=== PATIENT | female | born 1940 | race Caucasian/White ===

== ENCOUNTER → 2016-03-30 | Outpatient (CLI) | payer OTHER ==
[~2016-03-30] MED LIST: ACET-1138 PO; ACET-1257 PO; ALPR-413 PO; ASPEC81 PO; CHOL1000 PO; CLB200 PO; CLR10 PO; CRFL PO; ESCI1SOL2 PO; HYDR12.55 PO; HYDR25TA4 PO; KFLUDL2505 PO; LOSA100T2 PO; LOSA1TAB38 PO; LOSA50TA6 PO; NTRGSL/4 UT; OMEP40CA PO; OMEP40CA41 PO; ONDA4TAB10 SL; POTA10CA28 PO; POTA20SO2 PO; POTA20TA16 PO; SIMV10TA2 PO; SNK PO; SULF800T23 PO; TYLENOL PO; ULT50X PO; ZNT150 PO
[2016-03-30 09:59] LABS: BLOOD UREA NITROGEN 19 mg/dl (7-18); BUN/CREATININE RATIO 21.9 (10-20); CALCIUM 8.9 mg/dl (8.5-10.1); CARBON DIOXIDE 30 mmol/L (21-32); CHLORIDE 106 mmol/L (98-107); CREATININE 0.85 mg/dl (0.60-1.20); GLUCOSE 95 mg/dl (70-99); POTASSIUM 3.2 mmol/L (3.5-5.1); SODIUM 144 mmol/L (136-145)
== END | disposition home or self-care (01) ==
LOC: C.LAB 08:04
PROVIDERS: ATTEND Internal Medicine Geriatric Medicine
DX: M81.0 Age-related osteoporosis without current pathological fracture (principal)

== ENCOUNTER → 2016-04-15 | Outpatient (CLI) | payer OTHER ==
[2016-04-15 10:03] LABS: BLOOD UREA NITROGEN 14 mg/dl (7-18); BUN/CREATININE RATIO 17.6 (10-20); CALCIUM 8.8 mg/dl (8.5-10.1); CARBON DIOXIDE 27 mmol/L (21-32); CHLORIDE 109 mmol/L (98-107); CREATININE 0.81 mg/dl (0.60-1.20); GLUCOSE 91 mg/dl (70-99); POTASSIUM 3.8 mmol/L (3.5-5.1); SODIUM 145 mmol/L (136-145)
== END | disposition home or self-care (01) ==
LOC: C.LAB 08:14
PROVIDERS: ATTEND Internal Medicine Geriatric Medicine
DX: E87.6 Hypokalemia (principal)

== ENCOUNTER → 2016-06-28 | Outpatient (CLI) | payer OTHER ==
[~2016-06-28] MED LIST changes: +CHOL200027 PEG; +LORA-741 PO
[2016-06-28 09:42] LABS: BASO % 0.3 %; BASO ABS # 0.01 K/uL (0-0.2); COMPLETE YES; EOS % 2.6 %; HEMATOCRIT 40.2 % (37-47); LYMPH % 33.5 %; LYMPH ABS # 1.15 K/uL (1.2-3.4); MEAN CELL VOLUME 91.4 fL (80-100); MEAN CORPUSCULAR HEMOGLOBIN 29.3 pg (25-34); MEAN CORPUSCULAR HGB CONC 32.1 g/dl (32-36); MEAN PLATELET VOLUME 11.7 fL (7.4-10.4); MONO % 11.1 %; NEUT % 52.5 %; PLATELET COUNT 181 K/uL (130-400); WHITE BLOOD COUNT 3.43 K/uL (4.8-10.8)
[2016-06-28 10:11] LABS: ALKALINE PHOSPHATASE 59 U/L (45-117); ALT/SGPT 23 U/L (12-78); AST/SGOT 21 U/L (15-37); CHOLESTEROL 151 mg/dl (0-200); HDL CHOLESTEROL 74 mg/dl; LDL CHOLESTEROL CALCULATED 58 mg/dl; TRIGLYCERIDES 95 mg/dl (0-150); VERY LOW DENSITY LIPOPROT CALC 19 mg/dl
== END | disposition home or self-care (01) ==
LOC: C.LAB 08:02
PROVIDERS: ATTEND Family Medicine
DX: E78.5 Hyperlipidemia, unspecified (principal); E55.9 Vitamin D deficiency, unspecified; E04.2 Nontoxic multinodular goiter; K21.9 Gastro-esophageal reflux disease without esophagitis; Z79.899 Other long term (current) drug therapy

== ENCOUNTER 2016-07-22 11:38 | Emergency (ER) | payer OTHER ==
[~2016-07-22] VITALS: Ht 152.4 cm; Wt 70.7 kg
[~2016-07-22 11:38] MED LIST changes: -ACET-1257 PO; -ALPR-413 PO; -CHOL1000 PO; -CHOL200027 PEG; -CLR10 PO; -CRFL PO; -ESCI1SOL2 PO; -HYDR12.55 PO; -HYDR25TA4 PO; -KFLUDL2505 PO; -LORA-741 PO; -LOSA1TAB38 PO; -LOSA50TA6 PO; -NTRGSL/4 UT; -OMEP40CA41 PO; -ONDA4TAB10 SL; -POTA10CA28 PO; -POTA20SO2 PO; -POTA20TA16 PO; -SIMV10TA2 PO; -TYLENOL PO; -ZNT150 PO
[2016-07-22 11:45] VITALS: Ht 152.4 cm; Wt 70.7 kg
[2016-07-22] MEDS ORDERED: SODIUM CHLORIDE 0.9% 1000ML 1,000 ML IV STA (12:13)
--- NOTE | 2016-07-22 12:41 | DIAGNOSTIC IMAGING REPORT ---
CHEST ONE VIEW PORTABLE CLINICAL HISTORY: Sensation of obstructed food bolus COMPARISON STUDY: 07/28/2015 FINDINGS: The heart is mildly enlarged. There is stable aortic tortuosity. There is no focal pulmonary consolidation. There is no failure. There are no pleural effusions. There is no pneumomediastinum.[ IMPRESSION: No active disease in the chest. Electronically signed by: Remberto Sinclair M.D. 07/22/2016 12:39 PM Dictated Date/Time: 07/22/2016 12:39 PM
--- NOTE | 2016-07-22 12:43 | Gastrointestinal Consultation ---
Gastrointestinal Consultation Date of Consultation: July 22, 2016 Consulting Physician: Gaurang Reason for Consultation: food bolus History of Present Illness Patient is a 76 year old female w/ history of esophageal stricture, GERD, HTN, dyslipidemia presents in the ED with reports of food stuck in her esophagus. Was doing well until dinner last night. [place] ham sandwich stick. Tried water to pass without relief. Is tolerating clears and secretions. Still feels food stuck at location of sternum. Otherwise feeling well. No complaints. No known cardiac conditions, no known respiratory conditions. No complications with anesthesia in the past. EGD: previously done - self reports strictures Past Medical/Surgical History food bolus Past Medical History: HTN, GERD, dyslipidemia Past Surgical History: EGD, colon, cataract extraction, knee replacement, hysterectomy, cholecystectomy. Family History Diabetes mellitus Gallbladder disease Heart disease Hypertension Kidney stones Social History Smoking Status: Never Smoker Marital Status: Occupation Status: retired Allergies Coded Allergies: Nitrofurantoin (Verified Allergy, Intermediate, chest pain, h/a, sore throat, diarrhea., 07/22/16) Quinolones (Verified Allergy, Mild, HAND SWELLED UP, 07/22/16) Codeine (Verified Adverse Reaction, Mild, SEVERE CONSTIPATION, 07/22/16) Current Medications Home Meds and Scripts Medications Dose Route/Sig Max Daily Dose Days Date Category Dose Instructions Senna Lax (Senna) 8.6 Mg Tab 17.2 Mg PO HS 14 08/18/15 Rx Tramadol HCl 50 Mg Tab 50-100 Mg PO Q4H PRN 08/18/15 Rx Celebrex (Celecoxib) 200 Mg Cap 200 Mg PO QD@08 30 08/18/15 Rx Aspirin EC Low Dose (Aspirin) 81 Mg Ectab 81 Mg PO BID 30 08/18/15 Rx Tylenol Extra Strength (Acetaminophen) 500 Mg Tab 1,000 Mg PO Q8 30 08/18/15 Rx Bactrim Ds 800MG/160MG (Trimethoprim/Sulfamethoxazole) Tab 1 Tab PO BID 08/17/15 Reported Vitamin D3 (Cholecalciferol) 1,000 Unit Tab 3 Tab PO QAM 07/28/15 Reported Zocor (Simvastatin) 10 Mg Tab 10 Mg PO QPM 07/28/15 Reported Hyzaar (Losartan Potassium & Hydrochlo) 1 Tab Tab 1 Tab PO QAM 07/28/15 Reported 100-25 Prilosec (Omeprazole) 40 Mg Capcr 40 Mg PO QAM 07/28/15 Reported Review of Systems Constitutional: No chills, No fever Respiratory: No cough, No shortness of breath Cardiac: No chest pain Abdomen: + problem reported (sensation of food stuck in esophagus), No GI bleeding, No constipation, No diarrhea, No nausea, No pain, No vomiting Physical Exam Date Time Temp Pulse Resp B/P Pulse Ox O2 Delivery O2 Flow Rate FiO2 07/22/16 12:06 97 Room Air 07/22/16 11:45 36.8 78 20 143/89 98 Room Air General Appearance: no apparent distress Eyes: PERRL ENT: hearing grossly normal Neck: supple Respiratory/Chest: lungs clear, normal breath sounds Cardiovascular: regular rate, rhythm Abdomen: normal bowel sounds, non tender, soft, no organomegaly, no pulsatile mass Neurologic/Psych: alert, normal mood/affect, oriented x 3 Skin: normal color Laboratory Results Last 24 Hours Test 07/22/16 12:30 Impression Patient is a 76 year old female with a suspected food bolus Plan NPO EGD I saw and evaluated the patient. She presented with food impaction from last evening, still with a sensation of a bolus impaction. PE: NAD no abdominal tenderness Plan EGD for food bolus disimpaction
[2016-07-22 12:56] LABS: BUN/CREATININE RATIO 14.3 (10-20); CALCIUM 9.3 mg/dl (8.5-10.1); CREATININE 0.8 mg/dl (0.60-1.20); POTASSIUM 3.4 mmol/L (3.5-5.1)
[2016-07-22 13:02] LABS: BASO % 0.2 %; BASO ABS # 0.01 K/uL (0-0.2); COMPLETE YES; EOS % 0.4 %; HEMATOCRIT 41.2 % (37-47); IG% 0.2 %; LYMPH % 23.1 %; LYMPH ABS # 1.19 K/uL (1.2-3.4); MEAN CELL VOLUME 92.4 fL (80-100); MEAN CORPUSCULAR HEMOGLOBIN 29.8 pg (25-34); MEAN CORPUSCULAR HGB CONC 32.3 g/dl (32-36); MEAN PLATELET VOLUME 11.6 fL (7.4-10.4); MONO % 10.5 %; NEUT % 65.6 %; PLATELET COUNT 202 K/uL (130-400); RED BLOOD COUNT 4.46 M/uL (4.2-5.4); WHITE BLOOD COUNT 5.16 K/uL (4.8-10.8)
[2016-07-22 13:08] VITALS: O2SAT 96
--- NOTE | 2016-07-22 14:06 | Discharge Instructions ---
Endoscopy Patient Instructions Date / Procedure(s) Performed July 22, 2016. EGD Allergy Information Coded Allergies: Nitrofurantoin (Verified Allergy, Intermediate, chest pain, h/a, sore throat, diarrhea., 07/22/16) Quinolones (Verified Allergy, Mild, HAND SWELLED UP, 07/22/16) Codeine (Verified Adverse Reaction, Mild, SEVERE CONSTIPATION, 07/22/16) Discharge Date / Findings July 22, 2016. Food impaction, hiatal hernia Medication Instructions Restart Stopped Medication(s): Reported Home Medications Medications Dose Route/Sig Max Daily Dose Days Date Category Hydrochlorothiazide 12.5 Mg Tab 1 Tab PO DAILY 07/22/16 Reported Cozaar (Losartan Potassium) 50 Mg Tab 50 Mg PO DAILY 07/22/16 Reported Prilosec (Omeprazole) 40 Mg Cap 40 Mg PO DAILY 07/22/16 Reported Tylenol Extra Strength (Acetaminophen) 500 Mg Tab 1,000 Mg PO Q8 30 08/18/15 Rx Vitamin D3 (Cholecalciferol) 1,000 Unit Tab 3 Tab PO QAM 07/28/15 Reported Zocor (Simvastatin) 10 Mg Tab 10 Mg PO QPM 07/28/15 Reported Provider Instructions Activity Restrictions - No exercising or heavy lifting for 24 hours. - Do not drink alcohol the day of the procedure. - Do not drive a car or operate machinery until the day after the procedure. - Do not make any important decisions or sign important papers in 24 hours after the procedure. Following Day: - Return to full activity which may include returning to work/school. Diet Liquid diet today Soft diet for 1 week Treatment For Common After Affects For mild abdominal pain, bloating, or excessive gas: - Rest - Eat lightly - Lie on right side Follow-Up Information Repeat upper endoscopy in 2 to 4 weeks Omeprazole 40 mg per day Anesthesia Information What You Should Know You have had a procedure that required some medicine to reduce anxiety and discomfort. This treatment is called moderate sedation. After receiving the treatment, you may be sleepy, but you will be able to breathe on your own. The effects of the treatment may last for several hours. Follow these instructions along with Activity/Diet recommendations noted above: * Do NOT do anything where dizziness or clumsiness would be dangerous. * Rest quietly at home today, then you can be up and about tomorrow. * Have a responsible person stay with you the rest of today. * You may have had an I.V. today. If so, you may take the dressing off later today. Recommendations Call your doctor if: * Trouble breathing * Continuous vomiting for more than 24 hours * Temperature above 101 degrees * Severe abdominal pain or bloating * Pain not relieved by pain medicine ordered * There is increased drainage or redness from any incision * A large amount of rectal bleeding greater than 2-3 tablespoons. (If you had a polyp/s removed or have hemorrhoids, a small amount of blood - from the rectum is to be expected.) * You have any unanswered questions or concerns. IN THE EVENT OF A SERIOUS EMERGENCY, GO TO THE NEAREST EMERGENCY ROOM Your discharge instructions were prepared by provider Minna Merlos. Patient Instructions Signature Page Nichelle Lujan Patient (or Guardian) Signature/Date: I have read and understand the instructions given to me by my caregivers. Caregiver/RN/Doctor Signature/Date: The above-named patient and/or guardian has received patient instructions on this date. + Original Patient Signature Page (only) stays with chart. Please make copy for patient.
--- NOTE | 2016-07-22 14:20 | [facility] Post Operative Brief Note ---
Immediate Operative Summary Operative Date July 22, 2016. Pre-Operative Diagnosis FOOD IMPACTION Post-Operative Diagnosis FOOD IMPACTION / hiatal hernia Procedure(s) Performed Esophagogastroduodenoscopy Surgeon Dr. Minna Merlos Customer Support Executive Surgeon(s) none Estimated Blood Loss 0ml Findings 4 cm hiatal hernia (bolus had passed) Anesthesia General Complication(s) None Disposition Recovery Room / PACU
--- NOTE | 2016-07-22 14:25 | GI REPORT ---
Procedure Date: 07/22/2016 2:07 PM Procedure: Upper GI endoscopy Indications: Foreign body in the esophagus Medicines: General Anesthesia Complications: No immediate complications. Estimated blood loss: Minimal. Estimated Blood Loss: Estimated blood loss was minimal. Procedure: Pre-Anesthesia Assessment: - Prior to the procedure, a History and Physical was performed, and patient medications, allergies and sensitivities were reviewed. The patient's tolerance of previous anesthesia was reviewed. - The risks and benefits of the procedure and the sedation options and risks were discussed with the patient. All questions were answered and informed consent was obtained. - Patient identification and proposed procedure were verified prior to the procedure by the physician, the nurse and the pump servicer. The procedure was verified in the procedure room. - Pre-procedure physical examination revealed no contraindications to sedation. - ASA Grade Assessment: III - A patient with severe systemic disease. - After reviewing the risks and benefits, the patient was deemed in satisfactory condition to undergo the procedure. - The anesthesia plan was to use general anesthesia. - Immediately prior to administration of medications, the patient was re-assessed for adequacy to receive sedatives. - The heart rate, respiratory rate, oxygen saturations, blood pressure, adequacy of pulmonary ventilation, and response to care were monitored throughout the procedure. - The physical status of the patient was re-assessed after the procedure. After obtaining informed consent, the endoscope was passed under direct vision. Throughout the procedure, the patient's blood pressure, pulse, and oxygen saturations were monitored continuously. The scope was introduced through the mouth, and advanced to the second part of duodenum. The upper GI endoscopy was accomplished without difficulty. The patient tolerated the procedure well. Findings: The upper third of the esophagus and middle third of the esophagus were normal. A medium-sized hiatus hernia was found. The proximal extent of the gastric folds (end of tubular esophagus) was 35 cm from the incisors. The hiatal narrowing was 39 cm from the incisors. The Z-line was 35 cm from the incisors. The entire examined stomach was normal. The examined duodenum was normal. Impression: - 4 cm hiatus hernia. - Normal stomach. - Normal examined duodenum. Recommendation: - Discharge patient to home (ambulatory). - Full liquid diet today. - Repeat the upper endoscopy in 2 weeks. - Use Prilosec (omeprazole) 40 mg PO daily. Minna Merlos D.O. Minna Merlos DO 07/22/2016 2:24:44 PM This report has been signed electronically. Note Initiated On: 07/22/2016 2:07 PM I attest to the content of the Intraoperative Record and orders documented therein, exceptions below
[2016-07-22] MEDS ORDERED: ONDANSETRON INJ 2 MG/ML 2 ML VIAL IV PRN ×2 (14:30→14:45)
[2016-07-22] MEDS ORDERED: LACTATED RINGER'S 1000ML 1,000 ML IV PRN (14:32)
[2016-07-22] MEDS ORDERED: PROPOFOL IV EMULSION 10 MG/ML 20 ML VIAL IV ONE (14:43)
[2016-07-22] MEDS ORDERED: ROCURONIUM BROMIDE 10 MG/ML 5 ML VIAL ONE (14:43)
[2016-07-22] MEDS ORDERED: SUCCINYLCHOLINE CHLORIDE 20 MG/ML 10 ML VIAL IV ONE (14:43)
[2016-07-22] MEDS ORDERED: ONDANSETRON INJ 2 MG/ML 2 ML VIAL ONE (14:43)
[2016-07-22] MEDS ORDERED: LIDOCAINE HCL 2% 2 ML VIAL (20MG/ML) ONE (14:43)
[2016-07-22] MEDS ORDERED: FENTANYL CITRATE INJ 50 MCG/1 ML 2 ML VIAL IV PRN (14:45)
--- NOTE | 2016-07-22 14:51 | Anesthesiology Progress Note ---
Anesthesia Post Op Note Date & Time July 22, 2016 at 14:51 Vital Signs Pain Intensity: 0 Vital Signs Past 12 Hours Date Time Temp Pulse Resp B/P Pulse Ox O2 Delivery O2 Flow Rate FiO2 07/22/16 14:40 72 26 141/98 100 Mask 10 07/22/16 14:31 36. 78 20 149/96 100 Mask 10 07/22/16 13:08 71 16 96 07/22/16 13:00 135/84 07/22/16 12:49 74 07/22/16 12:41 143/88 07/22/16 12:06 97 Room Air 07/22/16 11:45 36.8 78 20 143/89 98 Room Air Notes Mental Status: alert / awake / arousable, participated in evaluation Pt Amnestic to Procedure: Yes Nausea / Vomiting: adequately controlled Pain: adequately controlled Airway Patency, RR, SpO2: stable & adequate BP & HR: stable & adequate Hydration State: stable & adequate Anesthetic Complications: no major complications apparent Pt doing very well.
[2016-07-22 15:18] VITALS: BP 138/77; PULSE 68; TEMP 36.8; O2SAT 94
[2016-07-22 15:55] VITALS: BP 135/86; PULSE 66; TEMP 36.7; O2SAT 94
[2016-07-22 16:15] VITALS: BP 150/98; PULSE 69; TEMP 36.8; O2SAT 96
--- NOTE | 2016-07-22 17:50 | EMERGENCY ROOM VISIT NOTE ---
History Report prepared by Shawn: Paz Osorio Under the Supervision of: Dr. Julio C Ramsay M.D. First contact with patient: 12:05 Chief Complaint: FOOD BOLUS Stated Complaint: FOOD STUCK IN THROAT Nursing Triage Summary: Thinks there is something in her throat since yesterday afternoon. Reports previous history of 3 food bolus which she's been seen in the ED for, but not for past 5 years. Ate toast this morning without difficulty, but afraid to eat. History of Present Illness The patient is a 76 year old female who presents to the Emergency Room with complaints of possible food bolus. The patient had some pieces of ham yesterday afternoon. There were no bones in the ham. Since then, she feels as though something is stuck low in her throat. She has been able to drink liquids without issues. She had a toast this morning about 4 and a half hours ago without any difficulties. She currently denies any pain. She has a history of severe food bolus occurring several years ago. She had mild episodes of food bolus occurring several times over the past few years. Pt denies LOC, headache, fevers, chills, diaphoresis, visual changes, issues with voice or speaking, neck pain, chest pain, breathing difficulties, nausea, vomiting, abdominal pain, back pain, melena, hematochezia, urinary symptoms, numbness, weakness, lymphadenopathy, rash, or other complaints. Source of History: patient Onset: yesterday afternoon Position: throat Symptom Intensity: No pain Quality: other (possible food bolus) Review of Systems See HPI for pertinent positives and negatives. A total of ten systems were reviewed and were otherwise negative. Past Medical & Surgical Medical Problems: (1) Acid reflux (2) Obstruction of esophagus due to food impaction (3) Urinary frequency Surgical Problems: (1) Post-operative state Family History Diabetes mellitus Gallbladder disease Heart disease Hypertension Kidney stones Social History Smoking Status: Never Smoker Marital Status: Housing Status: lives with significant other Occupation Status: retired Current/Historical Medications Scheduled Acetaminophen (Tylenol Extra Strength), 1,000 MG PO Q8 Cholecalciferol (Vitamin D3), 3 TAB PO QAM Hydrochlorothiazide (Hydrochlorothiazide), 1 TAB PO DAILY Losartan Potassium (Cozaar), 50 MG PO DAILY Omeprazole (Prilosec), 40 MG PO DAILY Simvastatin (Zocor), 10 MG PO QPM Allergies Coded Allergies: Nitrofurantoin (Verified Allergy, Intermediate, chest pain, h/a, sore throat, diarrhea., 07/22/16) Quinolones (Verified Allergy, Mild, HAND SWELLED UP, 07/22/16) Codeine (Verified Adverse Reaction, Mild, SEVERE CONSTIPATION, 07/22/16) Physical Exam Vital Signs Date Time Temp Pulse Resp B/P Pulse Ox O2 Delivery O2 Flow Rate FiO2 07/22/16 16:15 36.8 69 16 150/98 96 Room Air 07/22/16 15:55 36.7 66 16 135/86 94 Room Air 07/22/16 15:18 36.8 68 16 138/77 94 Room Air 07/22/16 15:10 36.4 66 20 142/89 97 Room Air 07/22/16 15:00 72 20 131/93 96 Room Air 07/22/16 14:50 73 20 146/91 100 Mask 10 07/22/16 14:40 72 16 141/98 100 Mask 10 07/22/16 14:31 36. 78 20 149/96 100 Mask 10 07/22/16 13:08 71 16 96 07/22/16 13:00 135/84 07/22/16 12:49 74 07/22/16 12:41 143/88 07/22/16 12:06 97 Room Air 07/22/16 11:45 36.8 78 20 143/89 98 Room Air Physical Exam GENERAL: Awake, alert, well-appearing, in no distress HENT: Normocephalic, atraumatic. Oropharynx unremarkable. EYES: Normal conjunctiva. Sclera non-icteric. NECK: Supple. No nuchal rigidity. FROM. No JVD. RESPIRATORY: Clear to auscultation. CARDIAC: Regular rate, normal rhythm. Extremities warm and well perfused. Pulses equal. ABDOMEN: Soft, non-distended. No tenderness to palpation. No rebound or guarding. No masses. RECTAL: Deferred. MUSCULOSKELETAL: Chest examination reveals no tenderness. The back is symmetrical on inspection without obvious abnormality. There is no CVA tenderness to palpation. No joint edema. LOWER EXTREMITIES: Calves are equal size bilaterally and non-tender. No edema. No discoloration. NEURO: Normal sensorium. No sensory or motor deficits noted. SKIN: No rash or jaundice noted. Medical Decision & Procedures ER Provider Diagnostic Interpretation: X-ray: Per my interpretation, radiologist review. CHEST ONE VIEW PORTABLE CLINICAL HISTORY: Sensation of obstructed food bolus COMPARISON STUDY: 07/28/2015 FINDINGS: The heart is mildly enlarged. There is stable aortic tortuosity. There is no focal pulmonary consolidation. There is no failure. There are no pleural effusions. There is no pneumomediastinum.[ IMPRESSION: No active disease in the chest. Electronically signed by: Remberto Sinclair M.D. 07/22/2016 12:39 PM Dictated Date/Time: 07/22/2016 12:39 PM Laboratory Results 07/22/16 12:30 Red Blood Count 4.46, Mean Corpuscular Volume 92.4, Mean Corpuscular Hemoglobin 29.8, Mean Corpuscular Hemoglobin Concent 32.3, Mean Platelet Volume 11.6, Neutrophils (%) (Auto) 65.6, Lymphocytes (%) (Auto) 23.1, Monocytes (%) (Auto) 10.5, Eosinophils (%) (Auto) 0.4, Basophils (%) (Auto) 0.2, Neutrophils # (Auto ) 3.39, Lymphocytes # (Auto) 1.19, Monocytes # (Auto) 0.54, Eosinophils # (Auto ) 0.02, Basophils # (Auto) 0.01 07/22/16 12:30 Test 07/22/16 12:30 White Blood Count 5.16 K/uL (4.8-10.8) Red Blood Count 4.46 M/uL (4.2-5.4) Hemoglobin 13.3 g/dL (12.0-16.0) Hematocrit 41.2 % (37-47) Mean Corpuscular Volume 92.4 fL (80-100) Mean Corpuscular Hemoglobin 29.8 pg (25-34) Mean Corpuscular Hemoglobin Concent 32.3 g/dl (32-36) Platelet Count 202 K/uL (130-400) Mean Platelet Volume 11.6 fL (7.4-10.4) Neutrophils (%) (Auto) 65.6 % Lymphocytes (%) (Auto) 23.1 % Monocytes (%) (Auto) 10.5 % Eosinophils (%) (Auto) 0.4 % Basophils (%) (Auto) 0.2 % Neutrophils # (Auto) 3.39 K/uL (1.4-6.5) Lymphocytes # (Auto) 1.19 K/uL (1.2-3.4) Monocytes # (Auto) 0.54 K/uL (0.11-0.59) Eosinophils # (Auto) 0.02 K/uL (0-0.5) Basophils # (Auto) 0.01 K/uL (0-0.2) RDW Standard Deviation 46.7 fL (36.4-46.3) RDW Coefficient of Variation 13.8 % (11.5-14.5) Immature Granulocyte % (Auto) 0.2 % Immature Granulocyte # (Auto) 0.01 K/uL (0.00-0.02) Anion Gap 4.0 mmol/L (3-11) Est Creatinine Clear Calc Drug Dose 52.5 ml/min Estimated GFR () 83.0 Estimated GFR (Non- 71.6 BUN/Creatinine Ratio 14.3 (10-20) Calcium Level 9.3 mg/dl (8.5-10.1) Total Bilirubin 0.6 mg/dl (0.2-1) Direct Bilirubin 0.2 mg/dl (0-0.2) Aspartate Amino Transf (AST/SGOT) 21 U/L (15-37) Alanine Aminotransferase (ALT/SGPT) 25 U/L (12-78) Alkaline Phosphatase 63 U/L (45-117) Total Protein 7.7 gm/dl (6.4-8.2) Albumin 3.9 gm/dl (3.4-5.0) Lipase 97 U/L (73-393) Laboratory results reviewed by me Medications Administered Medications (Trade) Dose Ordered Sig/Deirdre Route Start Time Stop Time Status Last Admin Dose Admin Sodium Chloride (Nss 1000ml) 1,000 ml @ 125 mls/hr Q8H STAT IV 07/22/16 12:13 07/22/16 17:34 DC 07/22/16 12:42 125 MLS/HR ED Course 1205: The patient was evaluated in room B04B. A complete history and physical exam was performed. 1213: Sodium Chloride 1000 ml @ 125 mls/hr IV 1223: I discussed the patient's case with Linda Hurley gastroenterology PA-C. She will evaluate the patient in the Emergency Room. 1410: Upon reexamination, the patient was resting comfortably. I discussed the test results and treatment plan with her. The patient will be evaluated for further management. Medical Decision Triage Nursing notes reviewed. The patient's presentation and history were concerning for difficulty swallowing and a prior history of esophageal food impaction. Etiologies such as esophageal food impaction, esophageal stricture, esophageal rupture, hiatal hernia, reflux, as well as others were entertained. Chest x-ray and laboratory testing was unremarkable. Consultation was made to gastroenterology. The patient was evaluated in the emergency department. They felt that endoscopy was necessary. The patient was taken to the OR suite for further management by GI. The chart was completed utilizing [employer] Speech voice recognition software. Grammatical errors, random word insertions, pronoun errors, and incomplete sentences are an occasional consequence of this system due to software limitations, ambient noise, and hardware issues. Any formal questions or concerns about the content, text, or information contained within the body of this dictation should be directly addressed to the physician for clarification. Consults Time Called: 1220 Consulting Physician: dorian Keene PA-C Returned Call: 1223 I discussed the patient's case with dorian Keene. She will evaluate the patient in the Emergency Room. Impression Primary Impression: Food impaction of esophagus Scribe Attestation The scribe's documentation has been prepared under my direction and personally reviewed by me in its entirety. I confirm that the note above accurately reflects all work, treatment, procedures, and medical decision making performed by me. Departure Information Dispostion Being Evaluated By Surgeon Curtis Hampton M.D. (PCP) Patient Instructions My [facility]
[2016-07-31] MEDS ORDERED: LOSA50TA6 PO (13:17)
[2016-07-31] MEDS ORDERED: HYDR12.55 PO (13:17)
[2016-07-31] MEDS ORDERED: SIMV10TA2 PO (14:04)
[2016-08-16] MEDS ORDERED: LOSA1TAB38 PO (13:21)
[2016-08-16] MEDS ORDERED: POTA20TA16 PO (13:21)
[2016-09-04] MEDS ORDERED: OMEP40CA41 PO (13:17)
[2016-09-04] MEDS ORDERED: SIMV10TA2 PO (13:21)
[2016-09-04] MEDS ORDERED: HYDR25TA4 PO (13:21)
[2016-09-04] MEDS ORDERED: CHOL1000 PO (14:04)
[2016-09-04] MEDS ORDERED: KFLUDL2505 PO (16:03)
[2016-10-05] MEDS ORDERED: ESCI1SOL2 PO (12:17)
== END 2016-07-22 16:22 | disposition home or self-care (01) ==
LOC: C.EDB 11:39
DX: T18.128A Food in esophagus causing other injury, initial encounter (principal); X58.XXXA Exposure to other specified factors, initial encounter; K44.9 Diaphragmatic hernia without obstruction or gangrene; K21.9 Gastro-esophageal reflux disease without esophagitis; Z79.899 Other long term (current) drug therapy; Z88.5 Allergy status to narcotic agent; Z88.8 Allergy status to other drugs, medicaments and biological substances; Z83.3 Family history of diabetes mellitus; Z83.79 Family history of other diseases of the digestive system; Z82.49 Family history of ischemic heart disease and other diseases of the circulatory system; Z84.1 Family history of disorders of kidney and ureter

== ENCOUNTER 2016-07-31 22:38 | Emergency (ER) | payer OTHER ==
[~2016-07-31] VITALS: Ht 152.4 cm; Wt 68.5 kg
[~2016-07-31 22:38] MED LIST changes: -ASPEC81 PO; -CLB200 PO; +HYDR12.55 PO; -LOSA100T2 PO; +LOSA50TA6 PO; -OMEP40CA PO; +SIMV10TA2 PO; -SNK PO; -SULF800T23 PO; -ULT50X PO
[2016-07-31 22:41] VITALS: BP 170/79; PULSE 77; TEMP 36.5; O2SAT 98; Ht 152.4 cm; Wt 68.5 kg
[2016-07-31] MEDS ORDERED: DiphenhydrAMINE HCL 50 MG/ML VIAL IM STA (23:00)
[2016-07-31] MEDS ORDERED: ACET-1257 PO (23:01)
--- NOTE | 2016-07-31 23:02 | EMERGENCY ROOM VISIT NOTE ---
History Report prepared by Shawn: Moses Calero Under the Supervision of: Dr. Michael Mendoza D.O. First contact with patient: 22:51 Chief Complaint: OTHER COMPLAINT Stated Complaint: ALLERGIC REACTION TO BACTRIM History of Present Illness The patient is a 76 year old female who presents to the Emergency Room with complaints of a possible allergic reaction that occurred shortly prior to arrival. The patient is currently complaining of a constant swollen throat and a "funny feeling" in her tongue. The patient notes that she took Bactrim today, and does not think that she drank enough water with it. The patient has a history of a food bolus and has an appointment to get her throat stretched. The patient takes Losartan daily for hypertension. 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 A total of ten systems were reviewed and were otherwise negative. Past Medical & Surgical Medical Problems: (1) Acid reflux (2) Obstruction of esophagus due to food impaction (3) Urinary frequency Surgical Problems: (1) Post-operative state Family History Diabetes mellitus Gallbladder disease Heart disease Hypertension Kidney stones Social History Smoking Status: Never Smoker Marital Status: Housing Status: lives with significant other Occupation Status: retired Current/Historical Medications Scheduled Cholecalciferol (Vitamin D3), 3,000 INTER.UNIT PO QAM Hydrochlorothiazide (Hydrochlorothiazide), 12.5 MG PO DAILY Losartan Potassium (Cozaar), 50 MG PO DAILY Omeprazole (Prilosec), 40 MG PO DAILY Simvastatin (Zocor), 10 MG PO QPM Scheduled PRN Acetaminophen (Tylenol Extra Strength), 1,000 MG PO Q8H PRN for Pain Allergies Coded Allergies: Nitrofurantoin (Verified Allergy, Intermediate, chest pain, h/a, sore throat, diarrhea., 07/22/16) Quinolones (Verified Allergy, Mild, HAND SWELLED UP, 07/22/16) Codeine (Verified Adverse Reaction, Mild, SEVERE CONSTIPATION, 07/22/16) Physical Exam Vital Signs Date Time Temp Pulse Resp B/P Pulse Ox O2 Delivery O2 Flow Rate FiO2 07/31/16 22:41 36.5 77 18 170/79 98 Room Air Physical Exam GENERAL: Awake, alert, well-appearing, in no distress HENT: Normocephalic, atraumatic. Oropharynx unremarkable. EYES: Normal conjunctiva. Sclera non-icteric. NECK: Supple. No nuchal rigidity. FROM. No JVD. RESPIRATORY: Clear to auscultation. CARDIAC: Regular rate, normal rhythm. Extremities warm and well perfused. Pulses equal. ABDOMEN: Soft, non-distended. No tenderness to palpation. No rebound or guarding. No masses. RECTAL: Deferred. MUSCULOSKELETAL: Chest examination reveals no tenderness. The back is symmetrical on inspection without obvious abnormality. There is no CVA tenderness to palpation. No joint edema. LOWER EXTREMITIES: Calves are equal size bilaterally and non-tender. No edema. No discoloration. NEURO: Normal sensorium. No sensory or motor deficits noted. SKIN: No rash or jaundice noted. Medical Decision & Procedures Medications Administered Medications (Trade) Dose Ordered Sig/Deirdre Route Start Time Stop Time Status Last Admin Dose Admin Diphenhydramine HCl (Benadryl Inj) 25 mg NOW STAT IM 07/31/16 23:00 07/31/16 23:01 DC 07/31/16 23:05 25 MG ED Course 2252: The patient was evaluated in room A11. A complete history and physical exam was performed. 2300: Ordered Benadryl 25 mg IM. 2306: I reevaluated the patient. Discussed results and discharge instructions: she verbalized understanding and agreement. The patient is ready for discharge. Medical Decision Differential Diagnosis includes: Allergic reaction, anxiety, angioedema. There is no evidence of angioedema she is swallowing and phonating without any difficulty in no distress. Patient was advised to be careful with her losartan as well as Bactrim and to return for any other symptoms. Impression Primary Impression: Allergic reaction Scribe Attestation The scribe's documentation has been prepared under my direction and personally reviewed by me in its entirety. I confirm that the note above accurately reflects all work, treatment, procedures, and medical decision making performed by me. Departure Information Dispostion Home / Self-Care Referrals Curtis Varela M.D. (PCP) Patient Instructions ED Allergic Reaction General Other, My [facility] Problem Qualifiers Primary Impression: Allergic reaction Encounter type: initial encounter Qualified Codes: T78.40XA - Allergy, unspecified, initial encounter
[2016-08-16] MEDS ORDERED: LOSA1TAB38 PO (13:21)
[2016-08-16] MEDS ORDERED: POTA20TA16 PO (13:21)
[2016-09-04] MEDS ORDERED: OMEP40CA41 PO (13:17)
[2016-09-04] MEDS ORDERED: SIMV10TA2 PO (13:21)
[2016-09-04] MEDS ORDERED: HYDR25TA4 PO (13:21)
[2016-09-04] MEDS ORDERED: CHOL1000 PO (14:04)
[2016-09-04] MEDS ORDERED: KFLUDL2505 PO (16:03)
[2016-10-05] MEDS ORDERED: ESCI1SOL2 PO (12:17)
== END 2016-07-31 23:09 | disposition home or self-care (01) ==
LOC: C.EDB 22:40 → C.EDA 23:09
DX: T78.40XA Allergy, unspecified, initial encounter (principal); I10 Essential (primary) hypertension; K21.9 Gastro-esophageal reflux disease without esophagitis; Z79.899 Other long term (current) drug therapy; Z87.448 Personal history of other diseases of urinary system; Z87.898 Personal history of other specified conditions; Z82.49 Family history of ischemic heart disease and other diseases of the circulatory system; Z83.3 Family history of diabetes mellitus; Z83.79 Family history of other diseases of the digestive system; Z84.1 Family history of disorders of kidney and ureter; X58.XXXA Exposure to other specified factors, initial encounter

== ENCOUNTER 2016-08-02 22:45 | Observation (INO) | payer OTHER ==
[~2016-08-02] VITALS: Ht 152.4 cm; Wt 67.7 kg
[~2016-08-02 22:45] MED LIST changes: -ACET-1138 PO; +ACET-1257 PO
[2016-08-02] MEDS ORDERED: POTA10CA28 PO (23:19)
[2016-08-03 01:06] LABS: BASO % 0.2 %; BASO ABS # 0.01 K/uL (0-0.2); COMPLETE YES; EOS % 0.8 %; HEMATOCRIT 38.6 % (37-47); IG% 0.2 %; LYMPH % 23.9 %; LYMPH ABS # 1.25 K/uL (1.2-3.4); MEAN CELL VOLUME 89.4 fL (80-100); MEAN CORPUSCULAR HEMOGLOBIN 30.6 pg (25-34); MEAN CORPUSCULAR HGB CONC 34.2 g/dl (32-36); MEAN PLATELET VOLUME 10.7 fL (7.4-10.4); MONO % 9.8 %; NEUT % 65.1 %; PLATELET COUNT 186 K/uL (130-400); RED BLOOD COUNT 4.32 M/uL (4.2-5.4); WHITE BLOOD COUNT 5.23 K/uL (4.8-10.8)
[2016-08-03 01:24] LABS: BUN/CREATININE RATIO 6.7 (10-20); CALCIUM 8.8 mg/dl (8.5-10.1); CREATININE 0.89 mg/dl (0.60-1.20); POTASSIUM 3.3 mmol/L (3.5-5.1)
[2016-08-03 01:35] LABS: ALB/GLOB RATIO 1.2 (0.9-2); THYROID STIMULATING HORMONE 1.96 uIu/ml (0.300-4.500)
[2016-08-03 01:36] LABS: URINE APPEARANCE CLEAR (CLEAR); URINE BILIRUBIN NEG (NEG); URINE COLOR YELLOW; URINE NITRITE NEG (NEG); URINE PH 6.5 (4.5-7.5); URINE SPECIFIC GRAVITY 1.006 (1.000-1.030); UROBILINOGEN NEG (NEG); ZZUR CULT IF INDIC CLEAN CATCH NO
[2016-08-03] MEDS ORDERED: NYSTATIN SUSP 500,000 U/5 ML UDC PO STA (01:41)
[2016-08-03 01:45] LABS: MANUAL MICROSCOPIC REQUIRED? NO; REVIEW REQ? NO
[2016-08-03 01:51] LABS: ACETAMINOPHEN < 2 ug/ml (10-30)
[2016-08-03 01:52] LABS: BENZODIAZEPINE, URINE NEG (NEG); COCAINE,URINE NEG (NEG); PHENCYCLIDINE, URINE NEG (NEG)
[2016-08-03] MEDS ORDERED: ALUMINUM/MAGNESIUM/SIMETH (MAALOX MAX) 30 ML UDC PO PRN (02:45)
[2016-08-03] MEDS ORDERED: ONDANSETRON INJ 2 MG/ML 2 ML VIAL IV PRN (02:45)
[2016-08-03] MEDS ORDERED: ACETAMINOPHEN 500 MG TAB PO PRN (02:45)
[2016-08-03] MEDS ORDERED: MAGIC SWIZZLE PO PRN (03:00)
--- NOTE | 2016-08-03 03:02 | History and Physical ---
History & Physical Date & Time of Service: August 03, 2016 at 02:50 Chief Complaint: Throat Pain Primary Care Physician: Curtis Varela M.D. History of Present Illness Source: patient This is a 76 yo f that is presenting to us with a globus sensation and choking with food which has been ongoing since july 2101/2017. She states that she has had a progressive worsening of " a feeling of having food stuck." since the . She came to the ED with the hope that " someone can finally do something about it." She has been scared to take any of her regular medications because she has been choking on them; " I am frightened and I just want some help". When she was told an outpatient follow up with GI would be arranged she got very upset and stated to Dr Bell that she was going to go home and take all of her pills and kill herself. Since there was concern for suicidal threats she was moved to one of the isolated rooms and placed on one to one. During our interview she stated, " i know I should not have said that but you have to understand I just need help." She denies any Si or HI at this time. She has no history of depression or anxiety. Past Medical/Surgical History Medical Problems: (1) Acid reflux Status: Chronic (2) Obstruction of esophagus due to food impaction Status: Resolved (3) Urinary frequency Status: Chronic Surgical Problems: (1) Post-operative state Status: Resolved Family History Diabetes mellitus Gallbladder disease Heart disease Hypertension Kidney stones Social History Smoking Status: Never Smoker Smokeless Tobacco Use: No Alcohol Use: none Drug Use: none Marital Status: Housing status: lives with family Occupational Status: retired Immunizations History of Influenza Vaccine: Unknown History of Tetanus Vaccine?: Unknown History of Pneumococcal: Unknown History of Hepatitis B Vaccine: Unknown Multi-Drug Resistant Organisms History of MDRO: No Allergies Coded Allergies: Nitrofurantoin (Verified Allergy, Intermediate, chest pain, h/a, sore throat, diarrhea., 08/02/16) Quinolones (Verified Allergy, Mild, HAND SWELLED UP, 08/02/16) Codeine (Verified Adverse Reaction, Mild, SEVERE CONSTIPATION, 08/02/16) Home Medications Scheduled Cholecalciferol (Vitamin D3), 3,000 INTER.UNIT PO QAM Hydrochlorothiazide (Hydrochlorothiazide), 12.5 MG PO DAILY Losartan Potassium (Cozaar), 50 MG PO DAILY Omeprazole (Prilosec), 40 MG PO DAILY Potassium Chloride (Micro-K Ext Rel), Unknown Dose PO DAILY Simvastatin (Zocor), 10 MG PO QPM Scheduled PRN Acetaminophen (Tylenol Extra Strength), 1,000 MG PO Q8H PRN for Pain Review of Systems Constitutional: No fever Eyes: No worsening of vision ENT: No hearing loss Respiratory: No cough, No dyspnea at rest, No dyspnea on exertion, No shortness of breath, No sputum, No wheezing Cardiovascular: No chest pain Abdomen: + problem reported (as above), No constipation, No diarrhea, No nausea , No pain, No vomiting Genitourinary - Female: No dysuria, No hematuria Neurologic: No balance problems, No numbness/tingling, No weakness Psychiatric: No depression symptoms Endocrine: No fatigue Integumentary: No rash Physical Exam Vital Signs Date Time Temp Pulse Resp B/P Pulse Ox O2 Delivery O2 Flow Rate FiO2 08/03/16 01:30 78 20 128/86 97 Room Air 08/02/16 23:03 Room Air 97 08/02/16 22:51 36.4 74 20 145/96 96 Room Air General Appearance: no apparent distress Head: normocephalic, atraumatic Eyes: normal inspection ENT: normal ENT inspection, + pertinent finding (thyroid is not palpable) Neck: supple Respiratory/Chest: normal breath sounds, no respiratory distress, no accessory muscle use Cardiovascular: regular rate, rhythm, no murmur Abdomen/GI: normal bowel sounds, non tender, soft Back: normal inspection Extremities/Musculoskelatal: normal inspection, no calf tenderness, no pedal edema Neurologic/Psych: no motor/sensory deficits, alert, normal mood/affect, oriented x 3 Skin: normal color, warm/dry, no rash Lymphatic: no adenopathy Diagnostics Laboratory Results Results Past 24 Hours Test 08/03/16 00:53 08/03/16 01:15 Range/Units White Blood Count 5.23 4.8-10.8 K/uL Red Blood Count 4.32 4.2-5.4 M/uL Hemoglobin 13.2 12.0-16.0 g/dL Hematocrit 38.6 37-47 % Mean Corpuscular Volume 89.4 80-100 fL Mean Corpuscular Hemoglobin 30.6 25-34 pg Mean Corpuscular Hemoglobin Concent 34.2 32-36 g/dl Platelet Count 186 130-400 K/uL Mean Platelet Volume 10.7 7.4-10.4 fL Neutrophils (%) (Auto) 65.1 % Lymphocytes (%) (Auto) 23.9 % Monocytes (%) (Auto) 9.8 % Eosinophils (%) (Auto) 0.8 % Basophils (%) (Auto) 0.2 % Neutrophils # (Auto) 3.41 1.4-6.5 K/uL Lymphocytes # (Auto) 1.25 1.2-3.4 K/uL Monocytes # (Auto) 0.51 0.11-0.59 K/uL Eosinophils # (Auto) 0.04 0-0.5 K/uL Basophils # (Auto) 0.01 0-0.2 K/uL RDW Standard Deviation 44.5 36.4-46.3 fL RDW Coefficient of Variation 13.5 11.5-14.5 % Immature Granulocyte % (Auto) 0.2 % Immature Granulocyte # (Auto) 0.01 0.00-0.02 K/uL Sodium Level 137 136-145 mmol/L Potassium Level 3.3 3.5-5.1 mmol/L Chloride Level 102 98-107 mmol/L Carbon Dioxide Level 27 21-32 mmol/L Anion Gap 8.0 3-11 mmol/L Blood Urea Nitrogen 6 7-18 mg/dl Creatinine 0.89 0.60-1.20 mg/dl Est Creatinine Clear Calc Drug Dose 46.2 ml/min Estimated GFR () 73.0 Estimated GFR (Non- 63.0 BUN/Creatinine Ratio 6.7 10-20 Random Glucose 108 70-99 mg/dl Calcium Level 8.8 8.5-10.1 mg/dl Total Bilirubin 0.7 0.2-1 mg/dl Aspartate Amino Transf (AST/SGOT) 29 15-37 U/L Alanine Aminotransferase (ALT/SGPT) 29 12-78 U/L Alkaline Phosphatase 62 45-117 U/L Total Protein 7.3 6.4-8.2 gm/dl Albumin 4.0 3.4-5.0 gm/dl Globulin 3.3 2.5-4.0 gm/dl Albumin/Globulin Ratio 1.2 0.9-2 Thyroid Stimulating Hormone (TSH) 1.960 0.300-4.500 uIu/ml Salicylates Level < 1.7 2.8-20 mg/dl Acetaminophen Level < 2 10-30 ug/ml Ethyl Alcohol mg/dL < 3.0 0-3 mg/dl Urine Color YELLOW Urine Appearance CLEAR CLEAR Urine pH 6.5 4.5-7.5 Urine Specific [place] 1.006 1.000-1.030 Urine Protein NEG NEG Urine Glucose (UA) NEG NEG Urine Ketones TRACE NEG Urine Occult Blood NEG NEG Urine Nitrite NEG NEG Urine Bilirubin NEG NEG Urine Urobilinogen NEG NEG Urine Leukocyte Esterase TRACE NEG Urine WBC (Auto) 1-5 0-5 /hpf Urine RBC (Auto) 0-4 0-4 /hpf Urine Hyaline Casts (Auto) 0 0-5 /lpf Urine Epithelial Cells (Auto) 10-20 0-5 /lpf Urine Bacteria (Auto) NEG NEG Urine Opiates Screen NEG NEG Urine Methadone, Qualitative NEG NEG Urine Barbiturates NEG NEG Urine Phencyclidine (PCP) Level NEG NEG Ur Amphetamine/Methamphetamine NEG NEG MDMA (Ecstasy) Screen NEG NEG Urine Benzodiazepines Screen NEG NEG Urine Cocaine Metabolite NEG NEG Urine Marijuana (THC) NEG NEG Impression Assessment and Plan This is a 76 yo f that is presenting to us with SI surrounding distress regarding her globus sensation. Patient does state that she apologizes for her statement however because patient is under a lot of distress about the globus sensation the patient will be monitored on one to one over night globus pharyngis - Gi consult - Obs med surg admission - TSH was WNL - NPO overnight in case decision made to scope Suicidal ideation - psych consult - one to one until patient is cleared by psych Hypokalemia - NSS with KCL 20 @ 125 cc/h while patient is NPO - recheck bmp in am HTN - cont losartan and HCTZ Hyperlipidemia - cont simvastatin GERD - change omeprazole to equiv in protonix DVT prophylaxis - heparin bid Resident Physician Supervision Note: I was present with Dr. geller during the history and exam. I discussed the case with the resident and agree with the findings and plan as documented in the note. Any exceptions or clarifications are listed here: 76 y/o F Hx HTN, HPL - progressive dysphagia - feels like all solid food is getting stuck in there throat Pt unfortunately threatened suicide while in ER - later apologized and denies SI presently OE AAO x 3 S1,2 R CTAB NT, ND, BS+ No CCE P: Pt to be evaluated by GI Will need psych eval as well Documented By: Kenny Colon Level of Care Med/Surg VTE Prophylaxis VTE Risk Assessment Done? Y/N: Yes Risk Level: Moderate Given or contraindicated: Unfractionated heparin SQ Social Service Consult None Apply Note Total Time: Critical Care 30 - 74 minutes Additional Copies To Curtis Varela M.D.
[2016-08-03] MEDS ORDERED: IV FLUIDS COMPLETED PRN (03:15)
[2016-08-03 03:44] VITALS: BP 152/88; PULSE 63; TEMP 36.5; O2SAT 97; Ht 152.4 cm; Wt 67.7 kg
--- NOTE | 2016-08-03 05:35 | EMERGENCY ROOM VISIT NOTE ---
History Report prepared by Shawn: Nolan Talley Under the Supervision of: Dr. Neptali Benton M.D. First contact with patient: 23:26 Chief Complaint: THROAT PAIN/INJURY Stated Complaint: THROAT PAIN History of Present Illness The patient is a 76 year old female who presents to the Emergency Room with complaints of the sensation of a foreign body in the throat beginning about a month ago. She states that it feels like there is something in her throat, but does not believe that there is something is actually stuck in her esophagus. She also complains of fatigue, and dizziness. The patient states that she has had some difficulty swallowing. She notes that she is scheduled to have her esophagus stretched in a little under a month. She also notes that she was seen in the ED recently for swelling of her neck, throat, and lips after taking Bactrim for a UTI. The patient denies any fevers, SOB, or chest pain. She has no history of thrush. Source of History: patient Onset: about a month ago Position: throat Quality: other (foreign body sensation) Timing: constant Associated Symptoms: + fatigue, No SOB, No chest pain, No fevers Note: The patient also complains of dizziness. Review of Systems See HPI for pertinent positives & negatives. A total of 10 systems reviewed and were otherwise negative. Past Medical & Surgical Medical Problems: (1) Acid reflux (2) Globus pharyngeus (3) Obstruction of esophagus due to food impaction (4) Suicidal ideation (5) Urinary frequency Surgical Problems: (1) Post-operative state Family History Diabetes mellitus Gallbladder disease Heart disease Hypertension Kidney stones Social History Smoking Status: Never Smoker Marital Status: Housing Status: lives with significant other Occupation Status: retired Current/Historical Medications Scheduled Cholecalciferol (Vitamin D3), 3,000 INTER.UNIT PO QAM Hydrochlorothiazide (Hydrochlorothiazide), 12.5 MG PO DAILY Losartan Potassium (Cozaar), 50 MG PO DAILY Omeprazole (Prilosec), 40 MG PO DAILY Potassium Chloride (Micro-K Ext Rel), Unknown Dose PO DAILY Simvastatin (Zocor), 10 MG PO QPM Scheduled PRN Acetaminophen (Tylenol Extra Strength), 1,000 MG PO Q8H PRN for Pain Allergies Coded Allergies: Nitrofurantoin (Verified Allergy, Intermediate, chest pain, h/a, sore throat, diarrhea., 08/02/16) Quinolones (Verified Allergy, Mild, HAND SWELLED UP, 08/02/16) Codeine (Verified Adverse Reaction, Mild, SEVERE CONSTIPATION, 08/02/16) Physical Exam Vital Signs Date Time Temp Pulse Resp B/P Pulse Ox O2 Delivery O2 Flow Rate FiO2 08/03/16 01:30 78 20 128/86 97 Room Air 08/02/16 23:03 Room Air 97 08/02/16 22:51 36.4 74 20 145/96 96 Room Air Physical Exam GENERAL: Patient is anxious appearing and in minimal distress. HEENT: No acute trauma, normocephalic atraumatic, mucous membranes moist, no nasal congestion, no scleral icterus. Mild white plaque over the posterior tongue. Unable to be scrapped off. NECK: No stridor, no adenopathy, no meningismus, trachea is midline. LUNGS: No dyspnea. Clear to auscultation and equal bilaterally. No wheeze, no rhonchi. HEART: Regular rate and rhythm. No murmurs, rubs, gallops appreciated. ABDOMEN: Soft, nontender, bowel sounds positive, no masses appreciated, no peritonitis. BACK: No midline tenderness, no CVA tenderness EXTREMITIES: Normal motion all extremities, no cyanosis, no edema. NEUROLOGIC: Alert and oriented, no acute motor or sensory deficits, no focal weakness, cranial nerves grossly intact. SKIN: No rash, no jaundice, no diaphoresis. Medical Decision & Procedures ER Provider Diagnostic Interpretation: Two view soft tissue neck x-ray interpreted by me: No foreign body. No soft tissue swelling. Normal trachea. Laboratory Results 08/03/16 00:53 Red Blood Count 4.32, Mean Corpuscular Volume 89.4, Mean Corpuscular Hemoglobin 30.6, Mean Corpuscular Hemoglobin Concent 34.2, Mean Platelet Volume 10.7, Neutrophils (%) (Auto) 65.1, Lymphocytes (%) (Auto) 23.9, Monocytes (%) (Auto) 9.8, Eosinophils (%) (Auto) 0.8, Basophils (%) (Auto) 0.2, Neutrophils # (Auto) 3.41, Lymphocytes # (Auto) 1.25, Monocytes # (Auto) 0.51, Eosinophils # (Auto) 0.04, Basophils # (Auto) 0.01 08/03/16 00:53 Test 5/24/17 00:53 08/03/16 01:15 White Blood Count 5.23 K/uL (4.8-10.8) Red Blood Count 4.32 M/uL (4.2-5.4) Hemoglobin 13.2 g/dL (12.0-16.0) Hematocrit 38.6 % (37-47) Mean Corpuscular Volume 89.4 fL (80-100) Mean Corpuscular Hemoglobin 30.6 pg (25-34) Mean Corpuscular Hemoglobin Concent 34.2 g/dl (32-36) Platelet Count 186 K/uL (130-400) Mean Platelet Volume 10.7 fL (7.4-10.4) Neutrophils (%) (Auto) 65.1 % Lymphocytes (%) (Auto) 23.9 % Monocytes (%) (Auto) 9.8 % Eosinophils (%) (Auto) 0.8 % Basophils (%) (Auto) 0.2 % Neutrophils # (Auto) 3.41 K/uL (1.4-6.5) Lymphocytes # (Auto) 1.25 K/uL (1.2-3.4) Monocytes # (Auto) 0.51 K/uL (0.11-0.59) Eosinophils # (Auto) 0.04 K/uL (0-0.5) Basophils # (Auto) 0.01 K/uL (0-0.2) RDW Standard Deviation 44.5 fL (36.4-46.3) RDW Coefficient of Variation 13.5 % (11.5-14.5) Immature Granulocyte % (Auto) 0.2 % Immature Granulocyte # (Auto) 0.01 K/uL (0.00-0.02) Anion Gap 8.0 mmol/L (3-11) Est Creatinine Clear Calc Drug Dose 46.2 ml/min Estimated GFR () 73.0 Estimated GFR (Non- 63.0 BUN/Creatinine Ratio 6.7 (10-20) Calcium Level 8.8 mg/dl (8.5-10.1) Total Bilirubin 0.7 mg/dl (0.2-1) Aspartate Amino Transf (AST/SGOT) 29 U/L (15-37) Alanine Aminotransferase (ALT/SGPT) 29 U/L (12-78) Alkaline Phosphatase 62 U/L (45-117) Total Protein 7.3 gm/dl (6.4-8.2) Albumin 4.0 gm/dl (3.4-5.0) Globulin 3.3 gm/dl (2.5-4.0) Albumin/Globulin Ratio 1.2 (0.9-2) Thyroid Stimulating Hormone (TSH) 1.960 uIu/ml (0.300-4.500) Salicylates Level < 1.7 mg/dl (2.8-20) Acetaminophen Level < 2 ug/ml (10-30) Ethyl Alcohol mg/dL < 3.0 mg/dl (0-3) Urine Color YELLOW Urine Appearance CLEAR (CLEAR) Urine pH 6.5 (4.5-7.5) Urine Specific [place] 1.006 (1.000-1.030) Urine Protein NEG (NEG) Urine Glucose (UA) NEG (NEG) Urine Ketones TRACE (NEG) Urine Occult Blood NEG (NEG) Urine Nitrite NEG (NEG) Urine Bilirubin NEG (NEG) Urine Urobilinogen NEG (NEG) Urine Leukocyte Esterase TRACE (NEG) Urine WBC (Auto) 1-5 /hpf (0-5) Urine RBC (Auto) 0-4 /hpf (0-4) Urine Hyaline Casts (Auto) 0 /lpf (0-5) Urine Epithelial Cells (Auto) 10-20 /lpf (0-5) Urine Bacteria (Auto) NEG (NEG) Urine Opiates Screen NEG (NEG) Urine Methadone, Qualitative NEG (NEG) Urine Barbiturates NEG (NEG) Urine Phencyclidine (PCP) Level NEG (NEG) Ur Amphetamine/Methamphetamine NEG (NEG) MDMA (Ecstasy) Screen NEG (NEG) Urine Benzodiazepines Screen NEG (NEG) Urine Cocaine Metabolite NEG (NEG) Urine Marijuana (THC) NEG (NEG) Laboratory results as reviewed by me. Medications Administered Medications (Trade) Dose Ordered Sig/Deirdre Route Start Time Stop Time Status Last Admin Dose Admin Nystatin (Mycostatin Susp) 5 ml NOW STAT PO 08/03/16 01:41 08/03/16 01:42 DC 08/03/16 01:59 5 ML ECG Indication: other (foreign body sensation in throat) Rate (beats per minute): 69 Rhythm: normal sinus Findings: no acute ischemic change, no ectopy, other (Normal QTC) ED Course 2328: The patient was evaluated in room C11. A complete history and physical exam was performed. 0004: I spoke with the manager case management to ensure that the patient receives outpatient follow-up. 0023: I checked in on the patient. She is in the bathroom. 0035: I checked back in on the patient. She states that she would like to kill herself by overdosing on pills. She would like to go home so that she can kill herself. I explained that she would need to be seen by psychiatry. She states that she would like to go home. I called the on-call psychiatrist. 0042: The patient states that she no longer wants to talk. She states "I am allowed to do what I want to do". She states that "no one will believe you, because it is your word versus mine". The patient will be moved to room A7. 0141: Ordered Mycostatin Susp 5 mL PO. 0147: Upon reevaluation, the patient is resting comfortably. Discussed results and treatment plan with the patient. She verbalized understanding and agreement with the treatment plan. The patient will be evaluated for further management. Medical Decision 76 yr old female with 2 weeks of difficulty tolerating foods and has been on liquid/soft diet. She has been seen here twice for same with EGD done 2 weeks ago which showed Hiatal hernia (pt notes GI mentioned she needed stricture stretched). She arrives for same complaint of difficulty swallowing. Admits she tolerates her secretions, is not vomiting, as is even drinking water at bedside. Exam with possible posterior pharynx thrush though otherwise unremarkable in this mildly anxious woman. Soft tissue xray unremarkable. Set up planned outpatient eval sooner than current August 23. This does not appear to be stroke related and exam is without neuro deficits. No neck swelling nor abnormalities on physician exam. I do not feel that emergent MRI nor CT necessary currently. When discussing limitations of ED and need for outpatient follow up patient became upset. She made very clear statements to me that she was going to go home and overdose on her pills. She made it clear this was in order to end her life. I tried very hard to explain the seriousness of such a claim and she continued to say these things. Thus I felt compelled to place patient in 302 petition. While I hope that this was just patient being upset, and that she would not actually go forward with anything like this I do not feel it would be appropriate to discharge her to home so shortly after she said she was going to harm herself. Given difficulty even swallowing pills she likely would not even be a good candidate for inpatient psychiatric treatment. At this time I think it is in best interest of patient that she be brought in a hospital patient with planned eval by Psych and possibly even by GI. Consults Time Called: [phone] Consulting Physician: Dr. Hinton -GI Returned Call: [phone] Discussed the patient's case. Dr. Hinton recommends that the patient call the office in the morning. Additional Consults: Time Called: 41 Consulted Physician: Dr. Santos -Psychiatry Returned Call: [phone] Additional Comments: Discussed the patient's case. Dr. Santos agrees with petitioning the patient to stay. He will evaluate the patient as an inpatient. Time Called: 014 Consulted Physician: [place]. [place] [place] Call: [phone] Additional Comments: Discussed the patient's case. The patient will be evaluated for further treatment and disposition. Impression Primary Impression: Dysphagia Additional Impressions: suicidal threats Thrush of mouth and esophagus Scribe Attestation The scribe's documentation has been prepared under my direction and personally reviewed by me in its entirety. I confirm that the note above accurately reflects all work, treatment, procedures, and medical decision making performed by me. Departure Information Dispostion Being Evaluated By Hospitalist Curtis Hampton M.D. (PCP) Patient Instructions My [facility] Problem Qualifiers Primary Impression: Dysphagia Dysphagia type: unspecified Qualified Codes: R13.10 - Dysphagia, unspecified
[2016-08-03] MEDS: NSS + 20MEQ KCL 1000ML 1,000 ML IV SCH ×2 (05:46→13:10)
[2016-08-03] MEDS ORDERED: LIDOCAINE HCL 2% VISCOUS SOLN 60 ML, DiphenhydrAMINE HCL SYRUP 150 MG, ALUMINUM/MAGNESI... MT PRN ×4 (06:30)
[2016-08-03 07:20] VITALS: BP 133/83; PULSE 64; TEMP 36.6; O2SAT 94
[2016-08-03 07:32] LABS: PROTHROMBIN TIME (PATIENT) 10.2 SECONDS (9.0-12.0)
[2016-08-03 07:49] LABS: BUN/CREATININE RATIO 5.9 (10-20); CALCIUM 8.2 mg/dl (8.5-10.1); CREATININE 0.76 mg/dl (0.60-1.20); POTASSIUM 3.7 mmol/L (3.5-5.1)
--- NOTE | 2016-08-03 07:52 | DIAGNOSTIC IMAGING REPORT ---
SOFT TISSUES NECK 2 VIEWS CLINICAL HISTORY: Globus sensation of one month's duration. FINDINGS: AP and lateral views of the soft tissues of the neck are compared to study dated 08/10/2006. The soft tissues of the neck are normal as visualized. There is no radiodense foreign body seen. The epiglottic shadow is normal. The airway is widely patent. The prevertebral/retropharyngeal soft tissues are normal as imaged. The skeletal structures are osteopenic. Spondylotic change is noted in the cervical spine. Small anterior osteophytes are seen from C4-C7. The partially imaged apical lung parenchyma appears clear. IMPRESSION: Unremarkable radiographic assessment of the soft tissues of the neck. Electronically signed by: Deyvi Lan M.D. 08/03/2016 7:51 AM Dictated Date/Time: 08/03/2016 7:50 AM
[2016-08-03] MEDS: PANTOprazole SOD 40 MG TAB PO SCH (07:58)
[2016-08-03] MEDS: LOSARTAN POTASSIUM 50 MG TAB PO SCH (07:58)
[2016-08-03] MEDS: HYDROCHLOROTHIAZIDE 25 MG TAB PO SCH (07:58)
[2016-08-03] MEDS: CHOLECALCIFEROL 1000 INTER.UNIT TAB PO SCH (07:58)
[2016-08-03] MEDS: HEPARIN SOD 5000 UNIT/0.5 ML CARP SQ SCH ×3 (08:33→23:43)
[2016-08-03 12:00] VITALS: BP 142/91; PULSE 74; TEMP 37; O2SAT 99
--- NOTE | 2016-08-03 12:02 | Gastrointestinal Consultation ---
Gastrointestinal Consultation Date of Consultation: August 03, 2016 Attending Physician: Noreen Brantley Consulting Physician: Robbie Hinton Reason for Consultation: Globus sensation History of Present Illness Patient is a 76 year old female seen in consultation for evaluation of globus sensation. She has has issues w pill and food dysphagia, had EGD done by Dr. Merlos on 07/22/16 for these complaints. Had findings of 4cm hiatal hernia, otherwise normal findings. She was recommended to stay on [place] diet, and PPI BID. She is also scheduled for repeat EGD w dilation on 08/23/16. She was on Bactrim for UTI, and after 2 days, she felt that her throat, tongue and lower lip was swelling. Thus went to ED on Monday. Given Benadryl 25mg IM and sent home. She said that since her EGD, she's been eating baby food, puree, crushing her meds and mixing them w applesauce. She was able to swallow these fine, but seems to have trouble w food stuck sensation again since the episode on Monday. She denies any odynophagia, trouble swallowing her saliva. Soft tissue neck xray normal yesterday. She denies any n/v, abd pain. Able to take her meds crushed this AM. Past Medical/Surgical History Medical Problems: (1) Allergic reaction Status: Acute (2) Dysphagia Status: Acute (3) Thrush of mouth and esophagus Status: Acute Past Medical History: GERD, urinary frequency, Family History Diabetes mellitus Gallbladder disease Heart disease Hypertension Kidney stones Social History Smoking Status: Never Smoker Alcohol Use: none Drug Use: none Marital Status: Housing Status: lives with significant other Occupation Status: retired Allergies Coded Allergies: Nitrofurantoin (Verified Allergy, Intermediate, chest pain, h/a, sore throat, diarrhea., 08/02/16) Quinolones (Verified Allergy, Mild, HAND SWELLED UP, 08/02/16) Codeine (Verified Adverse Reaction, Mild, SEVERE CONSTIPATION, 08/02/16) Current Medications Home Meds and Scripts Medications Dose Route/Sig Max Daily Dose Days Date Category Micro-K Ext Rel (Potassium Chloride) Unknown Strength Capcr Unknown Dose PO DAILY 08/02/16 Reported Tylenol Extra Strength (Acetaminophen) 500 Mg Tab 1,000 Mg PO Q8H PRN 07/31/16 Reported Hydrochlorothiazide 12.5 Mg Tab 12.5 Mg PO DAILY 07/22/16 Reported Cozaar (Losartan Potassium) 50 Mg Tab 50 Mg PO DAILY 07/22/16 Reported Prilosec (Omeprazole) 40 Mg Cap 40 Mg PO DAILY 07/22/16 Reported Vitamin D3 (Cholecalciferol) 1,000 Unit Tab 3,000 Inter.unit PO QAM 07/28/15 Reported Zocor (Simvastatin) 10 Mg Tab 10 Mg PO QPM 07/28/15 Reported Review of Systems Constitutional: No chills, No fever ENT: + see HPI, + trouble swallowing, No pain on swallowing Respiratory: No cough, No shortness of breath Abdomen: No nausea, No pain, No vomiting Physical Exam Date Time Temp Pulse Resp B/P Pulse Ox O2 Delivery O2 Flow Rate FiO2 08/03/16 08:00 Room Air 08/03/16 07:20 36.6 64 18 133/83 94 Room Air 08/03/16 03:44 36.5 63 18 152/88 97 Room Air 08/03/16 03:23 36.4 62 20 121/79 95 08/03/16 03:15 62 121/79 95 08/03/16 01:30 78 20 128/86 97 Room Air 08/02/16 23:03 Room Air 97 08/02/16 22:51 36.4 74 20 145/96 96 Room Air General Appearance: WD/WN, no apparent distress Eyes: normal inspection, PERRL, EOMI Neck: supple, no adenopathy, no JVD, trachea midline Respiratory/Chest: normal breath sounds, no respiratory distress, no accessory muscle use Cardiovascular: regular rate, rhythm, no gallop, no murmur Abdomen: normal bowel sounds, non tender, soft Extremities: normal inspection, no pedal edema, no calf tenderness Neurologic/Psych: alert, normal mood/affect, oriented x 3 Skin: normal color, no jaundice, no rash Laboratory Results Last 24 Hours Test 08/03/16 00:53 08/03/16 01:15 08/03/16 06:54 White Blood Count 5.23 K/uL Red Blood Count 4.32 M/uL Hemoglobin 13.2 g/dL Hematocrit 38.6 % Mean Corpuscular Volume 89.4 fL Mean Corpuscular Hemoglobin 30.6 pg Mean Corpuscular Hemoglobin Concent 34.2 g/dl Platelet Count 186 K/uL Mean Platelet Volume 10.7 fL Neutrophils (%) (Auto) 65.1 % Lymphocytes (%) (Auto) 23.9 % Monocytes (%) (Auto) 9.8 % Eosinophils (%) (Auto) 0.8 % Basophils (%) (Auto) 0.2 % Neutrophils # (Auto) 3.41 K/uL Lymphocytes # (Auto) 1.25 K/uL Monocytes # (Auto) 0.51 K/uL Eosinophils # (Auto) 0.04 K/uL Basophils # (Auto) 0.01 K/uL RDW Standard Deviation 44.5 fL RDW Coefficient of Variation 13.5 % Immature Granulocyte % (Auto) 0.2 % Immature Granulocyte # (Auto) 0.01 K/uL Sodium Level 137 mmol/L 141 mmol/L Potassium Level 3.3 mmol/L 3.7 mmol/L Chloride Level 102 mmol/L 106 mmol/L Carbon Dioxide Level 27 mmol/L 28 mmol/L Anion Gap 8.0 mmol/L 7.0 mmol/L Blood Urea Nitrogen 6 mg/dl 4 mg/dl Creatinine 0.89 mg/dl 0.76 mg/dl Est Creatinine Clear Calc Drug Dose 46.2 ml/min 54.1 ml/min Estimated GFR () 73.0 88.3 Estimated GFR (Non- 63.0 76.2 BUN/Creatinine Ratio 6.7 5.9 Random Glucose 108 mg/dl 99 mg/dl Calcium Level 8.8 mg/dl 8.2 mg/dl Total Bilirubin 0.7 mg/dl Aspartate Amino Transf (AST/SGOT) 29 U/L Alanine Aminotransferase (ALT/SGPT) 29 U/L Alkaline Phosphatase 62 U/L Total Protein 7.3 gm/dl Albumin 4.0 gm/dl Globulin 3.3 gm/dl Albumin/Globulin Ratio 1.2 Thyroid Stimulating Hormone (TSH) 1.960 uIu/ml Salicylates Level < 1.7 mg/dl Acetaminophen Level < 2 ug/ml Ethyl Alcohol mg/dL < 3.0 mg/dl Urine Color YELLOW Urine Appearance CLEAR Urine pH 6.5 Urine Specific [place] 1.006 Urine Protein NEG Urine Glucose (UA) NEG Urine Ketones TRACE Urine Occult Blood NEG Urine Nitrite NEG Urine Bilirubin NEG Urine Urobilinogen NEG Urine Leukocyte Esterase TRACE Urine WBC (Auto) 1-5 /hpf Urine RBC (Auto) 0-4 /hpf Urine Hyaline Casts (Auto) 0 /lpf Urine Epithelial Cells (Auto) 10-20 /lpf Urine Bacteria (Auto) NEG Urine Opiates Screen NEG Urine Methadone, Qualitative NEG Urine Barbiturates NEG Urine Phencyclidine (PCP) Level NEG Ur Amphetamine/Methamphetamine NEG MDMA (Ecstasy) Screen NEG Urine Benzodiazepines Screen NEG Urine Cocaine Metabolite NEG Urine Marijuana (THC) NEG Prothrombin Time 10.2 SECONDS Prothromb Time International Ratio 1.0 Impression Patient is a 76 year old female w c/o dysphagia. Last EGD on 07/22/16 w finding of 4cm hiatal hernia otherwise normal findings. She was scheduled to have repeat EGD on 08/23/16 for dilation. Though she went to ED on Monday w c/o neck, tongue and lower lip swelling after 2 days of Bactrim for UTI. No signs of angioedema, ? allergic reaction to sulfa drugs. Plan - Consult ENT. - Will consider Video Swallow eval to r/o esophageal dysmotility ? esophageal spasms Attg addendum: I interviewed and examined pt, reviewed chart and labs, agree with above. Pt with h/o intermittent food impaction - reportedly had food impaction in 2005, requiring EGD, although no records of this are available. She was seen in ER in 2006 for foregin body sensation, but no foreign body was found. She was seen again 2 week ago for foreign body sensation in neck, and underwent EGD which only showed HH; there is no mention of esophageal obstruction on report, and no food in stomach on pictures. She has been maintained on purees since then, but had recurrence of foreign body sensation on Monday, after swallowing Bactrim, which prompted her to come to ER. She was discharged, but returned to ER last night again for foreign body sensation. She denies dysphagia to me, and tolerates soft foods without difficulty. Foreign body sensation localized to neck, and typically occurs after completing her meal. At present, she has no foregin body snesation, and is tolerating clears. A/P: To me, it seems like she has intermittent globus. I am not sure if she has truly had food impactions or not. Her recent scope looked unremarkable, and I don't think that there is a need to repeat this. Will request ENT eval, to look for any structural causes of globus; will request VFSS to look for evidence of OP dysphagia and esopahragm to look for esoph dysmotility/achalasia.
--- NOTE | 2016-08-03 12:07 | Psychiatric Consultation ---
Consultation Date of Consultation August 03, 2016. Identifying Data Nichelle Lujan is a 76-year-old female who currently lives in [place], has no psychiatric history, and presented to the emergency room yesterday with a sensation of a foreign body in her throat, which have been going on for about a month. The recommendations were initially for outpatient follow-up, but the patient became upset, and made a statement about ending her life by overdosing on pills. She was ultimately admitted to the hospitalist service and Psychiatry is consulted to evaluate suicidality. Chief Complaint "It was a stupid thing to say". History of Present Illness Patient states that she has been distraught by the problems she's been experiencing with swallowing, which has been going on for about a month, and did not feel she would be able to wait another month to have outpatient procedure performed. She is worried that she will choke on something, and says she was very frustrated in the emergency room when she was told that she would not be admitted. She says she feels much better now, as "I'm getting some answers." She says that yesterday she was "scared and frustrated because I wasn 't getting help, but now I'm not scared." She states that she has never been depressed or suicidal, and does not think she ever would've acted on her statements, but made them out of frustration, and did not mean it. She also states it is against her yarsanism to commit suicide. She states that her mood has been "okay, other than worrying about my throat." She denies neurovegetative symptoms, and scored a 1 on the PHQ-9. She is looking forward to returning home and working in her flower beds after discharge. Past Psychiatric History Current OP Treatment: no current treatment Prior OP Treatment: no prior treatment Prior Psych Hospitalizations: none Suicide Attempts: No Past Medication Trials None Allergies Allergies: Coded Allergies: Nitrofurantoin (Verified Allergy, Intermediate, chest pain, h/a, sore throat, diarrhea., 08/02/16) Quinolones (Verified Allergy, Mild, HAND SWELLED UP, 08/02/16) Codeine (Verified Adverse Reaction, Mild, SEVERE CONSTIPATION, 08/02/16) Home Medications Scheduled Cholecalciferol (Vitamin D3), 3,000 INTER.UNIT PO QAM Hydrochlorothiazide (Hydrochlorothiazide), 12.5 MG PO DAILY Losartan Potassium (Cozaar), 50 MG PO DAILY Omeprazole (Prilosec), 40 MG PO DAILY Potassium Chloride (Micro-K Ext Rel), Unknown Dose PO DAILY Simvastatin (Zocor), 10 MG PO QPM Scheduled PRN Acetaminophen (Tylenol Extra Strength), 1,000 MG PO Q8H PRN for Pain Family History Diabetes mellitus Gallbladder disease Heart disease Hypertension Kidney stones History of Suicide: No History of Substance Abuse: No Psychiatric History: No Alcohol Use Alcohol Use In Past 12 Months: No Smoking Use Smoking Status: Never Smoker Substance History Has never abused substances. Personal History Lives in: [email or web address] Work History: Retired Relationship History: (over 55 years, is supportive) Children: 2 daughters and 1 son Spiritual Affiliation: Yazdanism Legal History: none Psychological Trauma History: Other (denies) Review of Systems Positive for difficulty swallowing; 10 systems reviewed and others negative except as stated above Examination Vital Signs Vital Signs Past 12 Hours Date Time Temp Pulse Resp B/P Pulse Ox O2 Delivery O2 Flow Rate FiO2 08/03/16 08:00 Room Air 08/03/16 07:20 36.6 64 18 133/83 94 Room Air 08/03/16 03:44 36.5 63 18 152/88 97 Room Air 08/03/16 03:23 36.4 62 20 121/79 95 08/03/16 03:15 62 121/79 95 08/03/16 01:30 78 20 128/86 97 Room Air Laboratory Results Last 24 Hours Test 08/03/16 00:53 08/03/16 01:15 08/03/16 06:54 White Blood Count 5.23 K/uL Red Blood Count 4.32 M/uL Hemoglobin 13.2 g/dL Hematocrit 38.6 % Mean Corpuscular Volume 89.4 fL Mean Corpuscular Hemoglobin 30.6 pg Mean Corpuscular Hemoglobin Concent 34.2 g/dl Platelet Count 186 K/uL Mean Platelet Volume 10.7 fL Neutrophils (%) (Auto) 65.1 % Lymphocytes (%) (Auto) 23.9 % Monocytes (%) (Auto) 9.8 % Eosinophils (%) (Auto) 0.8 % Basophils (%) (Auto) 0.2 % Neutrophils # (Auto) 3.41 K/uL Lymphocytes # (Auto) 1.25 K/uL Monocytes # (Auto) 0.51 K/uL Eosinophils # (Auto) 0.04 K/uL Basophils # (Auto) 0.01 K/uL RDW Standard Deviation 44.5 fL RDW Coefficient of Variation 13.5 % Immature Granulocyte % (Auto) 0.2 % Immature Granulocyte # (Auto) 0.01 K/uL Sodium Level 137 mmol/L 141 mmol/L Potassium Level 3.3 mmol/L 3.7 mmol/L Chloride Level 102 mmol/L 106 mmol/L Carbon Dioxide Level 27 mmol/L 28 mmol/L Anion Gap 8.0 mmol/L 7.0 mmol/L Blood Urea Nitrogen 6 mg/dl 4 mg/dl Creatinine 0.89 mg/dl 0.76 mg/dl Est Creatinine Clear Calc Drug Dose 46.2 ml/min 54.1 ml/min Estimated GFR () 73.0 88.3 Estimated GFR (Non- 63.0 76.2 BUN/Creatinine Ratio 6.7 5.9 Random Glucose 108 mg/dl 99 mg/dl Calcium Level 8.8 mg/dl 8.2 mg/dl Total Bilirubin 0.7 mg/dl Aspartate Amino Transf (AST/SGOT) 29 U/L Alanine Aminotransferase (ALT/SGPT) 29 U/L Alkaline Phosphatase 62 U/L Total Protein 7.3 gm/dl Albumin 4.0 gm/dl Globulin 3.3 gm/dl Albumin/Globulin Ratio 1.2 Thyroid Stimulating Hormone (TSH) 1.960 uIu/ml Salicylates Level < 1.7 mg/dl Acetaminophen Level < 2 ug/ml Ethyl Alcohol mg/dL < 3.0 mg/dl Urine Color YELLOW Urine Appearance CLEAR Urine pH 6.5 Urine Specific [place] 1.006 Urine Protein NEG Urine Glucose (UA) NEG Urine Ketones TRACE Urine Occult Blood NEG Urine Nitrite NEG Urine Bilirubin NEG Urine Urobilinogen NEG Urine Leukocyte Esterase TRACE Urine WBC (Auto) 1-5 /hpf Urine RBC (Auto) 0-4 /hpf Urine Hyaline Casts (Auto) 0 /lpf Urine Epithelial Cells (Auto) 10-20 /lpf Urine Bacteria (Auto) NEG Urine Opiates Screen NEG Urine Methadone, Qualitative NEG Urine Barbiturates NEG Urine Phencyclidine (PCP) Level NEG Ur Amphetamine/Methamphetamine NEG MDMA (Ecstasy) Screen NEG Urine Benzodiazepines Screen NEG Urine Cocaine Metabolite NEG Urine Marijuana (THC) NEG Prothrombin Time 10.2 SECONDS Prothromb Time International Ratio 1.0 Mental Examination During interview pt is: alert and oriented, cooperative Appearance: appropriately dressed, appropriately groomed Eye contact is: good Motor behavior is: no abnormal motor movements Speech: normal in rate, rhythm & volume Affect: mood congruent, euthymic Mood is: other ("okay") Thought process: goal directed, linear, logical Thought content: reality based without delusions Suicidal thought are: denied Homicidal thoughts are: denied Hallucinations: denies auditory, denies visual Insight: fair Judgement: fair Impression / Recommendations Impression 76-year-old white female with no psychiatric history who is admitted with swallowing difficulties and made suicidal statements in the emergency room when told that the recommendations were for outpatient treatment, feeling unable to continue to deal with her symptoms at home. She is admitted to the hospitalist service, and psychiatry is consulted to evaluate suicidality. She is very low risk for suicide, as she has no mental health history, denies all symptoms of depression currently, states that she made the statements in a moment of frustration, denies suicidality currently, affect is bright, she is making plans for the future, has good supports from family, and no history of self injury. She states she made the statements out of frustration and feeling that her concerns were being addressed, and is currently very happy with her care. She does not meet criteria for psychiatric diagnosis, and does not require further psychiatric treatment. Risk Factors Assessment : Yes /single/: No Higher / Fall in social status: No Health problems: Yes Mental Health Diagnoses: No Substance use disorders: No Previous attempt: No Family history of suicide: No Previous psychiatric stay: No Hopelessness: No Smoker: No Protective Factors Assessment Protestant beliefs: Yes : Yes Responsible for young children: No Employed: No Stable relationships: Yes Supportive family: Yes
--- NOTE | 2016-08-03 13:08 | Hospitalist Progress Note ---
Hospitalist Progress Note Date of Service August 03, 2016. (Christel Harrell ., PA-C) Subjective Pt evaluation today including: conversation w/ patient, physical exam, chart review, lab review, review of studies, review of inpatient medication list Voiding: no voiding problems, no incontinence Patient states she is currently feeling well. +dry mouth. +dysphagia. Patient denies any fever, chills, sweats, lightheadedness, dizziness, vision changes, CP , palpitations, edema, SOB, wheezing, cough, abdominal pain, nausea, vomiting, diarrhea, urinary symptoms, melena, numbness/tingling, weakness, muscle/joint pain, anxiety/depression, active bleeding, or new skin discoloration/changes. Patient had EGD on 07/22 which reported 4 cm hiatal hernia- she was placed on Prilosec and recommended for repeat EGD in 2 weeks. Her next scheduled EGD was on August 23. Since that time, patient has been strict with her liquid diet and denies issues. Then, patient was placed on Bactrim (?07/29) and two days later she started to develop throat/lip/and tongue swelling. She presented to the ED on 07/31 due to her symptoms and was given a dose of Benadryl and sent home. She was instructed to discontinue her Bactrim for ?reaction, and symptoms of difficulty with swallowing continued so she presented to the ED again on 08/03. (Christel Harrell ., PA-C) Medications Current Inpatient Medications Medications (Trade) Dose Ordered Sig/Deirdre Route Start Time Stop Time Status Last Admin Dose Admin Heparin Sodium (Porcine) (Heparin Sq 5000 Unit/0.5ml) 5,000 unit Q8H SQ 08/03/16 08:00 09/02/16 07:59 08/03/16 08:33 5,000 UNIT Al Hydrox/Mg Hydrox/Simethicone (Maalox Max Susp) 15 ml Q4H PRN PO 08/03/16 02:45 09/02/16 02:44 Ondansetron HCl (Zofran Inj) 4 mg Q6H PRN IV 08/03/16 02:45 09/02/16 02:44 Acetaminophen (Tylenol Tab) 1,000 mg Q8H PRN PO 08/03/16 02:45 09/02/16 02:44 Cholecalciferol (Vitamin D Tab) 3,000 inter.unit QAM PO 08/03/16 09:00 09/02/16 08:59 08/03/16 07:58 3,000 INTER.UNIT Losartan Potassium (coZAAR TAB) 50 mg DAILY PO 08/03/16 09:00 09/02/16 08:59 08/03/16 07:58 50 MG Simvastatin (Zocor Tab) 10 mg QPM PO 08/03/16 21:00 09/02/16 20:59 Hydrochlorothiazide (Hydrochlorothiazide Tab) 12.5 mg DAILY PO 08/03/16 09:00 09/02/16 08:59 08/03/16 07:58 12.5 MG Pantoprazole Sodium 40 mg 40 mg DAILY PO 08/03/16 09:00 09/02/16 08:59 08/03/16 07:58 40 MG Potassium Chloride/Sodium Chloride (Nss + 20meq KCl 1000ml) 1,000 ml @ 125 mls/hr Q8H IV 08/03/16 05:00 08/03/16 20:59 08/03/16 05:46 125 MLS/HR Miscellaneous 1 ea PRN PRN N/A 08/03/16 03:15 08/03/17 03:14 Lidocaine HCl/ Diphenhydramine HCl/Al Hydroxide/ Mg Hydroxide/ Glycerin/Barcode (VISCOUS LIDOCAINE 2% Soln/ Benadryl Syrup/ Maalox Susp/ Glycerin Anhydrous Soln) QID PRN MT 08/03/16 06:30 09/02/16 06:29 (Christel Harrell, [facility]) Objective Vital Signs Date Time Temp Pulse Resp B/P Pulse Ox O2 Delivery O2 Flow Rate FiO2 08/03/16 12:00 37.0 74 18 142/91 99 Room Air 08/03/16 08:00 Room Air 08/03/16 07:20 36.6 64 18 133/83 94 Room Air 08/03/16 03:44 36.5 63 18 152/88 97 Room Air 08/03/16 03:23 36.4 62 20 121/79 95 08/03/16 03:15 62 121/79 95 08/03/16 01:30 78 20 128/86 97 Room Air 08/02/16 23:03 Room Air 97 08/02/16 22:51 36.4 74 20 145/96 96 Room Air (Christel Harrell PA-C) Physical Exam General Appearance: no apparent distress Eyes: normal inspection, PERRL ENT: hearing grossly normal Neck: supple Respiratory/Chest: lungs clear, no respiratory distress, no accessory muscle use Cardiovascular: regular rate, rhythm Abdomen: normal bowel sounds, non tender, soft Extremities: no pedal edema, no calf tenderness Neurologic/Psychiatric: alert, normal mood/affect, oriented x 3 Skin: normal color, warm/dry, no rash (Christel Harrell PA-C) Laboratory Results Last 24 Hours Test 08/03/16 00:53 08/03/16 01:15 08/03/16 06:54 White Blood Count 5.23 K/uL Red Blood Count 4.32 M/uL Hemoglobin 13.2 g/dL Hematocrit 38.6 % Mean Corpuscular Volume 89.4 fL Mean Corpuscular Hemoglobin 30.6 pg Mean Corpuscular Hemoglobin Concent 34.2 g/dl Platelet Count 186 K/uL Mean Platelet Volume 10.7 fL Neutrophils (%) (Auto) 65.1 % Lymphocytes (%) (Auto) 23.9 % Monocytes (%) (Auto) 9.8 % Eosinophils (%) (Auto) 0.8 % Basophils (%) (Auto) 0.2 % Neutrophils # (Auto) 3.41 K/uL Lymphocytes # (Auto) 1.25 K/uL Monocytes # (Auto) 0.51 K/uL Eosinophils # (Auto) 0.04 K/uL Basophils # (Auto) 0.01 K/uL RDW Standard Deviation 44.5 fL RDW Coefficient of Variation 13.5 % Immature Granulocyte % (Auto) 0.2 % Immature Granulocyte # (Auto) 0.01 K/uL Sodium Level 137 mmol/L 141 mmol/L Potassium Level 3.3 mmol/L 3.7 mmol/L Chloride Level 102 mmol/L 106 mmol/L Carbon Dioxide Level 27 mmol/L 28 mmol/L Anion Gap 8.0 mmol/L 7.0 mmol/L Blood Urea Nitrogen 6 mg/dl 4 mg/dl Creatinine 0.89 mg/dl 0.76 mg/dl Est Creatinine Clear Calc Drug Dose 46.2 ml/min 54.1 ml/min Estimated GFR () 73.0 88.3 Estimated GFR (Non- 63.0 76.2 BUN/Creatinine Ratio 6.7 5.9 Random Glucose 108 mg/dl 99 mg/dl Calcium Level 8.8 mg/dl 8.2 mg/dl Total Bilirubin 0.7 mg/dl Aspartate Amino Transf (AST/SGOT) 29 U/L Alanine Aminotransferase (ALT/SGPT) 29 U/L Alkaline Phosphatase 62 U/L Total Protein 7.3 gm/dl Albumin 4.0 gm/dl Globulin 3.3 gm/dl Albumin/Globulin Ratio 1.2 Thyroid Stimulating Hormone (TSH) 1.960 uIu/ml Salicylates Level < 1.7 mg/dl Acetaminophen Level < 2 ug/ml Ethyl Alcohol mg/dL < 3.0 mg/dl Urine Color YELLOW Urine Appearance CLEAR Urine pH 6.5 Urine Specific [place] 1.006 Urine Protein NEG Urine Glucose (UA) NEG Urine Ketones TRACE Urine Occult Blood NEG Urine Nitrite NEG Urine Bilirubin NEG Urine Urobilinogen NEG Urine Leukocyte Esterase TRACE Urine WBC (Auto) 1-5 /hpf Urine RBC (Auto) 0-4 /hpf Urine Hyaline Casts (Auto) 0 /lpf Urine Epithelial Cells (Auto) 10-20 /lpf Urine Bacteria (Auto) NEG Urine Opiates Screen NEG Urine Methadone, Qualitative NEG Urine Barbiturates NEG Urine Phencyclidine (PCP) Level NEG Ur Amphetamine/Methamphetamine NEG MDMA (Ecstasy) Screen NEG Urine Benzodiazepines Screen NEG Urine Cocaine Metabolite NEG Urine Marijuana (THC) NEG Prothrombin Time 10.2 SECONDS Prothromb Time International Ratio 1.0 (Christel Harrell, MINNIE-C) Assessment and Plan This is a 76 yo f that is presenting to us with SI surrounding distress regarding her globus sensation. Patient does state that she apologizes for her statement however because patient is under a lot of distress about the globus sensation the patient will be monitored on one to one over night Dysphagia: - Admit to med/surg - TSH- WNL - Neck soft tissue on 08/02- Unremarkable radiographic assessment of the soft tissues of the neck - GI consulted, appreciate recommendations -- Consulted ENT for clearance because of recent ?allergic reaction to Bactrim- then likely EGD on 08/04 and possible video swallow -- NPO after midnight for EGD; continue [place] diet today Recent UTI: - Only took Bactrim for a few days then d/c'd due to ?reaction; UA reviewed; urinary symptoms resolved- no antibiotics at this time Suicidal ideation: Psych consulted- no further recommendations Hypokalemia- RESOLVED: NSS with KCL 20 @ 125 cc/h while patient is NPO HTN: Continue Losartan and HCTZ Hyperlipidemia: Continue Simvastatin GERD: Change Omeprazole to Protonix GI Prophylaxis: Maalox PRN, IV Zofran PRN, Colace and/or Milk of Mag PRN DVT prophylaxis: Heparin Code Status: LEVEL I, FULL Dispo: Discharge to home once medically stable (Christel Harrell ., PA-C) Attending Attestation: Pt seen/examined, chart reviewed, care plan d/w MINNIE Harrell. I agree w/ the alejandro components of her documentation. ENT consult done; direct laryngoscopy NORMAL. NO issues today (no emesis, no throat pain, etc). VSS no fever gen - nad mouth - MMM, no oral lesions neck - no goiter heart - RRR lungs - CTA b/l abd - soft ext - no edema A/P: Dysphagia - ok for clears, then NPO after MN for possible EGD tomorrow and/or video swallow. GI/ENT/speech consults appreciated. Globus? esophageal dysmotility? other? no signs of neurological/[employer] driving issue. Marcin MATTHEW MD (Jitendra Matthew MD)
--- NOTE | 2016-08-03 14:17 | Medical Student: [facility] ---
Med Student Progress Note Date of Service August 03, 2016. Subjective Pt evaluation today including: conversation w/ patient Pain: 0 PO Intake: adecuate, restricted to sips Voiding: no voiding problems Ms Nichelle Lujan is a 76 yo female with a history of dysphagia who presented to the ED last night with concerns of something being stuck in her throat. Upon inspection there was nothing stuck in her throat, and she was able to swallow liquids without problem and her airway was not compromised. 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 At that point, she stated she would go home and take all of her pills to kill herself because nobody was doing anything about the problem. That required a 302 to be filed, and the patient is now on 1:1 observation. She regrets making that statement and states that she said it out of fear. She was cleared by psych today as well. A previous EGD done two weeks ago showed esophageal stricture with a 4cm hiatal hernia. Surgery was not discussed to correct the hernia at that time. She was seen by ENT today to be cleared for an EGD tomorrow morning (possible edema due to tmp/smx). Today she is resting comfortably and is able to take small sips of water without problem. At home she has eaten a soft diet for the last two weeks, and notes considerable fatigue and weakness due to lack of caloric intake. She denies shortness of breath, nausea, vomiting, diarrhea, constipation, syncope or suicidal ideation. Review of Systems Constitutional: + fatigue, + weakness, No chills, No fever, No sweats, No weight loss Eyes: No problem reported ENT: + trouble swallowing Respiratory: No problem reported Cardiac: No problem reported Abdomen: No problem reported Musculoskeletal: No problem reported Female : No problem reported Neurologic: No problem reported Psychiatric: + anxiety, + depression symptoms Heme: No problem reported Objective Vital Signs Date Time Temp Pulse Resp B/P Pulse Ox O2 Delivery O2 Flow Rate FiO2 08/03/16 12:00 37.0 74 18 142/91 99 Room Air 08/03/16 08:00 Room Air 08/03/16 07:20 36.6 64 18 133/83 94 Room Air 08/03/16 03:44 36.5 63 18 152/88 97 Room Air 08/03/16 03:23 36.4 62 20 121/79 95 08/03/16 03:15 62 121/79 95 08/03/16 01:30 78 20 128/86 97 Room Air 08/02/16 23:03 Room Air 97 08/02/16 22:51 36.4 74 20 145/96 96 Room Air Physical Exam General Appearance: WD/WN, no apparent distress Eyes: bilateral eyes EOMI, bilateral eyes PERRL, bilateral eyes normal inspection ENT: normal ENT inspection, hearing grossly normal, pharynx normal, + pertinent finding (pharynx non-edematous, non erythematous. No foreign bodies visualized) Neck: supple, no adenopathy, thyroid normal, no JVD, no carotid bruits, trachea midline Respiratory/Chest: chest non-tender, lungs clear, normal breath sounds, no respiratory distress, no accessory muscle use Cardiovascular: regular rate, rhythm, no edema, no gallop, no JVD, no murmur Abdomen: normal bowel sounds, non tender, soft Extremities: normal range of motion, non-tender, normal inspection, no pedal edema, no calf tenderness, normal capillary refill Neurologic/Psychiatric: no motor/sensory deficits, alert, normal mood/affect, oriented x 3 Skin: normal color, warm/dry Lymphatic: no adenopathy Laboratory Results Last 24 Hours Test 08/03/16 00:53 08/03/16 01:15 08/03/16 06:54 White Blood Count 5.23 K/uL Red Blood Count 4.32 M/uL Hemoglobin 13.2 g/dL Hematocrit 38.6 % Mean Corpuscular Volume 89.4 fL Mean Corpuscular Hemoglobin 30.6 pg Mean Corpuscular Hemoglobin Concent 34.2 g/dl Platelet Count 186 K/uL Mean Platelet Volume 10.7 fL Neutrophils (%) (Auto) 65.1 % Lymphocytes (%) (Auto) 23.9 % Monocytes (%) (Auto) 9.8 % Eosinophils (%) (Auto) 0.8 % Basophils (%) (Auto) 0.2 % Neutrophils # (Auto) 3.41 K/uL Lymphocytes # (Auto) 1.25 K/uL Monocytes # (Auto) 0.51 K/uL Eosinophils # (Auto) 0.04 K/uL Basophils # (Auto) 0.01 K/uL RDW Standard Deviation 44.5 fL RDW Coefficient of Variation 13.5 % Immature Granulocyte % (Auto) 0.2 % Immature Granulocyte # (Auto) 0.01 K/uL Sodium Level 137 mmol/L 141 mmol/L Potassium Level 3.3 mmol/L 3.7 mmol/L Chloride Level 102 mmol/L 106 mmol/L Carbon Dioxide Level 27 mmol/L 28 mmol/L Anion Gap 8.0 mmol/L 7.0 mmol/L Blood Urea Nitrogen 6 mg/dl 4 mg/dl Creatinine 0.89 mg/dl 0.76 mg/dl Est Creatinine Clear Calc Drug Dose 46.2 ml/min 54.1 ml/min Estimated GFR () 73.0 88.3 Estimated GFR (Non- 63.0 76.2 BUN/Creatinine Ratio 6.7 5.9 Random Glucose 108 mg/dl 99 mg/dl Calcium Level 8.8 mg/dl 8.2 mg/dl Total Bilirubin 0.7 mg/dl Aspartate Amino Transf (AST/SGOT) 29 U/L Alanine Aminotransferase (ALT/SGPT) 29 U/L Alkaline Phosphatase 62 U/L Total Protein 7.3 gm/dl Albumin 4.0 gm/dl Globulin 3.3 gm/dl Albumin/Globulin Ratio 1.2 Thyroid Stimulating Hormone (TSH) 1.960 uIu/ml Salicylates Level < 1.7 mg/dl Acetaminophen Level < 2 ug/ml Ethyl Alcohol mg/dL < 3.0 mg/dl Urine Color YELLOW Urine Appearance CLEAR Urine pH 6.5 Urine Specific [place] 1.006 Urine Protein NEG Urine Glucose (UA) NEG Urine Ketones TRACE Urine Occult Blood NEG Urine Nitrite NEG Urine Bilirubin NEG Urine Urobilinogen NEG Urine Leukocyte Esterase TRACE Urine WBC (Auto) 1-5 /hpf Urine RBC (Auto) 0-4 /hpf Urine Hyaline Casts (Auto) 0 /lpf Urine Epithelial Cells (Auto) 10-20 /lpf Urine Bacteria (Auto) NEG Urine Opiates Screen NEG Urine Methadone, Qualitative NEG Urine Barbiturates NEG Urine Phencyclidine (PCP) Level NEG Ur Amphetamine/Methamphetamine NEG MDMA (Ecstasy) Screen NEG Urine Benzodiazepines Screen NEG Urine Cocaine Metabolite NEG Urine Marijuana (THC) NEG Prothrombin Time 10.2 SECONDS Prothromb Time International Ratio 1.0 Assessment and Plan Assessment and Plan: Ms Nichelle Lujan is a 76 yo female on hospital day two following progressive dysphagia for two weeks with a feeling of something being stuck in her throat. A 302 was filed following a statement of suicidal intention upon discharge from the ED, and she is on 1:1 observation now. Individual assessment and plan are as follows: 1. Dysphagia: Chronic, progressive. Secondary to esophageal strictures and 4cm hiatial hernia. Seen by GI today, who got clearance from ENT to scope, due to possible edema from an allergic reaction to Bactrim earlier in the week involving swelling of her face and throat. No edema is present on exam or laryngoscopy. Patient currently has outpatient EGD scheduled to dilate her esophagus. Surgery not discussed at this time for hernia. Video swallow study discussed. Will do EGD tomorrow. 2. Suicidal Ideation: 302 on file, currently with 1:1 observation. Patient is regretful of statement, says it was out of frustration with ED physician. Will continue to observe through tonight. No need for admission to [facility]. Psych cleared. 3. HTN: Currently stable on Losartan 50 and HCTZ 12.5. Notes that this was recently changed by PCP from combined pill to separate pills due to difficulty swallowing single large pill. 4. Hypovitaminosis D: Continue on 3000 iu vitamin D daily. 5. Thrush: Noted on exam. Given nystatin in ED, will continue through admission and discharge for total course of 10 days at 5ml daily. 6. GERD: Continue on protonix 40mg daily. Maalox as needed. 7. DVT prophylaxis: Heparin 5000 units sq bid. 8. Disposition: Clear diet tonight. NPO after midnight. Discharge following EDG tomorrow pending no pathology. Will need GI and PCP followup. Will likely need to continue soft diet, recommend Boost supplement to ensure nutrition. Continued [facility] stay due to: other (observation) Discharge planning: uncertain
[2016-08-03 15:54] VITALS: BP 125/81; PULSE 64; TEMP 36.5; O2SAT 95
[2016-08-03 16:00] VITALS: O2SAT 95
--- NOTE | 2016-08-03 16:34 | Medical Consult ---
Consultation Date of Consultation: August 03, 2016. Attending Physician: Jitendra Reece MD History of Present Illness 76 yo female admitted for dysphagia. She is scheduled to have EGD witht he GI service. GI asked for ENT evaluation to rule out airway edema as patient apparently had some swelling of the lips after taking bactrim. This was treated in the ED and she was discharged home. She then presented to the ED for her complaints of dysphagia on Monday. No alleviating or exacerbating factors. Denies any other associated symptoms. Specifically denies voice change, denies dyspnea. Past Medical/Surgical History Medical Problems: (1) Allergic reaction Status: Acute (2) Dysphagia Status: Acute (3) Thrush of mouth and esophagus Status: Acute Family History Diabetes mellitus Gallbladder disease Heart disease Hypertension Kidney stones Social History Smoking Status: Never Smoker Smokeless Tobacco Use: No Alcohol Use: none Drug Use: none Marital Status: Housing Status: lives with significant other Occupation Status: retired Allergies Coded Allergies: Nitrofurantoin (Verified Allergy, Intermediate, chest pain, h/a, sore throat, diarrhea., 08/02/16) Quinolones (Verified Allergy, Mild, HAND SWELLED UP, 08/02/16) Codeine (Verified Adverse Reaction, Mild, SEVERE CONSTIPATION, 08/02/16) Current Inpatient Medications Current Inpatient Medications Medications (Trade) Dose Ordered Sig/Deirdre Route Start Time Stop Time Status Last Admin Dose Admin Heparin Sodium (Porcine) (Heparin Sq 5000 Unit/0.5ml) 5,000 unit Q8H SQ 08/03/16 08:00 09/02/16 07:59 08/03/16 15:45 5,000 UNIT Al Hydrox/Mg Hydrox/Simethicone (Maalox Max Susp) 15 ml Q4H PRN PO 08/03/16 02:45 09/02/16 02:44 Ondansetron HCl (Zofran Inj) 4 mg Q6H PRN IV 08/03/16 02:45 09/02/16 02:44 Acetaminophen (Tylenol Tab) 1,000 mg Q8H PRN PO 08/03/16 02:45 09/02/16 02:44 Cholecalciferol (Vitamin D Tab) 3,000 inter.unit QAM PO 08/03/16 09:00 09/02/16 08:59 08/03/16 07:58 3,000 INTER.UNIT Losartan Potassium (coZAAR TAB) 50 mg DAILY PO 08/03/16 09:00 09/02/16 08:59 08/03/16 07:58 50 MG Simvastatin (Zocor Tab) 10 mg QPM PO 08/03/16 21:00 09/02/16 20:59 Hydrochlorothiazide (Hydrochlorothiazide Tab) 12.5 mg DAILY PO 08/03/16 09:00 09/02/16 08:59 08/03/16 07:58 12.5 MG Pantoprazole Sodium 40 mg 40 mg DAILY PO 08/03/16 09:00 09/02/16 08:59 08/03/16 07:58 40 MG Potassium Chloride/Sodium Chloride (Nss + 20meq KCl 1000ml) 1,000 ml @ 125 mls/hr Q8H IV 08/03/16 05:00 08/03/16 20:59 08/03/16 13:10 125 MLS/HR Miscellaneous 1 ea PRN PRN N/A 08/03/16 03:15 08/03/17 03:14 Lidocaine HCl/ Diphenhydramine HCl/Al Hydroxide/ Mg Hydroxide/ Glycerin/Barcode (VISCOUS LIDOCAINE 2% Soln/ Benadryl Syrup/ Maalox Susp/ Glycerin Anhydrous Soln) QID PRN MT 08/03/16 06:30 09/02/16 06:29 Review of Systems Constitutional: No chills, No fatigue, No fever, No problem reported, No sweats , No weakness, No weight loss Eyes: No diplopia, No discharge, No eye pain, No problem reported, No redness, No worsening of vision ENT: + trouble swallowing Respiratory: No cough, No dyspnea at rest, No dyspnea on exertion, No hemoptysis, No problem reported, No shortness of breath, No sputum, No wheezing Cardiovascular: No PND, No chest pain, No claudication, No edema, No orthopnea , No palpitations, No problem reported Psychiatric: No anhedonism, No anxiety, No depression symptoms, No insomnia, No problem reported, No substance abuse Endocrine: No excessive thirst, No excessive urination, No fatigue, No problem reported Allergic / Immunologic: No environmental allergies, No food allergies, No frequent infections, No hives, No pet sensitivities, No poor healing, No problem reported, No prolonged convalescence, No seasonal allergies Physical Exam Date Time Temp Pulse Resp B/P Pulse Ox O2 Delivery O2 Flow Rate FiO2 08/03/16 12:00 37.0 74 18 142/91 99 Room Air 08/03/16 08:00 Room Air 08/03/16 07:20 36.6 64 18 133/83 94 Room Air 08/03/16 03:44 36.5 63 18 152/88 97 Room Air 08/03/16 03:23 36.4 62 20 121/79 95 08/03/16 03:15 62 121/79 95 08/03/16 01:30 78 20 128/86 97 Room Air 08/02/16 23:03 Room Air 97 08/02/16 22:51 36.4 74 20 145/96 96 Room Air PROCEDURE Fiberoptic laryngoscopy was performed. There was no edema of the pharynx or larynx. Vocal cord mobility was normal. No vocal cord masses. Piriform sinuses clear bilaterally. Patient tolerated procedure well. General Appearance: WD/WN, no apparent distress Head: normocephalic, atraumatic Eyes: normal inspection, EOMI ENT: normal ENT inspection, hearing grossly normal, pharynx normal Neck: supple, no adenopathy Respiratory/Chest: no respiratory distress, no accessory muscle use Cardiovascular: no edema, no JVD Neurologic/Psych: eye physician II-XII nml as tested Skin: normal color Lymphatic: no adenopathy Laboratory Results Last 24 Hours Test 08/03/16 00:53 08/03/16 01:15 08/03/16 06:54 White Blood Count 5.23 K/uL Red Blood Count 4.32 M/uL Hemoglobin 13.2 g/dL Hematocrit 38.6 % Mean Corpuscular Volume 89.4 fL Mean Corpuscular Hemoglobin 30.6 pg Mean Corpuscular Hemoglobin Concent 34.2 g/dl Platelet Count 186 K/uL Mean Platelet Volume 10.7 fL Neutrophils (%) (Auto) 65.1 % Lymphocytes (%) (Auto) 23.9 % Monocytes (%) (Auto) 9.8 % Eosinophils (%) (Auto) 0.8 % Basophils (%) (Auto) 0.2 % Neutrophils # (Auto) 3.41 K/uL Lymphocytes # (Auto) 1.25 K/uL Monocytes # (Auto) 0.51 K/uL Eosinophils # (Auto) 0.04 K/uL Basophils # (Auto) 0.01 K/uL RDW Standard Deviation 44.5 fL RDW Coefficient of Variation 13.5 % Immature Granulocyte % (Auto) 0.2 % Immature Granulocyte # (Auto) 0.01 K/uL Sodium Level 137 mmol/L 141 mmol/L Potassium Level 3.3 mmol/L 3.7 mmol/L Chloride Level 102 mmol/L 106 mmol/L Carbon Dioxide Level 27 mmol/L 28 mmol/L Anion Gap 8.0 mmol/L 7.0 mmol/L Blood Urea Nitrogen 6 mg/dl 4 mg/dl Creatinine 0.89 mg/dl 0.76 mg/dl Est Creatinine Clear Calc Drug Dose 46.2 ml/min 54.1 ml/min Estimated GFR () 73.0 88.3 Estimated GFR (Non- 63.0 76.2 BUN/Creatinine Ratio 6.7 5.9 Random Glucose 108 mg/dl 99 mg/dl Calcium Level 8.8 mg/dl 8.2 mg/dl Total Bilirubin 0.7 mg/dl Aspartate Amino Transf (AST/SGOT) 29 U/L Alanine Aminotransferase (ALT/SGPT) 29 U/L Alkaline Phosphatase 62 U/L Total Protein 7.3 gm/dl Albumin 4.0 gm/dl Globulin 3.3 gm/dl Albumin/Globulin Ratio 1.2 Thyroid Stimulating Hormone (TSH) 1.960 uIu/ml Salicylates Level < 1.7 mg/dl Acetaminophen Level < 2 ug/ml Ethyl Alcohol mg/dL < 3.0 mg/dl Urine Color YELLOW Urine Appearance CLEAR Urine pH 6.5 Urine Specific [place] 1.006 Urine Protein NEG Urine Glucose (UA) NEG Urine Ketones TRACE Urine Occult Blood NEG Urine Nitrite NEG Urine Bilirubin NEG Urine Urobilinogen NEG Urine Leukocyte Esterase TRACE Urine WBC (Auto) 1-5 /hpf Urine RBC (Auto) 0-4 /hpf Urine Hyaline Casts (Auto) 0 /lpf Urine Epithelial Cells (Auto) 10-20 /lpf Urine Bacteria (Auto) NEG Urine Opiates Screen NEG Urine Methadone, Qualitative NEG Urine Barbiturates NEG Urine Phencyclidine (PCP) Level NEG Ur Amphetamine/Methamphetamine NEG MDMA (Ecstasy) Screen NEG Urine Benzodiazepines Screen NEG Urine Cocaine Metabolite NEG Urine Marijuana (THC) NEG Prothrombin Time 10.2 SECONDS Prothromb Time International Ratio 1.0 Assessment & Plan 76 yo female with dysphagia, history of lip swelling with bactrim use - no swelling of the pharynx, larynx or lips for that matter - ok for EGD from ENT standpoint - will sign off
[2016-08-03] MEDS ORDERED: SIMVASTATIN 10 MG TAB PO SCH (21:00)
[2016-08-03 23:44] VITALS: BP 113/72; PULSE 69; TEMP 36.6; O2SAT 93
[2016-08-04] MEDS: HEPARIN SOD 5000 UNIT/0.5 ML CARP SQ SCH (07:37)
[2016-08-04 07:53] VITALS: BP 107/69; PULSE 58; TEMP 36.5; O2SAT 97
[2016-08-04] MEDS: LOSARTAN POTASSIUM 50 MG TAB PO SCH (09:44)
[2016-08-04] MEDS: HYDROCHLOROTHIAZIDE 25 MG TAB PO SCH (09:45)
[2016-08-04] MEDS: PANTOprazole SOD 40 MG TAB PO SCH (09:45)
[2016-08-04] MEDS: CHOLECALCIFEROL 1000 INTER.UNIT TAB PO SCH (09:46)
--- NOTE | 2016-08-04 13:54 | DIAGNOSTIC IMAGING REPORT ---
VIDEO SWALLOW HISTORY: globus pharyngeus TECHNIQUE: Video fluoroscopic evaluation of swallowing was performed in the AP and lateral projections by the speech pathology staff. The patient is fed nectar-thick and thin liquid barium, a barium coated wafer, and barium pudding. FLUOROSCOPY TIME: 2.6 minutes. A cine loop submitted. COMPARISON STUDY: Neck radiograph 08/03/2016. FINDINGS: There is normal hyoid excursion and epiglottic deflection. No significant penetration or aspiration identified. Swallowing function is within normal limits. Mild esophageal dysmotility. IMPRESSION: 1. No aspiration identified. Mild esophageal dysmotility. 2. Please see the speech pathologist report for detailed findings and recommendations. Electronically signed by: Dustin De La O M.D. 08/04/2016 1:52 PM Dictated Date/Time: 08/04/2016 1:48 PM
--- NOTE | 2016-08-04 13:58 | Medical Student: [facility] ---
Med Student Progress Note Date of Service August 04, 2016. Subjective Pt evaluation today including: conversation w/ patient Pain: 0 PO Intake: minimal. Clear liquids and soft diet Voiding: no voiding problems Ms Nichelle Lujan is a 76 yo female with dysphagia. She has been seen by GI and ENT to rule out a structural cause of dysphagia, and it was decided not to repeat an EGD. A barium swallow study was done today which showed mild esophageal dysmotility. Today she is resting comfortably and is able to take small sips of water and soft foods without problem. At home she has eaten a soft diet for the last two weeks, and notes considerable fatigue and weakness due to lack of caloric intake. She is less anxious today. She denies shortness of breath, nausea, vomiting, diarrhea, constipation, syncope or suicidal ideation. Review of Systems Constitutional: + fatigue, No chills, No fever, No sweats, No weakness, No weight loss Eyes: No problem reported ENT: + trouble swallowing Respiratory: No problem reported Cardiac: No problem reported Abdomen: No problem reported Musculoskeletal: No problem reported Female : No problem reported Neurologic: No problem reported Psychiatric: No problem reported Objective Vital Signs Date Time Temp Pulse Resp B/P Pulse Ox O2 Delivery O2 Flow Rate FiO2 08/04/16 08:00 Room Air 08/04/16 07:53 36.5 58 16 107/69 97 Room Air 08/04/16 00:24 Room Air 08/04/16 00:00 Room Air 08/03/16 23:44 36.6 69 18 113/72 93 Room Air 08/03/16 20:00 Room Air 08/03/16 16:00 95 Room Air 08/03/16 15:54 36.5 64 17 125/81 95 Physical Exam General Appearance: WD/WN, no apparent distress Eyes: bilateral eyes EOMI, bilateral eyes PERRL, bilateral eyes normal inspection ENT: normal ENT inspection, hearing grossly normal, pharynx normal Neck: supple, no adenopathy, thyroid normal, no JVD, no carotid bruits, trachea midline Respiratory/Chest: chest non-tender, lungs clear, normal breath sounds, no respiratory distress, no accessory muscle use Cardiovascular: regular rate, rhythm, no edema, no gallop, no JVD, no murmur Abdomen: normal bowel sounds, non tender, soft, no organomegaly Extremities: normal range of motion, non-tender, normal inspection, no pedal edema, no calf tenderness, normal capillary refill Neurologic/Psychiatric: no motor/sensory deficits, alert, normal mood/affect, oriented x 3 Skin: normal color, warm/dry Assessment and Plan Assessment and Plan: Ms Nichelle Lujan is a 76 yo female on hospital day three following progressive dysphagia for two weeks with a feeling of something being stuck in her throat. She has received a thorough workup from ENT and GI and was found to have mild esophageal dysmotility. Following a Individual assessment and plan are as follows: 1. Dysphagia: Chronic, progressive over last two weeks. Likely globus pallidus. No documented history of esophageal strictures and normal barium swallow study. Patient has a known 4cm hiatial hernia. Outpatient followup with GI and speech therapy recommended. 2. Suicidal Ideation: Resolived. Cleared by psych. Statement was made out of frustration, not a serious threat. 3. HTN: Currently stable on Losartan 50 and HCTZ 12.5. Notes that this was recently changed by PCP from combined pill to separate pills due to difficulty swallowing single large pill. 4. Hypovitaminosis D: Continue on 3000 iu vitamin D daily. 5. Thrush: Noted on initial exam, given nystatin in ED. Will continue to. Will continue with 5ml nystatin qd. 6. GERD: Continue on protonix 40mg daily. Maalox as needed. 7. DVT prophylaxis: Heparin 5000 units sq bid. 8. Disposition: Diet as tolerated. Will need GI and PCP followup. Likely speech therapy. Home. Discharge planning: home
--- NOTE | 2016-08-04 15:24 | Progress Note ---
Progress Note Date of Service August 04, 2016. Progress Note Pt has no complaints today - her globus sensation is resolved. She saw ENT and fibero optic laryngoscopy was unremarkable. VFSS appears unremarkable. She is ok for discharge - would give empiric PPI therapy, diet as tolerated. arrange for outpt esophagram and outpt EGD per Dr. Merlos's recommendations.
--- NOTE | 2016-08-04 15:32 | Gastroenterology Progress Note ---
Progress Note Date of Service: August 04, 2016 Subjective Pt evaluation today including: conversation w/ patient, physical exam, chart review, lab review, review of studies, review of inpatient medication list Pt tolerated CL diet well. She had video swallow eval by ST w signs of mild esophageal dysmotility w/o aspiration noted. Recommended to follow slippery diet , alternate solids/liquids. Review of Systems Constitutional: No fever ENT: No pain on swallowing, No trouble swallowing Respiratory: No cough, No shortness of breath Cardiac: No chest pain Abdomen: No nausea, No pain, No vomiting Medications Current Inpatient Medications Medications (Trade) Dose Ordered Sig/Deirdre Route Start Time Stop Time Status Last Admin Dose Admin Heparin Sodium (Porcine) (Heparin Sq 5000 Unit/0.5ml) 5,000 unit Q8H SQ 08/03/16 08:00 09/02/16 07:59 08/03/16 23:43 5,000 UNIT Al Hydrox/Mg Hydrox/Simethicone (Maalox Max Susp) 15 ml Q4H PRN PO 08/03/16 02:45 09/02/16 02:44 Ondansetron HCl (Zofran Inj) 4 mg Q6H PRN IV 08/03/16 02:45 09/02/16 02:44 Acetaminophen (Tylenol Tab) 1,000 mg Q8H PRN PO 08/03/16 02:45 09/02/16 02:44 Cholecalciferol (Vitamin D Tab) 3,000 inter.unit QAM PO 08/03/16 09:00 09/02/16 08:59 08/04/16 09:46 3,000 INTER.UNIT Losartan Potassium (coZAAR TAB) 50 mg DAILY PO 08/03/16 09:00 09/02/16 08:59 08/04/16 09:44 50 MG Simvastatin (Zocor Tab) 10 mg QPM PO 08/03/16 21:00 09/02/16 20:59 08/03/16 20:24 10 MG Hydrochlorothiazide (Hydrochlorothiazide Tab) 12.5 mg DAILY PO 08/03/16 09:00 09/02/16 08:59 08/04/16 09:45 12.5 MG Pantoprazole Sodium (Protonix Tab) 40 mg DAILY PO 08/03/16 09:00 09/02/16 08:59 08/04/16 09:45 40 MG Miscellaneous 1 ea PRN PRN N/A 08/03/16 03:15 08/03/17 03:14 Lidocaine HCl/ Diphenhydramine HCl/Al Hydroxide/ Mg Hydroxide/ Glycerin/Barcode (VISCOUS LIDOCAINE 2% Soln/ Benadryl Syrup/ Maalox Susp/ Glycerin Anhydrous Soln) QID PRN MT 08/03/16 06:30 09/02/16 06:29 Objective Vital Signs Date Time Temp Pulse Resp B/P Pulse Ox O2 Delivery O2 Flow Rate FiO2 08/04/16 08:00 Room Air 08/04/16 07:53 36.5 58 16 107/69 97 Room Air 08/04/16 00:24 Room Air 08/04/16 00:00 Room Air 08/03/16 23:44 36.6 69 18 113/72 93 Room Air 08/03/16 20:00 Room Air 08/03/16 16:00 95 Room Air 08/03/16 15:54 36.5 64 17 125/81 95 Physical Exam General Appearance: WD/WN, no apparent distress Eyes: normal inspection, PERRL, EOMI Neck: supple, no JVD, trachea midline Respiratory/Chest: normal breath sounds, no respiratory distress, no accessory muscle use Cardiovascular: regular rate, rhythm, no gallop, no murmur Abdomen: normal bowel sounds, non tender, soft Extremities: normal inspection, no pedal edema, no calf tenderness Neurologic/Psych: alert, normal mood/affect, oriented x 3 Skin: normal color, no jaundice, no rash Assessment and Plan Impression Patient is a 76 year old female w c/o dysphagia. Last EGD on 07/22/16 w finding of 4cm hiatal hernia otherwise normal findings. She was scheduled to have repeat EGD on 08/23/16 for dilation. Though she went to ED on Monday w c/o neck, tongue and lower lip swelling after 2 days of Bactrim for UTI. No signs of angioedema, ? allergic reaction to sulfa drugs. Seen by ENT, cleared for EGD when needed. She had video swallow eval which showed no signs of aspiration, mild esophageal dysmotility. She is tolerating CL diet well. She desires to go home today Plan - [place] diet, advance as tolerated to slippery diet, alt solids/liquids - Protonix 40mg daily - OK for DC from GI standpoint. Recommend she gets esophagram, and she is already scheduled for outpt EGD on 08/23/[address] Merlos for trial dilation.
--- NOTE | 2016-08-04 15:38 | Discharge Instructions ---
Discharge Instructions Date of Service August 04, 2016. Admission Reason for Admission: Globus Pharyngeus, Suicidal Ideation Discharge Discharge Diagnosis / Problem: Dysphagia due to dysmotility Discharge Goals Goal(s): Decrease discomfort, Improve function, Improve nutritional status, Learn about illness, Diagnostic testing, Therapeutic intervention, Prevent Disease Progression Activity Recommendations Activity Limitations: resume your previous activity . Instructions / Follow-Up Instructions / Follow-Up Resume all regular home medications as prescribed Speech Therapy Discharge Instructions The following is recommended: 1. Advance diet as tolerated to Mechanical soft slippery diet, thin liquids. SMALL frequent meals. 2. STRICT Aspiration and GERD precautions. Fully upright for all oral intake and for 30-60 minutes after meals. HOB (head of bed) elevated to at least 30 degrees at all times. 3. Safe swallow strategies: Small bites/sips. Alternate solids and liquids. Slow rate and rest breaks. If you have ongoing swallowing difficulties the outpatient speech therapy department would be happy to see you and help you. Their phone number is: [phone]. It is very important you follow speech therapy and GI's recommendations regarding your diet and swallowing strategies. Seek medical attention SUMAN if your swallowing difficulty worsens, you are unable to breath or talk, you are coughing uncontrollably; you begin to experience facial (throat, tongue, lip) swelling, you become SOB, develop a rash , or any other concerning symptoms. Please follow-up with your PCP within 5-7 days Please follow-up with GI as instructed by Dr. Hinton's group. They will be in contact with you regarding follow-up and scheduled EGD. If you do not hear from them by Monday (08/08), please call the office to confirm. Please follow-up/keep all of your subspecialty appointments Current Hospital Diet Patient's current hospital diet: AHA Diet (Heart Healthy) Discharge Diet Recommended Diet: AHA Diet (Heart Healthy) (slippery foods ) Diet Texture: Mechanical Soft (ground) Procedures Procedures Performed: Video swallow Pending Studies Studies pending at discharge: no Laboratory Results Lipid Panel Test 06/28/16 08:13 Range/Units Triglycerides Level 95 0-150 mg/dl Cholesterol Level 151 0-200 mg/dl HDL Cholesterol 74 mg/dl Cholesterol/HDL Ratio 2.0 LDL Cholesterol, Calculated 58 mg/dl Medical Emergencies . Who to Call and When: Medical Emergencies: If at any time you feel your situation is an emergency, please call 911 immediately. . Non-Emergent Contact Non-Emergency issues call your: Primary Care Provider . . "Provider Documentation" section prepared by Christel Harrell. . VTE Core Measure Inpt VTE Proph given/why not?: Unfractionated heparin Humiara LAFLEUR. Shima, SCD 's
[2016-08-04 15:47] VITALS: BP 122/78; PULSE 83; TEMP 36.7; O2SAT 95
--- NOTE | 2016-08-04 15:47 | Discharge Summary ---
Discharge Summary Date of Service August 04, 2016. (Christel Harrell PA-C) Discharge Summary Admission Date: August 03, 2016 at 02:49 Discharge Date: August 04, 2016 Discharge Disposition: Home Principal Diagnosis: Dysphagia due to esophageal dysmotility Problems/Secondary Diagnoses: Dysphagia Recent UTI Suicidal ideation Hypokalemia HTN Hyperlipidemia GERD Immunizations: Have You Had Influenza Vaccine: Unknown History of Tetanus Vaccine?: Unknown History of Pneumococcal: Unknown History of Hepatitis B Vaccine: Unknown Procedures: VIDEO SWALLOW HISTORY: globus pharyngeus TECHNIQUE: Video fluoroscopic evaluation of swallowing was performed in the AP and lateral projections by the speech pathology staff. The patient is fed nectar-thick and thin liquid barium, a barium coated wafer, and barium pudding. FLUOROSCOPY TIME: 2.6 minutes. A cine loop submitted. COMPARISON STUDY: Neck radiograph 08/03/2016. FINDINGS: There is normal hyoid excursion and epiglottic deflection. No significant penetration or aspiration identified. Swallowing function is within normal limits. Mild esophageal dysmotility. IMPRESSION: 1. No aspiration identified. Mild esophageal dysmotility. 2. Please see the speech pathologist report for detailed findings and recommendations. Electronically signed by: Dustin De La O M.D. 08/04/2016 1:52 PM Dictated Date/Time: 08/04/2016 1:48 PM The status of this report is Signed. Draft = Not yet reviewed or approved by Radiologist. Signed = Reviewed and approved by Radiologist. SOFT TISSUES NECK 2 VIEWS CLINICAL HISTORY: Globus sensation of one month's duration. FINDINGS: AP and lateral views of the soft tissues of the neck are compared to study dated 08/10/2006. The soft tissues of the neck are normal as visualized. There is no radiodense foreign body seen. The epiglottic shadow is normal. The airway is widely patent. The prevertebral/retropharyngeal soft tissues are normal as imaged. The skeletal structures are osteopenic. Spondylotic change is noted in the cervical spine. Small anterior osteophytes are seen from C4-C7. The partially imaged apical lung parenchyma appears clear. IMPRESSION: Unremarkable radiographic assessment of the soft tissues of the neck. Electronically signed by: Deyvi Lan M.D. 08/03/2016 7:51 AM Dictated Date/Time: 08/03/2016 7:50 AM The status of this report is Signed. Draft = Not yet reviewed or approved by Radiologist. Signed = Reviewed and approved by Radiologist. Consultations: GI Psychiatry (Christel Harrell PA-C) Consultations: ENT speech therapy (Jitendra Reece MD) Medication Reconciliation Continued Medications: Acetaminophen (Tylenol Extra Strength) 500 Mg Tab 1000 MG PO Q8H PRN for Pain Cholecalciferol (Vitamin D3) 1,000 Unit Tab 3000 INTER.UNIT PO QAM, TAB Hydrochlorothiazide (Hydrochlorothiazide) 12.5 Mg Tab 12.5 MG PO DAILY, TAB Losartan Potassium (Cozaar) 50 Mg Tab 50 MG PO DAILY, TAB Omeprazole (Prilosec) 40 Mg Cap 40 MG PO DAILY, CAP Potassium Chloride (Micro-K Ext Rel) Unknown Strength Capcr Unknown Dose PO DAILY, CAP Simvastatin (Zocor) 10 Mg Tab 10 MG PO QPM, TAB Referrals At Discharge Follow up Referrals: Physician Referral - Within 1 Week with Curtis Varela M.D. Discharge Exam Review of Systems: Constitutional: No chills, No fatigue, No fever, No sweats, No weakness Respiratory: No cough, No hemoptysis, No shortness of breath Cardiovascular: No chest pain, No edema, No palpitations Abdomen: No constipation, No diarrhea, No nausea, No pain, No vomiting Musculoskeletal: No calf pain, No joint pain, No muscle pain, No swelling Genitourinary - Female: No dysuria, No hematuria, No urinary frequency, No urinary urgency Neurologic: No numbness/tingling, No weakness Psychiatric: No anxiety, No depression symptoms Hematologic / Lymphatic: No abnormal bleeding/bruising Integumentary: No itch, No new/changing skin lesions, No rash Physical Exam: General Appearance: no apparent distress Eyes: normal inspection, PERRL ENT: hearing grossly normal Neck: supple Respiratory/Chest: lungs clear, no respiratory distress, no accessory muscle use Cardiovascular: regular rate, rhythm Abdomen / GI: normal bowel sounds, non tender, soft Extremities: no calf tenderness, no pedal edema Neurologic/Psychiatric: alert, normal mood/affect, oriented x 3 Skin: normal color, warm/dry, no rash (Christel Harrell PA-C) Hospital Course HPI on admission: This is a 76 yo f that is presenting to us with a globus sensation and choking with food which has been ongoing since july 2101/2017. She states that she has had a progressive worsening of " a feeling of having food stuck." since the . She came to the ED with the hope that " someone can finally do something about it." She has been scared to take any of her regular medications because she has been choking on them; " I am frightened and I just want some help". When she was told an outpatient follow up with GI would be arranged she got very upset and stated to Dr Bell that she was going to go home and take all of her pills and kill herself. Since there was concern for suicidal threats she was moved to one of the isolated rooms and placed on one to one. During our interview she stated, " i know I should not have said that but you have to understand I just need help." She denies any Si or HI at this time. She has no history of depression or anxiety. Dysphagia: - Admit to med/surg - TSH- WNL - Neck soft tissue on 08/02- Unremarkable radiographic assessment of the soft tissues of the neck - GI consulted, appreciate recommendations -- Consulted ENT for clearance because of recent ?allergic reaction to Bactrim for video swallow on 08/04 -- Video swallow on 08/04- Mild esophageal dysmotility -- Discussed w/ Bessy DELGADO; patient is OK for discharge on 08/04, instructed patient on safe PO intake strategies, working to setup f/u and schedule EGD (? needed before August 23) - Speech therapy consulted, appreciate recommendations- instructed patient on diet and safe swallow strategies Recent UTI: - Only took Bactrim for a few days then d/c'd due to ?reaction; UA reviewed; urinary symptoms resolved- no antibiotics at this time Suicidal ideation: Psych consulted- no further recommendations Hypokalemia- RESOLVED: NSS with KCL 20 @ 125 cc/h while patient is NPO HTN: Continue Losartan and HCTZ Hyperlipidemia: Continue Simvastatin GERD: Change Omeprazole to Protonix- resume Prilosec at discharge GI Prophylaxis: Maalox PRN, IV Zofran PRN, Colace and/or Milk of Mag PRN DVT prophylaxis: Heparin Code Status: LEVEL I, FULL Dispo: Discharge to home Total Time Spent: Greater than 30 minutes This includes examination of the patient, discharge planning, medication reconciliation, and communication with other providers. (Christel Harrell, ELE) Attending Discharge Note & Attestation: Pt seen/examined, chart reviewed, care plan d/w MINNIE Harrell on day of discharge. I agree w/ the alejandro components of her discharge summary. 76yo female presenting with concerns of dysphagia. Had recent outpatient EGD with hiatal hernia but otherwise normal. During this stay had negative x-rays of the neck, negative laryngoscopy by ENT, and largely normal video swallow by speech therapy (except for mild esophageal dysmotility). Speech recommended a mechanical soft / slippery diet with all levels of liquids. At time of discharge she was tolerating a [facility] soft diet. She will continue on PPI therapy at home. Discharge exam - gen - nad, mildly anxious mouth - MMM, no erythema heart - RRR lungs - CTA b/l abd - soft, NT ext - no edema Jitendra Reece MD (Jitendra Reece MD) Discharge Instructions Please refer to the electronic Patient Visit Report (Discharge Instructions) for additional information. (Christel Harrell, PAAnaliliaC) Follow-Up Please follow-up with your PCP within 5-7 days Please follow-up with GI as instructed by Dr. Hinton's group Please follow-up/keep all of your subspecialty appointments (Christel Harrell, [facility]) Additional Copies To Curtis Varela M.D.; Saeed Mcallister D.O.; Bessy Ocampo CRNP
[2016-08-04 17:23] VITALS: BP 122/78; PULSE 83; TEMP 36.7; O2SAT 95
[2016-08-16] MEDS ORDERED: LOSA1TAB38 PO (13:21)
[2016-08-16] MEDS ORDERED: POTA20TA16 PO (13:21)
[2016-09-04] MEDS ORDERED: OMEP40CA41 PO (13:17)
[2016-09-04] MEDS ORDERED: SIMV10TA2 PO (13:21)
[2016-09-04] MEDS ORDERED: HYDR25TA4 PO (13:21)
[2016-09-04] MEDS ORDERED: CHOL1000 PO (14:04)
[2016-09-04] MEDS ORDERED: KFLUDL2505 PO (16:03)
[2016-10-05] MEDS ORDERED: ESCI1SOL2 PO (12:17)
== END 2016-08-04 19:51 | disposition home or self-care (01) ==
LOC: ENRESERVTM → ENRESERVDT → C.EDB 22:46 → C.MED 08-03 02:49
PROVIDERS: ADMIT Student in an Organized Health Care Education/Training Program; ATTEND Internal Medicine
DX: K22.4 Dyskinesia of esophagus (principal); R13.10 Dysphagia, unspecified; R45.851 Suicidal ideations; I10 Essential (primary) hypertension; E78.5 Hyperlipidemia, unspecified; E87.6 Hypokalemia; K21.9 Gastro-esophageal reflux disease without esophagitis; Z87.440 Personal history of urinary (tract) infections; Z79.899 Other long term (current) drug therapy; B37.0 Candidal stomatitis; J30.9 Allergic rhinitis, unspecified; Z83.3 Family history of diabetes mellitus; Z82.49 Family history of ischemic heart disease and other diseases of the circulatory system

== ENCOUNTER → 2016-08-09 | Outpatient (CLI) | payer OTHER ==
[~2016-08-09] MED LIST changes: +ALPR-413 PO; +CHOL1000 PO; +CHOL200027 PEG; +CLR10 PO; +CRFL PO; +ESCI1SOL2 PO; +HYDR25TA4 PO; +KFLUDL2505 PO; +LORA-741 PO; +LOSA1TAB38 PO; +NTRGSL/4 UT; +OMEP40CA41 PO; +ONDA4TAB10 SL; +POTA10CA28 PO; +POTA20SO2 PO; +POTA20TA16 PO; +TYLENOL PO; +ZNT150 PO
[2016-08-09 13:55] LABS: URINE APPEARANCE CLOUDY (CLEAR); URINE BILIRUBIN NEG (NEG); URINE COLOR YELLOW; URINE NITRITE NEG (NEG); URINE SPECIFIC GRAVITY 1.009 (1.000-1.030); UROBILINOGEN NEG (NEG)
[2016-08-09 14:08] LABS: MANUAL MICROSCOPIC REQUIRED? NO; REVIEW REQ? NO
== END | disposition home or self-care (01) ==
LOC: C.LABBC 11:02
PROVIDERS: ATTEND Internal Medicine Geriatric Medicine
DX: R35.0 Frequency of micturition (principal)

== ENCOUNTER → 2016-08-16 | Outpatient (CLI) | payer OTHER ==
--- NOTE | 2016-08-16 09:48 | DIAGNOSTIC IMAGING REPORT ---
(BARIUM SWALLOW) ESOPHAGUS CLINICAL HISTORY: ESOPHAGEAL DYSMOTILITY COMPARISON STUDY: None FLUOROSCOPY TIME: 1 minute. FINDINGS: The patient swallowed effervescent granules and barium without difficulty. Rapid sequence swallows in the AP and lateral projections reveal normal swallowing mechanics. No aspiration was visualized. No esophageal masses or ulcerations were evident. There is a small sliding hiatal hernia. There is esophageal dysmotility. No reflux was identified. The patient was administered one half inch barium tablet but he was unable to swallow the pill. IMPRESSION: 1. Small sliding hiatal hernia 2. Disordered esophageal motility. Electronically signed by: Remberto Sinclair M.D. 08/16/2016 9:46 AM Dictated Date/Time: 08/16/2016 9:45 AM
== END | disposition home or self-care (01) ==
LOC: C.RAD 08:15
PROVIDERS: ATTEND Nurse Practitioner
DX: K22.4 Dyskinesia of esophagus (principal)

== ENCOUNTER → 2016-08-17 | Outpatient (CLI) | payer OTHER ==
[2016-08-17 17:20] LABS: URINE APPEARANCE CLEAR (CLEAR); URINE BILIRUBIN NEG (NEG); URINE COLOR YELLOW; URINE NITRITE NEG (NEG); URINE SPECIFIC GRAVITY 1.011 (1.000-1.030); UROBILINOGEN NEG (NEG)
[2016-08-17 17:23] LABS: MANUAL MICROSCOPIC REQUIRED? NO; REVIEW REQ? NO
== END | disposition home or self-care (01) ==
LOC: C.LABBC 13:37
PROVIDERS: ATTEND Internal Medicine Geriatric Medicine
DX: R35.0 Frequency of micturition (principal)

== ENCOUNTER → 2016-08-23 | Day surgery (SDC) | payer OTHER ==
[2016-08-16 13:22] VITALS: Ht 152.4 cm; Wt 63.6 kg
[~2016-08-23] VITALS: Ht 152.4 cm; Wt 63.6 kg
[~2016-08-23] MED LIST changes: -ACET-1257 PO; -HYDR12.55 PO; +LIDOCAINE HCL 2% 2 ML VIAL (20MG/ML) ONE; -LOSA50TA6 PO; +ONDANSETRON INJ 2 MG/ML 2 ML VIAL IV PRN; -POTA10CA28 PO; +PROPOFOL IV EMULSION 10 MG/ML 20 ML VIAL IV ONE
--- NOTE | 2016-08-23 08:21 | Endo History and Physical ---
History & Physical Date of Service: Aug 23, 2016. Chief Complaint: Dilation of esophagus Referring Physician: Dr. Curtis Varela History of Present Illness Patient following after a food impaction several weeks ago, for egd with dilation today. Past Surgical History Hx Cardiac Surgery: No Hx Internal Defibrillator: No Hx Pacemaker: No Hx Abdominal Surgery: Yes (REBECCA, NIKKI, INGUINAL HERNIA) Hx of Implantable Prosthesis: No Hx Post-Op Nausea and Vomiting: No Hx Cancer Surgery: No Hx Thoracic Surgery: No Hx Orthopedic: Yes (RT/LEFT TKA) Hx Urinary Tract Surgery: Yes (LITHOTRIPSY X 5, BLADDER SLING) Family History Polyp Social History Smoking Status: Never Smoker Hx Substance Use: No Hx Alcohol Use: No Allergies Coded Allergies: Nitrofurantoin (Verified Allergy, Intermediate, chest pain, h/a, sore throat, diarrhea., 08/16/16) Quinolones (Verified Allergy, Mild, HAND SWELLED UP, 08/16/16) Levofloxacin (Verified Allergy, Unknown, HANDS SWELLING, 08/16/16) Codeine (Verified Adverse Reaction, Mild, SEVERE CONSTIPATION, 08/16/16) Current Medications Reported Home Medications Medications Dose Route/Sig Max Daily Dose Days Date Category Dose Instructions Zocor (Simvastatin) 10 Mg Tab 10 Mg PO QPM 08/16/16 Reported Klor-Con (Potassium Chloride) 20 Meq Tabcr 10 Meq PO DAILY 08/16/16 Reported Hctz (Hydrochlorothiazide) 25 Mg Tab 25 Mg PO QPM 08/16/16 Reported Cozaar (Losartan Potassium) 100 Mg Tab 50 Mg PO QAM 08/16/16 Reported WILL HOLD IF BP LOW Prilosec (Omeprazole) 40 Mg Cap 40 Mg PO QAM 07/22/16 Reported Vitamin D3 (Cholecalciferol) 1,000 Unit Tab 3,000 Inter.unit PO QAM 07/28/15 Reported Vital Signs Weight (Kilograms): 63.64 Height (Feet): 5 Height (Inches): 0 Date Time Temp Pulse Resp B/P (MAP) Pulse Ox O2 Delivery O2 Flow Rate FiO2 08/23/16 08:14 36.7 65 18 129/94 (106) 96 Room Air Physical Exam General Appearance: no apparent distress Respiratory/Chest: Auscultation: breath sounds normal Cardiovascular: Heart Auscultation: RRR, II/ MONTEZ Abdomen: Inspection & Palpation: soft Assessment and Plan EGD for a history of recurrent solid food dysphagia. Plan EGD with dilation today.
--- NOTE | 2016-08-23 08:52 | Discharge Instructions ---
Endoscopy Patient Instructions Date / Procedure(s) Performed Aug 23, 2016. EGD Allergy Information Coded Allergies: Nitrofurantoin (Verified Allergy, Intermediate, chest pain, h/a, sore throat, diarrhea., 08/16/16) Quinolones (Verified Allergy, Mild, HAND SWELLED UP, 08/16/16) Levofloxacin (Verified Allergy, Unknown, HANDS SWELLING, 08/16/16) Codeine (Verified Adverse Reaction, Mild, SEVERE CONSTIPATION, 08/16/16) Discharge Date / Findings Aug 23, 2016. 3 to 4 cm hiatal hernia Medication Instructions Reported Home Medications Medications Dose Route/Sig Max Daily Dose Days Date Category Dose Instructions Zocor (Simvastatin) 10 Mg Tab 10 Mg PO QPM 08/16/16 Reported Klor-Con (Potassium Chloride) 20 Meq Tabcr 10 Meq PO DAILY 08/16/16 Reported Hctz (Hydrochlorothiazide) 25 Mg Tab 25 Mg PO QPM 08/16/16 Reported Cozaar (Losartan Potassium) 100 Mg Tab 50 Mg PO QAM 08/16/16 Reported WILL HOLD IF BP LOW Prilosec (Omeprazole) 40 Mg Cap 40 Mg PO QAM 07/22/16 Reported Vitamin D3 (Cholecalciferol) 1,000 Unit Tab 3,000 Inter.unit PO QAM 07/28/15 Reported Provider Instructions Activity Restrictions - No exercising or heavy lifting for 24 hours. - Do not drink alcohol the day of the procedure. - Do not drive a car or operate machinery until the day after the procedure. - Do not make any important decisions or sign important papers in 24 hours after the procedure. Following Day: - Return to full activity which may include returning to work/school. Diet Start your diet with liquids and light foods (jello, soup, juice, toast). Then eat your usual diet if not nauseated. Treatment For Common After Affects For mild abdominal pain, bloating, or excessive gas: - Rest - Eat lightly - Lie on right side Follow-Up Information Follow-up with Dr. Curtis Varela as scheduled Continue Omeprazole at 20 mg per day Follow-up with Dr. Merlos as needed Anesthesia Information What You Should Know You have had a procedure that required some medicine to reduce anxiety and discomfort. This treatment is called moderate sedation. After receiving the treatment, you may be sleepy, but you will be able to breathe on your own. The effects of the treatment may last for several hours. Follow these instructions along with Activity/Diet recommendations noted above: * Do NOT do anything where dizziness or clumsiness would be dangerous. * Rest quietly at home today, then you can be up and about tomorrow. * Have a responsible person stay with you the rest of today. * You may have had an I.V. today. If so, you may take the dressing off later today. Recommendations Call your doctor if: * Trouble breathing * Continuous vomiting for more than 24 hours * Temperature above 101 degrees * Severe abdominal pain or bloating * Pain not relieved by pain medicine ordered * There is increased drainage or redness from any incision * A large amount of rectal bleeding greater than 2-3 tablespoons. (If you had a polyp/s removed or have hemorrhoids, a small amount of blood - from the rectum is to be expected.) * You have any unanswered questions or concerns. IN THE EVENT OF A SERIOUS EMERGENCY, GO TO THE NEAREST EMERGENCY ROOM Your discharge instructions were prepared by provider Minna Merlos. Patient Instructions Signature Page Nichelle Lujan Patient (or Guardian) Signature/Date: I have read and understand the instructions given to me by my caregivers. Caregiver/RN/Doctor Signature/Date: The above-named patient and/or guardian has received patient instructions on this date. + Original Patient Signature Page (only) stays with chart. Please make copy for patient.
--- NOTE | 2016-08-23 08:52 | GI REPORT ---
Procedure Date: 08/23/2016 8:33 AM Procedure: Upper GI endoscopy Indications: Dysphagia Medicines: Monitored Anesthesia Care Complications: No immediate complications. Estimated blood loss: Minimal. Estimated Blood Loss: Estimated blood loss was minimal. Procedure: Pre-Anesthesia Assessment: - Prior to the procedure, a History and Physical was performed, and patient medications, allergies and sensitivities were reviewed. The patient's tolerance of previous anesthesia was reviewed. - The risks and benefits of the procedure and the sedation options and risks were discussed with the patient. All questions were answered and informed consent was obtained. - Patient identification and proposed procedure were verified prior to the procedure by the physician, the nurse and the photography editor. The procedure was verified in the procedure room. - Pre-procedure physical examination revealed no contraindications to sedation. - ASA Grade Assessment: III - A patient with severe systemic disease. - After reviewing the risks and benefits, the patient was deemed in satisfactory condition to undergo the procedure. - The anesthesia plan was to use monitored anesthesia care (MAC). - Immediately prior to administration of medications, the patient was re-assessed for adequacy to receive sedatives. - The heart rate, respiratory rate, oxygen saturations, blood pressure, adequacy of pulmonary ventilation, and response to care were monitored throughout the procedure. - The physical status of the patient was re-assessed after the procedure. After obtaining informed consent, the endoscope was passed under direct vision. Throughout the procedure, the patient's blood pressure, pulse, and oxygen saturations were monitored continuously. The scope was introduced through the mouth, and advanced to the third part of duodenum. The upper GI endoscopy was accomplished without difficulty. The patient tolerated the procedure well. Findings: No endoscopic abnormality was evident in the esophagus to explain the patient's complaint of dysphagia. It was decided, however, to proceed with dilation of the entire esophagus. A guidewire was placed and the scope was withdrawn. Dilation was performed with a Savary dilator with no resistance at 48 Fr and 51 Fr and mild resistance at 54 Fr. The endoscope was then reinserted to evaluate the success of the procedure. Estimated blood loss was minimal. The Z-line was irregular and was found 35 cm from the incisors. Biopsies were taken with a cold forceps for histology. Estimated blood loss was minimal. A medium-sized hiatus hernia was found. The proximal extent of the gastric folds (end of tubular esophagus) was 36 cm from the incisors. The hiatal narrowing was 39 cm from the incisors. The Z-line was 35 cm from the incisors. The entire examined stomach was normal. The examined duodenum was normal. Impression: - No endoscopic esophageal abnormality to explain patient's dysphagia. Esophagus dilated. Dilated. - Z-line irregular, 35 cm from the incisors. Biopsied. - Medium-sized hiatus hernia. - Normal stomach. - Normal examined duodenum. Recommendation: - Discharge patient to home (ambulatory). - Advance diet as tolerated today. - Use Prilosec (omeprazole) 20 mg PO daily indefinitely. - Await pathology results. - Return to my office PRN. - Repeat the upper endoscopy PRN for retreatment. Minna Merlos D.O. Minna Merlos, DO 08/23/2016 8:50:43 AM This report has been signed electronically. Note Initiated On: 08/23/2016 8:33 AM I attest to the content of the Intraoperative Record and orders documented therein, exceptions below
[2016-08-23 09:19] VITALS: BP 119/72; PULSE 68; O2SAT 96
--- NOTE | 2016-08-23 11:02 | Anesthesiology Progress Note ---
Anesthesia Post Op Note Date & Time Aug 23, 2016 at 11:02 Vital Signs Pain Intensity: 0 Vital Signs Past 12 Hours Date Time Temp Pulse Resp B/P (MAP) Pulse Ox O2 Delivery O2 Flow Rate FiO2 08/23/16 09:19 68 18 119/72 (88) 96 Room Air 08/23/16 09:03 67 18 126/80 (95) 96 Room Air 08/23/16 08:14 36.7 65 18 129/94 (106) 96 Room Air Notes Mental Status: alert / awake / arousable, participated in evaluation Pt Amnestic to Procedure: Yes Nausea / Vomiting: adequately controlled Pain: adequately controlled Airway Patency, RR, SpO2: stable & adequate BP & HR: stable & adequate Hydration State: stable & adequate Anesthetic Complications: no major complications apparent
== END | disposition home or self-care (01) ==
LOC: C.GI 07:45
PROVIDERS: ATTEND Internal Medicine Gastroenterology
DX: K20.9 Esophagitis, unspecified (principal); K44.9 Diaphragmatic hernia without obstruction or gangrene; Z79.899 Other long term (current) drug therapy

== ENCOUNTER 2016-08-24 13:37 | Emergency (ER) | payer OTHER ==
[~2016-08-24] VITALS: Ht 152.4 cm; Wt 63.6 kg
[~2016-08-24 13:37] MED LIST changes: -ALPR-413 PO; -CHOL1000 PO; -CHOL200027 PEG; -CLR10 PO; -CRFL PO; -ESCI1SOL2 PO; -HYDR25TA4 PO; -KFLUDL2505 PO; -LIDOCAINE HCL 2% 2 ML VIAL (20MG/ML) ONE; -LORA-741 PO; -NTRGSL/4 UT; -OMEP40CA41 PO; -ONDA4TAB10 SL; -ONDANSETRON INJ 2 MG/ML 2 ML VIAL IV PRN; -POTA20SO2 PO; -PROPOFOL IV EMULSION 10 MG/ML 20 ML VIAL IV ONE; -SIMV10TA2 PO; -TYLENOL PO; -ZNT150 PO
[2016-08-24 13:40] VITALS: TEMP 36.7; Ht 152.4 cm; Wt 63.6 kg
[2016-08-24 13:58] VITALS: O2SAT 98
[2016-08-24] MEDS ORDERED: SODIUM CHLORIDE 0.9% 1000ML 1,000 ML IV STA ×2 (14:14→16:19)
--- NOTE | 2016-08-24 14:20 | EMERGENCY ROOM VISIT NOTE ---
History First contact with patient: 14:01 Chief Complaint: SYNCOPE Stated Complaint: PASSED OUT Nursing Triage Summary: pt had throat dialted 1 day ago was given nitro to take if she felt food was getting stuck, pt took 1 nitro became dizzy and had syncopal episode History of Present Illness The patient is a 76 year old female who presents to the Emergency Room with complaints of syncope. Had esophagus dilated yesterday. Around 11:00am ate some toast and it got stuck with cream of chicken soup. Continued to feel it was stuck and around 12pm took a nitroglycerin prescribed by Dr Varela in order to relax muscles to help food go down. Shortly after taking it she felt dizzy and then doesn't remember anything after that. When she came to approximately 25 minutes later she was sweating and couldn't get up, shaky all over and generally weak. She crawled back up on chair. Took her BP 102/50's. Continued to feel shaky. Called her doctor and advised come in for admission. She also took higher dose of losartan this morning as she cut it back recently and she asked her to get her pills this morning and accidently took the previously 100mg dose. Lumbar pain for 3 days. Had it after she woke up and unsure what caused it. Thinks it is about the same severity after falling but is in the center of her back. Currently on treatment for UTI and increased frequency. Klebsiella on 08/17/16 resistant to nitrofurantoin. (treatment with keflex as per [employer]) Review of Systems See HPI for pertinent positives & negatives. A total of 10 systems reviewed and were otherwise negative. Past Medical/Surgical History Medical Problems: (1) Acid reflux (2) Esophageal dysmotility (3) Esophageal dysmotility (4) Globus pharyngeus (5) Obstruction of esophagus due to food impaction (6) Osteoporosis (7) Suicidal ideation (8) Urinary frequency Surgical Problems: (1) Post-operative state Family History Diabetes mellitus Gallbladder disease Heart disease Hypertension Kidney stones Social History Smoking Status: Never Smoker Alcohol Use: none Drug Use: none Marital Status: Housing Status: lives with significant other Occupation Status: retired Current/Historical Medications Scheduled Cephalexin Monohydrate (Cephalexin), 10 ML PO TID Cholecalciferol (Vitamin D3), 3,000 INTER.UNIT PO QAM Hydrochlorothiazide (Hctz), 25 MG PO QPM Losartan Potassium (Cozaar), 50 MG PO QAM Omeprazole (Prilosec), 40 MG PO QAM Potassium Ext Rel (Klor-Con), 10 MEQ PO DAILY Simvastatin (Zocor), 10 MG PO QPM Allergies Coded Allergies: Nitrofurantoin (Verified Allergy, Intermediate, chest pain, h/a, sore throat, diarrhea., 08/24/16) Quinolones (Verified Allergy, Mild, HAND SWELLED UP, 08/24/16) Levofloxacin (Verified Allergy, Unknown, HANDS SWELLING, 08/24/16) Codeine (Verified Adverse Reaction, Mild, SEVERE CONSTIPATION, 08/24/16) Physical Exam Vital Signs Date Time Temp Pulse Resp B/P (MAP) Pulse Ox O2 Delivery O2 Flow Rate FiO2 08/24/16 17:23 67 18 126/75 97 08/24/16 16:19 73 20 116/85 99 Room Air 08/24/16 16:15 70 16 132/76 97 Room Air 72 134/82 75 116/85 08/24/16 15:33 80 18 130/77 94 Room Air 08/24/16 14:48 65 18 139/87 95 Room Air 08/24/16 14:02 64 16 127/78 97 08/24/16 13:59 73 08/24/16 13:58 98 Room Air 08/24/16 13:40 36.7 74 20 150/89 96 Room Air Physical Exam VITAL SIGNS: were reviewed as above GENERAL: no acute distress SKIN: Warm dry and pink, no rashes HEAD: Normocephalic and atraumatic EYES: extraocular muscles intact, pupils equal and reactive to light OROPHARYNX: non erythematous, clear and moist NECK: Supple, no adenopathy, trachea central, no carotid bruits LUNGS: Regular rate, clear to auscultation, no accessory muscle use HEART: Regular rate and rhythm, heart sounds 1+2, no murmurs ABDOMEN: Soft and nontender, bowel sounds normal BACK: no CVA tenderness, central spinal tenderness L3 level EXTREMITIES: Warm and well perfused, no calf tenderness/swelling, no pedal edema NEUROLOGICALLY: Awake alert and oriented without focal deficit. Cranial nerves 2 -12 intact. Cerebellar testing is within normal limits. There is no nystagmus. There is no facial droop. Speech is clear. Vision is grossly normal. Motor and sensory examination of upper and lower extremities normal. MUSCULOSKELETAL: Good muscle tone. No evidence of trauma Medical Decision & Procedures ER Provider Diagnostic Interpretation: LUMBAR SPINE 5 VIEWS HISTORY: syncope, lumbar spine pain, osteoporosis ?fracture COMPARISON: None. FINDINGS: There is no fracture. No subluxation. Mild levoscoliosis. There are 2 stones within the lower pole the left kidney. Multiple pelvic phleboliths are noted. The sacrum is intact. 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 IMPRESSION: No fracture or subluxation within the lumbar spine. Degenerative changes as described above. Electronically signed by: Dustin De La O M.D. 08/24/2016 3:13 PM Dictated Date/Time: 08/24/2016 3:09 PM CHEST ONE VIEW PORTABLE CLINICAL HISTORY: syncope COMPARISON STUDY: 07/22/2016 FINDINGS: The heart is mildly enlarged. There is aortic tortuosity. There is no failure. There is no focal pulmonary consolidation. There are no pleural effusions.[ IMPRESSION: No active disease in the chest. Electronically signed by: Remberto Sinclair M.D. 08/24/2016 2:50 PM Dictated Date/Time: 08/24/2016 2:49 PM Laboratory Results 08/24/16 14:25 Red Blood Count 4.36, Mean Corpuscular Volume 90.8, Mean Corpuscular Hemoglobin 30.3, Mean Corpuscular Hemoglobin Concent 33.3, Mean Platelet Volume 10.2, Neutrophils (%) (Auto) 86.2, Lymphocytes (%) (Auto) 8.1, Monocytes (%) (Auto) 5.5, Eosinophils (%) (Auto) 0.0, Basophils (%) (Auto) 0.1, Neutrophils # (Auto) 5.77, Lymphocytes # (Auto) 0.54, Monocytes # (Auto) 0.37, Eosinophils # (Auto) 0.00, Basophils # (Auto) 0.01 08/24/16 14:25 Test 08/24/16 11:53 08/24/16 14:25 08/24/16 16:35 Urine Color YELLOW Urine Appearance CLEAR (CLEAR) Urine pH 7.5 (4.5-7.5) Urine Specific Harwood 1.009 (1.000-1.030) Urine Protein NEG (NEG) Urine Glucose (UA) NEG (NEG) Urine Ketones NEG (NEG) Urine Occult Blood NEG (NEG) Urine Nitrite NEG (NEG) Urine Bilirubin NEG (NEG) Urine Urobilinogen NEG (NEG) Urine Leukocyte Esterase NEG (NEG) Urine WBC (Auto) 1-5 /hpf (0-5) Urine RBC (Auto) 0-4 /hpf (0-4) Urine Hyaline Casts (Auto) 1-5 /lpf (0-5) Urine Epithelial Cells (Auto) 5-10 /lpf (0-5) Urine Bacteria (Auto) NEG (NEG) White Blood Count 6.70 K/uL (4.8-10.8) Red Blood Count 4.36 M/uL (4.2-5.4) Hemoglobin 13.2 g/dL (12.0-16.0) Hematocrit 39.6 % (37-47) Mean Corpuscular Volume 90.8 fL (80-100) Mean Corpuscular Hemoglobin 30.3 pg (25-34) Mean Corpuscular Hemoglobin Concent 33.3 g/dl (32-36) Platelet Count 212 K/uL (130-400) Mean Platelet Volume 10.2 fL (7.4-10.4) Neutrophils (%) (Auto) 86.2 % Lymphocytes (%) (Auto) 8.1 % Monocytes (%) (Auto) 5.5 % Eosinophils (%) (Auto) 0.0 % Basophils (%) (Auto) 0.1 % Neutrophils # (Auto) 5.77 K/uL (1.4-6.5) Lymphocytes # (Auto) 0.54 K/uL (1.2-3.4) Monocytes # (Auto) 0.37 K/uL (0.11-0.59) Eosinophils # (Auto) 0.00 K/uL (0-0.5) Basophils # (Auto) 0.01 K/uL (0-0.2) RDW Standard Deviation 46.5 fL (36.4-46.3) RDW Coefficient of Variation 13.9 % (11.5-14.5) Immature Granulocyte % (Auto) 0.1 % Immature Granulocyte # (Auto) 0.01 K/uL (0.00-0.02) Anion Gap 9.0 mmol/L (3-11) Est Creatinine Clear Calc Drug Dose 51.1 ml/min Estimated GFR () 85.6 Estimated GFR (Non- 73.8 BUN/Creatinine Ratio 6.2 (10-20) Calcium Level 8.7 mg/dl (8.5-10.1) Total Bilirubin 0.5 mg/dl (0.2-1) Aspartate Amino Transf (AST/SGOT) 16 U/L (15-37) Alanine Aminotransferase (ALT/SGPT) 25 U/L (12-78) Alkaline Phosphatase 56 U/L (45-117) Total Protein 7.0 gm/dl (6.4-8.2) Albumin 3.6 gm/dl (3.4-5.0) Globulin 3.4 gm/dl (2.5-4.0) Albumin/Globulin Ratio 1.1 (0.9-2) Troponin I < 0.015 ng/ml (0-0.045) Medications Administered Medications (Trade) Dose Ordered Sig/Deirdre Route Start Time Stop Time Status Last Admin Dose Admin Sodium Chloride 1,000 ml @ 999 mls/hr Q1H1M STAT IV 08/24/16 14:14 08/24/16 15:14 DC 08/24/16 14:14 999 MLS/HR Sodium Chloride 1,000 ml @ 999 mls/hr Q1H1M STAT IV 08/24/16 16:19 08/24/16 17:19 DC 08/24/16 16:27 999 MLS/HR ECG Indication: syncope Rate (beats per minute): 68 Rhythm: normal sinus Findings: no acute ischemic change, other (Left ventricular hypertrophy) Change: no significant change ED Course 14:04 Complete history and physical taken 14:[address] Brock who agreed with plan 15:25 Patient reassessed Medical Decision Prior records/ancillary studies reviewed. Triage Nursing notes reviewed. Additional history obtained from patient. The patient's history was concerning for syncope. Differential diagnosis: Etiologies such as vasovagal event, infection, hypoglycemia, electrolyte abnormalities, cardiac sources, intracerebral event, toxicologic, neurologic, as well as others were entertained. Physical examination: As above. Unremarkable. ER treatment provided: IV hydration with normal saline 2L bolus On reassessment the patient felt better. Diagnostics interpretation by me: ECG: NSR, LVH with no ischemic changes The labs revealed mild hypokalemia otherwise unremarkable. x2 troponins 2 hours apart were negative. Imaging studies: CXR and Lumbar spine XR showed no fracture or infection This appears to be consistent with orthostatic hypotension secondary to double her normal dose of losartan and taking nitroglycerin. There are no symptoms are signs to suggest she aspirated. By the evaluation outlined above emergent etiologies such as esophageal rupture, infection, hypoglycemia, electrolyte abnormalities, cardiac sources, intracerebral event, toxicologic, neurologic,as well as others were deemed relatively unlikely. The patient informed about the findings as listed above. All questions were answered and she pleased with the treatment. Return instructions were outlined and the patient was discharged in stable condition. Referral: The patient was referred back to their primary care physician for follow-up within the next week for a recheck of the current condition. Impression Primary Impression: Syncope due to orthostatic hypotension Departure Information Dispostion Home / Self-Care Condition GOOD Referrals Curtis Varela M.D. (PCP) Patient Instructions [facility] Additional Instructions You were evaluated in the ER for syncopal episode. Labs, EKG, CXR, urine analysis and lumbar spine x-rays were taken. From your history this was most likely secondary to taking a double dose of losartan with nitroglycerin use and concurrent ongoing urinary tract infection. Recommend having on a soft diet until following up with your PCP within the next week. Resident Tracking Resident Involvement: Resident Care Provided Care Provided: Adult ED
[2016-08-24 14:43] LABS: BASO % 0.1 %; BASO ABS # 0.01 K/uL (0-0.2); COMPLETE YES; HEMATOCRIT 39.6 % (37-47); IG% 0.1 %; LYMPH % 8.1 %; LYMPH ABS # 0.54 K/uL (1.2-3.4); MEAN CELL VOLUME 90.8 fL (80-100); MEAN CORPUSCULAR HEMOGLOBIN 30.3 pg (25-34); MEAN CORPUSCULAR HGB CONC 33.3 g/dl (32-36); MEAN PLATELET VOLUME 10.2 fL (7.4-10.4); MONO % 5.5 %; NEUT % 86.2 %; PLATELET COUNT 212 K/uL (130-400); RED BLOOD COUNT 4.36 M/uL (4.2-5.4)
--- NOTE | 2016-08-24 14:51 | DIAGNOSTIC IMAGING REPORT ---
CHEST ONE VIEW PORTABLE CLINICAL HISTORY: syncope COMPARISON STUDY: 07/22/2016 FINDINGS: The heart is mildly enlarged. There is aortic tortuosity. There is no failure. There is no focal pulmonary consolidation. There are no pleural effusions.[ IMPRESSION: No active disease in the chest. Electronically signed by: Remberto Sinclair M.D. 08/24/2016 2:50 PM Dictated Date/Time: 08/24/2016 2:49 PM
[2016-08-24 15:04] LABS: BLOOD UREA NITROGEN 5 mg/dl (7-18); BUN/CREATININE RATIO 6.2 (10-20); CALCIUM 8.7 mg/dl (8.5-10.1); CARBON DIOXIDE 27 mmol/L (21-32); CHLORIDE 103 mmol/L (98-107); CREATININE 0.78 mg/dl (0.60-1.20); GLUCOSE 104 mg/dl (70-99); POTASSIUM 3.4 mmol/L (3.5-5.1); SODIUM 139 mmol/L (136-145)
[2016-08-24 15:09] LABS: ALB/GLOB RATIO 1.1 (0.9-2); ALKALINE PHOSPHATASE 56 U/L (45-117); ALT/SGPT 25 U/L (12-78); AST/SGOT 16 U/L (15-37)
--- NOTE | 2016-08-24 15:15 | DIAGNOSTIC IMAGING REPORT ---
LUMBAR SPINE 5 VIEWS HISTORY: syncope, lumbar spine pain, osteoporosis ?fracture COMPARISON: None. FINDINGS: There is no fracture. No subluxation. Mild levoscoliosis. There are 2 stones within the lower pole the left kidney. Multiple pelvic phleboliths are noted. The sacrum is intact. 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 IMPRESSION: No fracture or subluxation within the lumbar spine. Degenerative changes as described above. Electronically signed by: Dustin De La O M.D. 08/24/2016 3:13 PM Dictated Date/Time: 08/24/2016 3:09 PM
[2016-08-24 15:51] LABS: URINE APPEARANCE CLEAR (CLEAR); URINE BILIRUBIN NEG (NEG); URINE COLOR YELLOW; URINE NITRITE NEG (NEG); URINE PH 7.5 (4.5-7.5); URINE SPECIFIC GRAVITY 1.009 (1.000-1.030); UROBILINOGEN NEG (NEG); ZZUR CULT IF INDIC CLEAN CATCH NO
[2016-08-24 15:59] LABS: MANUAL MICROSCOPIC REQUIRED? NO; REVIEW REQ? NO
[2016-08-24 17:23] VITALS: BP 126/75; PULSE 67; O2SAT 97
--- NOTE | 2016-08-24 18:57 | EMERGENCY ROOM VISIT NOTE ---
History Report prepared by Shawn: Asya Mandel Under the Supervision of: Dr. Eric Brock D.O. 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 The patient had an EGD yesterday afternoon. She had been feeling fine after the procedure. This morning she was eating toast and soup around 11am and felt that some of the food got stuck in the back of her throat. This sensation persisted, so about 1 hour later she took a nitroglycerin. She has been prescribed this medication in the past to help food move down her esophagus. About 5 minutes after taking the nitro she started to feel dizzy. She was sitting in a chair in her dining room and slid out of the chair onto the floor. The patient does not remember the episode and is unsure how long she was unconscious. She remembers taking the nitro at 1157, and the next time she looked at the clock it was 1225. When she aroused, she felt weak and shaky and was experiencing lower back pain. Her sensation of a food bolus had resolved. She took her blood pressure and it was 102/50's. The patient also reports that she accidentally took a double dose of her Losartan today. She called her doctor and was advised to come to the ED for further evaluation. The patient is currently taking Keflex for a UTI. Source of History: patient Onset: SODA DISPENSER Position: other (global) Quality: other (syncope) Timing: other (episode) Modifying Factors (Worsening): other (nitro) Modifying Factors (Relieving): other (time) Associated Symptoms: + LOC, + back pain, + weakness Review of Systems See HPI for pertinent positives & negatives. A total of 10 systems reviewed and were otherwise negative. 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 (6) Osteoporosis (7) Suicidal ideation (8) Urinary frequency Surgical Problems: (1) Post-operative state Family History Diabetes mellitus Gallbladder disease Heart disease Hypertension Kidney stones Social History Smoking Status: Never Smoker Alcohol Use: none Drug Use: none Marital Status: Housing Status: lives with significant other Occupation Status: retired Current/Historical Medications Scheduled Cephalexin Monohydrate (Cephalexin), 10 ML PO TID Cholecalciferol (Vitamin D3), 3,000 INTER.UNIT PO QAM Hydrochlorothiazide (Hctz), 25 MG PO QPM Losartan Potassium (Cozaar), 50 MG PO QAM Omeprazole (Prilosec), 40 MG PO QAM Potassium Ext Rel (Klor-Con), 10 MEQ PO DAILY Simvastatin (Zocor), 10 MG PO QPM Allergies Coded Allergies: Nitrofurantoin (Verified Allergy, Intermediate, chest pain, h/a, sore throat, diarrhea., 08/24/16) Quinolones (Verified Allergy, Mild, HAND SWELLED UP, 08/24/16) Levofloxacin (Verified Allergy, Unknown, HANDS SWELLING, 08/24/16) Codeine (Verified Adverse Reaction, Mild, SEVERE CONSTIPATION, 08/24/16) Physical Exam Vital Signs Date Time Temp Pulse Resp B/P (MAP) Pulse Ox O2 Delivery O2 Flow Rate FiO2 08/24/16 17:23 67 18 126/75 97 08/24/16 16:19 73 20 116/85 99 Room Air 08/24/16 16:15 70 16 132/76 97 Room Air 72 134/82 75 116/85 08/24/16 15:33 80 18 130/77 94 Room Air 08/24/16 14:48 65 18 139/87 95 Room Air 08/24/16 14:02 64 16 127/78 97 08/24/16 13:59 73 08/24/16 13:58 98 Room Air 08/24/16 13:40 36.7 74 20 150/89 96 Room Air Physical Exam GENERAL: alert, well appearing, well nourished, no distress, non-toxic HEAD: normal cephalic, atraumatic EYE EXAM: normal conjunctiva, PERRL and EOM's grossly intact OROPHARYNX: no exudate, no erythema, lips, buccal mucosa, and tongue normal and mucous membranes are moist NECK: supple, no nuchal rigidity, no adenopathy, non-tender CHEST: stable to compression anteriorly and posteriorly LUNGS: clear to auscultation. Normal chest wall mechanics HEART: no murmurs, S1 normal and S2 normal ABDOMEN: abdomen soft, non-tender, normo-active bowel sounds, no masses, no rebound or guarding. PELVIS: stable to compression anteriorly and posteriorly BACK: Back is symmetrical on inspection and there is no deformity, no midline tenderness, no CVA tenderness. UPPER EXTREMITIES: full active and passive range of motion of all joints without tenderness to palpation LOWER EXTREMITIES: full active and passive range of motion of all joints without tenderness to palpation NEURO EXAM: Normal sensorium, cranial nerves II-XII intact, normal speech, no weakness of arms, no weakness of legs. No drift. Finger to nose intact. Gross sensation intact. GCS: 15. Medical Decision & Procedures ER Provider Diagnostic Interpretation: Radiology results as stated below per my review and the radiologist's interpretation: CHEST ONE VIEW PORTABLE CLINICAL HISTORY: syncope COMPARISON STUDY: 07/22/2016 FINDINGS: The heart is mildly enlarged. There is aortic tortuosity. There is no failure. There is no focal pulmonary consolidation. There are no pleural effusions.[ IMPRESSION: No active disease in the chest. Electronically signed by: Remberto Sinclair M.D. 08/24/2016 2:50 PM Dictated Date/Time: 08/24/2016 2:49 PM LUMBAR SPINE 5 VIEWS HISTORY: syncope, lumbar spine pain, osteoporosis ?fracture COMPARISON: None. FINDINGS: There is no fracture. No subluxation. Mild levoscoliosis. There are 2 stones within the lower pole the left kidney. Multiple pelvic phleboliths are noted. The sacrum is intact. 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 IMPRESSION: No fracture or subluxation within the lumbar spine. Degenerative changes as described above. Electronically signed by: Dustin De La O M.D. 08/24/2016 3:13 PM Dictated Date/Time: 08/24/2016 3:09 PM Laboratory Results 08/24/16 14:25 Red Blood Count 4.36, Mean Corpuscular Volume 90.8, Mean Corpuscular Hemoglobin 30.3, Mean Corpuscular Hemoglobin Concent 33.3, Mean Platelet Volume 10.2, Neutrophils (%) (Auto) 86.2, Lymphocytes (%) (Auto) 8.1, Monocytes (%) (Auto) 5.5, Eosinophils (%) (Auto) 0.0, Basophils (%) (Auto) 0.1, Neutrophils # (Auto) 5.77, Lymphocytes # (Auto) 0.54, Monocytes # (Auto) 0.37, Eosinophils # (Auto) 0.00, Basophils # (Auto) 0.01 08/24/16 14:25 Test 08/24/16 11:53 08/24/16 14:25 08/24/16 16:35 Urine Color YELLOW Urine Appearance CLEAR (CLEAR) Urine pH 7.5 (4.5-7.5) Urine Specific [place] 1.009 (1.000-1.030) Urine Protein NEG (NEG) Urine Glucose (UA) NEG (NEG) Urine Ketones NEG (NEG) Urine Occult Blood NEG (NEG) Urine Nitrite NEG (NEG) Urine Bilirubin NEG (NEG) Urine Urobilinogen NEG (NEG) Urine Leukocyte Esterase NEG (NEG) Urine WBC (Auto) 1-5 /hpf (0-5) Urine RBC (Auto) 0-4 /hpf (0-4) Urine Hyaline Casts (Auto) 1-5 /lpf (0-5) Urine Epithelial Cells (Auto) 5-10 /lpf (0-5) Urine Bacteria (Auto) NEG (NEG) White Blood Count 6.70 K/uL (4.8-10.8) Red Blood Count 4.36 M/uL (4.2-5.4) Hemoglobin 13.2 g/dL (12.0-16.0) Hematocrit 39.6 % (37-47) Mean Corpuscular Volume 90.8 fL (80-100) Mean Corpuscular Hemoglobin 30.3 pg (25-34) Mean Corpuscular Hemoglobin Concent 33.3 g/dl (32-36) Platelet Count 212 K/uL (130-400) Mean Platelet Volume 10.2 fL (7.4-10.4) Neutrophils (%) (Auto) 86.2 % Lymphocytes (%) (Auto) 8.1 % Monocytes (%) (Auto) 5.5 % Eosinophils (%) (Auto) 0.0 % Basophils (%) (Auto) 0.1 % Neutrophils # (Auto) 5.77 K/uL (1.4-6.5) Lymphocytes # (Auto) 0.54 K/uL (1.2-3.4) Monocytes # (Auto) 0.37 K/uL (0.11-0.59) Eosinophils # (Auto) 0.00 K/uL (0-0.5) Basophils # (Auto) 0.01 K/uL (0-0.2) RDW Standard Deviation 46.5 fL (36.4-46.3) RDW Coefficient of Variation 13.9 % (11.5-14.5) Immature Granulocyte % (Auto) 0.1 % Immature Granulocyte # (Auto) 0.01 K/uL (0.00-0.02) Anion Gap 9.0 mmol/L (3-11) Est Creatinine Clear Calc Drug Dose 51.1 ml/min Estimated GFR () 85.6 Estimated GFR (Non- 73.8 BUN/Creatinine Ratio 6.2 (10-20) Calcium Level 8.7 mg/dl (8.5-10.1) Total Bilirubin 0.5 mg/dl (0.2-1) Aspartate Amino Transf (AST/SGOT) 16 U/L (15-37) Alanine Aminotransferase (ALT/SGPT) 25 U/L (12-78) Alkaline Phosphatase 56 U/L (45-117) Total Protein 7.0 gm/dl (6.4-8.2) Albumin 3.6 gm/dl (3.4-5.0) Globulin 3.4 gm/dl (2.5-4.0) Albumin/Globulin Ratio 1.1 (0.9-2) Troponin I < 0.015 ng/ml (0-0.045) Laboratory results per my review. Medications Administered Medications (Trade) Dose Ordered Sig/Deirdre Route Start Time Stop Time Status Last Admin Dose Admin Sodium Chloride 1,000 ml @ 999 mls/hr Q1H1M STAT IV 08/24/16 14:14 08/24/16 15:14 DC 08/24/16 14:14 999 MLS/HR Sodium Chloride 1,000 ml @ 999 mls/hr Q1H1M STAT IV 08/24/16 16:19 08/24/16 17:19 DC 08/24/16 16:27 999 MLS/HR ECG Indication: syncope Rate (beats per minute): 68 Rhythm: normal sinus Findings: left axis deviation, no ectopy, other (LVH) Comparison ECG Date: 08/03/16 Change: no significant change ED Course ED COURSE: Vital signs were reviewed and showed hypertensive. The patients medical record was reviewed The above diagnostic studies were performed and reviewed. ED treatments and interventions as stated above. 1401: The patient was evaluated in room A2. A complete history and physical examination was performed. I saw this patient in conjunction with the resident. 1414: NSS 1000 ml @ 999 mls/hr IV 1619: NSS 1000 ml @ 999 mls/hr IV 1714: Upon reevaluation, the patient is feeling better and resting comfortably. I discussed my findings with the patient and she understands and agrees with the treatment plan. Based on the patients age, coexisting illnesses, exam and lab findings the decision to treat as an outpatient was made. The patient remained stable while under my care. The patient appeared well at the time of discharge. Medical Decision Differential diagnosis includes etiologies such as vasovagal event, infection, hypoglycemia, electrolyte abnormalities, cardiac sources, intracerebral event, toxicologic, neurologic, as well as others were entertained. Medication Reconciliation: I attest that I have personally reviewed the patient' s current medication list. Blood pressure screening: Patient was found to have an elevated blood pressure and was referred to their primary doctor for recheck and further treatment. Patient is a 76-year-old female that presents the ER following EGD yesterday. She notes that she had her esophagus dilated. She ate a piece of toast today which was stuck in her throat. She took nitroglycerin following are taking a double dose of her losartan which is taking a while. 5 minutes following taking the nitroglycerin she felt very dizzy and passed out. When she woke up she had no complaints. She does not that she is able to swallow without difficulty. She denies any shortness of breath or chest pain. I do not believe that she aspirated. Chest x-ray was unremarkable. X-rays of her lumbar spine were negative. She has no other signs of trauma. EKG is unchanged. CBC along with BMP, LFTs, troponin 2, and bilirubin were unremarkable. UA was negative. Patient was discharged from [facility] as this was likely secondary to vasovagal secondary from the nitroglycerin. Discussed with Pt concerning signs and symptoms to watch out for. Pt was instructed to follow up with their PCP and discussed with the patient their option to return to the ED at anytime for persistent or worsening symptoms. The appropriate anticipatory guidance and out-patient management, including indications for return to the emergency department, were explained at length to the patient and understood. Impression Primary Impression: Syncope due to orthostatic hypotension Scribe Attestation The scribe's documentation has been prepared under my direction and personally reviewed by me in its entirety. I confirm that the note above accurately reflects all work, treatment, procedures, and medical decision making performed by me. Departure Information Dispostion Home / Self-Care Referrals Curtis Varela M.D. (PCP) Forms HOME CARE DOCUMENTATION FORM, IMPORTANT VISIT INFORMATION Patient Instructions ED Syncope Vasovagal, My [facility], Syncope Causes Additional Instructions You were evaluated in the ER for syncopal episode. Labs, EKG, CXR, urine analysis and lumbar spine x-rays were taken. From your history this was most likely secondary to taking a double dose of losartan with nitroglycerin use and concurrent ongoing urinary tract infection. Recommend having on a soft diet until following up with your PCP within the next week.
[2016-09-04] MEDS ORDERED: OMEP40CA41 PO (13:17)
[2016-09-04] MEDS ORDERED: HYDR25TA4 PO (13:21)
[2016-09-04] MEDS ORDERED: SIMV10TA2 PO (13:21)
[2016-09-04] MEDS ORDERED: CHOL1000 PO (14:04)
[2016-09-04] MEDS ORDERED: KFLUDL2505 PO (16:03)
[2016-10-05] MEDS ORDERED: ESCI1SOL2 PO (12:17)
== END 2016-08-24 17:24 | disposition home or self-care (01) ==
LOC: C.EDB 13:41 → C.EDA 17:24
DX: R55 Syncope and collapse (principal); I10 Essential (primary) hypertension; K21.9 Gastro-esophageal reflux disease without esophagitis; M81.0 Age-related osteoporosis without current pathological fracture; Z83.3 Family history of diabetes mellitus; Z82.49 Family history of ischemic heart disease and other diseases of the circulatory system

== ENCOUNTER → 2016-08-31 | Outpatient (CLI) | payer OTHER ==
[~2016-08-31] MED LIST changes: +ALPR-413 PO; +CHOL1000 PO; +CHOL200027 PEG; +CLR10 PO; +CRFL PO; +ESCI1SOL2 PO; +HYDR25TA4 PO; +KFLUDL2505 PO; +LORA-741 PO; +NTRGSL/4 UT; +OMEP40CA41 PO; +ONDA4TAB10 SL; +POTA20SO2 PO; +SIMV10TA2 PO; +TYLENOL PO; +ZNT150 PO
[2016-08-31 13:38] LABS: URINE APPEARANCE TURBID (CLEAR); URINE BILIRUBIN NEG (NEG); URINE COLOR YELLOW; URINE NITRITE NEG (NEG); URINE SPECIFIC GRAVITY 1.011 (1.000-1.030); UROBILINOGEN NEG (NEG)
[2016-08-31 13:45] LABS: MANUAL MICROSCOPIC REQUIRED? YES; REVIEW REQ? NO
[2016-08-31 14:12] LABS: URINE BACTERIA 4+ (NEG); URINE WBC >30 /hpf (0-5)
[2016-08-31 14:24] LABS: BLOOD UREA NITROGEN 7 mg/dl (7-18); BUN/CREATININE RATIO 9.7 (10-20); CARBON DIOXIDE 29 mmol/L (21-32); CHLORIDE 104 mmol/L (98-107); CREATININE 0.69 mg/dl (0.60-1.20); GLUCOSE 91 mg/dl (70-99); POTASSIUM 3.9 mmol/L (3.5-5.1); SODIUM 139 mmol/L (136-145)
[2016-08-31 14:31] LABS: CALCIUM 9.1 mg/dl (8.5-10.1)
== END | disposition home or self-care (01) ==
LOC: C.LABBC 11:46
PROVIDERS: ATTEND Physician Assistant Medical
DX: E87.6 Hypokalemia (principal); R35.0 Frequency of micturition; R55 Syncope and collapse

== ENCOUNTER 2016-09-04 18:17 | Emergency (ER) | payer OTHER ==
[~2016-09-04] VITALS: Ht 152.4 cm; Wt 64.0 kg
[~2016-09-04 18:17] MED LIST changes: -ALPR-413 PO; -CHOL200027 PEG; -CLR10 PO; -CRFL PO; -ESCI1SOL2 PO; -LORA-741 PO; -NTRGSL/4 UT; -ONDA4TAB10 SL; -POTA20SO2 PO; -TYLENOL PO; -ZNT150 PO
[2016-09-04 18:20] VITALS: TEMP 36.6; Ht 152.4 cm; Wt 64.0 kg
[2016-09-04] MEDS ORDERED: SODIUM CHLORIDE 0.9% 1000ML 1,000 ML IV STA (18:38)
[2016-09-04] MEDS ORDERED: ONDANSETRON INJ 2 MG/ML 2 ML VIAL IV STA (18:38)
[2016-09-04] MEDS ORDERED: CEFTRIAXONE SOD INJ 1 GM ADDVIAL IV STA (18:38)
[2016-09-04 18:51] LABS: BASO % 0.2 %; BASO ABS # 0.01 K/uL (0-0.2); COMPLETE YES; EOS % 0.4 %; HEMATOCRIT 43.1 % (37-47); IG% 0.2 %; LYMPH % 28.5 %; LYMPH ABS # 1.28 K/uL (1.2-3.4); MEAN CELL VOLUME 90.9 fL (80-100); MEAN CORPUSCULAR HGB CONC 32.9 g/dl (32-36); MEAN PLATELET VOLUME 10.9 fL (7.4-10.4); MONO % 11.4 %; NEUT % 59.3 %; PLATELET COUNT 205 K/uL (130-400); RED BLOOD COUNT 4.74 M/uL (4.2-5.4); WHITE BLOOD COUNT 4.49 K/uL (4.8-10.8)
[2016-09-04 19:08] LABS: ALT/SGPT 49 U/L (12-78); BLOOD UREA NITROGEN 7 mg/dl (7-18); BUN/CREATININE RATIO 9.9 (10-20); CALCIUM 8.8 mg/dl (8.5-10.1); CARBON DIOXIDE 27 mmol/L (21-32); CHLORIDE 103 mmol/L (98-107); CREATININE 0.73 mg/dl (0.60-1.20); GLUCOSE 84 mg/dl (70-99); POTASSIUM 3.7 mmol/L (3.5-5.1); SODIUM 139 mmol/L (136-145)
[2016-09-04 19:13] LABS: ALKALINE PHOSPHATASE 58 U/L (45-117); AST/SGOT 28 U/L (15-37)
--- NOTE | 2016-09-04 19:16 | DIAGNOSTIC IMAGING REPORT ---
ABDOMEN AND PELVIS CT WITHOUT CONTRAST CT DOSE: 770.65 mGy.cm HISTORY: Flank pain flank pain TECHNIQUE: Multiaxial CT images of the abdomen and pelvis were performed without the use of intravenous and oral contrast according to the standard department stone protocol. COMPARISON STUDY: 03/11/2007 FINDINGS: Lung bases are clear. Liver spleen and pancreas appear unremarkable. Hypodensities within the medial right hepatic lobe are unchanged and most likely represent cysts. Mild hyperplastic changes the adrenal glands. Multiple right renal peripelvic cyst unchanged. Nonobstructing 1 cm left renal calcification. No evidence for an obstructing urinary tract calculus. Small hyperdense 5 mm left lower pole exophytic renal cyst. Bowel pattern overall is nonobstructive. There are scattered colonic diverticuli. There are findings of mild sigmoid colonic diverticulosis. There is no evidence for acute diverticulitis. There multiple pelvic vascular calcifications. IMPRESSION: 1. No evidence for an obstructing urinary tract calculus. 2. Nonobstructive bowel pattern. 3. Scattered colonic diverticulosis with mild chronic sigmoid diverticulosis. 4. No evidence of diverticulitis.. 5. Nonobstructing left renal calcification. 6. Several right pelvic renal cysts as well as hepatic cysts essentially unchanged in the prior study. Electronically signed by: Sergey Boo M.D. 09/04/2016 7:15 PM Dictated Date/Time: 09/04/2016 7:08 PM
--- NOTE | 2016-09-04 19:17 | DIAGNOSTIC IMAGING REPORT ---
CHEST ONE VIEW PORTABLE CLINICAL HISTORY: FLANK PAIN/HEMATURIA pain COMPARISON STUDY: 08/24/2016 FINDINGS: Lungs are clear. Thoracic aorta is tortuous. Mild stable cardia megaly. IMPRESSION: No acute process. Electronically signed by: Sergey Boo M.D. 09/04/2016 7:16 PM Dictated Date/Time: 09/04/2016 7:15 PM
[2016-09-04] MEDS ORDERED: CRFL PO (19:33)
[2016-09-04] MEDS ORDERED: NTRGSL/4 UT (19:33)
[2016-09-04] MEDS ORDERED: POTA20SO2 PO (19:33)
[2016-09-04 19:35] LABS: URINE APPEARANCE CLEAR (CLEAR); URINE BILIRUBIN NEG (NEG); URINE COLOR YELLOW; URINE EPITHELIAL CELL AUTO 0-5 /lpf (0-5); URINE NITRITE NEG (NEG); URINE PH 6.5 (4.5-7.5); URINE SPECIFIC GRAVITY 1.009 (1.000-1.030); UROBILINOGEN NEG (NEG); ZZUR CULT IF INDIC CLEAN CATCH NO
[2016-09-04 19:42] LABS: MANUAL MICROSCOPIC REQUIRED? NO; REVIEW REQ? NO
--- NOTE | 2016-09-04 20:29 | EMERGENCY ROOM VISIT NOTE ---
History Report prepared by Shawn: Sony Patel Under the Supervision of: Dr. Dionicio Prado D.O. First contact with patient: 18:26 Chief Complaint: FLANK PAIN Stated Complaint: SHAKY,NAUSEA,DRY MOUTH/THROAT,POSSIBLE KIDNEY STON History of Present Illness The patient is a 76 year old female with a history of kidney stones who presents to the Emergency Room with complaints of worsening generalized weakness for the past two weeks. The patient describes feeling weak, shaky, and nauseous. Her mouth has also been very dry despite drinking fluids. The patient currently denies pain. She denies constipation or diarrhea. The patient in on antibiotics for a UTI, prescribed by Dr. Varela's office. The patient is on her third course of Keflex but she continues to experience these symptoms. The patient's PCP is concerned that she may have a kidney stone infection that is causing these symptoms. She has an appointment with Dr. Connolly (Urology) in two weeks. Source of History: patient Onset: two weeks ago Position: other (general) Quality: other (weakness) Timing: worsening Associated Symptoms: + nausea, No diarrhea Review of Systems See HPI for pertinent positives & negatives. A total of 10 systems reviewed and were otherwise negative. 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 (6) Osteoporosis (7) Suicidal ideation (8) Urinary frequency Surgical Problems: (1) Post-operative state Family History Diabetes mellitus Gallbladder disease Heart disease Hypertension Kidney stones Social History Smoking Status: Never Smoker Alcohol Use: none Drug Use: none Marital Status: Housing Status: lives with significant other Occupation Status: retired Current/Historical Medications Scheduled Cephalexin Monohydrate (Cephalexin), 10 ML PO TID Cholecalciferol (Vitamin D3), 3,000 INTER.UNIT PO QAM Hydrochlorothiazide (Hctz), 25 MG PO QPM Nitroglycerin (Nitrostat), 0.4 MG UT PRN Omeprazole (Prilosec), 40 MG PO QAM Potassium Chloride (Potassium Chloride), 15 ML PO DAILY Simvastatin (Zocor), 10 MG PO QPM Sucralfate (Carafate), 10 ML PO AC Allergies Coded Allergies: Nitrofurantoin (Verified Allergy, Intermediate, chest pain, h/a, sore throat, diarrhea., 08/24/16) Quinolones (Verified Allergy, Mild, HAND SWELLED UP, 08/24/16) Levofloxacin (Verified Allergy, Unknown, HANDS SWELLING, 08/24/16) Codeine (Verified Adverse Reaction, Mild, SEVERE CONSTIPATION, 08/24/16) Physical Exam Vital Signs Date Time Temp Pulse Resp B/P (MAP) Pulse Ox O2 Delivery O2 Flow Rate FiO2 09/04/16 18:34 69 09/04/16 18:20 36.6 62 20 145/95 95 Room Air Physical Exam CONSTITUTIONAL/VITAL SIGNS: Reviewed / noted above. GENERAL: Non-toxic in appearance. INTEGUMENTARY: Warm, dry, and [place]. HEAD: Normocephalic. EYES: without scleral icterus or trauma. ENT/OROPHARYNX: clear and moist. LYMPHADENOPATHY/NECK: Is supple without lymphadenopathy or meningismus. RESPIRATORY: Lungs clear and equal. CARDIOVASCULAR: Regular rate and rhythm. GI/ABDOMEN: Soft and nontender. No organomegaly or pulsatile mass. No rebound or guarding. Normal bowel sounds. EXTREMITIES: Warm and well perfused. BACK: No CVA tenderness. NEUROLOGICAL: Intact without focal deficits. PSYCHIATRIC: normal affect. MUSCULOSKELETAL: Normally developed with good muscle tone. Medical Decision & Procedures ER Provider Diagnostic Interpretation: X ray results and stated below per my interpretation and radiology interpretation. Radiology results as stated below per my review and radiologist interpretation: ABDOMEN AND PELVIS CT WITHOUT CONTRAST CT DOSE: 770.65 mGy.cm HISTORY: Flank pain flank pain TECHNIQUE: Multiaxial CT images of the abdomen and pelvis were performed without the use of intravenous and oral contrast according to the standard department stone protocol. COMPARISON STUDY: 03/11/2007 FINDINGS: Lung bases are clear. Liver spleen and pancreas appear unremarkable. Hypodensities within the medial right hepatic lobe are unchanged and most likely represent cysts. Mild hyperplastic changes the adrenal glands. Multiple right renal peripelvic cyst unchanged. Nonobstructing 1 cm left renal calcification. No evidence for an obstructing urinary tract calculus. Small hyperdense 5 mm left lower pole exophytic renal cyst. Bowel pattern overall is nonobstructive. There are scattered colonic diverticuli. There are findings of mild sigmoid colonic diverticulosis. There is no evidence for acute diverticulitis. There multiple pelvic vascular calcifications. IMPRESSION: 1. No evidence for an obstructing urinary tract calculus. 2. Nonobstructive bowel pattern. 3. Scattered colonic diverticulosis with mild chronic sigmoid diverticulosis. 4. No evidence of diverticulitis.. 5. Nonobstructing left renal calcification. 6. Several right pelvic renal cysts as well as hepatic cysts essentially unchanged in the prior study. Electronically signed by: Sergey Boo M.D. 09/04/2016 7:15 PM Dictated Date/Time: 09/04/2016 7:08 PM CHEST ONE VIEW PORTABLE CLINICAL HISTORY: FLANK PAIN/HEMATURIA pain COMPARISON STUDY: 08/24/2016 FINDINGS: Lungs are clear. Thoracic aorta is tortuous. Mild stable cardia megaly. IMPRESSION: No acute process. Electronically signed by: Sergey Boo M.D. 09/04/2016 7:16 PM Dictated Date/Time: 09/04/2016 7:15 PM Laboratory Results 09/04/16 18:35 Red Blood Count 4.74, Mean Corpuscular Volume 90.9, Mean Corpuscular Hemoglobin 30.0, Mean Corpuscular Hemoglobin Concent 32.9, Mean Platelet Volume 10.9, Neutrophils (%) (Auto) 59.3, Lymphocytes (%) (Auto) 28.5, Monocytes (%) (Auto) 11.4, Eosinophils (%) (Auto) 0.4, Basophils (%) (Auto) 0.2, Neutrophils # (Auto ) 2.66, Lymphocytes # (Auto) 1.28, Monocytes # (Auto) 0.51, Eosinophils # (Auto ) 0.02, Basophils # (Auto) 0.01 09/04/16 18:35 Test 09/04/16 18:35 09/04/16 19:15 White Blood Count 4.49 K/uL (4.8-10.8) Red Blood Count 4.74 M/uL (4.2-5.4) Hemoglobin 14.2 g/dL (12.0-16.0) Hematocrit 43.1 % (37-47) Mean Corpuscular Volume 90.9 fL (80-100) Mean Corpuscular Hemoglobin 30.0 pg (25-34) Mean Corpuscular Hemoglobin Concent 32.9 g/dl (32-36) Platelet Count 205 K/uL (130-400) Mean Platelet Volume 10.9 fL (7.4-10.4) Neutrophils (%) (Auto) 59.3 % Lymphocytes (%) (Auto) 28.5 % Monocytes (%) (Auto) 11.4 % Eosinophils (%) (Auto) 0.4 % Basophils (%) (Auto) 0.2 % Neutrophils # (Auto) 2.66 K/uL (1.4-6.5) Lymphocytes # (Auto) 1.28 K/uL (1.2-3.4) Monocytes # (Auto) 0.51 K/uL (0.11-0.59) Eosinophils # (Auto) 0.02 K/uL (0-0.5) Basophils # (Auto) 0.01 K/uL (0-0.2) RDW Standard Deviation 46.6 fL (36.4-46.3) RDW Coefficient of Variation 14.0 % (11.5-14.5) Immature Granulocyte % (Auto) 0.2 % Immature Granulocyte # (Auto) 0.01 K/uL (0.00-0.02) Anion Gap 9.0 mmol/L (3-11) Est Creatinine Clear Calc Drug Dose 54.8 ml/min Estimated GFR () 92.7 Estimated GFR (Non- 80.0 BUN/Creatinine Ratio 9.9 (10-20) Calcium Level 8.8 mg/dl (8.5-10.1) Total Bilirubin 0.8 mg/dl (0.2-1) Direct Bilirubin 0.2 mg/dl (0-0.2) Aspartate Amino Transf (AST/SGOT) 28 U/L (15-37) Alanine Aminotransferase (ALT/SGPT) 49 U/L (12-78) Alkaline Phosphatase 58 U/L (45-117) Troponin I < 0.015 ng/ml (0-0.045) Total Protein 7.2 gm/dl (6.4-8.2) Albumin 3.9 gm/dl (3.4-5.0) Lipase 104 U/L (73-393) Urine Color YELLOW Urine Appearance CLEAR (CLEAR) Urine pH 6.5 (4.5-7.5) Urine Specific [place] 1.009 (1.000-1.030) Urine Protein NEG (NEG) Urine Glucose (UA) NEG (NEG) Urine Ketones NEG (NEG) Urine Occult Blood NEG (NEG) Urine Nitrite NEG (NEG) Urine Bilirubin NEG (NEG) Urine Urobilinogen NEG (NEG) Urine Leukocyte Esterase NEG (NEG) Urine WBC (Auto) 0 /hpf (0-5) Urine RBC (Auto) 0-4 /hpf (0-4) Urine Hyaline Casts (Auto) 0 /lpf (0-5) Urine Epithelial Cells (Auto) 0-5 /lpf (0-5) Urine Bacteria (Auto) NEG (NEG) Laboratory results as stated above per my review. Medications Administered Medications (Trade) Dose Ordered Sig/Deirdre Route Start Time Stop Time Status Last Admin Dose Admin Sodium Chloride 1,000 ml @ 999 mls/hr Q1H1M STAT IV 09/04/16 18:38 09/04/16 19:38 DC 09/04/16 18:47 999 MLS/HR Ondansetron HCl (Zofran Inj) 4 mg NOW STAT IV 09/04/16 18:38 09/04/16 18:40 DC 09/04/16 18:51 4 MG Ceftriaxone Sodium (Rocephin Inj) 1 gm NOW STAT IV 09/04/16 18:38 09/04/16 18:40 DC 09/04/16 19:06 1 GM ECG Indication: weakness Rate (beats per minute): 64 Rhythm: sinus with SA Findings: no acute ischemic change, no ectopy ED Course 1829: Previous medical records were reviewed. The patient was evaluated in room C10. A complete history and physical examination was performed. 1837: Rocephin 1 gm IV, Zofran 4 mg IV, NSS 1000 ml @ 999 mls/hr. 2034: Reassessed the patient. Discussed the workup with her. She verbalized understanding and agreement of the treatment plan. The patient is ready for discharge. Medical Decision Differential includes acute coronary syndrome, myocardial infarction, CVA, TIA, anemia, infection, pneumonia, UTI, pyelonephritis, poor nutrition, dehydration, electrolyte disturbance,hypoglycemia.ies, cardiac sources, intracerebral event, toxicologic, neurologic, as well as others were entertained. Patient was found to have a slightly elevated blood pressure due to circumstances. I do not believe that the patient requires hypertension monitoring. Medication Reconciliation: I attest that I have personally reviewed the patient' s current medication list. This is a 76-year-old female who presents to the ED with a chief complaint of nausea, shaky, dry throat and some occasional mild left kidney pain. The patient has a urine culture from the , 4 days ago that shows Klebsiella. It is sensitive to the Keflex that she is currently taking. Her vital signs are stable. Her physical exam was unremarkable. An EKG shows a sinus rhythm at 64. CT scan of the abdomen and pelvis did not show any acute process, nor did a chest x-ray. CBC and complete metabolic panel were normal. Troponin was negative. Lipase is negative. Urine did not show infection. The patient was told the results the test per she was given IV fluids, IV Zofran and IV Rocephin. She is felt stable for discharge and continue her Keflex. Impression Primary Impression: Shakiness Additional Impressions: Recent urinary tract infection Nausea Scribe Attestation The scribe's documentation has been prepared under my direction and personally reviewed by me in its entirety. I confirm that the note above accurately reflects all work, treatment, procedures, and medical decision making performed by me. Departure Information Dispostion Home / Self-Care Prescriptions Ondasetron Odt (ZOFRAN ODT) 4 Mg Tab 4 MG SL Q6H for Nausea, #20 TAB Prov: Dionicio Prado D.O. 09/04/16 Referrals Curtis Varela M.D. (PCP) Forms HOME CARE DOCUMENTATION FORM, IMPORTANT VISIT INFORMATION Patient Instructions My [facility] Additional Instructions Zofran: Allow one tablet to dissolve under the tongue every 6 hours as needed for nausea or vomiting. Continue your antibiotic. Follow-up with your doctor for further care and evaluation in 1-2 days. Return to the emergency department for worsening or new symptoms or any concerns. You have been examined and treated today on an emergency basis only. This is not a substitute for, or an effort to provide, complete comprehensive medical care. It is impossible to recognize and treat all injuries or illnesses in a single emergency department visit. It is therefore important that you follow up closely with your doctor. Call as soon as possible for an appointment. Problem Qualifiers
[2016-09-04] MEDS ORDERED: ONDA4TAB10 SL (20:41)
[2016-09-04] MEDS ORDERED: ONDANSETRON HOME PACK 4MG OD TAB PO ONE (20:45)
[2016-09-04 21:00] VITALS: BP 159/74; PULSE 87; O2SAT 97
[2016-10-05] MEDS ORDERED: ESCI1SOL2 PO (12:17)
== END 2016-09-04 21:00 | disposition home or self-care (01) ==
LOC: C.EDB 18:18 → C.EDC 21:00
DX: R25.1 Tremor, unspecified (principal); N39.0 Urinary tract infection, site not specified; R11.0 Nausea; M81.0 Age-related osteoporosis without current pathological fracture; K21.9 Gastro-esophageal reflux disease without esophagitis; Z87.442 Personal history of urinary calculi; Z98.890 Other specified postprocedural states; Z83.3 Family history of diabetes mellitus; Z82.49 Family history of ischemic heart disease and other diseases of the circulatory system; Z84.1 Family history of disorders of kidney and ureter; Z79.899 Other long term (current) drug therapy

== ENCOUNTER 2016-09-26 08:45 | Inpatient (IN) | payer OTHER ==
[~2016-09-26] VITALS: Ht 152.4 cm; Wt 59.4 kg
[~2016-09-26 08:45] MED LIST changes: +CRFL PO; -LOSA1TAB38 PO; +NTRGSL/4 UT; +ONDA4TAB10 SL; +POTA20SO2 PO; -POTA20TA16 PO
[2016-09-26] MEDS ORDERED: SODIUM CHLORIDE 0.9% 1000ML 1,000 ML IV STA (09:15)
[2016-09-26] MEDS ORDERED: ONDANSETRON INJ 2 MG/ML 2 ML VIAL IV STA (09:15)
[2016-09-26 09:41] LABS: BASO % 0.2 %; BASO ABS # 0.01 K/uL (0-0.2); COMPLETE YES; EOS % 0.7 %; HEMATOCRIT 44.1 % (37-47); IG% 0.5 %; LYMPH % 18.1 %; LYMPH ABS # 1.02 K/uL (1.2-3.4); MEAN CELL VOLUME 92.3 fL (80-100); MEAN CORPUSCULAR HEMOGLOBIN 28.5 pg (25-34); MEAN CORPUSCULAR HGB CONC 30.8 g/dl (32-36); MONO % 7.3 %; NEUT % 73.2 %; PLATELET COUNT 304 K/uL (130-400); RED BLOOD COUNT 4.78 M/uL (4.2-5.4); WHITE BLOOD COUNT 5.65 K/uL (4.8-10.8)
--- NOTE | 2016-09-26 09:52 | DIAGNOSTIC IMAGING REPORT ---
CHEST ONE VIEW PORTABLE CLINICAL HISTORY: unable to swallow VOMITING, WEAKNESS. COMPARISON STUDY: 09/04/2016 FINDINGS: The heart remains mildly enlarged. There is stable aortic tortuosity. There is no failure. There is no focal pulmonary consolidation. There are no pleural effusions.[ IMPRESSION: No active disease in the chest. Electronically signed by: Remberto Sinclair M.D. 09/26/2016 9:51 AM Dictated Date/Time: 09/26/2016 9:50 AM
--- NOTE | 2016-09-26 09:54 | EMERGENCY ROOM VISIT NOTE ---
History Report prepared by Shawn: Princess Mckeon Under the Supervision of: Dr. Annie Lester M.D. First contact with patient: 09:02 Chief Complaint: VOMITING Stated Complaint: CANT EAT OR DRINK/THORIWNG UP,VERY WEEK Nursing Triage Summary: pt c/o feels nauseated started last week has been intermittent has not been able to drink and only had sips of water. "stomach pemberton" diarrhea x2 today History of Present Illness The patient is a 76 year old female who presents to the Emergency Room with complaints of persistent nausea and vomiting that started 1 week ago. The patient is having difficulty swallowing anything she tries to consume, including water. The patient's daughter states that the patient has been unable to eat solid foods since July and that the patient has lost 30 lbs. The patient started to experience nausea more constantly over the last week which her daughters state is new for her. The patient saw Dr. Berenice DELGADO 1 week ago. She had a barium swallow study done. He scheduled an endoscopy for the patient to evaluate if her esophagus is working. The patient states that she was supposed to have that done today, but Dr. Hinton rescheduled it to next Monday. The patient had her esophagus dilated on August 23 but it offered minimal relief of her symptoms. She states that she was still only able to swallow a small amount of solid food after that procedure. The patient's daughter states that the patient cannot walk or do anything secondary to generalized weakness. The patient's daughter also states that the patient feels like she is going to experience syncope 24 hours a day. The patient has Zofran at home and she states that occasionally she does not produce enough saliva to dissolve the Zofran. The patient adds that she intermittently experiences constipation. She took MiraLAX a couple days ago and had a normal bowel movement this morning followed by 2 episodes of diarrhea. The patient states that she is lactose intolerant but she has been drinking a 50/50 mixture of 2 percent milk and lactaid milk. Source of History: patient, family (daughters) Onset: 1 week ago Position: other (esophagus) Quality: other (nausea and vomiting) Timing: other (persistent) Modifying Factors (Relieving): other (None) Associated Symptoms: + diarrhea Review of Systems See HPI for pertinent positives & negatives. A total of 10 systems reviewed and were otherwise negative. 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 (7) Osteoporosis (8) Suicidal ideation (9) Urinary frequency Surgical Problems: (1) Post-operative state Family History Diabetes mellitus Gallbladder disease Heart disease Hypertension Kidney stones Social History Smoking Status: Never Smoker Alcohol Use: none Drug Use: none Marital Status: Housing Status: lives with significant other Occupation Status: retired Current/Historical Medications Scheduled Cephalexin Monohydrate (Cephalexin), 10 ML PO TID Cholecalciferol (Vitamin D3), 3,000 INTER.UNIT PO QAM Hydrochlorothiazide (Hctz), 25 MG PO QPM Nitroglycerin (Nitrostat), 0.4 MG UT PRN Omeprazole (Prilosec), 40 MG PO QAM Ondasetron Odt (Zofran Odt), 4 MG SL Q6H Potassium Chloride (Potassium Chloride), 15 ML PO DAILY Simvastatin (Zocor), 10 MG PO QPM Sucralfate (Carafate), 10 ML PO AC Allergies Coded Allergies: Nitrofurantoin (Verified Allergy, Intermediate, chest pain, h/a, sore throat, diarrhea., 08/24/16) Quinolones (Verified Allergy, Mild, HAND SWELLED UP, 08/24/16) Levofloxacin (Verified Allergy, Unknown, HANDS SWELLING, 08/24/16) Codeine (Verified Adverse Reaction, Mild, SEVERE CONSTIPATION, 08/24/16) Uncoded Allergies: FIBERGLASS (Allergy, Intermediate, HIVES, 09/26/16) Physical Exam Vital Signs Date Time Temp Pulse Resp B/P (MAP) Pulse Ox O2 Delivery O2 Flow Rate FiO2 09/26/16 12:09 36.6 18 139/87 Room Air 09/26/16 11:30 69 18 139/87 96 Room Air 09/26/16 08:47 36.6 84 18 132/72 100 Room Air Physical Exam Vital signs reviewed. General: Well-appearing elderly female, in no significant distress. HEENT: No scleral icterus, PERRLA, neck supple. Atraumatic. Cardiovascular: Regular rate and rhythm, no extra sounds. Pulmonary: Clear to auscultation bilaterally, normal work of breathing. Abdomen: Soft, nontender, nondistended, positive bowel sounds. Musculoskeletal: Atraumatic, no peripheral edema. Neurologic: Patient awake alert and oriented x 3, full strength in all 4 extremities. Cranial nerves 2 through 12 grossly intact. Skin: Warm, dry, no rash Medical Decision & Procedures ER Provider Diagnostic Interpretation: Radiology results as stated below per my review and radiologist interpretation: CHEST ONE VIEW PORTABLE FINDINGS: The heart remains mildly enlarged. There is stable aortic tortuosity. There is no failure. There is no focal pulmonary consolidation. There are no pleural effusions.[ IMPRESSION: No active disease in the chest. Electronically signed by: Remberto Sinclair M.D. 09/26/2016 9:51 AM Dictated Date/Time: 09/26/2016 9:50 AM Laboratory Results 09/26/16 09:00 Red Blood Count 4.78, Mean Corpuscular Volume 92.3, Mean Corpuscular Hemoglobin 28.5, Mean Corpuscular Hemoglobin Concent 30.8, Mean Platelet Volume 11.0, Neutrophils (%) (Auto) 73.2, Lymphocytes (%) (Auto) 18.1, Monocytes (%) (Auto) 7.3, Eosinophils (%) (Auto) 0.7, Basophils (%) (Auto) 0.2, Neutrophils # (Auto) 4.14, Lymphocytes # (Auto) 1.02, Monocytes # (Auto) 0.41, Eosinophils # (Auto) 0.04, Basophils # (Auto) 0.01 09/26/16 09:00 Test 09/26/16 09:00 White Blood Count 5.65 K/uL (4.8-10.8) Red Blood Count 4.78 M/uL (4.2-5.4) Hemoglobin 13.6 g/dL (12.0-16.0) Hematocrit 44.1 % (37-47) Mean Corpuscular Volume 92.3 fL (80-100) Mean Corpuscular Hemoglobin 28.5 pg (25-34) Mean Corpuscular Hemoglobin Concent 30.8 g/dl (32-36) Platelet Count 304 K/uL (130-400) Mean Platelet Volume 11.0 fL (7.4-10.4) Neutrophils (%) (Auto) 73.2 % Lymphocytes (%) (Auto) 18.1 % Monocytes (%) (Auto) 7.3 % Eosinophils (%) (Auto) 0.7 % Basophils (%) (Auto) 0.2 % Neutrophils # (Auto) 4.14 K/uL (1.4-6.5) Lymphocytes # (Auto) 1.02 K/uL (1.2-3.4) Monocytes # (Auto) 0.41 K/uL (0.11-0.59) Eosinophils # (Auto) 0.04 K/uL (0-0.5) Basophils # (Auto) 0.01 K/uL (0-0.2) RDW Standard Deviation 49.6 fL (36.4-46.3) RDW Coefficient of Variation 14.5 % (11.5-14.5) Immature Granulocyte % (Auto) 0.5 % Immature Granulocyte # (Auto) 0.03 K/uL (0.00-0.02) Anion Gap 7.0 mmol/L (3-11) Est Creatinine Clear Calc Drug Dose 48.5 ml/min Estimated GFR () 83.0 Estimated GFR (Non- 71.6 BUN/Creatinine Ratio 32.0 (10-20) Calcium Level 9.4 mg/dl (8.5-10.1) Magnesium Level 2.2 mg/dl (1.8-2.4) Total Bilirubin 0.5 mg/dl (0.2-1) Direct Bilirubin 0.1 mg/dl (0-0.2) Aspartate Amino Transf (AST/SGOT) 77 U/L (15-37) Alanine Aminotransferase (ALT/SGPT) 129 U/L (12-78) Alkaline Phosphatase 86 U/L (45-117) Total Protein 8.0 gm/dl (6.4-8.2) Albumin 3.5 gm/dl (3.4-5.0) Lipase 132 U/L (73-393) Laboratory results per my review. Medications Administered Medications (Trade) Dose Ordered Sig/Deirdre Route Start Time Stop Time Status Last Admin Dose Admin Sodium Chloride 1,000 ml @ 150 mls/hr Q6H40M STAT IV 09/26/16 09:15 09/26/16 15:54 09/26/16 09:27 150 MLS/HR Ondansetron HCl (Zofran Inj) 4 mg NOW STAT IV 09/26/16 09:15 09/26/16 09:20 DC 09/26/16 09:27 4 MG ED Course 0914: Past medical records reviewed. The patient was evaluated in room B3. A complete history and physical examination was performed. 15: Ordered Zofran Inj 4 mg IV, Sodium Chloride 1000 ml @ 150 mls/hr IV 1019: I reviewed the patient's case with Bessy DELGADO. She is going to come in and evaluate the patient. 1104: Bessy DOUGLAS evaluated the patient. She recommended admitting the patient to medicine. 1120: Upon reevaluation, the patient is resting comfortably. I discussed laboratory and radiographic results with her. She verbalized agreement of the treatment plan. The patient will be evaluated for further management and care. 1146: I reviewed the patient's case with Dr. Singh of the [facility] Hospitalist [facility]. She will evaluate the patient for further management. Medical Decision Differential diagnoses includes dysphasia, achalasia, esophageal stricture, GERD , peptic ulcer, esophageal mass, anxiety. Medication Reconciliation: I attest that I have personally reviewed the patient' s current medication list. Blood Pressure Screening: Patient was found to have an elevated blood pressure and was referred to the hospitalist for recheck and further treatment. This patient was evaluated and appeared to be in no significant distress. IV access was obtained and laboratory work was drawn. IV access was obtained and laboratory work was drawn. The patient was placed on the athletic monitor and found to be in a normal sinus rhythm. Patient was given IV Zofran for nausea. Chest x-ray was obtained and is unrevealing. Gastroenterology was consulted and MISAEL Terrell evaluated the patient in the emergency department. She has recommended inpatient stay for IV hydration and further GI workup. She is also recommended to feedings. The hospitalist was consulted and the patient will be evaluated for further management. She is aware of the plan and agrees. Consults Time Called: 1018 Consulting Physician: Bessy DELGADO Returned Call: [phone] I reviewed the patient's case with Bessy DELGADO. She is going to come in and evaluate the patient. Additional Consults: Time Called: 1136 Consulted Physician: Dr. Singh - [facility] Returned Call: [phone] Additional Comments: I reviewed the patient's case with Dr. Singh of the [facility]. She will evaluate the patient for further management. Impression Primary Impression: Difficulty swallowing liquids Additional Impression: Inadequate oral nutritional intake Scribe Attestation The scribe's documentation has been prepared under my direction and personally reviewed by me in its entirety. I confirm that the note above accurately reflects all work, treatment, procedures, and medical decision making performed by me. Departure Information Dispostion Being Evaluated By Hospitalist Referrals No Doctor, Assigned (PCP) Patient Instructions My [facility] Problem Qualifiers
[2016-09-26 10:05] LABS: CALCIUM 9.4 mg/dl (8.5-10.1); CREATININE 0.8 mg/dl (0.60-1.20); MAGNESIUM 2.2 mg/dl (1.8-2.4); POTASSIUM 3.8 mmol/L (3.5-5.1)
[2016-09-26 12:09] VITALS: BP 139/87; TEMP 36.6; Ht 152.4 cm; Wt 59.4 kg
--- NOTE | 2016-09-26 12:36 | DIAGNOSTIC IMAGING REPORT ---
SOFT TISSUE NECK CLINICAL HISTORY: Inability to eat or drink. Vomiting. COMPARISON STUDY: 08/03/2016 FINDINGS: Degenerative changes are present within the cervical spine. The epiglottis and aryepiglottic folds appear normal. No foreign bodies are visualized on image radiographic imaging. The retropharyngeal soft tissues appear normal. IMPRESSION: Normal soft tissue neck for age. Electronically signed by: Remberto Sinclair M.D. 09/26/2016 12:35 PM Dictated Date/Time: 09/26/2016 12:34 PM
--- NOTE | 2016-09-26 13:21 | Gastrointestinal Consultation ---
Gastrointestinal Consultation Date of Consultation: Sep 26, 2016 Attending Physician: Ceci Singh Consulting Physician: Noe Smith Reason for Consultation: Dysphagia History of Present Illness Patient is a 76 year old female who currently presented to ED w c/o worsening dysphagia causing her to not be able to even swallow water now and progressive weight loss (reported 20 lbs since a few months ago), weakness. We had previously seen pt for these complaint. Hx of evaluations with video swallow study which showed only mild esophageal dysmotility w/o aspiration. EGD x 2 w evidence of medium hiatal hernia, some evidence of reflux esophagitis on bx, but no s/s of esophageal narrowing, erythema, mass, abimael. Trial esophageal dilation failed to improve symptoms, rather made her feel worse - for a few days after dilation she felt there's a "tube constantly on her throat". She was having associated dry mouth, keep using Biotene mouth spray. Also c/o R sided facial sinus pressure and post nasal gtt. Didn't get to see ENT yet for eval of allergic rhinitis. She was able to tolerate puree baby foods, and protein shakes previously but would c/o having mucus and "ball" sensation on her throat which causes her to cough and having sensation of chocking. Though within las few days cannot even tolerate swallowing water w/o coughing/chocking. She was last seen in GI clinic by Dr. Hinton on 09/20. He recommended esophageal manometry study to r/o dysmotility, though study couldn't be done till next week. Dr. Hinton also mentioned that if manometry was negative, need to consider neuromuscular causes of dysphagia, myasthenia gravis, occult CVA? AchR lab was previously normal. Past Medical/Surgical History Medical Problems: (1) Allergic reaction Status: Acute (2) Difficulty swallowing liquids Status: Acute (3) Dysphagia Status: Acute (4) Nausea Status: Acute (5) Recent urinary tract infection Status: Acute (6) Shakiness Status: Acute (7) Syncope due to orthostatic hypotension Status: Acute (8) Thrush of mouth and esophagus Status: Acute Past Medical History: See above, Kidney stone, hernia, Past Surgical History: Lithotripsy Cholecystectomy R knee replacement Total hysterectomy Bladder repair Family History Diabetes mellitus Gallbladder disease Heart disease Hypertension Kidney stones Social History Smoking Status: Never Smoker Alcohol Use: none Drug Use: none Marital Status: Housing Status: lives with significant other Occupation Status: retired Allergies Coded Allergies: Nitrofurantoin (Verified Allergy, Intermediate, chest pain, h/a, sore throat, diarrhea., 08/24/16) Quinolones (Verified Allergy, Mild, HAND SWELLED UP, 08/24/16) Levofloxacin (Verified Allergy, Unknown, HANDS SWELLING, 08/24/16) Codeine (Verified Adverse Reaction, Mild, SEVERE CONSTIPATION, 08/24/16) Uncoded Allergies: FIBERGLASS (Allergy, Intermediate, HIVES, 09/26/16) Current Medications Home Meds and Scripts Medications Dose Route/Sig Max Daily Dose Days Date Category Dose Instructions Zofran Odt (Ondansetron HCl) 4 Mg Tab 4 Mg SL Q6H 09/04/16 Rx Nitrostat (Nitroglycerin) 0.4 Mg Tab 0.4 Mg UT PRN 09/04/16 Reported Carafate (Sucralfate) 1 Gm/10 Ml Nidia 10 Ml PO AC 6 09/04/16 Reported START August Potassium Chloride 10 % Liq 15 Ml PO DAILY 09/04/16 Reported 20MEQ/15ML, MIX IN 6 OZ H20 Cephalexin (Cephalexin Monohydrate) 250 Mg/5 Ml Susp 10 Ml PO TID 08/24/16 Reported Zocor (Simvastatin) 10 Mg Tab 10 Mg PO QPM 08/16/16 Reported Hctz (Hydrochlorothiazide) 25 Mg Tab 25 Mg PO QPM 08/16/16 Reported Prilosec (Omeprazole) 40 Mg Cap 40 Mg PO QAM 07/22/16 Reported Vitamin D3 (Cholecalciferol) 1,000 Unit Tab 3,000 Inter.unit PO QAM 07/28/15 Reported Review of Systems Constitutional: + weight loss, + weakness, No fever, No chills ENT: + see HPI, + trouble swallowing, + problem reported (globus sensation), No pain on swallowing Respiratory: No cough, No shortness of breath Cardiac: No chest pain Abdomen: + problem reported (c/o reflux ), No pain, No nausea, No vomiting, No diarrhea Physical Exam Date Time Temp Pulse Resp B/P (MAP) Pulse Ox O2 Delivery O2 Flow Rate FiO2 09/26/16 12:09 36.6 18 139/87 Room Air 09/26/16 11:30 69 18 139/87 96 Room Air 09/26/16 08:47 36.6 84 18 132/72 100 Room Air General Appearance: + mild distress (admits feeling tired and depressed about her swallowing issues ) Eyes: normal inspection, PERRL, EOMI Neck: supple, no JVD, trachea midline Respiratory/Chest: normal breath sounds, no respiratory distress, no accessory muscle use Cardiovascular: regular rate, rhythm, no gallop, no murmur Abdomen: normal bowel sounds, non tender, soft Extremities: normal inspection, no pedal edema, no calf tenderness Neurologic/Psych: alert, normal mood/affect, oriented x 3 Skin: normal color, no jaundice, no rash Laboratory Results Last 24 Hours Test 09/26/16 09:00 White Blood Count 5.65 K/uL Red Blood Count 4.78 M/uL Hemoglobin 13.6 g/dL Hematocrit 44.1 % Mean Corpuscular Volume 92.3 fL Mean Corpuscular Hemoglobin 28.5 pg Mean Corpuscular Hemoglobin Concent 30.8 g/dl Platelet Count 304 K/uL Mean Platelet Volume 11.0 fL Neutrophils (%) (Auto) 73.2 % Lymphocytes (%) (Auto) 18.1 % Monocytes (%) (Auto) 7.3 % Eosinophils (%) (Auto) 0.7 % Basophils (%) (Auto) 0.2 % Neutrophils # (Auto) 4.14 K/uL Lymphocytes # (Auto) 1.02 K/uL Monocytes # (Auto) 0.41 K/uL Eosinophils # (Auto) 0.04 K/uL Basophils # (Auto) 0.01 K/uL RDW Standard Deviation 49.6 fL RDW Coefficient of Variation 14.5 % Immature Granulocyte % (Auto) 0.5 % Immature Granulocyte # (Auto) 0.03 K/uL Sodium Level 142 mmol/L Potassium Level 3.8 mmol/L Chloride Level 108 mmol/L Carbon Dioxide Level 27 mmol/L Anion Gap 7.0 mmol/L Blood Urea Nitrogen 26 mg/dl Creatinine 0.80 mg/dl Est Creatinine Clear Calc Drug Dose 48.5 ml/min Estimated GFR () 83.0 Estimated GFR (Non- 71.6 BUN/Creatinine Ratio 32.0 Random Glucose 95 mg/dl Calcium Level 9.4 mg/dl Magnesium Level 2.2 mg/dl Total Bilirubin 0.5 mg/dl Direct Bilirubin 0.1 mg/dl Aspartate Amino Transf (AST/SGOT) 77 U/L Alanine Aminotransferase (ALT/SGPT) 129 U/L Alkaline Phosphatase 86 U/L Total Protein 8.0 gm/dl Albumin 3.5 gm/dl Lipase 132 U/L Impression Patient is a 76 year old female w dysphagia, globus sensation. Previous EGD x 2 , dilation x 1, video swallow study, w/o finding of obvious etiology causing her dysphagia. Was going to be set up for esophageal manometry study next week. She however came to ED w c/o not being able to even swallow water now, weakness due to inability to eat. Plan - Admit for weight loss, weakness and malnutrition - Obtain neck xray -> negative for foreign body - Continue Biotene mouth wash/spray for dry mouth, Protonix 40mg IV BID for GERD symptoms - NGT feeding, braid maker consulted - Neurology consult to r/o neuromuscular etiology of dysphagia. Consider ENT eval while she's in house as well. - Will tentatively plan for esophageal manometry study to be done on 10/05 at 9A at GI clinic ([facility]); unfortunately this test cannot be done in hospital. I have personally seen the patient with MISAEL Gomes on 09/26/2016. Her note reflects my exam and findings. I agree with her impression and plan. No objective evidence of esophageal pathology. Symptoms most c/w oropharyngeal disease. Consider neuro eval. Noe Smith M.D.
[2016-09-26] MEDS ORDERED: NURSING VERBAL MED ORDER ONE (14:00)
--- NOTE | 2016-09-26 14:25 | DIAGNOSTIC IMAGING REPORT ---
KUB HISTORY:76 yearsFemaleCoresafe placement COMPARISON: Chest radiograph 09/26/2016, CT abdomen and pelvis 09/04/2016. TECHNIQUE: Portable supine view of the abdomen. FINDINGS: A weighted enteric tube is present with distal tip projected over the midline, likely within the expected region of the distal gastric lumen. Radiodense foci the left upper abdomen are again seen correlating with radiodensities within the splenic flexure diverticuli seen on comparison study. Vascular calcifications are also noted. The bowel gas pattern is nonobstructive. 7 mm calculus of the interpolar left kidney is redemonstrated. There is convex left curvature of the lumbar spine. IMPRESSION: 1. Coresafe catheter overlies the midline, likely within the expected region of the distal gastric lumen. 2. Nonobstructive bowel gas pattern. 3. Mid pole left renal calculus redemonstrated. The above report was generated using voice recognition software. It may contain grammatical, syntax or spelling errors. Electronically signed by: Ngai Ellis M.D. 09/26/2016 2:24 PM Dictated Date/Time: 09/26/2016 2:21 PM
--- NOTE | 2016-09-26 14:46 | History and Physical ---
History & Physical Date & Time of Service: Sep 26, 2016 at 14:07 Chief Complaint: Can't Eat Or Drink/Throwing Up,Very Weak Primary Care Physician: Curtis Varela M.D. History of Present Illness Source: patient, family, hospital records Pt is a 76 yo female with a progressively worsening h/o dysphagia over the last 8 months. She was admitted for this in July 2016 and had EGD which was unrevealing and had dilation of esophagus although there was no stricture. Video swallow at that time showed esophageal dysmotility. ENT saw her then and did a LITHOGRAPHIC PRESS OPERATOR APPRENTICE-scope and said all was ok. She was scheduled for esophageal manometry test in 1 week as an outpatient. She was tolerating baby food at that time but since then daughters and pt report she has been only able to take liquids ans has lost 20-30 lbs. For the last week or so, she has barely been able to take liquids and describes even liquids getting stuck in her upper chest, also with some regurgitation of liquids lately about an hour after swallowing. She used to move her bowels 3x/day but now minimally unless she takes something to make herself go. She describes early satiety and fullness, progressively worsening nausea, as well as worsening of her previous GERD as she has not been able to take her PPI in several weeks. She has been feeling very lightheaded with standing, generalized weakness. SHe has also noted a tremor in her head and R>L arms in the last few months. She did pass out about 2 weeks ago after she took a SL NTG tab to help with her dysphagia as prescribed by her PCP and woke up on the floor. She has not been taking her antihypertensives due to low BP and none of her meds at all due to her dysphagia. She is being admitted on an observation status for NGT placement and tube feeds , IVF hydration, and Neurology as well as GI consultations. Past Medical/Surgical History PMH: GERD Osteoporosis Nephrolithiasis HTN Thyroid nodule-benign Psoriasis PSH: Lithotripsy Cholecystectomy Hysterectomy-for prolapse Bladder repair-for prolapse Tooth extraction Bilateral TKAs Inguinal hernia repair-unsure which side Family History Diabetes mellitus Gallbladder disease Heart disease Hypertension Kidney stones Dad-IA/CAD Mom- age 92 natural causes Brother- from ALS Nephew-(son of brother with ALS)-Parkinson's Disease in his 50s Brother-Lung CA, smoker, Blood lots Sister-brain tumor Social History Smoking Status: Never Smoker Alcohol Use: none Drug Use: none Marital Status: Housing status: lives with family Occupational Status: retired Immunizations History of Influenza Vaccine: Unknown History of Tetanus Vaccine?: Unknown History of Pneumococcal: Unknown History of Hepatitis B Vaccine: Unknown Multi-Drug Resistant Organisms History of MDRO: No Allergies Coded Allergies: Nitrofurantoin (Verified Allergy, Intermediate, chest pain, h/a, sore throat, diarrhea., 08/24/16) Quinolones (Verified Allergy, Mild, HAND SWELLED UP, 08/24/16) Levofloxacin (Verified Allergy, Unknown, HANDS SWELLING, 08/24/16) Codeine (Verified Adverse Reaction, Mild, SEVERE CONSTIPATION, 08/24/16) Uncoded Allergies: FIBERGLASS (Allergy, Intermediate, HIVES, 09/26/16) Home Medications Scheduled Cephalexin Monohydrate (Cephalexin), 10 ML PO TID Cholecalciferol (Vitamin D3), 3,000 INTER.UNIT PO QAM Hydrochlorothiazide (Hctz), 25 MG PO QPM Nitroglycerin (Nitrostat), 0.4 MG UT PRN Omeprazole (Prilosec), 40 MG PO QAM Ondasetron Odt (Zofran Odt), 4 MG SL Q6H Potassium Chloride (Potassium Chloride), 15 ML PO DAILY Simvastatin (Zocor), 10 MG PO QPM Sucralfate (Carafate), 10 ML PO AC Review of Systems Constitutional: No fever Eyes: No problem reported ENT: + trouble swallowing, + problem reported (dry mouth) Respiratory: No shortness of breath Cardiovascular: + problem reported (lightheadedness), No chest pain, No edema Abdomen: + nausea, + vomiting (regurgitation), No pain, No diarrhea, No GI bleeding Musculoskeletal: No joint pain Genitourinary - Female: No problem reported Neurologic: + weakness (generalized), + problem reported (tremor in head and arms) Psychiatric: No problem reported Endocrine: No problem reported Hematologic / Lymphatic: No problem reported Integumentary: + rash (psoriasis on legs) Allergic / Immunologic: No problem reported Physical Exam Vital Signs Date Time Temp Pulse Resp B/P (MAP) Pulse Ox O2 Delivery O2 Flow Rate FiO2 09/26/16 12:09 36.6 18 139/87 Room Air 7/17/17 11:30 69 18 139/87 96 Room Air 09/26/16 08:47 36.6 84 18 132/72 100 Room Air General Appearance: WD/WN, no apparent distress Head: normocephalic, atraumatic Eyes: normal inspection, PERRL, EOMI, sclerae normal, funduscopic exam normal ENT: hearing grossly normal, pharynx normal Neck: supple, no adenopathy, thyroid normal, no JVD, trachea midline Respiratory/Chest: lungs clear, normal breath sounds, no respiratory distress, no accessory muscle use Cardiovascular: regular rate, rhythm, no edema, no gallop, no JVD, no murmur, normal peripheral pulses (with caricose veins legs bilat) Abdomen/GI: normal bowel sounds, non tender, soft, no organomegaly, no pulsatile mass Back: normal inspection, no muscle spasm Extremities/Musculoskelatal: normal inspection, no calf tenderness, normal capillary refill, no pedal edema, normal range of motion Neurologic/Psych: alert, normal mood/affect, oriented x 3, + pertinent finding (tremor with intention in head and in arms/hands) Skin: normal color, warm/dry, + rash (large pink scaly plaques on extensor surfaces of legs bilat) Lymphatic: no adenopathy Diagnostics Laboratory Results Results Past 24 Hours Test 09/26/16 09:00 09/26/16 14:00 Range/Units White Blood Count 5.65 4.8-10.8 K/uL Red Blood Count 4.78 4.2-5.4 M/uL Hemoglobin 13.6 12.0-16.0 g/dL Hematocrit 44.1 37-47 % Mean Corpuscular Volume 92.3 80-100 fL Mean Corpuscular Hemoglobin 28.5 25-34 pg Mean Corpuscular Hemoglobin Concent 30.8 32-36 g/dl Platelet Count 304 130-400 K/uL Mean Platelet Volume 11.0 7.4-10.4 fL Neutrophils (%) (Auto) 73.2 % Lymphocytes (%) (Auto) 18.1 % Monocytes (%) (Auto) 7.3 % Eosinophils (%) (Auto) 0.7 % Basophils (%) (Auto) 0.2 % Neutrophils # (Auto) 4.14 1.4-6.5 K/uL Lymphocytes # (Auto) 1.02 1.2-3.4 K/uL Monocytes # (Auto) 0.41 0.11-0.59 K/uL Eosinophils # (Auto) 0.04 0-0.5 K/uL Basophils # (Auto) 0.01 0-0.2 K/uL RDW Standard Deviation 49.6 36.4-46.3 fL RDW Coefficient of Variation 14.5 11.5-14.5 % Immature Granulocyte % (Auto) 0.5 % Immature Granulocyte # (Auto) 0.03 0.00-0.02 K/uL Sodium Level 142 136-145 mmol/L Potassium Level 3.8 3.5-5.1 mmol/L Chloride Level 108 98-107 mmol/L Carbon Dioxide Level 27 21-32 mmol/L Anion Gap 7.0 3-11 mmol/L Blood Urea Nitrogen 26 7-18 mg/dl Creatinine 0.80 0.60-1.20 mg/dl Est Creatinine Clear Calc Drug Dose 48.5 ml/min Estimated GFR () 83.0 Estimated GFR (Non- 71.6 BUN/Creatinine Ratio 32.0 10-20 Random Glucose 95 70-99 mg/dl Calcium Level 9.4 8.5-10.1 mg/dl Magnesium Level 2.2 1.8-2.4 mg/dl Total Bilirubin 0.5 0.2-1 mg/dl Direct Bilirubin 0.1 0-0.2 mg/dl Aspartate Amino Transf (AST/SGOT) 77 15-37 U/L Alanine Aminotransferase (ALT/SGPT) 129 12-78 U/L Alkaline Phosphatase 86 45-117 U/L Total Protein 8.0 6.4-8.2 gm/dl Albumin 3.5 3.4-5.0 gm/dl Lipase 132 73-393 U/L Diagnostic Radiology Soft Tissue neck xray normal CXR normal EKG ECG not performed Impression Assessment and Plan Pt is a 76 yo female with a h/o GERD, osteoporosis, nephrolithiasis, and HTN, here with progressively worsening h/o dysphagia over the last 8 months. She was admitted for this in July 2016 and had EGD which was unrevealing and had dilation of esophagus although there was no stricture. Video swallow at that time showed esophageal dysmotility. ENT saw her then and did a LITHOGRAPHIC PRESS OPERATOR APPRENTICE-scope and said all was ok. She was scheduled for esophageal manometry test in 1 week as an outpatient. She was tolerating baby food at that time but since then daughters and pt report she has been only able to take liquids and has lost 20- 30 lbs. For the last week or so, she has barely been able to take liquids and describes even liquids getting stuck in her upper chest, also with some regurgitation of liquids lately about an hour after swallowing. She used to move her bowels 3x/day but now minimally unless she takes something to make herself go. She describes early satiety and fullness, progressively worsening nausea, as well as worsening of her previous GERD as she has not been able to take her PPI in several weeks. She has been feeling very lightheaded with standing, generalized weakness. SHe has also noted a tremor in her head and R>L arms in the last few months. She did pass out about 2 weeks ago after she took a SL NTG tab to help with her dysphagia as prescribed by her PCP and woke up on the floor. She has not been taking her antihypertensives due to low BP and none of her meds at all due to her dysphagia. 1. Progressively worsening Dysphagia/GERD/Nausea/Failure to thrive--> EGD with dilation performed and normal, Video swallow with esophageal dysmotility. Has Dysphagia but also with some symptoms of gastroparesis at this point as well. ENT saw her in July and said exam normal -NGT placement and tube feeds. Dietary consultation -appreciate GI consultation, plan for manometry as outpat next week -continue IVF hydration and replace K+ as needed -consult Neurology for evaluation for NM disorder such as MG, ALS, PD as cause of her dysphagia--> may need further testing -check lytes and nutrition labs -check TSH -IV PPI -Speech consult as well -discussed Gastric emptying study with GI and will hold off for now 2. HTN-no longer hypertensive as has lost a lot of weight, not on meds for a few weeks now -continue to hold antihypertensives but can restart home meds if becomes hypertensive 3. Osteoporosis-home meds on hold but receives IV Reclast once yearly, po Vit D 4. Elevated LFTs-elevated from previous. CT abd/pel with small hepatic cyts 2 months ago. Unclear why elevated -follow LFTs -check Liver US now Proph-SCDs, Lovenox Dispo-Full Code but does not prolonged life saving measures if prognosis became very poor Level of Care Med/Surg Advanced Directives Existing Living Will: No Existing Power of Crepe Sole Scourer: No Resuscitation Status FULL RESUSCITATION VTE Prophylaxis VTE Risk Assessment Done? Y/N: Yes Risk Level: Low Given or contraindicated: Enoxaparin (Lovenox)SQ, SCD's Additional Copies To Curtis Varela M.D.
[2016-09-26 15:27] LABS: THYROID STIMULATING HORMONE 3.14 uIu/ml (0.300-4.500)
[2016-09-26 15:40] VITALS: BP 145/94; PULSE 70; TEMP 36.7; O2SAT 96
[2016-09-26] MEDS: D5W AND 1/2NSS + 20MEQ KCL 1,000 ML IV SCH (16:25)
--- NOTE | 2016-09-26 17:19 | Neurology Consultation ---
Neurology Consultation Date of Consultation: Sep 26, 2016. Attending Physician: Ceci Singh MD Primary Care Physician: Curtis Varela M.D. Reason for Consultation: MG ? trouble swallowing dry mouth History of Present Illness Source: patient, family Nichelle is a 76 yo female with a progressively worsening h/o dysphagia over the last 8 months. She was admitted for this in July 2016 and had EGD which was unrevealing and had dilation of esophagus although there was no stricture. Video swallow at that time showed esophageal dysmotility. She was scheduled for esophageal manometry test in 1 week as an outpatient. She was losing weight and was told she should eat slow and chew well. The swallowing started getting worse and she could no longer tolerate baby food and had a 20-30 lbs. She states she would swallow the food but then after she swallowed several things it felt like it was stacking up in her throat and then she would regurgitate liquids about an hour after swallowing. She describes early satiety and fullness, progressively worsening nausea, as well as worsening of her previous GERD as she has not been able to take her PPI in several weeks. She is now unable to swallow anything and has not been taking her medications. she did have an episode of syncope but it happened after taking her blood pressure medication and then her PCP giving her nitroglycerin to treat her esophageal spasms. She has been feeling very lightheaded with standing, generalized weakness. She has also noted a tremor in her head and R>L arms in the last few months. Her brother was diagnosed with ALS and his son was recently diagnosed with Parkinson's disease. She has had numerous surgeries her left knee replacement was the most recent. denies CP, SOB, abdominal pain, one sided numbness tingling, weakness, fatigability increased during the day. Past Medical/Surgical History Medical Problems: (1) Allergic reaction Status: Acute (2) Difficulty swallowing liquids Status: Acute (3) Dysphagia Status: Acute (4) Inadequate oral nutritional intake Status: Acute (5) Nausea Status: Acute (6) Recent urinary tract infection Status: Acute (7) Shakiness Status: Acute (8) Syncope due to orthostatic hypotension Status: Acute (9) Thrush of mouth and esophagus Status: Acute Social History Smoking Status: Never smoker Smokeless Tobacco Use: No Alcohol Use: none Drug Use: none Marital Status: Housing Status: lives with significant other Occupation Status: retired Allergies Coded Allergies: Nitrofurantoin (Verified Allergy, Intermediate, chest pain, h/a, sore throat, diarrhea., 08/24/16) Quinolones (Verified Allergy, Mild, HAND SWELLED UP, 08/24/16) Levofloxacin (Verified Allergy, Unknown, HANDS SWELLING, 08/24/16) Codeine (Verified Adverse Reaction, Mild, SEVERE CONSTIPATION, 08/24/16) Uncoded Allergies: FIBERGLASS (Allergy, Intermediate, HIVES, 09/26/16) Current Inpatient Medications Current Inpatient Medications Medications (Trade) Dose Ordered Sig/Deirder Route Start Time Stop Time Status Last Admin Dose Admin Pantoprazole Sodium 40 mg/ Syringe 10 ml @ 5 mls/min DAILY@ IV 09/26/16 21:00 10/26/16 20:59 Enoxaparin Sodium (Lovenox Inj) 40 mg Q24H SQ 09/26/16 21:00 10/26/16 13:44 Potassium Chloride/Dextrose/ Sod Cl 1,000 ml @ 75 mls/hr [id number] IV 09/26/16 16:30 09/29/16 13:44 09/26/16 16:25 75 MLS/HR Ondansetron HCl (Zofran Inj) 4 mg Q6H PRN IV 09/26/16 14:45 10/26/16 14:44 Miscellaneous Information (Order Awaiting Action) 1 ea QS N/A 09/26/16 15:00 10/26/16 14:59 Miscellaneous (Iv Fluids Completed) 1 ea PRN PRN N/A 09/26/16 15:15 09/26/17 15:14 Physical Exam Vital Signs (Past 24 Hrs): Date Time Temp Pulse Resp B/P (MAP) Pulse Ox O2 Delivery O2 Flow Rate FiO2 09/26/16 15:01 74 18 150/109 96 Room Air 09/26/16 12:09 36.6 18 139/87 Room Air 09/26/16 11:30 69 18 139/87 96 Room Air 09/26/16 08:47 36.6 84 18 132/72 100 Room Air Physical Exam: Constitutional: appearance nourished, pale, NGT right nares Ears, Nose, Mouth and Throat: mucous membranes moist, no injection and skin normal, eyes normal Cardiovascular: irregular Respiratory: clear to auscultation (CTA) and no rales, rhonchi or wheeze Musculoskeletal: no peripheral edema and good distal pulses Skin: no stigmata of neurocutaneous disease noted and normal and intact Eyes: extraocular muscles intact (EOMI) and pupils equal, round and reactive to light (PERRL) NEUROLOGIC EXAMINATION: Mental status: Alert and interactive Oriented to full date and location Oriented to person Speech fluent with no evidence of aphasia Cranial Nerves smile eye brow raise symmetric, tongue midline, no fatiguing with tongue to cheek, neck resistance, deltoid resistance. Reflexes: Deep tendon reflexes were symmetrical and graded 2/5. Plantar responses were flexor. Sensory: vibration intact, decrease cool touch from ankle down, GT proprioception intact Coordination: finger to nose, fine tremor bilaterally R>L, head tremor with concentration on other procedure Gait/Stance: Posture sitting up in bed Motor: Negative for pronator drift of out stretched arms with eyes closed. 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 5/5 bilaterally, hip flex plantar flex ext bilaterally 5/5 Laboratory Results Past 24 Hours: 09/26/16 09:00 Red Blood Count 4.78, Mean Corpuscular Volume 92.3, Mean Corpuscular Hemoglobin 28.5, Mean Corpuscular Hemoglobin Concent 30.8, Mean Platelet Volume 11.0, Neutrophils (%) (Auto) 73.2, Lymphocytes (%) (Auto) 18.1, Monocytes (%) (Auto) 7.3, Eosinophils (%) (Auto) 0.7, Basophils (%) (Auto) 0.2, Neutrophils # (Auto) 4.14, Lymphocytes # (Auto) 1.02, Monocytes # (Auto) 0.41, Eosinophils # (Auto) 0.04, Basophils # (Auto) 0.01 09/26/16 09:00 Test 09/26/16 09:00 White Blood Count 5.65 K/uL (4.8-10.8) Red Blood Count 4.78 M/uL (4.2-5.4) Hemoglobin 13.6 g/dL (12.0-16.0) Hematocrit 44.1 % (37-47) Mean Corpuscular Volume 92.3 fL (80-100) Mean Corpuscular Hemoglobin 28.5 pg (25-34) Mean Corpuscular Hemoglobin Concent 30.8 g/dl (32-36) Platelet Count 304 K/uL (130-400) Mean Platelet Volume 11.0 fL (7.4-10.4) Neutrophils (%) (Auto) 73.2 % Lymphocytes (%) (Auto) 18.1 % Monocytes (%) (Auto) 7.3 % Eosinophils (%) (Auto) 0.7 % Basophils (%) (Auto) 0.2 % Neutrophils # (Auto) 4.14 K/uL (1.4-6.5) Lymphocytes # (Auto) 1.02 K/uL (1.2-3.4) Monocytes # (Auto) 0.41 K/uL (0.11-0.59) Eosinophils # (Auto) 0.04 K/uL (0-0.5) Basophils # (Auto) 0.01 K/uL (0-0.2) RDW Standard Deviation 49.6 fL (36.4-46.3) RDW Coefficient of Variation 14.5 % (11.5-14.5) Immature Granulocyte % (Auto) 0.5 % Immature Granulocyte # (Auto) 0.03 K/uL (0.00-0.02) Anion Gap 7.0 mmol/L (3-11) Est Creatinine Clear Calc Drug Dose 48.5 ml/min Estimated GFR () 83.0 Estimated GFR (Non- 71.6 BUN/Creatinine Ratio 32.0 (10-20) Calcium Level 9.4 mg/dl (8.5-10.1) Magnesium Level 2.2 mg/dl (1.8-2.4) Total Bilirubin 0.5 mg/dl (0.2-1) Direct Bilirubin 0.1 mg/dl (0-0.2) Aspartate Amino Transf (AST/SGOT) 77 U/L (15-37) Alanine Aminotransferase (ALT/SGPT) 129 U/L (12-78) Alkaline Phosphatase 86 U/L (45-117) Total Protein 8.0 gm/dl (6.4-8.2) Albumin 3.5 gm/dl (3.4-5.0) Lipase 132 U/L (73-393) Thyroid Stimulating Hormone (TSH) 3.140 uIu/ml (0.300-4.500) Imaging korflo appropriately placed Impression 76 year old female with progressive dysphagia Plan 1. CK and acetylcholine receptor AB ordered 2. NGT for nutrition and fluids 3. dilatation in the past not helpful 4. PT/OT for discharge needs 5. will need EMG as outpatient 6. GI for further recommendations. 7. will need MRI brain with and without contrast. I have seen and discussed above patient with Dr Kierra Bauer, neurology Pt seen and examined. Persistent difficulty with swallowing with items feeling stuck in the upper esophagus initially worse with solids than liguids. PT has been mildly progressively weak associated with significant wt loss. NO ptosis, diplopia, change in voice, nasality fatigue with chewing. No CN sx, no family hx of dyphagia (other than brother with ALS)/ No more difficulty with prox vs distal tasks. No hx of stroke or stroke like sx. Exam is normal with the exception of a head and intention tremor (pos famhx), no fatiguability, no nasality, weakness, intact gag. NO atrophy or fascics. Mildly brisk reflexes, no increas in jaw jerk, no pathologic reflexes. Toes down, gait unremarkable for age. Imp no obvious neurologic cause of dysphagia P MRI brain, r/o mult infarct CK. acetylcholine rec antibody, If all neg and etiology unknown rec outpt NCVEMG with rep stim. TARA Bauer MD
--- NOTE | 2016-09-26 19:10 | DIAGNOSTIC IMAGING REPORT ---
BRAIN COMBO CLINICAL HISTORY: dysphagia mental status change. Tremors. COMPARISON STUDY: No previous studies for comparison. TECHNIQUE: Utilizing a 1.5 Aurea magnet and dedicated coil, multiplanar, multiecho imaging of the brain was performed pre and postcontrast administration. IV administration of 6 mL of Gadavist contrast was uneventful. FINDINGS: Diffusion-weighted images show no evidence for an acute ischemic event. There are findings of moderate cerebral atrophy. Findings of considerable chronic small vessel change in the periventricular and deep white matter regions. There is no significant postcontrast enhancement. Ventricular system is midline. Sella and parasellar regions are unremarkable. The internal auditory canals are symmetric. IMPRESSION: 1. Considerable chronic small vessel change throughout both cerebral hemispheres. 2. Moderate cerebral atrophy. 3. No evidence for an acute ischemic event. 4. No abnormal postcontrast enhancement The above report was generated using voice recognition software. It may contain grammatical, syntax or spelling errors. Electronically signed by: Sergey Boo M.D. 09/26/2016 7:09 PM Dictated Date/Time: 09/26/2016 7:02 PM
[2016-09-26] MEDS: PANTOprazole INJ 40 MG in SYRINGE 0 ML IV SCH (19:53)
[2016-09-26] MEDS: ENOXAPARIN 40 MG/0.4 ML SYR SQ SCH (20:09)
--- NOTE | 2016-09-26 22:02 | DIAGNOSTIC IMAGING REPORT ---
ABDOMINAL ULTRASOUND, RIGHT UPPER QUADRANT HISTORY: Elevated transaminases. COMPARISON: CT of the abdomen and pelvis September 04, 2016. FINDINGS: There is no biliary ductal dilatation status post cholecystectomy. The common bile duct measures 3 mm in caliber. Pancreatic body is normal. The head and tail are obscured. Anechoic structures within the right renal sinus suggest parapelvic cysts as shown on CT of September 04, 2016. IMPRESSION: 1. No biliary ductal dilatation status post cholecystectomy. 2. Partially obscured pancreas. Electronically signed by: Jerzy Combs M.D. 09/26/2016 10:01 PM Dictated Date/Time: 09/26/2016 9:59 PM
[2016-09-26 22:36] VITALS: BP 146/91; PULSE 57; TEMP 36.6; O2SAT 96
[2016-09-27] MEDS: D5W AND 1/2NSS + 20MEQ KCL 1,000 ML IV SCH ×2 (04:53→18:22)
[2016-09-27 07:26] VITALS: BP 134/88; PULSE 60; TEMP 36.4; O2SAT 97
[2016-09-27] MEDS: PANTOprazole INJ 40 MG in SYRINGE 0 ML IV SCH ×2 (07:59→21:15)
[2016-09-27 10:08] LABS: BUN/CREATININE RATIO 13.2 (10-20); CREATININE 0.68 mg/dl (0.60-1.20); MAGNESIUM 2.2 mg/dl (1.8-2.4); POTASSIUM 4.1 mmol/L (3.5-5.1)
[2016-09-27 10:14] LABS: CHOLESTEROL/HDL RATIO 2.9; PHOSPHORUS 1.9 mg/dl (2.5-4.9); PREALBUMIN 24.4 mg/dl (20-40)
[2016-09-27] MEDS ORDERED: FIBERSOURCE HN 1000ML BAG NG SCH ×2 (10:15)
[2016-09-27] MEDS: ONDANSETRON INJ 2 MG/ML 2 ML VIAL IV PRN (10:47)
--- NOTE | 2016-09-27 11:09 | Gastroenterology Progress Note ---
Progress Note Date of Service: Sep 27, 2016 Subjective Pt evaluation today including: conversation w/ patient, physical exam, chart review, lab review, review of studies, review of inpatient medication list Ms. Lujan is a 76 yr old female with dysphagia, weight loss, tremor. Recent EGD x 2 w/o cause of dysphagia and with worsening of symptoms. Awaiting OP esophageal manometry testing but presented to the ED yesterday for worsening dysphagia and for weakness. Esophagus X-ray on 08/16/16 with esophageal dysmotility, small sliding hiatal hernia. Appreciate neuro consult. MRI with cerebral atrophy but no mention of stroke, MS or other neuro diseases. Bedside speech path eval scheduled for later today. Review of Systems Constitutional: + weakness, No fever, No chills, No sweats ENT: No hearing loss Respiratory: No cough Cardiac: No chest pain Abdomen: + nausea (x 2 months), No pain Female : No dysuria Neuro: No memory loss Psych: + anxiety, No depression symptoms Endo: + fatigue Skin: No rash Medications Current Inpatient Medications Medications (Trade) Dose Ordered Sig/Deirdre Route Start Time Stop Time Status Last Admin Dose Admin Pantoprazole Sodium 40 mg/ Syringe 10 ml @ 5 mls/min DAILY@09,21 IV 09/26/16 21:00 10/26/16 20:59 09/27/16 07:59 5 MLS/MIN Enoxaparin Sodium (Lovenox Inj) 40 mg Q24H SQ 09/26/16 21:00 10/26/16 13:44 09/26/16 20:09 40 MG Potassium Chloride/Dextrose/ Sod Cl 1,000 ml @ 75 mls/hr [id number] IV 09/26/16 16:30 09/29/16 13:44 09/27/16 04:53 75 MLS/HR Ondansetron HCl (Zofran Inj) 4 mg Q6H PRN IV 09/26/16 14:45 10/26/16 14:44 09/27/16 10:47 4 MG Miscellaneous Information (Order Awaiting Action) 1 ea QS N/A 09/26/16 15:00 10/26/16 14:59 Miscellaneous (Iv Fluids Completed) 1 ea PRN PRN N/A 09/26/16 15:15 09/26/17 15:14 Enteral Nutritional Formula (Fibersource HN) 1,000 ml UD NG 09/27/16 10:15 10/27/16 10:14 09/27/16 11:00 1,000 ML Objective Vital Signs Date Time Temp Pulse Resp B/P (MAP) Pulse Ox O2 Delivery O2 Flow Rate FiO2 09/27/16 08:00 Room Air 09/27/16 07:26 36.4 60 18 134/88 (103) 97 Room Air 09/27/16 00:00 Room Air 09/26/16 22:36 36.6 57 16 146/91 (109) 96 Room Air 09/26/16 20:00 Room Air 09/26/16 15:40 36.7 70 16 145/94 (111) 96 Room Air 09/26/16 15:40 Room Air 09/26/16 15:05 36.6 74 18 150/109 96 09/26/16 15:01 74 18 150/109 96 Room Air 09/26/16 12:09 36.6 18 139/87 Room Air 09/26/16 11:30 69 18 139/87 96 Room Air Physical Exam General Appearance: no apparent distress Neck: no JVD Respiratory/Chest: lungs clear Cardiovascular: regular rate, rhythm, no edema, no murmur Abdomen: non tender, soft Extremities: no pedal edema Neurologic/Psych: alert, normal mood/affect, oriented x 3 Skin: no jaundice Laboratory Results Last 24 Hours Test 09/26/16 17:44 09/27/16 09:11 Total Creatine Kinase 35 U/L Sodium Level 143 mmol/L Potassium Level 4.1 mmol/L Chloride Level 112 mmol/L Carbon Dioxide Level 26 mmol/L Anion Gap 5.0 mmol/L Blood Urea Nitrogen 9 mg/dl Creatinine 0.68 mg/dl Est Creatinine Clear Calc Drug Dose 57.0 ml/min Estimated GFR () 98.5 Estimated GFR (Non- 85.0 BUN/Creatinine Ratio 13.2 Random Glucose 106 mg/dl Calcium Level 8.0 mg/dl Phosphorus Level 1.9 mg/dl Magnesium Level 2.2 mg/dl Total Bilirubin 0.7 mg/dl Direct Bilirubin 0.3 mg/dl Aspartate Amino Transf (AST/SGOT) 86 U/L Alanine Aminotransferase (ALT/SGPT) 144 U/L Alkaline Phosphatase 72 U/L Total Protein 6.4 gm/dl Albumin 3.0 gm/dl Prealbumin 24.4 mg/dl Triglycerides Level 82 mg/dl Cholesterol Level 129 mg/dl HDL Cholesterol 44 mg/dl LDL Cholesterol, Calculated 69 mg/dl VLDL Cholesterol, Calculated 16 mg/dl Cholesterol/HDL Ratio 2.9 Assessment and Plan Ms. Lujan is a 76 yr old female with chronic dysphagia w/o cause on EGD. Plan: 1. Appreciate Neuro w/u. 2. Speech eval pending. 3. No indication for repeat EGD. 4. Recommend esophageal manometry as previously arranged. 5. Will continue to follow. I have personally seen and examined the patient with MISAEL Smith. Her note reflects my exam and findings. I agree with her impression and plan. Out patient follow up with Dr. Hinton for motility. Noe Smith M.D.
--- NOTE | 2016-09-27 14:51 | Neurology Progress Notes ---
Neurology Progress Note Date of Service Sep 27, 2016. Radha Steward is a 76 yo female with a progressively worsening h/o dysphagia over the last 8 months. She was admitted for this in July 2016 and had EGD which was unrevealing and had dilation of esophagus although there was no stricture. Video swallow at that time showed esophageal dysmotility. She was scheduled for esophageal manometry test in 1 week as an outpatient. She was losing weight and was told she should eat slow and chew well. The swallowing started getting worse and she could no longer tolerate baby food and had a 20-30 lbs. She states she would swallow the food but then after she swallowed several things it felt like it was stacking up in her throat and then she would regurgitate liquids about an hour after swallowing. She describes early satiety and fullness, progressively worsening nausea, as well as worsening of her previous GERD as she has not been able to take her PPI in several weeks. She is now unable to swallow anything and has not been taking her medications. she did have an episode of syncope but it happened after taking her blood pressure medication and then her PCP giving her nitroglycerin to treat her esophageal spasms. She has been feeling very lightheaded with standing, generalized weakness. She has also noted a tremor in her head and R>L arms in the last few months. Her brother was diagnosed with ALS and his son was recently diagnosed with Parkinson's disease. She has had numerous surgeries her left knee replacement was the most recent. Today she started receiving tube feed via NGT korflow. She states it started around 12N and it started making her nauseous but no vomiting. She was feeling very weak this am but feeling a little better now. She states they are doing a bedside speech eval and GI is recommending esophageal manometry. denies CP, SOB , abdominal pain, one sided numbness tingling, weakness, fatigability increased during the day with chewing, walking lifting, dropping items Objective Date Time Temp Pulse Resp B/P (MAP) Pulse Ox O2 Delivery O2 Flow Rate FiO2 09/27/16 08:00 Room Air 09/27/16 07:26 36.4 60 18 134/88 (103) 97 Room Air 09/27/16 00:00 Room Air 09/26/16 22:36 36.6 57 16 146/91 (109) 96 Room Air 09/26/16 20:00 Room Air 09/26/16 15:40 36.7 70 16 145/94 (111) 96 Room Air 09/26/16 15:40 Room Air 09/26/16 15:05 36.6 74 18 150/109 96 09/26/16 15:01 74 18 150/109 96 Room Air Last 24 Hours Test 09/26/16 17:44 09/27/16 09:11 Total Creatine Kinase 35 U/L Sodium Level 143 mmol/L Potassium Level 4.1 mmol/L Chloride Level 112 mmol/L Carbon Dioxide Level 26 mmol/L Anion Gap 5.0 mmol/L Blood Urea Nitrogen 9 mg/dl Creatinine 0.68 mg/dl Est Creatinine Clear Calc Drug Dose 57.0 ml/min Estimated GFR () 98.5 Estimated GFR (Non- 85.0 BUN/Creatinine Ratio 13.2 Random Glucose 106 mg/dl Calcium Level 8.0 mg/dl Phosphorus Level 1.9 mg/dl Magnesium Level 2.2 mg/dl Total Bilirubin 0.7 mg/dl Direct Bilirubin 0.3 mg/dl Aspartate Amino Transf (AST/SGOT) 86 U/L Alanine Aminotransferase (ALT/SGPT) 144 U/L Alkaline Phosphatase 72 U/L Total Protein 6.4 gm/dl Albumin 3.0 gm/dl Prealbumin 24.4 mg/dl Triglycerides Level 82 mg/dl Cholesterol Level 129 mg/dl HDL Cholesterol 44 mg/dl LDL Cholesterol, Calculated 69 mg/dl VLDL Cholesterol, Calculated 16 mg/dl Cholesterol/HDL Ratio 2.9 Imaging: MRI with and without contrast brain-. Considerable chronic small vessel change throughout both cerebral hemispheres. Moderate cerebral atrophy. No evidence for an acute ischemic event. No abnormal postcontrast enhancement Exam: Physical Exam: Constitutional: appearance nourished, healthy and normal, no lid droop Ears, Nose, Mouth and Throat: mucous membranes moist, no injection and skin normal, eyes normal Cardiovascular: normal S-1 and S-2 and regular rate and rhythm Respiratory: clear to auscultation (CTA) and no rales, rhonchi or wheeze Musculoskeletal: no peripheral edema and good distal pulses Skin: no stigmata of neurocutaneous disease noted and normal and intact Eyes: extraocular muscles intact (EOMI) and pupils equal, round and reactive to light (PERRL) NEUROLOGIC EXAMINATION: Mental status: Alert and interactive Oriented to full date and location Oriented to person Speech fluent with no evidence of aphasia Cranial Nerves smile eye brow raise, tongue midline Coordination: finger to nose slight reaching tremor, head tremor with distraction for other activities Gait/Stance: Posture normal. sitting up bedside chair Motor: Negative for pronator drift of out stretched arms with eyes closed. 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, biceps triceps bilaterally 5/5, hip flex plantar flex ext 5/5 bilaterally Current Inpatient Medications Medications (Trade) Dose Ordered Sig/Deirdre Route Start Time Stop Time Status Last Admin Dose Admin Pantoprazole Sodium 40 mg/ Syringe 10 ml @ 5 mls/min DAILY@,21 IV 09/26/16 21:00 10/26/16 20:59 09/27/16 07:59 5 MLS/MIN Enoxaparin Sodium (Lovenox Inj) 40 mg Q24H SQ 09/26/16 21:00 10/26/16 13:44 09/26/16 20:09 40 MG Potassium Chloride/Dextrose/ Sod Cl 1,000 ml @ 75 mls/hr [id number] IV 09/26/16 16:30 09/29/16 13:44 09/27/16 04:53 75 MLS/HR Ondansetron HCl (Zofran Inj) 4 mg Q6H PRN IV 09/26/16 14:45 10/26/16 14:44 09/27/16 10:47 4 MG Miscellaneous Information (Order Awaiting Action) 1 ea QS N/A 09/26/16 15:00 10/26/16 14:59 Miscellaneous (Iv Fluids Completed) 1 ea PRN PRN N/A 09/26/16 15:15 09/26/17 15:14 Enteral Nutritional Formula (Fibersource HN) 1,000 ml UD NG 09/27/16 10:15 10/27/16 10:14 09/27/16 11:00 1,000 ML Impression 76 year old female with progressive dysphagia Plan 1. CK- WNL and acetylcholine receptor AB- pending 2. NGT for nutrition and fluids- currently receiving 3. dilatation in the past not helpful 4. PT/OT/speech for discharge needs 5. will need EMG as outpatient non urgent 6. GI -plans for bedside speech evaluation and esophageal manometry test 7. MRI brain with and without contrast- white matter changes, atrophy, no stroke or lesion seen 8. no evidence of neuro muscular disease at this point. 9. lab pending- will continue to follow Pt seen, await results of swallowing exam TARA Bauer MD I have seen and discussed above patient with Dr Kierra Bauer, neurology
[2016-09-27 15:53] VITALS: BP 129/85; PULSE 69; TEMP 36.8; O2SAT 96
[2016-09-27] MEDS: BIOTENE PO SCH (21:15)
[2016-09-27] MEDS: ENOXAPARIN 40 MG/0.4 ML SYR SQ SCH (21:16)
--- NOTE | 2016-09-27 22:37 | Hospitalist Progress Note ---
Hospitalist Progress Note Date of Service Sep 27, 2016. Subjective Pt evaluation today including: conversation w/ patient Patient reviewed her history of swallowing difficulties she has a 30 pound weight loss currently with Dobbhoff in place Medications Medications (Trade) Dose Ordered Sig/Deirdre Route Start Time Stop Time Status Last Admin Dose Admin Enteral Nutritional Formula (Fibersource HN) 1,000 ml UD NG 09/27/16 10:15 10/27/16 10:14 09/27/16 11:00 1,000 ML Non-Formulary Medication (Non-Formulary Patient'S Own Med) 1 ea BID PO 09/27/16 20:00 10/27/16 19:59 09/27/16 21:15 1 EA Objective Vital Signs Date Time Temp Pulse Resp B/P (MAP) Pulse Ox O2 Delivery O2 Flow Rate FiO2 09/27/16 16:00 Room Air 09/27/16 15:53 36.8 69 16 129/85 (100) 96 Room Air 09/27/16 08:00 Room Air 09/27/16 07:26 36.4 60 18 134/88 (103) 97 Room Air 09/27/16 00:00 Room Air 09/26/16 22:36 36.6 57 16 146/91 (109) 96 Room Air Physical Exam General Appearance: no apparent distress ENT: hearing grossly normal Neck: supple Respiratory/Chest: lungs clear Cardiovascular: regular rate, rhythm Abdomen: non tender Extremities: non-tender, normal inspection Laboratory Results Last 24 Hours Test 09/27/16 09:11 Sodium Level 143 mmol/L Potassium Level 4.1 mmol/L Chloride Level 112 mmol/L Carbon Dioxide Level 26 mmol/L Anion Gap 5.0 mmol/L Blood Urea Nitrogen 9 mg/dl Creatinine 0.68 mg/dl Est Creatinine Clear Calc Drug Dose 57.0 ml/min Estimated GFR () 98.5 Estimated GFR (Non- 85.0 BUN/Creatinine Ratio 13.2 Random Glucose 106 mg/dl Calcium Level 8.0 mg/dl Phosphorus Level 1.9 mg/dl Magnesium Level 2.2 mg/dl Total Bilirubin 0.7 mg/dl Direct Bilirubin 0.3 mg/dl Aspartate Amino Transf (AST/SGOT) 86 U/L Alanine Aminotransferase (ALT/SGPT) 144 U/L Alkaline Phosphatase 72 U/L Total Protein 6.4 gm/dl Albumin 3.0 gm/dl Prealbumin 24.4 mg/dl Triglycerides Level 82 mg/dl Cholesterol Level 129 mg/dl HDL Cholesterol 44 mg/dl LDL Cholesterol, Calculated 69 mg/dl VLDL Cholesterol, Calculated 16 mg/dl Cholesterol/HDL Ratio 2.9 Assessment and Plan (1) Failure to thrive Assessment & Plan: Patient may need short-term rehabilitation (2) Inadequate oral nutritional intake (3) Esophageal dysmotility Assessment & Plan: Dobbhoff placed case discussed with neurology workup pending
[2016-09-27 23:48] VITALS: BP 127/80; PULSE 70; TEMP 36.6; O2SAT 94
[2016-09-28 07:27] VITALS: BP 126/81; PULSE 61; TEMP 36.4; O2SAT 97
[2016-09-28] MEDS: BIOTENE PO SCH ×2 (07:38→19:45)
[2016-09-28] MEDS: D5W AND 1/2NSS + 20MEQ KCL 1,000 ML IV SCH ×2 (07:38→20:57)
[2016-09-28] MEDS: PANTOprazole INJ 40 MG in SYRINGE 0 ML IV SCH ×2 (07:39→19:50)
--- NOTE | 2016-09-28 12:12 | Gastroenterology Progress Note ---
Progress Note Date of Service: Sep 28, 2016 Subjective Pt evaluation today including: conversation w/ patient, physical exam, chart review, lab review, review of studies, review of inpatient medication list Ms. Lujan is a 76 yr old female admitted with dysphagia and failure to thrive. She appears well. Has an NG feeding tube in place. When asked how she is she reports feeling "funny in the head today." Transaminases mildly elevated, under 100, total bili normal. Review of Systems Constitutional: + weakness (improving) Respiratory: No cough Cardiac: No chest pain Abdomen: + dysphagia, No pain, No nausea, No vomiting, No diarrhea, No constipation, No GI bleeding Female : No dysuria Neuro: + problem reported (seems to be reports very mild dizzines this morning) Psych: + anxiety (seems somewhat anxious) Endo: + fatigue (improved) Skin: No rash, No jaundice Medications Current Inpatient Medications Medications (Trade) Dose Ordered Sig/Deirdre Route Start Time Stop Time Status Last Admin Dose Admin Pantoprazole Sodium 40 mg/ Syringe 10 ml @ 5 mls/min DAILY@ IV 09/26/16 21:00 10/26/16 20:59 09/28/16 07:39 5 MLS/MIN Enoxaparin Sodium (Lovenox Inj) 40 mg Q24H SQ 09/26/16 21:00 10/26/16 13:44 09/27/16 21:16 40 MG Potassium Chloride/Dextrose/ Sod Cl 1,000 ml @ 75 mls/hr [id number] IV 09/26/16 16:30 09/29/16 13:44 09/28/16 07:38 75 MLS/HR Ondansetron HCl (Zofran Inj) 4 mg Q6H PRN IV 09/26/16 14:45 10/26/16 14:44 09/27/16 10:47 4 MG Miscellaneous (Iv Fluids Completed) 1 ea PRN PRN N/A 09/26/16 15:15 09/26/17 15:14 Enteral Nutritional Formula (Fibersource HN) 1,000 ml UD NG 09/27/16 10:15 10/27/16 10:14 09/27/16 11:00 1,000 ML Non-Formulary Medication (Non-Formulary Patient'S Own Med) 1 ea BID PO 09/27/16 20:00 10/27/16 19:59 09/28/16 07:38 1 EA Objective Vital Signs Date Time Temp Pulse Resp B/P (MAP) Pulse Ox O2 Delivery O2 Flow Rate FiO2 09/28/16 08:00 Room Air 09/28/16 07:27 36.4 61 20 126/81 (96) 97 Room Air 09/28/16 00:00 Room Air 09/27/16 23:48 36.6 70 18 127/80 (96) 94 Room Air 09/27/16 16:00 Room Air 09/27/16 15:53 36.8 69 16 129/85 (100) 96 Room Air Physical Exam Neck: no JVD Respiratory/Chest: lungs clear, normal breath sounds Cardiovascular: regular rate, rhythm, no edema, no murmur Abdomen: non tender, soft Extremities: no pedal edema Neurologic/Psych: alert, oriented x 3 Skin: no jaundice, warm/dry Assessment and Plan Ms. Lujan is a 76 yr old female with chronic dysphagia w/o cause on EGD. Plan: 1. Appreciate Neuro w/u. 2. Video swallow complete, will review results when available. 3. Agree with NG tube feedings. 4. Consider psych consult as may have psych issues contributing to her symptoms. Video swallow with esophageal dysmotility, no aspiration, slippery diet recommended. She is able to swallow and management of her anxiety would decrease the feeling of dysphagia. No further GI studies recommended at this time. GI will sign off.
--- NOTE | 2016-09-28 12:20 | DIAGNOSTIC IMAGING REPORT ---
VIDEO SWALLOW HISTORY: pt unable to swallow TECHNIQUE: Video fluoroscopic evaluation of swallowing was performed in the AP and lateral projections by the speech pathology staff. The patient is fed nectar-thick and thin liquid barium, a barium coated wafer, and barium pudding. FLUOROSCOPY TIME: 3.0 minutes. COMPARISON STUDY: None. FINDINGS: A nasogastric tube is present. There is normal hyoid excursion and epiglottic deflection. No significant penetration or aspiration identified. Esophageal dysmotility was noted. Multilevel cervical endplate spurring incidentally noted. IMPRESSION: 1. No aspiration identified. 2. Please see the speech pathologist report for detailed findings and recommendations. Electronically signed by: Nagi Ellis M.D. 09/28/2016 12:19 PM Dictated Date/Time: 09/28/2016 12:17 PM
--- NOTE | 2016-09-28 14:13 | Neurology Progress Notes ---
Neurology Progress Note Date of Service Sep 28, 2016. Radha Steward is a 76 yo female with a progressively worsening h/o dysphagia over the last 8 months. She was admitted for this in July 2016 and had EGD which was unrevealing and had dilation of esophagus although there was no stricture. Video swallow at that time showed esophageal dysmotility. She was scheduled for esophageal manometry test in 1 week as an outpatient. She was losing weight and was told she should eat slow and chew well. The swallowing started getting worse and she could no longer tolerate baby food and had a 20-30 lbs. She states she would swallow the food but then after she swallowed several things it felt like it was stacking up in her throat and then she would regurgitate liquids about an hour after swallowing. She describes early satiety and fullness, progressively worsening nausea, as well as worsening of her previous GERD as she has not been able to take her PPI in several weeks. She is now unable to swallow anything and has not been taking her medications. she did have an episode of syncope but it happened after taking her blood pressure medication and then her PCP giving her nitroglycerin to treat her esophageal spasms. She has been feeling very lightheaded with standing, generalized weakness. She has also noted a tremor in her head and R>L arms in the last few months. Her brother was diagnosed with ALS and his son was recently diagnosed with Parkinson's disease. She has had numerous surgeries her left knee replacement was the most recent. Today she had her video swallow study and she could see the food going down to her stomach. She ate mashed potatoes and some ice cream along with hot tea and water. She states she still has a sharp jabbing on the left side of her neck. She is hoping that goes away and she is able to eat more soon and go home. denies CP, SOB, abdominal pain, weakness, numbness tingling, N/V. She is not fatigued with chewing and does not fatigue with walking Objective Date Time Temp Pulse Resp B/P (MAP) Pulse Ox O2 Delivery O2 Flow Rate FiO2 09/28/16 08:00 Room Air 09/28/16 07:27 36.4 61 20 126/81 (96) 97 Room Air 09/28/16 00:00 Room Air 09/27/16 23:48 36.6 70 18 127/80 (96) 94 Room Air 09/27/16 16:00 Room Air 09/27/16 15:53 36.8 69 16 129/85 (100) 96 Room Air acetylcholine AB still pending Imaging: video swallowing study report pending Exam: Physical Exam: Constitutional: appearance nourished, healthy and normal NGT in place Ears, Nose, Mouth and Throat: mucous membranes moist, no injection and skin normal, eyes normal Cardiovascular: normal S-1 and S-2 and regular rate and rhythm Respiratory: clear to auscultation (CTA) and no rales, rhonchi or wheeze Musculoskeletal: no peripheral edema and good distal pulses Skin: no stigmata of neurocutaneous disease noted and normal and intact Eyes: extraocular muscles intact (EOMI) and pupils equal, round and reactive to light (PERRL) NEUROLOGIC EXAMINATION: Mental status: Alert and interactive Oriented to full date and location Oriented to person Speech fluent with no evidence of aphasia Cranial Nerves facial symmetry Gait/Stance: Posture normal. walks to bathroom with minimal assistance Current Inpatient Medications Medications (Trade) Dose Ordered Sig/Deirdre Route Start Time Stop Time Status Last Admin Dose Admin Pantoprazole Sodium 40 mg/ Syringe 10 ml @ 5 mls/min DAILY@09,21 IV 09/26/16 21:00 10/26/16 20:59 09/28/16 07:39 5 MLS/MIN Enoxaparin Sodium (Lovenox Inj) 40 mg Q24H SQ 09/26/16 21:00 10/26/16 13:44 09/27/16 21:16 40 MG Potassium Chloride/Dextrose/ Sod Cl 1,000 ml @ 75 mls/hr [id number] IV 09/26/16 16:30 09/29/16 13:44 09/28/16 07:38 75 MLS/HR Ondansetron HCl (Zofran Inj) 4 mg Q6H PRN IV 09/26/16 14:45 10/26/16 14:44 09/27/16 10:47 4 MG Miscellaneous (Iv Fluids Completed) 1 ea PRN PRN N/A 09/26/16 15:15 09/26/17 15:14 Enteral Nutritional Formula (Fibersource HN) 1,000 ml UD NG 09/27/16 10:15 10/27/16 10:14 09/27/16 11:00 1,000 ML Non-Formulary Medication (Non-Formulary Patient'S Own Med) 1 ea BID PO 09/27/16 20:00 10/27/16 19:59 09/28/16 07:38 1 EA Impression 76 year old female with progressive dysphagia -swallowing study-is advancing diet Plan 1. CK- WNL and acetylcholine receptor AB- pending 2. NGT for nutrition and fluids- currently receiving 3. dilatation in the past not helpful 4. PT/OT/speech for discharge needs 5. will need EMG as outpatient non urgent if work up is not revealing as inpatient 6. video swallow study completed official report pending 7. MRI brain with and without contrast- white matter changes, atrophy, no stroke or lesion seen 8. no evidence of neuro muscular disease at this point. 9. will sign off for now will be available for input or questions. Discussed with pt, no neurologic reason for esophageal dysmotility. Fu on acetylcholine receptor antibody .Will sign off. TARA Bauer, I have discussed above patient with Dr Kierra Bauer, neurology
[2016-09-28 15:48] VITALS: BP 123/80; PULSE 64; TEMP 36.9; O2SAT 96
[2016-09-28] MEDS ORDERED: NURSING VERBAL MED ORDER ONE (18:00)
--- NOTE | 2016-09-28 18:53 | Hospitalist Progress Note ---
Hospitalist Progress Note Date of Service Sep 28, 2016. Subjective Pt evaluation today including: conversation w/ patient Patient with no complaints passed swallowing evaluation Objective Vital Signs Date Time Temp Pulse Resp B/P (MAP) Pulse Ox O2 Delivery O2 Flow Rate FiO2 09/28/16 16:00 Room Air 09/28/16 15:48 36.9 64 18 123/80 (94) 96 Room Air 09/28/16 08:00 Room Air 09/28/16 07:27 36.4 61 20 126/81 (96) 97 Room Air 09/28/16 00:00 Room Air 09/27/16 23:48 36.6 70 18 127/80 (96) 94 Room Air Physical Exam General Appearance: no apparent distress ENT: hearing grossly normal Neck: supple, trachea midline Respiratory/Chest: lungs clear Cardiovascular: regular rate, rhythm Abdomen: normal bowel sounds, non tender Extremities: non-tender Assessment and Plan (1) Failure to thrive Assessment & Plan: We'll have nutrition see (2) Inadequate oral nutritional intake Assessment & Plan: Leave Dobbhoff in place and her diet (3) Esophageal dysmotility Assessment & Plan: Video swallowing was successful if she tolerates advance diet will discontinue Dobbhoff hold tube feeds
[2016-09-28] MEDS: ENOXAPARIN 40 MG/0.4 ML SYR SQ SCH (19:51)
[2016-09-28 22:36] LABS: RECEPTOR BINDING AB <0.30 nmol/L (<=0.30)
[2016-09-28 23:58] VITALS: BP 145/77; PULSE 61; TEMP 36.4; O2SAT 94
[2016-09-29 04:22] VITALS: BP 155/96; PULSE 67; TEMP 36.7; O2SAT 97
[2016-09-29 07:21] VITALS: BP 147/88; PULSE 64; TEMP 36.7; O2SAT 97
[2016-09-29 07:21] LABS: MEAN CELL VOLUME 91.8 fL (80-100); MEAN CORPUSCULAR HEMOGLOBIN 29.5 pg (25-34); MEAN CORPUSCULAR HGB CONC 32.1 g/dl (32-36); MEAN PLATELET VOLUME 11.1 fL (7.4-10.4); PLATELET COUNT 224 K/uL (130-400); RED BLOOD COUNT 4.14 M/uL (4.2-5.4); WHITE BLOOD COUNT 4.73 K/uL (4.8-10.8)
[2016-09-29 07:55] LABS: CREATININE 0.64 mg/dl (0.60-1.20)
[2016-09-29] MEDS: BIOTENE PO SCH ×2 (08:23→19:57)
[2016-09-29] MEDS: PANTOprazole INJ 40 MG in SYRINGE 0 ML IV SCH ×2 (08:23→19:57)
[2016-09-29] MEDS: D5W AND 1/2NSS + 20MEQ KCL 1,000 ML IV SCH (10:08)
[2016-09-29 11:20] VITALS: BP 158/86; PULSE 64; O2SAT 98
--- NOTE | 2016-09-29 12:47 | Psychiatric Consultation ---
Consultation Date of Consultation Sep 29, 2016. Identifying Data 76-year-old white female with no psychiatric history but a history of swallowing difficulties who is admitted with failure to thrive. Psychiatry is consulted for anxiety. Chief Complaint "I had a horrible night; they think it was anxiety". History of Present Illness The patient is known to me from psychiatric consultation on 08/03/2016. At that time she was admitted to the hospitalist service for swallowing difficulties that have been going on for about a month. When she initially presented to the emergency room, the plan was to discharge her home, but she became upset that she was not being admitted and made a statement about ending her life. She denied that she was suicidal, and stated that she was scared and frustrated because she felt she was not getting help for her problems, but since she had been admitted and was getting a workup, she no longer felt frustrated. She denied all symptoms consistent with mood and anxiety disorders , and no psychiatric recommendations were required. Since that time, the patient states that her difficulties with swallowing have continued, and about a week prior to admission, she developed nausea and vomiting. She has lost about 30 pounds in the past 3 months. She has had GI and neurology workups and currently has an NGT, but is also eating soft and pured foods. She's had a brain MRI and video swallow study. Per nursing notes, the patient has been apprehensive about eating, but has been cooperative with treatment. On my assessment, the patient states that she has been more anxious for about the past month, worrying about her inability to eat and drink. She reports feeling easily overwhelmed, and has had multiple episodes were he feels short of breath , lightheaded, and dizzy. She denies other symptoms consistent with panic attacks. She denies feeling depressed, stating that she wants to get better and is hopeful that her symptoms will improve. She does note decreased ability to enjoy her usual activities, which she attributes to feeling weak and tired. She also admits to a 30 pound weight loss in the past couple of months due to her inability to eat. She typically sleeps well, but occasionally will have a night of poor sleep, such as last night. She denies suicidal thoughts, homicidal thoughts, symptoms of vanessa, psychosis, and OCD. Past Psychiatric History Current OP Treatment: no current treatment Prior OP Treatment: no prior treatment Prior Psych Hospitalizations: none Access to a Gun: Yes ( has guns, but the patient does not use them and is afraid of them.) Suicide Attempts: No Additional Notes Denies previous psychotropic medications. Past Medical/Surgical History (1) Failure to thrive (2) Difficulty swallowing liquids (3) Inadequate oral nutritional intake (4) Syncope due to orthostatic hypotension (5) Acid reflux (6) Urinary frequency (7) Osteoporosis Allergies Allergies: Coded Allergies: Nitrofurantoin (Verified Allergy, Intermediate, chest pain, h/a, sore throat, diarrhea., 08/24/16) Quinolones (Verified Allergy, Mild, HAND SWELLED UP, 08/24/16) Levofloxacin (Verified Allergy, Unknown, HANDS SWELLING, 08/24/16) Codeine (Verified Adverse Reaction, Mild, SEVERE CONSTIPATION, 08/24/16) Uncoded Allergies: FIBERGLASS (Allergy, Intermediate, HIVES, 09/26/16) Home Medications Scheduled Cephalexin Monohydrate (Cephalexin), 10 ML PO TID Cholecalciferol (Vitamin D3), 3,000 INTER.UNIT PO QAM Hydrochlorothiazide (Hctz), 25 MG PO QPM Nitroglycerin (Nitrostat), 0.4 MG UT PRN Omeprazole (Prilosec), 40 MG PO QAM Ondasetron Odt (Zofran Odt), 4 MG SL Q6H Potassium Chloride (Potassium Chloride), 15 ML PO DAILY Simvastatin (Zocor), 10 MG PO QPM Sucralfate (Carafate), 10 ML PO AC Family History Diabetes mellitus Gallbladder disease Heart disease Hypertension Kidney stones History of Suicide: Yes (sister with a history of panic attacks, unclear if she has a diagnosable anxiety disorder) History of Substance Abuse: No Psychiatric History: No Alcohol Use Alcohol Use In Past 12 Months: No Smoking Use Smoking Status: Never Smoker Substance History Denies any substance abuse. Personal History Lives in: [place] Work History: Retired Relationship History: (over 55 years, is supportive) Children: 2 daughters and 1 son Spiritual Affiliation: Restorationism Legal History: none Psychological Trauma History: Denies Hx Traumatic Event Review of Systems 10 systems reviewed; positive for continued difficulty swallowing, others negative except as stated above. Examination Vital Signs Vital Signs Past 12 Hours Date Time Temp Pulse Resp B/P (MAP) Pulse Ox O2 Delivery O2 Flow Rate FiO2 09/29/16 11:20 64 98 09/29/16 08:00 Room Air 09/29/16 07:21 36.7 64 18 147/88 (107) 97 Room Air 09/29/16 04:22 36.7 67 20 155/96 (115) 97 Room Air Laboratory Results Last 24 Hours Test 09/29/16 06:37 White Blood Count 4.73 K/uL Red Blood Count 4.14 M/uL Hemoglobin 12.2 g/dL Hematocrit 38.0 % Mean Corpuscular Volume 91.8 fL Mean Corpuscular Hemoglobin 29.5 pg Mean Corpuscular Hemoglobin Concent 32.1 g/dl RDW Standard Deviation 49.9 fL RDW Coefficient of Variation 14.8 % Platelet Count 224 K/uL Mean Platelet Volume 11.1 fL Creatinine 0.64 mg/dl Est Creatinine Clear Calc Drug Dose 60.7 ml/min Estimated GFR () 100.5 Estimated GFR (Non- 86.7 Mental Examination During interview pt is: alert and oriented, cooperative Appearance: appropriately dressed, appropriately groomed Eye contact is: fair Motor behavior is: no abnormal motor movements Speech: normal in rate, rhythm & volume Affect: anxious (mildly) Mood is: other ("okay") Thought process: goal directed Thought content: reality based without delusions Suicidal thought are: denied Homicidal thoughts are: denied Hallucinations: denies auditory, denies visual Cognition: memory grossly intact, attention grossly intact, language grossly intact Intelligence estimated to be: average Insight: fair Judgement: fair Impression / Recommendations Impression Patient endorses symptoms of anxiety which have a half months in the context of ongoing medical problems and difficulty swallowing without a clear etiology. She admits to worrying, as well as episodes of lightheadedness, dizziness, and weakness; it is difficult to tell how much of this may be due to poor oral intake, weight loss, and not taking her medications, including antihypertensives. She is willing to try something for anxiety and mood, she also has subsequent syndrome of symptoms of depression, and agreed to a trial of an SSRI. Recommendations (1) Anxiety Not Otherwise Specified Patient endorses some symptoms of generalized anxiety and panic, although not enough to meet full criteria for generalized anxiety disorder or panic disorder. She also reports some syndrome all symptoms of depression. As these are impairing her ability to function, she was offered a trial of an SSRI antidepressant, which she accepted. We reviewed the risks, benefits, and side effects of escitalopram liquid, as she states she cannot take pills, and will start 5 mg daily at bedtime tonight. Please send this consultation to her PCP for outpatient follow-up. Advised her that it will take 4-6 weeks to see the full effects of the medication, and that her dose may need to be increased.
[2016-09-29 14:58] VITALS: BP 127/82; PULSE 74; TEMP 36.9; O2SAT 97
[2016-09-29] MEDS: IV FLUIDS COMPLETED PRN ×2 (16:30→17:51)
[2016-09-29] MEDS ORDERED: NURSING VERBAL MED ORDER ONE (16:45)
[2016-09-29] MEDS: ESCITALOPRAM OXALATE 5 MG/5 ML PO SCH (19:57)
[2016-09-29] MEDS: BOOST PLUS VANILLA PO SCH ×2 (20:30)
[2016-09-29] MEDS: ENOXAPARIN 40 MG/0.4 ML SYR SQ SCH (20:31)
[2016-09-29 23:24] VITALS: BP 123/81; PULSE 63; TEMP 36.6; O2SAT 97
[2016-09-30] VITALS: O2SAT 98
--- NOTE | 2016-09-30 01:00 | Hospitalist Progress Note ---
Hospitalist Progress Note Date of Service Sep 29, 2016. Subjective Pt evaluation today including: conversation w/ patient Patient feeling better tolerating swallowing and difficulty sleeping last night. All Other Systems: Reviewed and Negative Objective Vital Signs Date Time Temp Pulse Resp B/P (MAP) Pulse Ox O2 Delivery O2 Flow Rate FiO2 09/29/16 23:24 36.6 63 20 123/81 (95) 97 Room Air 09/29/16 16:00 Room Air 09/29/16 14:58 36.9 74 18 127/82 (97) 97 Room Air 09/29/16 11:20 64 98 09/29/16 08:00 Room Air 09/29/16 07:21 36.7 64 18 147/88 (107) 97 Room Air 09/29/16 04:22 36.7 67 20 155/96 (115) 97 Room Air Physical Exam General Appearance: no apparent distress Eyes: normal inspection ENT: normal ENT inspection Neck: supple, trachea midline Respiratory/Chest: lungs clear Cardiovascular: regular rate, rhythm Abdomen: normal bowel sounds Extremities: normal range of motion Skin: normal color Laboratory Results Last 24 Hours Test 09/29/16 06:37 White Blood Count 4.73 K/uL Red Blood Count 4.14 M/uL Hemoglobin 12.2 g/dL Hematocrit 38.0 % Mean Corpuscular Volume 91.8 fL Mean Corpuscular Hemoglobin 29.5 pg Mean Corpuscular Hemoglobin Concent 32.1 g/dl RDW Standard Deviation 49.9 fL RDW Coefficient of Variation 14.8 % Platelet Count 224 K/uL Mean Platelet Volume 11.1 fL Creatinine 0.64 mg/dl Est Creatinine Clear Calc Drug Dose 60.7 ml/min Estimated GFR () 100.5 Estimated GFR (Non- 86.7 Assessment and Plan (1) Failure to thrive Assessment & Plan: Patient does not believe that she can go home will discontinue IV fluids and Dobbhoff and pursue possible short-term rehabilitation tomorrow (2) Inadequate oral nutritional intake Assessment & Plan: Patient can swallow she was encouraged psychiatric input appreciated (3) Esophageal dysmotility Assessment & Plan: Patient met with nutrition Dobbhoff will come out
[2016-09-30 04:00] VITALS: O2SAT 98
[2016-09-30] MEDS: ONDANSETRON INJ 2 MG/ML 2 ML VIAL IV PRN (05:21)
[2016-09-30] MEDS: BIOTENE PO SCH ×2 (07:36→19:42)
[2016-09-30 07:58] VITALS: BP 155/97; PULSE 65; TEMP 36.5; O2SAT 96
[2016-09-30] MEDS ORDERED: NURSING VERBAL MED ORDER ONE ×3 (09:00→17:15)
[2016-09-30] MEDS ORDERED: METOCLOPRAMIDE HCL 10 MG TAB PO PRN (09:30)
[2016-09-30] MEDS: PANTOprazole INJ 40 MG in SYRINGE 0 ML IV SCH ×2 (10:16→20:41)
--- NOTE | 2016-09-30 14:58 | Psychiatric Progress Notes ---
Psychiatric Progress Note Date of Service Sep 30, 2016. Notes Patient reviewed with liaison nurse. Initial consult completed by Dr. Veras. Patient has reportedly had less anxiety about swallowing. I did not speak with patient directly as she was calm/happy on phone. Lexapro can be converted from liquid to tab as patient is accepting of food. quite tiny and can be crushed if needed. generally more palatable than liquid and easier for home admin.
[2016-09-30 15:33] VITALS: BP 154/90; PULSE 61; TEMP 36.4; O2SAT 96
[2016-09-30] MEDS ORDERED: ACETAMINOPHEN 500 MG TAB PO PRN (17:00)
[2016-09-30] MEDS ORDERED: ACETAMINOPHEN SOLN 500 MG/15.62 ML UDP PO PRN (17:30)
[2016-09-30] MEDS ORDERED: ACETAMINOPHEN SOLN 160 MG/5 ML BTL PO PRN (18:15)
[2016-09-30] MEDS: ACETAMINOPHEN SOLN 160 MG/5 ML BTL PO PRN (18:45)
[2016-09-30] MEDS: BOOST PLUS VANILLA PO SCH ×2 (20:41)
[2016-09-30] MEDS: ESCITALOPRAM OXALATE 5 MG/5 ML PO SCH (20:42)
[2016-09-30] MEDS: ENOXAPARIN 40 MG/0.4 ML SYR SQ SCH (20:43)
[2016-09-30] MEDS: LORATADINE 1 MG/1 ML PO SCH (20:43)
[2016-09-30 23:01] VITALS: BP 112/77; PULSE 73; TEMP 36.4; O2SAT 96
--- NOTE | 2016-10-01 00:16 | Hospitalist Progress Note ---
Hospitalist Progress Note Date of Service Sep 30, 2016. Subjective Pt evaluation today including: conversation w/ patient, conversation w/ family Patient complaining of sinus headache relieved with Tylenol Objective Vital Signs Date Time Temp Pulse Resp B/P (MAP) Pulse Ox O2 Delivery O2 Flow Rate FiO2 09/30/16 23:01 36.4 73 16 112/77 (89) 96 Room Air 09/30/16 20:00 Room Air 09/30/16 16:00 Room Air 09/30/16 15:33 36.4 61 18 154/90 (111) 96 Room Air 09/30/16 08:00 Room Air 09/30/16 07:58 36.5 65 20 155/97 (116) 96 Room Air 09/30/16 04:00 98 Room Air Physical Exam General Appearance: no apparent distress ENT: hearing grossly normal Neck: trachea midline Respiratory/Chest: lungs clear Cardiovascular: regular rate, rhythm Abdomen: normal bowel sounds Neurologic/Psychiatric: alert Assessment and Plan (1) Failure to thrive Assessment & Plan: Improving (2) Inadequate oral nutritional intake (3) Esophageal dysmotility Assessment & Plan: Patient is encouraged to continue eating presently with no difficulties waiting short-term rehabilitation placement
[2016-10-01 07:07] VITALS: BP 142/90; PULSE 64; TEMP 36.5; O2SAT 93
[2016-10-01] MEDS: BIOTENE PO SCH ×2 (08:56→20:22)
[2016-10-01] MEDS: PANTOprazole INJ 40 MG in SYRINGE 0 ML IV SCH ×2 (08:56→20:15)
[2016-10-01 15:26] VITALS: BP 133/82; PULSE 77; TEMP 36.3; O2SAT 93
[2016-10-01] MEDS: BOOST PLUS VANILLA PO SCH ×2 (20:15)
[2016-10-01] MEDS: LORATADINE 1 MG/1 ML PO SCH (20:18)
[2016-10-01] MEDS: ESCITALOPRAM OXALATE 5 MG/5 ML PO SCH (20:18)
[2016-10-01] MEDS: ENOXAPARIN 40 MG/0.4 ML SYR SQ SCH (20:19)
--- NOTE | 2016-10-01 20:23 | Hospitalist Progress Note ---
Hospitalist Progress Note Date of Service Oct 01, 2016. Subjective Pt evaluation today including: conversation w/ patient Patient without complaints her swallowing improves Objective Vital Signs Date Time Temp Pulse Resp B/P (MAP) Pulse Ox O2 Delivery O2 Flow Rate FiO2 10/01/16 15:26 36.3 77 17 133/82 (99) 93 Room Air 10/01/16 15:22 Room Air 10/01/16 09:30 Room Air 10/01/16 07:07 36.5 64 18 142/90 (107) 93 Room Air 10/01/16 00:00 Room Air 09/30/16 23:01 36.4 73 16 112/77 (89) 96 Room Air Physical Exam General Appearance: no apparent distress Eyes: normal inspection ENT: hearing grossly normal Neck: supple Respiratory/Chest: lungs clear Cardiovascular: regular rate, rhythm Abdomen: normal bowel sounds Extremities: non-tender Neurologic/Psychiatric: no motor/sensory deficits Assessment and Plan (1) Failure to thrive Assessment & Plan: Short-term rehabilitation look for insurance approval on Monday (2) Inadequate oral nutritional intake Assessment & Plan: Continue to encouraged patient's oral intake (3) Esophageal dysmotility Assessment & Plan: Chronic
[2016-10-01 23:07] VITALS: BP 130/78; PULSE 72; TEMP 36.6; O2SAT 98
[2016-10-02] MEDS: ONDANSETRON INJ 2 MG/ML 2 ML VIAL IV PRN (03:09)
[2016-10-02] MEDS ORDERED: NURSING VERBAL MED ORDER ONE (06:00)
[2016-10-02 06:11] LABS: HEMATOCRIT 39.6 % (37-47); MEAN CELL VOLUME 91.2 fL (80-100); MEAN CORPUSCULAR HEMOGLOBIN 29.3 pg (25-34); MEAN CORPUSCULAR HGB CONC 32.1 g/dl (32-36); MEAN PLATELET VOLUME 11.6 fL (7.4-10.4); PLATELET COUNT 198 K/uL (130-400); RED BLOOD COUNT 4.34 M/uL (4.2-5.4); WHITE BLOOD COUNT 3.77 K/uL (4.8-10.8)
[2016-10-02 06:39] LABS: CREATININE 0.66 mg/dl (0.60-1.20)
[2016-10-02] MEDS ORDERED: PROMETHAZINE HCL INJ 12.5 MG in SODIUM CHLORIDE 0.9% 50ML 50 ML IV ONE (06:45)
[2016-10-02] MEDS: PANTOprazole INJ 40 MG in SYRINGE 0 ML IV SCH ×2 (07:33→19:42)
[2016-10-02] MEDS: BIOTENE PO SCH ×2 (07:34→19:48)
[2016-10-02] MEDS: ACETAMINOPHEN SOLN 160 MG/5 ML BTL PO PRN (08:39)
[2016-10-02 09:17] VITALS: BP 150/91; PULSE 56; TEMP 36.6; O2SAT 94
[2016-10-02 16:09] VITALS: BP 143/93; PULSE 63; TEMP 36.3; O2SAT 96
[2016-10-02] MEDS: ENOXAPARIN 40 MG/0.4 ML SYR SQ SCH (19:42)
[2016-10-02] MEDS: ESCITALOPRAM OXALATE 5 MG/5 ML PO SCH (19:43)
--- NOTE | 2016-10-02 19:43 | Hospitalist Progress Note ---
Hospitalist Progress Note Date of Service Oct 02, 2016. Subjective Pt evaluation today including: conversation w/ patient, physical exam, chart review, lab review Patient still complaining fullness when she swallows and not being able to eat enough All Other Systems: Reviewed and Negative Medications Medications (Trade) Dose Ordered Sig/Deirdre Route Start Time Stop Time Status Last Admin Dose Admin Promethazine HCl 12.5 mg/Sodium Chloride 50.5 ml @ 202 mls/hr NOW ONCE IV 10/02/16 06:45 10/02/16 06:59 DC 10/02/16 06:55 202 MLS/HR Objective Vital Signs Date Time Temp Pulse Resp B/P (MAP) Pulse Ox O2 Delivery O2 Flow Rate FiO2 10/02/16 16:38 Room Air 10/02/16 16:09 36.3 63 17 143/93 (110) 96 Room Air 10/02/16 09:17 36.6 56 16 150/91 (110) 94 Room Air 10/02/16 07:42 Room Air 10/02/16 00:06 Room Air 10/01/16 23:07 36.6 72 18 130/78 (95) 98 Room Air 10/01/16 20:45 Room Air Physical Exam Eyes: normal inspection ENT: hearing grossly normal Neck: trachea midline Respiratory/Chest: lungs clear Cardiovascular: regular rate, rhythm Abdomen: normal bowel sounds Extremities: non-tender Laboratory Results Last 24 Hours Test 10/02/16 05:34 White Blood Count 3.77 K/uL Red Blood Count 4.34 M/uL Hemoglobin 12.7 g/dL Hematocrit 39.6 % Mean Corpuscular Volume 91.2 fL Mean Corpuscular Hemoglobin 29.3 pg Mean Corpuscular Hemoglobin Concent 32.1 g/dl RDW Standard Deviation 49.5 fL RDW Coefficient of Variation 14.6 % Platelet Count 198 K/uL Mean Platelet Volume 11.6 fL Creatinine 0.66 mg/dl Est Creatinine Clear Calc Drug Dose 58.5 ml/min Estimated GFR () 99.5 Estimated GFR (Non- 85.8 Assessment and Plan (1) Failure to thrive Assessment & Plan: Continue to encourage oral intake (2) Inadequate oral nutritional intake (3) Esophageal dysmotility Assessment & Plan: Patient requesting speak to her regular histology technologist regarding PEG tube placement. I have placed a consult to her regular histology technologist certainly can discuss whether the circumstances a PEG tube would be beneficial. Her swallowing difficulties are multifactorial.
[2016-10-02] MEDS: BOOST PLUS VANILLA PO SCH ×2 (19:45)
[2016-10-02] MEDS: LORATADINE 1 MG/1 ML PO SCH (19:46)
[2016-10-03 00:08] VITALS: BP 99/65; PULSE 61; TEMP 36.6; O2SAT 96
[2016-10-03 04:30] VITALS: BP 143/89; PULSE 71; TEMP 36.3; O2SAT 96
[2016-10-03] MEDS: ONDANSETRON INJ 2 MG/ML 2 ML VIAL IV PRN (04:40)
[2016-10-03 07:37] VITALS: BP 133/89; PULSE 65; TEMP 36.3; O2SAT 96
[2016-10-03] MEDS: PANTOprazole INJ 40 MG in SYRINGE 0 ML IV SCH ×2 (08:14→20:37)
[2016-10-03] MEDS: BIOTENE PO SCH ×2 (08:14→20:37)
[2016-10-03 08:30] VITALS: O2SAT 96
--- NOTE | 2016-10-03 08:36 | Psych Management Progress Note ---
Psychiatry Miscellaneous Date of Service: Oct 03, 2016. Case reviewed with nurse liaison and initial market consultant. Patient only on Lexapro 5 since 09/29 so a bit early to titrate in this patient. Will follow as may benefit from a prn prior to meals if inadequate PO intake, crushed buspar 2.5-5 mg would be preferred over Ativan .
--- NOTE | 2016-10-03 14:51 | Progress Note ---
Subjective Date of Service: Oct 03, 2016. Subjective Pt evaluation today including: conversation w/ patient, physical exam, chart review, lab review, review of studies, review of inpatient medication list Pt reports issues with swallowing still Able to tolerate breakfast States no N/V No acute issues overnight Problem List Medical Problems: (1) Allergic reaction Status: Acute (2) Difficulty swallowing liquids Status: Acute (3) Dysphagia Status: Acute (4) Inadequate oral nutritional intake Status: Acute (5) Nausea Status: Acute (6) Recent urinary tract infection Status: Acute (7) Shakiness Status: Acute (8) Syncope due to orthostatic hypotension Status: Acute (9) Thrush of mouth and esophagus Status: Acute Review of Systems Constitutional: No fever, No chills, No weakness, No fatigue Respiratory: No cough, No sputum, No wheezing, No shortness of breath, No dyspnea on exertion Cardiac: No chest pain, No orthopnea, No PND, No edema, No claudication Abdomen: No pain, No nausea, No vomiting, No diarrhea Musculoskeletal: No joint pain, No muscle pain, No swelling, No calf pain Female : No dysuria, No urinary frequency, No hematuria, No incontinence Neurologic: No memory loss, No paralysis, No weakness, No numbness/tingling Psychiatric: + anxiety, No depression symptoms, No anhedonism, No insomnia Objective Vital Signs Date Time Temp Pulse Resp B/P (MAP) Pulse Ox O2 Delivery O2 Flow Rate FiO2 10/03/16 08:30 96 Room Air 10/03/16 07:37 36.3 65 18 133/89 (104) 96 Room Air 10/03/16 04:30 36.3 71 18 143/89 (107) 96 Room Air 10/03/16 00:25 Room Air 10/03/16 00:08 36.6 61 20 99/65 (76) 96 Room Air 10/02/16 20:16 Room Air 10/02/16 16:38 Room Air 10/02/16 16:09 36.3 63 17 143/93 (110) 96 Room Air Physical Exam General Appearance: WD/WN, no apparent distress Eyes: normal inspection, PERRL, EOMI, sclerae normal ENT: normal ENT inspection, hearing grossly normal, TMs normal, pharynx normal Neck: supple, no adenopathy, thyroid normal, no JVD Respiratory/Chest: chest non-tender, lungs clear, normal breath sounds, no respiratory distress Cardiovascular: regular rate, rhythm, no edema, no gallop, no JVD Abdomen: normal bowel sounds, non tender, soft, no organomegaly Extremities: normal range of motion, non-tender, normal inspection, no pedal edema Neurologic/Psychiatric: alert, oriented x 3, + depressed affect Laboratory Results Last 24 Hours Test 10/03/16 14:06 Assessment and Plan (1) Failure to thrive Assessment & Plan: Continue to encourage oral intake Diet is regudlar dental soft slippery diet No sign of aspiration per video swallow Psych consulted as likely anxiety mainly contributing to dysphagia Cont lexapro 5 mg PO daily Can not increase at this time as med was recently started (2) Inadequate oral nutritional intake Assessment & Plan: See above Albumin decreased to 3.0 on 09/27, recheck pending (3) Esophageal dysmotility Assessment & Plan: Unlikely good candidate for PEG Still requesting to talk to GI at this time Her swallowing difficulties are multifactorial.
[2016-10-03 14:58] LABS: BUN/CREATININE RATIO 11.3 (10-20); CALCIUM 8.8 mg/dl (8.5-10.1); CREATININE 0.75 mg/dl (0.60-1.20); POTASSIUM 3.7 mmol/L (3.5-5.1)
[2016-10-03 15:00] LABS: ALB/GLOB RATIO 0.9 (0.9-2)
[2016-10-03 15:43] VITALS: BP 141/93; PULSE 58; TEMP 36.5; O2SAT 97
[2016-10-03] MEDS: ESCITALOPRAM OXALATE 5 MG/5 ML PO SCH (20:37)
[2016-10-03] MEDS: BOOST PLUS VANILLA PO SCH ×2 (20:37)
[2016-10-03] MEDS: LORATADINE 1 MG/1 ML PO SCH (20:38)
[2016-10-03] MEDS: ENOXAPARIN 40 MG/0.4 ML SYR SQ SCH (20:38)
[2016-10-04 00:55] VITALS: BP 105/71; PULSE 62; TEMP 36.3; O2SAT 96
[2016-10-04 07:30] VITALS: BP 142/88; PULSE 63; TEMP 36.3; O2SAT 96
[2016-10-04] MEDS: PANTOprazole INJ 40 MG in SYRINGE 0 ML IV SCH ×2 (08:33→21:07)
[2016-10-04] MEDS: BIOTENE PO SCH ×2 (08:34→21:06)
[2016-10-04 08:43] LABS: BUN/CREATININE RATIO 11.3 (10-20); CALCIUM 8.8 mg/dl (8.5-10.1); CREATININE 0.8 mg/dl (0.60-1.20); POTASSIUM 3.8 mmol/L (3.5-5.1)
[2016-10-04 08:46] LABS: ALB/GLOB RATIO 0.8 (0.9-2)
--- NOTE | 2016-10-04 14:44 | Progress Note ---
Subjective Date of Service: Oct 04, 2016. Subjective Pt evaluation today including: conversation w/ patient, conversation w/ family , physical exam, chart review, lab review, review of studies, review of inpatient medication list Pt still anxious and depressed that she wont improve Poor diet and appetite Explained SSRI takes time to work Problem List Medical Problems: (1) Allergic reaction Status: Acute (2) Difficulty swallowing liquids Status: Acute (3) Dysphagia Status: Acute (4) Inadequate oral nutritional intake Status: Acute (5) Nausea Status: Acute (6) Recent urinary tract infection Status: Acute (7) Shakiness Status: Acute (8) Syncope due to orthostatic hypotension Status: Acute (9) Thrush of mouth and esophagus Status: Acute Review of Systems Constitutional: + fatigue, No fever, No chills, No sweats, No weight loss, No weakness ENT: No hearing loss, No unusual epistaxis, No nasal symptoms, No sore throat Respiratory: No cough, No sputum, No wheezing, No shortness of breath Cardiac: No chest pain, No orthopnea, No PND, No edema Abdomen: No pain, No nausea, No vomiting, No diarrhea, No constipation Musculoskeletal: No joint pain, No muscle pain, No swelling, No calf pain Female : No urinary frequency, No hematuria, No incontinence Neurologic: No memory loss, No paralysis, No weakness, No numbness/tingling Psychiatric: No depression symptoms, No anhedonism, No anxiety, No insomnia Endo: No fatigue, No excessive thirst Skin: No rash, No itch, No new/changing skin lesions, No color change Objective Vital Signs Date Time Temp Pulse Resp B/P (MAP) Pulse Ox O2 Delivery O2 Flow Rate FiO2 10/04/16 08:30 Room Air 10/04/16 07:30 36.3 63 16 142/88 (106) 96 Room Air 10/04/16 00:55 36.3 62 20 105/71 (82) 96 Room Air 10/04/16 00:00 Room Air 10/03/16 20:00 Room Air 10/03/16 15:43 36.5 58 20 141/93 (109) 97 Room Air 10/03/16 14:56 Room Air Physical Exam General Appearance: WD/WN, no apparent distress Eyes: normal inspection, PERRL, EOMI, sclerae normal Neck: supple, no adenopathy, thyroid normal, no JVD Respiratory/Chest: chest non-tender, lungs clear, normal breath sounds, no respiratory distress Cardiovascular: regular rate, rhythm, no edema, no gallop, no JVD Abdomen: normal bowel sounds, non tender, soft, no organomegaly Extremities: normal range of motion, non-tender, normal inspection, no pedal edema Neurologic/Psychiatric: no motor/sensory deficits, alert, normal mood/affect, oriented x 3 Laboratory Results Last 24 Hours Test 10/04/16 08:03 Sodium Level 141 mmol/L Potassium Level 3.8 mmol/L Chloride Level 107 mmol/L Carbon Dioxide Level 29 mmol/L Anion Gap 5.0 mmol/L Blood Urea Nitrogen 9 mg/dl Creatinine 0.80 mg/dl Est Creatinine Clear Calc Drug Dose 48.2 ml/min Estimated GFR () 83.0 Estimated GFR (Non- 71.6 BUN/Creatinine Ratio 11.3 Random Glucose 106 mg/dl Calcium Level 8.8 mg/dl Total Bilirubin 0.6 mg/dl Aspartate Amino Transf (AST/SGOT) 42 U/L Alanine Aminotransferase (ALT/SGPT) 80 U/L Alkaline Phosphatase 69 U/L Total Protein 6.6 gm/dl Albumin 3.0 gm/dl Globulin 3.6 gm/dl Albumin/Globulin Ratio 0.8 Assessment and Plan (1) Failure to thrive Assessment & Plan: Continue to encourage oral intake Diet is regular dental soft slippery diet No sign of aspiration per video swallow Psych consulted as likely anxiety mainly contributing to dysphagia Cont lexapro 5 mg PO daily, can not increase at this time as med was recently started Can try buspar PRN prior to meals if worsening (2) Inadequate oral nutritional intake Assessment & Plan: See above Albumin 3.0 on 10/03 Continue to encourage PO intake No further testing, awaiting placement (3) Esophageal dysmotility Assessment & Plan: Unlikely good candidate for PEG Still requesting to talk to GI at this time Her swallowing difficulties are multifactorial.
[2016-10-04 16:10] VITALS: O2SAT 96
[2016-10-04 16:15] VITALS: BP 134/91; PULSE 75; TEMP 36.8; O2SAT 97
[2016-10-04 20:00] VITALS: O2SAT 97
[2016-10-04] MEDS: ENOXAPARIN 40 MG/0.4 ML SYR SQ SCH (21:06)
[2016-10-04] MEDS: BOOST PLUS VANILLA PO SCH ×2 (21:07)
[2016-10-04] MEDS: LORATADINE 1 MG/1 ML PO SCH (21:07)
[2016-10-04] MEDS: ESCITALOPRAM OXALATE 5 MG/5 ML PO SCH (21:07)
[2016-10-04 23:30] VITALS: BP 120/80; PULSE 65; TEMP 36.7; O2SAT 97
[2016-10-05] VITALS: O2SAT 97
[2016-10-05] MEDS: ACETAMINOPHEN SOLN 160 MG/5 ML BTL PO PRN (01:56)
[2016-10-05] MEDS: ONDANSETRON INJ 2 MG/ML 2 ML VIAL IV PRN (01:56)
[2016-10-05 07:00] LABS: HEMATOCRIT 36.3 % (37-47); MEAN CELL VOLUME 91.4 fL (80-100); MEAN CORPUSCULAR HEMOGLOBIN 29.5 pg (25-34); MEAN CORPUSCULAR HGB CONC 32.2 g/dl (32-36); MEAN PLATELET VOLUME 11.2 fL (7.4-10.4); PLATELET COUNT 157 K/uL (130-400); RED BLOOD COUNT 3.97 M/uL (4.2-5.4); WHITE BLOOD COUNT 4.32 K/uL (4.8-10.8)
[2016-10-05 07:28] VITALS: BP 124/84; PULSE 67; TEMP 36.5; O2SAT 95
[2016-10-05 07:39] LABS: CREATININE 0.69 mg/dl (0.60-1.20)
[2016-10-05] MEDS: PANTOprazole INJ 40 MG in SYRINGE 0 ML IV SCH (07:56)
[2016-10-05] MEDS: BIOTENE PO SCH (07:57)
[2016-10-05 08:30] VITALS: O2SAT 95
[2016-10-05] MEDS ORDERED: ESCI1SOL2 PO (12:17)
--- NOTE | 2016-10-05 12:23 | Discharge Instructions ---
Discharge Instructions Date of Service Oct 05, 2016. Admission Reason for Admission: Failure To Thrive Discharge Discharge Diagnosis / Problem: dysphagia, anxiety Discharge Goals Goal(s): Decrease discomfort, Improve function, Increase independence, Improve disease control, Diagnostic testing, Therapeutic intervention Activity Recommendations Activity Limitations: resume your previous activity Shower/Bathe: no limitations . Instructions / Follow-Up Instructions / Follow-Up Patient to be discharged home with home health Prescription sent to pharmacy for lexapro 5 mg table to take once at nighttime This medication will take at least a week to work Continue regular dental soft diet, with boost plus in evenings Please continue to eat meals slowly and more frequently if needed in place of large portions Please follow up with Dr Varela in 1-2 weeks Current Hospital Diet Patient's current hospital diet: Regular Diet Discharge Diet Recommended Diet: Regular Diet Diet Texture: Dental Soft (bite-sized) Pending Studies Studies pending at discharge: no Laboratory Results Lipid Panel Test 09/27/16 09:11 Range/Units Triglycerides Level 82 0-150 mg/dl Cholesterol Level 129 0-200 mg/dl HDL Cholesterol 44 mg/dl Cholesterol/HDL Ratio 2.9 LDL Cholesterol, Calculated 69 mg/dl Medical Emergencies . Who to Call and When: Medical Emergencies: If at any time you feel your situation is an emergency, please call 911 immediately. . Non-Emergent Contact Non-Emergency issues call your: Primary Care Provider Call Non-Emergent contact if: you have any medication questions . . "Provider Documentation" section prepared by Roberto Zamora. . VTE Core Measure Inpt VTE Proph given/why not?: Enoxaparin (Lovenox)SQ, SCD's
[2016-10-05 12:45] VITALS: BP 124/84; PULSE 67; TEMP 36.5; O2SAT 95
--- NOTE | 2016-10-05 15:25 | Discharge Summary ---
Discharge Summary Date of Service Oct 05, 2016. Discharge Summary Admission Date: Sep 30, 2016 at 13:51 Discharge Date: Oct 05, 2016 Discharge Disposition: Home with services Principal Diagnosis: Dysphagia, anxiety Immunizations: Have You Had Influenza Vaccine: Unknown History of Tetanus Vaccine?: Unknown History of Pneumococcal: Unknown History of Hepatitis B Vaccine: Unknown Consultations: Psychiatry Gastroenterology Neurology Medication Reconciliation New Medications: Escitalopram Oxalate (Escitalopram Oxalate) 5 Mg/5 Ml Consuelo 5 MG PO HS, #30 TABS Continued Medications: Cholecalciferol (Vitamin D3) 1,000 Unit Tab 3000 INTER.UNIT PO QAM, TAB Hydrochlorothiazide (Hctz) 25 Mg Tab 25 MG PO QPM, TAB Nitroglycerin (Nitrostat) 0.4 Mg Tab 0.4 MG UT PRN, BTL Omeprazole (Prilosec) 40 Mg Cap 40 MG PO QAM, CAP Ondasetron Odt (Zofran Odt) 4 Mg Tab 4 MG SL Q6H for Nausea, #20 TAB Potassium Chloride (Potassium Chloride) 10 % Liq 15 ML PO DAILY 20MEQ/15ML, MIX IN 6 OZ H20 Simvastatin (Zocor) 10 Mg Tab 10 MG PO QPM, TAB Sucralfate (Carafate) 1 Gm/10 Ml Nidia 10 ML PO AC for 6 Days START August Discontinued Medications: Cephalexin Monohydrate (Cephalexin) 250 Mg/5 Ml Susp 10 ML PO TID Discharge Exam Review of Systems: Constitutional: No fever, No chills, No sweats, No weakness ENT: No hearing loss, No unusual epistaxis, No nasal symptoms, No sore throat Respiratory: No cough, No sputum, No wheezing, No shortness of breath, No dyspnea on exertion Cardiovascular: No chest pain, No orthopnea, No PND, No edema Abdomen: No pain, No nausea, No vomiting, No diarrhea Musculoskeletal: No joint pain, No muscle pain, No swelling, No calf pain Genitourinary - Female: No dysuria, No urinary frequency, No urinary urgency , No urinary incontinence Neurologic: No memory loss, No paralysis, No numbness/tingling Psychiatric: + depression symptoms, + anxiety, No anhedonism, No insomnia Endocrine: No fatigue, No excessive thirst Integumentary: No rash, No itch Physical Exam: General Appearance: WD/WN, + mild distress Eyes: normal inspection, PERRL, EOMI, sclerae normal Neck: supple, no adenopathy, thyroid normal, no JVD Respiratory/Chest: chest non-tender, lungs clear, normal breath sounds, no respiratory distress Cardiovascular: regular rate, rhythm, no edema, no gallop, no JVD Abdomen / GI: normal bowel sounds, non tender, soft, no organomegaly Extremities: normal inspection, no calf tenderness, normal capillary refill , no pedal edema Neurologic/Psychiatric: no motor/sensory deficits, alert, normal reflexes, oriented x 3, + depressed affect Skin: normal color, warm/dry, no rash Lymphatic: no adenopathy Hospital Course (1) Failure to thrive Continue to encourage oral intake No sign of aspiration per video swallow Psych consulted as likely anxiety mainly contributing to dysphagia Cont lexapro 5 mg PO daily, can not increase at this time as med was recently started Neurology also consulted, no mechanical etiology for dysphagia, ACH receptor antibody titers WNL Diet rec on discharge is regular dental soft slippery diet and recommended on discharge Can try buspar PRN prior to meals if worsening (2) Inadequate oral nutritional intake See above Albumin 3.0 on 10/04 Continue to encourage PO intake with boost plus at night (3) Esophageal dysmotility Not good candidate for PEG Refuses gastric emptying study Did well with PT, discharged to home with home health Total Time Spent: Greater than 30 minutes This includes examination of the patient, discharge planning, medication reconciliation, and communication with other providers. Discharge Instructions Please refer to the electronic Patient Visit Report (Discharge Instructions) for additional information. Additional Copies To Curtis Varela M.D.
--- NOTE | 2016-10-05 15:39 | Psychiatric Progress Notes ---
Psychiatric Progress Note Date of Service Oct 05, 2016. Notes Patient seen for psychiatric follow-up for anxiety. Chief complaint: "I'm going home." Patient was started on escitalopram 5 mg five days ago after consultation with the undersigned. She has not noticed much improvement in anxiety since then, but is tolerating the medication well. Today she is primarily preoccupied with feeling lightheaded and unsteady on her feet, stating that she is worried about walking too far, as "my head is not right." She notes that the symptoms were occurring prior to hospitalization. We reviewed what she can expect if the escitalopram is working, and that it will take 4-6 weeks to see the full effect , and she may require dose adjustment. ROS: Denies SI, HI, hallucinations. MSE: Elderly white female appearing older than her stated age. Seated in no acute distress, with good eye contact and no abnormal movements. Mood is "okay, " affect is mildly anxious and congruent. After goal-directed, denies SI, HI, hallucinations. Alert and oriented. Diagnosis: Anxiety not otherwise specified Recommendations: 1. Continue escitalopram 5 mg daily, and titrate as tolerated to effective dose. She was reminded of the length of time it will take to see the effect from the medication, and will need to follow-up with her PCP for potential dose increase.
== END 2016-10-05 14:45 | disposition home health service (06) | DRG 392 ==
LOC: C.EDB 08:46 → C.MS4W 14:00 → ENRESERV 14:49 → C.4E 09-29 16:52 → OBSVTOIN 09-30 13:51
PROVIDERS: ADMIT Family Medicine; ATTEND Hospitalist
DX: R13.10 Dysphagia, unspecified (principal); F45.8 Other somatoform disorders; R62.7 Adult failure to thrive; F41.9 Anxiety disorder, unspecified; K22.4 Dyskinesia of esophagus; B37.0 Candidal stomatitis; B37.81 Candidal esophagitis; K21.9 Gastro-esophageal reflux disease without esophagitis; M81.0 Age-related osteoporosis without current pathological fracture; Z83.3 Family history of diabetes mellitus; I10 Essential (primary) hypertension; L40.9 Psoriasis, unspecified; Z96.653 Presence of artificial knee joint, bilateral; I95.1 Orthostatic hypotension

== ENCOUNTER 2016-10-13 14:45 | Emergency (ER) | payer OTHER ==
[~2016-10-13] VITALS: Ht 152.4 cm; Wt 59.6 kg
[~2016-10-13 14:45] MED LIST changes: +ESCI1SOL2 PO; -KFLUDL2505 PO
[2016-10-13 14:46] VITALS: TEMP 36.7; Ht 152.4 cm; Wt 59.6 kg
[2016-10-13] MEDS ORDERED: SODIUM CHLORIDE 0.9% 1000ML 1,000 ML IV STA (15:08)
--- NOTE | 2016-10-13 15:15 | EMERGENCY ROOM VISIT NOTE ---
History Report prepared by Shawn: Giovanna Forbes Under the Supervision of: Dr. Srinivas Baker D.O. First contact with patient: 14:56 Chief Complaint: ANXIETY Stated Complaint: ANXIETY History of Present Illness The patient is a 76 year old female who presents to the Emergency Room with complaints of constant difficulty eating beginning 2 months ago. The patient states that 2 months ago she was seen in the ED after having a food bolus. She reports that she got a scope that was normal and had her esophagus dilated after the episode. She notes that she was seen here a week and a half ago and was admitted to the hospital. She reports that after she was worked up they did not find anything. After being discharged, she states that she has still not been able to eat normally. The patient states that the most solid food that she has eaten is a poached egg. The patient reports that she has not seen her PCP until yesterday where they told her everything was normal. She complains of stomach burning, burping, chest burning like she is on fire, and some right sided rib pain. She states that she feels like she is anxious and is concerned that is why she is having these symptoms. The patient denies any arm pain, back pain, chest pain, leg pain, leg cramping, shortness of breath, and abdominal pain. She notes that she feels extremely full after eating only a small amount of food. She states that she is not on any blood thinners. Source of History: patient Onset: 2 months ago Position: other (global) Quality: other (difficulty eating) Timing: constant Associated Symptoms: No SOB, No abdominal pain, No back pain Note: She complains of anxiety, stomach burning, burping, chest burning like she is on fire, and some right sided rib pain. The patient denies any arm pain, leg pain, leg cramping. Review of Systems See HPI for pertinent positives & negatives. A total of 10 systems reviewed and were otherwise negative. 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 (9) Osteoporosis (10) Suicidal ideation (11) Urinary frequency Surgical Problems: (1) Post-operative state Family History Diabetes mellitus Gallbladder disease Heart disease Hypertension Kidney stones Social History Smoking Status: Never Smoker Alcohol Use: none Drug Use: none Marital Status: Housing Status: lives with significant other Occupation Status: retired Current/Historical Medications Scheduled Cholecalciferol (Vitamin D3), 3,000 INTER.UNIT PO QAM Escitalopram Oxalate (Escitalopram Oxalate), 5 MG PO HS Hydrochlorothiazide (Hctz), 25 MG PO QAM Loratadine (Claritin), 10 MG PO DAILY Nitroglycerin (Nitrostat), 0.4 MG UT PRN Omeprazole (Prilosec), 40 MG PO QAM Ondasetron Odt (Zofran Odt), 4 MG SL Q6H Potassium Chloride (Potassium Chloride), 15 ML PO DAILY Ranitidine HCl (Ranitidine HCl), 150 MG PO DAILY Simvastatin (Zocor), 10 MG PO QPM Allergies Coded Allergies: Nitrofurantoin (Verified Allergy, Intermediate, chest pain, h/a, sore throat, diarrhea., 10/13/16) Quinolones (Verified Allergy, Mild, HAND SWELLED UP, 10/13/16) Levofloxacin (Verified Allergy, Unknown, HANDS SWELLING, 10/13/16) Codeine (Verified Adverse Reaction, Mild, SEVERE CONSTIPATION, 10/13/16) Uncoded Allergies: FIBERGLASS (Allergy, Intermediate, HIVES, 09/26/16) Physical Exam Vital Signs Date Time Temp Pulse Resp B/P (MAP) Pulse Ox O2 Delivery O2 Flow Rate FiO2 10/13/16 18:27 65 20 142/87 98 Room Air 10/13/16 16:46 64 20 135/89 96 Room Air 10/13/16 16:32 67 10/13/16 14:46 36.7 90 18 147/87 96 Room Air Physical Exam GENERAL: Patient is awake, alert, and in no acute distress. Patient is resting comfortably and showing no signs of anxiety EYES: The conjunctivae are clear. The pupils are round and reactive. EARS, NOSE, MOUTH AND THROAT: The nose is without any evidence of any deformity. Mucous membranes are moist tongue is midline NECK: The neck is nontender and supple. RESPIRATORY: Normal respiratory effort is noted there is no evidence of wheezing rhonchi or rales CARDIOVASCULAR: Regular rate and rhythm noted there no murmurs rubs or gallops normal S1 normal S2 GASTROINTESTINAL: The abdomen is soft. Bowel sounds are present in all quadrants. Abdomen is nontender MUSCULOSKELETAL/EXTREMITIES: There is no evidence of gross deformity full range of motion is noted in the hips and shoulders SKIN: There is no obvious evidence of any rash. There are no petechiae, pallor or cyanosis noted. NEUROLOGIC: Patient is awake alert and oriented x3 Medical Decision & Procedures ER Provider Diagnostic Interpretation: X-ray results as stated below per interpretation by me and the radiologist. ABDOMEN 2VIEW W/PA CHEST RTN FINDINGS: Lungs are considered clear. Moderate emphysematous change. Tortuous thoracic aorta. Nonobstructive bowel pattern. Unchanging left renal calcification. IMPRESSION: 1. Nonobstructive bowel pattern. 2. No acute process of the chest. The above report was generated using voice recognition software. It may contain grammatical, syntax or spelling errors. Electronically signed by: Sergey Boo M.D. 10/13/2016 4:10 PM Dictated Date/Time: 10/13/2016 4:09 PM Laboratory Results 10/13/16 15:20 Red Blood Count 4.29, Mean Corpuscular Volume 92.3, Mean Corpuscular Hemoglobin 30.3, Mean Corpuscular Hemoglobin Concent 32.8, Mean Platelet Volume 10.6, Neutrophils (%) (Auto) 69.4, Lymphocytes (%) (Auto) 18.1, Monocytes (%) (Auto) 11.7, Eosinophils (%) (Auto) 0.4, Basophils (%) (Auto) 0.2, Neutrophils # (Auto ) 3.45, Lymphocytes # (Auto) 0.90, Monocytes # (Auto) 0.58, Eosinophils # (Auto ) 0.02, Basophils # (Auto) 0.01 10/13/16 15:20 Test 10/13/16 15:20 10/13/16 17:45 White Blood Count 4.97 K/uL (4.8-10.8) Red Blood Count 4.29 M/uL (4.2-5.4) Hemoglobin 13.0 g/dL (12.0-16.0) Hematocrit 39.6 % (37-47) Mean Corpuscular Volume 92.3 fL (80-100) Mean Corpuscular Hemoglobin 30.3 pg (25-34) Mean Corpuscular Hemoglobin Concent 32.8 g/dl (32-36) Platelet Count 188 K/uL (130-400) Mean Platelet Volume 10.6 fL (7.4-10.4) Neutrophils (%) (Auto) 69.4 % Lymphocytes (%) (Auto) 18.1 % Monocytes (%) (Auto) 11.7 % Eosinophils (%) (Auto) 0.4 % Basophils (%) (Auto) 0.2 % Neutrophils # (Auto) 3.45 K/uL (1.4-6.5) Lymphocytes # (Auto) 0.90 K/uL (1.2-3.4) Monocytes # (Auto) 0.58 K/uL (0.11-0.59) Eosinophils # (Auto) 0.02 K/uL (0-0.5) Basophils # (Auto) 0.01 K/uL (0-0.2) RDW Standard Deviation 51.2 fL (36.4-46.3) RDW Coefficient of Variation 15.1 % (11.5-14.5) Immature Granulocyte % (Auto) 0.2 % Immature Granulocyte # (Auto) 0.01 K/uL (0.00-0.02) Anion Gap 4.0 mmol/L (3-11) Est Creatinine Clear Calc Drug Dose 48.9 ml/min Estimated GFR () 84.3 Estimated GFR (Non- 72.7 BUN/Creatinine Ratio 19.0 (10-20) Calcium Level 9.2 mg/dl (8.5-10.1) Total Bilirubin 0.3 mg/dl (0.2-1) Direct Bilirubin 0.2 mg/dl (0-0.2) Aspartate Amino Transf (AST/SGOT) 24 U/L (15-37) Alanine Aminotransferase (ALT/SGPT) 47 U/L (12-78) Alkaline Phosphatase 66 U/L (45-117) Troponin I < 0.015 ng/ml (0-0.045) Total Protein 6.6 gm/dl (6.4-8.2) Albumin 3.2 gm/dl (3.4-5.0) Lipase 131 U/L (73-393) Urine Color YELLOW Urine Appearance CLEAR (CLEAR) Urine pH 8.0 (4.5-7.5) Urine Specific Ada 1.011 (1.000-1.030) Urine Protein NEG (NEG) Urine Glucose (UA) NEG (NEG) Urine Ketones NEG (NEG) Urine Occult Blood NEG (NEG) Urine Nitrite NEG (NEG) Urine Bilirubin NEG (NEG) Urine Urobilinogen NEG (NEG) Urine Leukocyte Esterase SMALL (NEG) Urine WBC (Auto) 1-5 /hpf (0-5) Urine RBC (Auto) 0-4 /hpf (0-4) Urine Hyaline Casts (Auto) 0 /lpf (0-5) Urine Epithelial Cells (Auto) 5-10 /lpf (0-5) Urine Bacteria (Auto) NEG (NEG) Laboratory results per my review. Medications Administered Medications (Trade) Dose Ordered Sig/Deirdre Route Start Time Stop Time Status Last Admin Dose Admin Sodium Chloride 1,000 ml @ 999 mls/hr Q1H1M STAT IV 10/13/16 15:08 10/13/16 16:08 DC 10/13/16 15:46 999 MLS/HR ECG Indication: chest pain Rate (beats per minute): 63 Rhythm: sinus bradycardia Findings: nonspecific-ST abn, no ectopy, other (LVH noted by voltage criteria) Comparison ECG Date: 09/26 Change: no significant change ED Course 1456: The patient was evaluated in room C12. A complete history and physical examination were performed. 1508: NSS 1,000 ml @ 999 mls/hr IV. 1641: I reevaluated and updated the patient. 1740: I discussed the patient's case with Dr. Hinton. He would like the patient to set up an appointment with him for a manometry test. 1754: Upon reevaluation, the patient is doing well. I discussed the results and treatment plan with the patient. She verbalized agreement of the treatment plan. The patient was discharged home. Medical Decision Differential diagnosis: Etiologies such as appendicitis, diverticulitis, PUD, biliary pathology, UTI, pancreatitis, obstruction, mesenteric ischemia, aortic pathology, infections, inflammatory bowel disease, renal colic, as well as others were entertained. Nursing notes reviewed. The patient is a 76-year-old female who presented to the emergency department for an evaluation of difficulty swallowing. The patient is had problems similar to this over the last few months. She's been admitted to the hospital and his had multiple tests for this in the past. I discussed the patient's laboratory results with her. I discussed her case with the patient's primary gastric. She was encouraged to follow-up with primary care physician as well as her bench jeweler as soon as possible but return to the emergency apartment immediately if symptoms change worsen or the need arises. Medication Reconcilliation Current Medication List: was personally reviewed by me Blood Pressure Screening Patient's blood pressure: Elevated blood pressure Blood pressure disposition: Elevated BP felt to be situational Consults Time Called: 173 Consulting Physician: Dr. Hinton -GI Returned Call: 1740 I discussed the patient's case with Dr. Hinton. He would like the patient to set up an appointment with him for a manometry test. Impression Primary Impression: Dysphagia Scribe Attestation The scribe's documentation has been prepared under my direction and personally reviewed by me in its entirety. I confirm that the note above accurately reflects all work, treatment, procedures, and medical decision making performed by me. Departure Information Dispostion Home / Self-Care Referrals Curtis Varela M.D. (PCP) Forms HOME CARE DOCUMENTATION FORM, IMPORTANT VISIT INFORMATION Patient Instructions Dysphagia, Dysphagia Diet, My [facility] Additional Instructions Continue all medications as prescribed. Call your bench jeweler to schedule follow-up appointment. Call your family to schedule a follow-up appointment as well. Problem Qualifiers Primary Impression: Dysphagia Dysphagia type: unspecified Qualified Codes: R13.10 - Dysphagia, unspecified
[2016-10-13 15:26] LABS: BASO % 0.2 %; BASO ABS # 0.01 K/uL (0-0.2); COMPLETE YES; EOS % 0.4 %; HEMATOCRIT 39.6 % (37-47); IG% 0.2 %; LYMPH % 18.1 %; MEAN CELL VOLUME 92.3 fL (80-100); MEAN CORPUSCULAR HEMOGLOBIN 30.3 pg (25-34); MEAN CORPUSCULAR HGB CONC 32.8 g/dl (32-36); MEAN PLATELET VOLUME 10.6 fL (7.4-10.4); MONO % 11.7 %; NEUT % 69.4 %; PLATELET COUNT 188 K/uL (130-400); RED BLOOD COUNT 4.29 M/uL (4.2-5.4); WHITE BLOOD COUNT 4.97 K/uL (4.8-10.8)
[2016-10-13 15:41] LABS: ALT/SGPT 47 U/L (12-78); BLOOD UREA NITROGEN 15 mg/dl (7-18); CALCIUM 9.2 mg/dl (8.5-10.1); CARBON DIOXIDE 31 mmol/L (21-32); CHLORIDE 104 mmol/L (98-107); CREATININE 0.79 mg/dl (0.60-1.20); GLUCOSE 101 mg/dl (70-99); POTASSIUM 4.3 mmol/L (3.5-5.1); SODIUM 139 mmol/L (136-145)
[2016-10-13 15:46] LABS: ALKALINE PHOSPHATASE 66 U/L (45-117); AST/SGOT 24 U/L (15-37)
[2016-10-13] MEDS ORDERED: ZNT150 PO (15:52)
[2016-10-13] MEDS ORDERED: CLR10 PO (15:52)
--- NOTE | 2016-10-13 16:12 | DIAGNOSTIC IMAGING REPORT ---
ABDOMEN 2VIEW W/PA CHEST RTN CLINICAL HISTORY: ABDOMINAL PAIN/GI pain COMPARISON STUDY: 09/26/2016 FINDINGS: Lungs are considered clear. Moderate emphysematous change. Tortuous thoracic aorta. Nonobstructive bowel pattern. Unchanging left renal calcification. IMPRESSION: 1. Nonobstructive bowel pattern. 2. No acute process of the chest. The above report was generated using voice recognition software. It may contain grammatical, syntax or spelling errors. Electronically signed by: Sergey Boo M.D. 10/13/2016 4:10 PM Dictated Date/Time: 10/13/2016 4:09 PM
[2016-10-13 18:11] LABS: URINE APPEARANCE CLEAR (CLEAR); URINE BILIRUBIN NEG (NEG); URINE COLOR YELLOW; URINE NITRITE NEG (NEG); URINE SPECIFIC GRAVITY 1.011 (1.000-1.030); UROBILINOGEN NEG (NEG)
[2016-10-13 18:13] LABS: MANUAL MICROSCOPIC REQUIRED? NO; REVIEW REQ? NO
[2016-10-13 18:27] VITALS: BP 142/87; PULSE 65; O2SAT 98
== END 2016-10-13 18:28 | disposition home or self-care (01) ==
LOC: C.EDC 14:45
DX: R13.10 Dysphagia, unspecified (principal); K21.9 Gastro-esophageal reflux disease without esophagitis; F41.9 Anxiety disorder, unspecified; M81.0 Age-related osteoporosis without current pathological fracture; Z83.3 Family history of diabetes mellitus; Z83.79 Family history of other diseases of the digestive system; Z82.49 Family history of ischemic heart disease and other diseases of the circulatory system; Z84.1 Family history of disorders of kidney and ureter; Z79.899 Other long term (current) drug therapy

== ENCOUNTER 2016-11-04 11:30 | Emergency (ER) | payer OTHER ==
[~2016-11-04 11:30] MED LIST changes: +CLR10 PO; -CRFL PO; +ZNT150 PO
[2016-11-04 11:32] VITALS: TEMP 36.7; Ht 152.4 cm
[2016-11-04] MEDS ORDERED: ALPR-413 PO (11:56)
[2016-11-04] MEDS ORDERED: TYLENOL PO (12:10)
[2016-11-04] MEDS ORDERED: KETOROLAC TROMETHAMINE 30 MG/ML VIAL IV STA (12:17)
[2016-11-04] MEDS ORDERED: SODIUM CHLORIDE 0.9% 1000ML 1,000 ML IV STA (12:17)
--- NOTE | 2016-11-04 12:17 | EMERGENCY ROOM VISIT NOTE ---
History Report prepared by Shawn: Jim Pitts Under the Supervision of: Dr. Chandrakant Alba M.D. First contact with patient: 12:04 Chief Complaint: NAUSEA Stated Complaint: NAUSEA-SHOULDER PAIN-LEFT ARM PAIN-HARD TO SWALLOW Nursing Triage Summary: Pain left shoulder. Denies CP. States has felt nauseated for 3 days. Denies injury. states pt has anxiety too, not sure if this is related. History of Present Illness The patient is a 76 year old female with osteoporosis who presents to the Emergency Room with complaints of persistent left shoulder blade pain that started 3 days ago. She says that the pain may have been brought on when she was pulling herself out from her couch in the morning, as she states that she sleeps better on a couch. The patient notes that the pain radiates down her left arm to her left elbow, and the pain has been constant. She adds that she has had left arm pain in the past, and has had a cortisone shot by her doctor, which has relieved her pain in the past. The patient states that she called her doctor earlier today, and asked for a cortisone shot, but the doctor wanted the patient to come here for an evaluation due to the new left shoulder blade pain. She has been here often for the pain in the past, and recently in August had a swallow test which showed that her esophagus does not move things well. The patient states that she has been using Icy Hot as well as Aspercreme for the pain. She notes that heat as well as sunlight relieves her pain a bit. The patient says that she has chronically been having trouble swallowing, and has been nauseated due to that as well. She has lost around 30 pounds, and says that she has not been eating well due to her trouble swallowing. She states that she took a quarter of an extra-strength Tylenol dose this morning for the pain, which didn't seem to relieve any of the pain. The patient denies any chest pain or notable shortness of breath. She is not on any blood thinners. Source of History: patient Onset: 3 days ago Position: shoulder (left) Timing: other (persistent) Modifying Factors (Relieving): heat, other (sunlight) Associated Symptoms: No chest pain, No SOB Note: Associated symptoms: Pain radiating down to her left elbow. Review of Systems See HPI for pertinent positives and negatives. A total of ten systems were reviewed and were otherwise negative. 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 (9) Osteoporosis (10) Suicidal ideation (11) Urinary frequency Surgical Problems: (1) Post-operative state Family History Diabetes mellitus Gallbladder disease Heart disease Hypertension Kidney stones Social History Smoking Status: Never Smoker Alcohol Use: none Drug Use: none Marital Status: Housing Status: lives with significant other Occupation Status: retired Current/Historical Medications Scheduled Alprazolam (Alprazolam Odt), 0.25 MG PO DAILY Hydrochlorothiazide (Hctz), 25 MG PO QAM Loratadine (Claritin), 10 MG PO DAILY Omeprazole (Prilosec), 40 MG PO QAM Ondasetron Odt (Zofran Odt), 4 MG SL Q6H Potassium Chloride (Potassium Chloride), 15 ML PO DAILY Ranitidine HCl (Ranitidine HCl), 150 MG PO DAILY Simvastatin (Zocor), 10 MG PO QPM [Liquid Tylenol], Unknown Dose PO DAILY Allergies Coded Allergies: Nitrofurantoin (Verified Allergy, Intermediate, chest pain, h/a, sore throat, diarrhea., 11/04/16) Quinolones (Verified Allergy, Mild, HAND SWELLED UP, 11/04/16) Levofloxacin (Verified Allergy, Unknown, HANDS SWELLING, 11/04/16) Codeine (Verified Adverse Reaction, Mild, SEVERE CONSTIPATION, 11/04/16) Uncoded Allergies: FIBERGLASS (Allergy, Intermediate, HIVES, 09/26/16) Physical Exam Vital Signs Date Time Temp Pulse Resp B/P (MAP) Pulse Ox O2 Delivery O2 Flow Rate FiO2 11/04/16 15:53 66 18 122/86 96 11/04/16 14:33 71 149/83 97 11/04/16 13:17 56 11/04/16 13:13 98 Room Air 11/04/16 13:07 76 125/90 97 Room Air 11/04/16 11:32 36.7 80 20 137/91 95 Room Air Physical Exam GENERAL: Awake, alert, fatigued, cachectic appearing. HENT: Normocephalic, atraumatic. Oropharynx unremarkable. Dry mucous membranes. EYES: Normal conjunctiva. Sclera non-icteric. NECK: Supple. No nuchal rigidity. FROM. No JVD. RESPIRATORY: Clear to auscultation. CARDIAC: Regular rate, normal rhythm. Extremities warm and well perfused. Pulses equal. ABDOMEN: Soft, non-distended. No tenderness to palpation. No rebound or guarding. No masses. RECTAL: Deferred. MUSCULOSKELETAL: Chest examination reveals no tenderness. Tenderness to palpation on the lateral aspect of the humeral head and rotator cuff, but otherwise range of motion intact. There is no CVA tenderness to palpation. No joint edema. LOWER EXTREMITIES: Calves are equal size bilaterally and non-tender. No edema. No discoloration. NEURO: Normal sensorium. No sensory or motor deficits noted. SKIN: No rash or jaundice noted. Medical Decision & Procedures ER Provider Diagnostic Interpretation: X-ray: Per my interpretation, radiologist review. SINGLE VIEW CHEST CLINICAL HISTORY: Atypical chest pain. FINDINGS: An AP, portable, upright chest radiograph is compared to study dated 10/13/2016. Correlation is made with chest CT dated 09/01/2006. The examination is degraded by portable technique and patient rotation. The heart is enlarged and there is atherosclerotic calcification with uncoiling of the thoracic aorta. The pulmonary mass culture is noncongested. Chronic interstitial thickening is similar to previous. No airspace consolidation or large pleural effusion is identified. No pneumothorax is seen. The skeletal structures are osteopenic. The bony thorax is grossly intact. IMPRESSION: Cardiomegaly with no acute cardiopulmonary abnormality. Electronically signed by: Deyvi Lan M.D. 11/04/2016 1:00 PM Dictated Date/Time: 11/04/2016 12:59 PM LEFT SHOULDER 3 VIEWS HISTORY: Left shoulder pain COMPARISON: None. FINDINGS: There is no fracture or dislocation. Soft tissues are unremarkable. No radiopaque foreign bodies. The heart appears enlarged. Moderate a.c. and glenohumeral joint osteoarthritis. The left clavicle is intact. IMPRESSION: No fracture or dislocation within the left shoulder. Moderate degenerative changes. Electronically signed by: Dustin De La O M.D. 11/04/2016 2:37 PM Dictated Date/Time: 11/04/2016 2:30 PM Laboratory Results 11/04/16 11:45 Red Blood Count 4.63, Mean Corpuscular Volume 91.6, Mean Corpuscular Hemoglobin 30.0, Mean Corpuscular Hemoglobin Concent 32.8, Mean Platelet Volume 11.7, Neutrophils (%) (Auto) 70.3, Lymphocytes (%) (Auto) 19.3, Monocytes (%) (Auto) 9.6, Eosinophils (%) (Auto) 0.5, Basophils (%) (Auto) 0.3, Neutrophils # (Auto) 2.70, Lymphocytes # (Auto) 0.74, Monocytes # (Auto) 0.37, Eosinophils # (Auto) 0.02, Basophils # (Auto) 0.01 11/04/16 11:45 Test 11/04/16 11:45 White Blood Count 3.84 K/uL (4.8-10.8) Red Blood Count 4.63 M/uL (4.2-5.4) Hemoglobin 13.9 g/dL (12.0-16.0) Hematocrit 42.4 % (37-47) Mean Corpuscular Volume 91.6 fL (80-100) Mean Corpuscular Hemoglobin 30.0 pg (25-34) Mean Corpuscular Hemoglobin Concent 32.8 g/dl (32-36) Platelet Count 188 K/uL (130-400) Mean Platelet Volume 11.7 fL (7.4-10.4) Neutrophils (%) (Auto) 70.3 % Lymphocytes (%) (Auto) 19.3 % Monocytes (%) (Auto) 9.6 % Eosinophils (%) (Auto) 0.5 % Basophils (%) (Auto) 0.3 % Neutrophils # (Auto) 2.70 K/uL (1.4-6.5) Lymphocytes # (Auto) 0.74 K/uL (1.2-3.4) Monocytes # (Auto) 0.37 K/uL (0.11-0.59) Eosinophils # (Auto) 0.02 K/uL (0-0.5) Basophils # (Auto) 0.01 K/uL (0-0.2) RDW Standard Deviation 50.4 fL (36.4-46.3) RDW Coefficient of Variation 15.0 % (11.5-14.5) Immature Granulocyte % (Auto) 0.0 % Immature Granulocyte # (Auto) 0.00 K/uL (0.00-0.02) Anion Gap 9.0 mmol/L (3-11) Estimated GFR () 100.5 Estimated GFR (Non- 86.7 BUN/Creatinine Ratio 22.2 (10-20) Calcium Level 9.1 mg/dl (8.5-10.1) Total Bilirubin 0.3 mg/dl (0.2-1) Direct Bilirubin 0.1 mg/dl (0-0.2) Aspartate Amino Transf (AST/SGOT) 19 U/L (15-37) Alanine Aminotransferase (ALT/SGPT) 33 U/L (12-78) Alkaline Phosphatase 69 U/L (45-117) Troponin I < 0.015 ng/ml (0-0.045) Total Protein 7.3 gm/dl (6.4-8.2) Albumin 3.3 gm/dl (3.4-5.0) Lipase 120 U/L (73-393) Laboratory results reviewed by me Medications Administered Medications (Trade) Dose Ordered Sig/[facility] Route Start Time Stop Time Status Last Admin Dose Admin Ketorolac Tromethamine (Toradol Inj) 30 mg NOW STAT IV 11/04/16 12:17 11/04/16 12:18 DC 11/04/16 13:11 30 MG Sodium Chloride 1,000 ml @ 999 mls/hr Q1H1M STAT IV 11/04/16 12:17 11/04/16 13:17 DC 11/04/16 13:11 999 MLS/HR ECG Indication: nausea Rate (beats per minute): 63 Rhythm: normal sinus, other (with sinus arrhythmia) Findings: no acute ischemic change, other (normal intervals, nonspecific T- wave abnormality laterally) Change: no significant change (from 09/26/16) ED Course 1207: The patient was evaluated in room C10. A complete history and physical exam was performed. 1217: Ordered NSS 1000 ml @ 999 mls/hr IV, Toradol Inj 30 mg IV. 1503: I reevaluated the patient and she is resting comfortably. Discussed results and discharge instructions: she verbalized understanding and agreement. The patient is ready for discharge. Medical Decision I reviewed the patient's past medical history, medications, and the nursing notes as described above. Differential diagnoses: ACS, pneumonia, bronchitis, musculoskeletal strain, less likely dissection, aneurysm, esophageal dysmotility Patient is a 76 y/o woman with a pmhx of esphageal dysmotility who presents to the ED with left shoulder pain that has been constant for past three days in the setting of her chronic esophageal sx of burning/nausea per hpi. On arrival the patient is in NAD. AFVSS. On exam patient has ttp on lateral aspect of humeral head. Pain with active ROM. Minimal pain with passive ROM suggest of rotator cuff pain. EKG unremarkable. Trop negative in the setting of several days of constant sx. ACS not likely. CXR unremarkable. Patient feeling improve after toradol. Findings and plan for follow-up d/w patient. Patient agreeable and d/c'd per discharge instructions. Medication Reconcilliation Current Medication List: was personally reviewed by me Blood Pressure Screening Patient's blood pressure: Normal blood pressure Impression Primary Impression: Shoulder pain Scribe Attestation The scribe's documentation has been prepared under my direction and personally reviewed by me in its entirety. I confirm that the note above accurately reflects all work, treatment, procedures, and medical decision making performed by me. Departure Information Dispostion Home / Self-Care Referrals Curtis Varela M.D. (PCP) Patient Instructions ED Shoulder Pain UK[facility], ED Tendinitis Rotator Cuff, My [facility] Additional Instructions Please follow up with your primary care physician in the next 1-3 days for re- evaluation. Your exam, lab results, and xrays did not show signs of an emergent condition at this time. Acetaminophen for pain as needed. Heating pad at 20 minute intervals for additional muscle relaxation. Return to the emergency department for worsening symptoms as described in the accompanying instructions.
--- NOTE | 2016-11-04 13:01 | DIAGNOSTIC IMAGING REPORT ---
SINGLE VIEW CHEST CLINICAL HISTORY: Atypical chest pain. FINDINGS: An AP, portable, upright chest radiograph is compared to study dated 10/13/2016. Correlation is made with chest CT dated 09/01/2006. The examination is degraded by portable technique and patient rotation. The heart is enlarged and there is atherosclerotic calcification with uncoiling of the thoracic aorta. The pulmonary mass culture is noncongested. Chronic interstitial thickening is similar to previous. No airspace consolidation or large pleural effusion is identified. No pneumothorax is seen. The skeletal structures are osteopenic. The bony thorax is grossly intact. IMPRESSION: Cardiomegaly with no acute cardiopulmonary abnormality. Electronically signed by: Deyvi Lan M.D. 11/04/2016 1:00 PM Dictated Date/Time: 11/04/2016 12:59 PM
[2016-11-04 13:02] LABS: BASO % 0.3 %; BASO ABS # 0.01 K/uL (0-0.2); COMPLETE YES; EOS % 0.5 %; HEMATOCRIT 42.4 % (37-47); LYMPH % 19.3 %; LYMPH ABS # 0.74 K/uL (1.2-3.4); MEAN CELL VOLUME 91.6 fL (80-100); MEAN CORPUSCULAR HGB CONC 32.8 g/dl (32-36); MEAN PLATELET VOLUME 11.7 fL (7.4-10.4); MONO % 9.6 %; NEUT % 70.3 %; PLATELET COUNT 188 K/uL (130-400); RED BLOOD COUNT 4.63 M/uL (4.2-5.4); WHITE BLOOD COUNT 3.84 K/uL (4.8-10.8)
[2016-11-04 13:13] VITALS: O2SAT 98
[2016-11-04 13:14] LABS: POTASSIUM 4.1 mmol/L (3.5-5.1); SODIUM 142 mmol/L (136-145)
[2016-11-04 13:16] LABS: ALKALINE PHOSPHATASE 69 U/L (45-117); ALT/SGPT 33 U/L (12-78); BLOOD UREA NITROGEN 14 mg/dl (7-18); BUN/CREATININE RATIO 22.2 (10-20); CALCIUM 9.1 mg/dl (8.5-10.1); CARBON DIOXIDE 28 mmol/L (21-32); CHLORIDE 105 mmol/L (98-107); CREATININE 0.64 mg/dl (0.60-1.20); GLUCOSE 88 mg/dl (70-99)
[2016-11-04 13:23] LABS: AST/SGOT 19 U/L (15-37)
--- NOTE | 2016-11-04 14:38 | DIAGNOSTIC IMAGING REPORT ---
LEFT SHOULDER 3 VIEWS HISTORY: Left shoulder pain COMPARISON: None. FINDINGS: There is no fracture or dislocation. Soft tissues are unremarkable. No radiopaque foreign bodies. The heart appears enlarged. Moderate a.c. and glenohumeral joint osteoarthritis. The left clavicle is intact. IMPRESSION: No fracture or dislocation within the left shoulder. Moderate degenerative changes. Electronically signed by: Dustin De La O M.D. 11/04/2016 2:37 PM Dictated Date/Time: 11/04/2016 2:30 PM
[2016-11-04 15:53] VITALS: BP 122/86; PULSE 66; O2SAT 96
== END 2016-11-04 15:53 | disposition home or self-care (01) ==
LOC: C.EDB 11:32 → C.EDC 15:53
DX: M25.512 Pain in left shoulder (principal); K21.9 Gastro-esophageal reflux disease without esophagitis; F41.9 Anxiety disorder, unspecified; K22.4 Dyskinesia of esophagus; M81.0 Age-related osteoporosis without current pathological fracture; Z83.3 Family history of diabetes mellitus; Z83.79 Family history of other diseases of the digestive system; Z82.49 Family history of ischemic heart disease and other diseases of the circulatory system; Z84.1 Family history of disorders of kidney and ureter; Z79.899 Other long term (current) drug therapy

== ENCOUNTER → 2016-12-19 | Outpatient (CLI) | payer OTHER ==
[~2016-12-19] MED LIST changes: +ALPR-413 PO; -CHOL1000 PO; -ESCI1SOL2 PO; -NTRGSL/4 UT; +TYLENOL PO
[2016-12-19 09:45] LABS: BASO % 0.2 %; BASO ABS # 0.01 K/uL (0-0.2); COMPLETE YES; EOS % 1.1 %; HEMATOCRIT 41.1 % (37-47); IG% 0.2 %; LYMPH % 20.6 %; LYMPH ABS # 0.97 K/uL (1.2-3.4); MEAN CORPUSCULAR HEMOGLOBIN 29.9 pg (25-34); MEAN CORPUSCULAR HGB CONC 32.1 g/dl (32-36); MEAN PLATELET VOLUME 10.7 fL (7.4-10.4); MONO % 10.2 %; NEUT % 67.7 %; PLATELET COUNT 183 K/uL (130-400); RED BLOOD COUNT 4.42 M/uL (4.2-5.4); WHITE BLOOD COUNT 4.71 K/uL (4.8-10.8)
[2016-12-19 10:32] LABS: BLOOD UREA NITROGEN 21 mg/dl (7-18); BUN/CREATININE RATIO 33.1 (10-20); CALCIUM 8.9 mg/dl (8.5-10.1); CARBON DIOXIDE 30 mmol/L (21-32); CHLORIDE 107 mmol/L (98-107); CREATININE 0.62 mg/dl (0.60-1.20); GLUCOSE 78 mg/dl (70-99); SODIUM 142 mmol/L (136-145)
== END | disposition home or self-care (01) ==
LOC: C.LAB 09:09
PROVIDERS: ATTEND Internal Medicine Geriatric Medicine
DX: I10 Essential (primary) hypertension (principal); M19.90 Unspecified osteoarthritis, unspecified site; E87.6 Hypokalemia

== ENCOUNTER → 2016-12-22 | Outpatient (CLI) | payer OTHER ==
[2016-12-22 10:43] LABS: URINE APPEARANCE CLEAR (CLEAR); URINE BILIRUBIN NEG (NEG); URINE COLOR YELLOW; URINE EPITHELIAL CELL AUTO 0-5 /lpf (0-5); URINE NITRITE NEG (NEG); URINE PH 6.5 (4.5-7.5); URINE SPECIFIC GRAVITY 1.019 (1.000-1.030); UROBILINOGEN NEG (NEG); ZZUR CULT IF INDIC CLEAN CATCH NO
[2016-12-22 10:51] LABS: MANUAL MICROSCOPIC REQUIRED? NO; REVIEW REQ? NO
== END | disposition home or self-care (01) ==
LOC: C.LABBC 08:31
PROVIDERS: ATTEND Internal Medicine Geriatric Medicine
DX: N39.0 Urinary tract infection, site not specified (principal)

== ENCOUNTER 2016-12-31 09:15 | Emergency (ER) | payer OTHER ==
[~2016-12-31] VITALS: Ht 152.4 cm; Wt 60.7 kg
[2016-12-31 09:21] VITALS: TEMP 36.3; Ht 152.4 cm; Wt 60.7 kg
[2016-12-31] MEDS ORDERED: IBUPROFEN 200 MG/10 ML UDC PO STA (09:30)
--- NOTE | 2016-12-31 09:44 | EMERGENCY ROOM VISIT NOTE ---
History Report prepared by Shawn: Asya Mandel Under the Supervision of: Dr. Aren Curiel M.D. First contact with patient: 09:24 Chief Complaint: BACK PAIN Stated Complaint: PAIN IN LOWER BACK AND NAUSEA History of Present Illness The patient is a 76 year old female who presents to the Emergency Room with complaints of worsening lower back pain for the past two days. She has pain across her lower back that is worse on the left side. Her pain radiates into her left flank and into her LLQ. She has been experiencing burning with urination as well as increased urinary frequency. The patient saw her PCP yesterday and was placed on Keflex. She has taken two doses of this medication. This morning her symptoms were worse so she came to the ED for further evaluation. The patient rates her current pain as a 4/10 in severity. She feels better sitting up. She has a history of kidney stones and states that this feels like her previous stones. She has had stones on both sides. The patient has had lithotripsy performed 5 times on the left side. Source of History: patient Onset: 2 days ago Position: back (lower) Symptom Intensity: 4/10 Quality: other (radiating) Timing: worsening Modifying Factors (Relieving): other (sitting up) Associated Symptoms: + abdominal pain, + urinary symptoms Review of Systems All systems have been listed, reviewed, and are negative other than those previously mentioned. Please see Additional Medical History Sheet. 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 (9) Osteoporosis (10) Suicidal ideation (11) Urinary frequency Surgical Problems: (1) Post-operative state Family History Diabetes mellitus Gallbladder disease Heart disease Hypertension Kidney stones Social History Smoking Status: Never Smoker Alcohol Use: none Drug Use: none Marital Status: Housing Status: lives with significant other Occupation Status: retired Current/Historical Medications Scheduled Cholecalciferol (Vitamin D-3), 2,000 UNITS PEG QAM Hydrochlorothiazide (Hctz), 25 MG PO QAM Lorazepam (Ativan), 0.5 MG PO DAILYBL Lorazepam (Ativan), 0.5 MG PO DAILYBD Omeprazole (Prilosec), 40 MG PO QAM Ondasetron Odt (Zofran Odt), 4 MG SL Q6H Ondasetron Odt (Zofran Odt), 4 MG SL Q6H Potassium Chloride (Potassium Chloride), 15 ML PO DAILY Simvastatin (Zocor), 10 MG PO QPM Scheduled PRN Loratadine (Claritin), 10 MG PO DAILY PRN for Allergies Coded Allergies: Nitrofurantoin (Verified Allergy, Intermediate, chest pain, h/a, sore throat, diarrhea., 11/04/16) Quinolones (Verified Allergy, Mild, HAND SWELLED UP, 11/04/16) Levofloxacin (Verified Allergy, Unknown, HANDS SWELLING, 11/04/16) Sulfa Antibiotics (Unverified Allergy, Unknown, unknown, 12/31/16) Codeine (Verified Adverse Reaction, Mild, SEVERE CONSTIPATION, 11/04/16) Uncoded Allergies: FIBERGLASS (Allergy, Intermediate, HIVES, 09/26/16) Physical Exam Vital Signs Date Time Temp Pulse Resp B/P (MAP) Pulse Ox O2 Delivery O2 Flow Rate FiO2 12/31/16 10:51 69 18 136/77 99 Room Air 12/31/16 10:50 70 18 152/93 98 12/31/16 09:21 36.3 70 18 152/93 98 Room Air Physical Exam GENERAL: Patient awake, alert, oriented x 3. Patient follows commands. Patient appears to be in minimal distress. Patient does not appear toxic. Patient is adequately hydrated and well-nourished. SKIN: No erythema, pallor, cyanosis or rash HEENT: Normal head, pupils equal, reactive to light and accommodation. LUNGS: Clear to auscultation. No wheezes, no rales, no rhonchi. HEART: No murmurs. No gallops. No rubs ABDOMEN: Vague left-sided tenderness into left CVA tenderness. No masses, no rebound, no hepatomegaly or splenomegaly. BACK: Patient has tenderness in lower back and into left CVA. EXTREMITIES: No signs of trauma or infection. NEUROLOGIC: Cranial nerves II-XII within normal limits. No gross motor sensory function deficits. Medical Decision & Procedures ER Provider Diagnostic Interpretation: Radiology results as stated below per my review and radiologist interpretation: KUB CLINICAL HISTORY: Left-sided back pain. FINDINGS: An AP supine abdominal radiograph is compared to study dated 10/13/2016 and correlated with abdominal CT dated 09/04/2016. There is a nonobstructed abdominal bowel gas pattern. Atherosclerotic calcification is noted in the abdominal aorta. There are least 2 nonobstructing calculi projecting over the lower pole of the left kidney an measure up to 6 mm. No calcifications are seen projecting over the right kidney or along the course of the ureters. Numerous phleboliths are seen in the pelvis. The skeletal structures are osteopenic. There is moderate lumbosacral spondylosis and scoliosis. IMPRESSION: 1. Nonobstructed abdominal bowel gas pattern. 2. There are least 2 nonobstructing left renal calculi measuring up to 6 mm. 3. There is no radiographic evidence of left ureteral calculus. Electronically signed by: Deyvi Lan M.D. 12/31/2016 10:21 AM Dictated Date/Time: 12/31/2016 10:19 AM Laboratory Results 12/31/16 09:45 12/31/16 09:45 Test 12/31/16 09:45 12/31/16 09:50 Red Blood Count 4.91 M/uL (4.2-5.4) Mean Corpuscular Volume 91.9 fL (80-100) Mean Corpuscular Hemoglobin 30.1 pg (25-34) Mean Corpuscular Hemoglobin Concent 32.8 g/dl (32-36) RDW Standard Deviation 48.2 fL (36.4-46.3) RDW Coefficient of Variation 14.3 % (11.5-14.5) Mean Platelet Volume 10.9 fL (7.4-10.4) Anion Gap 4.0 mmol/L (3-11) Est Creatinine Clear Calc Drug Dose 50.0 ml/min Estimated GFR () 85.6 Estimated GFR (Non- 73.8 BUN/Creatinine Ratio 19.6 (10-20) Calcium Level 9.1 mg/dl (8.5-10.1) Urine Color YELLOW Urine Appearance CLEAR (CLEAR) Urine pH 6.5 (4.5-7.5) Urine Specific [place] 1.019 (1.000-1.030) Urine Protein NEG (NEG) Urine Glucose (UA) NEG (NEG) Urine Ketones NEG (NEG) Urine Occult Blood NEG (NEG) Urine Nitrite NEG (NEG) Urine Bilirubin NEG (NEG) Urine Urobilinogen NEG (NEG) Urine Leukocyte Esterase NEG (NEG) Laboratory results as stated above per my review. Medications Administered Medications (Trade) Dose Ordered Sig/Deirdre Route Start Time Stop Time Status Last Admin Dose Admin Ibuprofen (Motrin Susp) 400 mg NOW STAT PO 12/31/16 09:30 12/31/16 09:33 DC 12/31/16 09:59 400 MG ED Course 923: Past medical records reviewed. The patient was evaluated in room B9. A complete history and physical examination was performed. 929: Ibuprofen 400 mg PO 1043: I reassessed the patient at this time. She is feeling better and resting comfortably. I discussed the results and treatment plan with the patient. I answered all pertaining questions that she had. She expressed understanding and verbalized agreement. The patient will be discharged home. Medical Decision Nurses notes reviewed. Medical history sheet reviewed. Differential diagnosis includes but is not limited to: kidney stone, UTI, pyelonephritis, musculoskeletal. Multiple labs, urinalysis and imaging were obtained. The patient has no evidence of a current urinary tract infection. It may have been cleared by the Keflex which she is currently taking. The patient does have kidney stones but no stones were identified in the ureter. White count is not elevated. Patient may have passed a stone. Patient may also have musculoskeletal pain. She had significant relief with ibuprofen which she will continue at home. Medication Reconcilliation Current Medication List: was personally reviewed by me Blood Pressure Screening Patient's blood pressure: Normal blood pressure Impression Primary Impression: Left flank pain Scribe Attestation The scribe's documentation has been prepared under my direction and personally reviewed by me in its entirety. I confirm that the note above accurately reflects all work, treatment, procedures, and medical decision making performed by me. Departure Information Dispostion Home / Self-Care (yes male L will go anywhere) Prescriptions Ondasetron Odt (ZOFRAN ODT) 4 Mg Tab 4 MG SL Q6H for Nausea, #10 TAB Prov: Aren Curiel M.D. 12/31/16 Referrals Curtis Varela M.D. (PCP) Forms HOME CARE DOCUMENTATION FORM, IMPORTANT VISIT INFORMATION Patient Instructions My [facility] Additional Instructions 400 mg of ibuprofen every 6 hours as needed for pain. Drink extra fluids. Continue the antibiotic until you have finished the prescription. Follow-up with Dr. Varela's office this coming week. 1 Zofran every 4 hours as needed for nausea.
[2016-12-31 10:07] LABS: HEMATOCRIT 45.1 % (37-47); MEAN CELL VOLUME 91.9 fL (80-100); MEAN CORPUSCULAR HEMOGLOBIN 30.1 pg (25-34); MEAN CORPUSCULAR HGB CONC 32.8 g/dl (32-36); MEAN PLATELET VOLUME 10.9 fL (7.4-10.4); PLATELET COUNT 209 K/uL (130-400); RED BLOOD COUNT 4.91 M/uL (4.2-5.4); WHITE BLOOD COUNT 6.36 K/uL (4.8-10.8)
[2016-12-31 10:15] LABS: URINE APPEARANCE CLEAR (CLEAR); URINE BILIRUBIN NEG (NEG); URINE COLOR YELLOW; URINE NITRITE NEG (NEG); URINE PH 6.5 (4.5-7.5); URINE SPECIFIC GRAVITY 1.019 (1.000-1.030); UROBILINOGEN NEG (NEG); ZZURINE CULT IF INDIC CATH NO
[2016-12-31 10:16] LABS: MANUAL MICROSCOPIC REQUIRED? NO; REVIEW REQ? NO
--- NOTE | 2016-12-31 10:23 | DIAGNOSTIC IMAGING REPORT ---
KUB CLINICAL HISTORY: Left-sided back pain. FINDINGS: An AP supine abdominal radiograph is compared to study dated 10/13/2016 and correlated with abdominal CT dated 09/04/2016. There is a nonobstructed abdominal bowel gas pattern. Atherosclerotic calcification is noted in the abdominal aorta. There are least 2 nonobstructing calculi projecting over the lower pole of the left kidney an measure up to 6 mm. No calcifications are seen projecting over the right kidney or along the course of the ureters. Numerous phleboliths are seen in the pelvis. The skeletal structures are osteopenic. There is moderate lumbosacral spondylosis and scoliosis. IMPRESSION: 1. Nonobstructed abdominal bowel gas pattern. 2. There are least 2 nonobstructing left renal calculi measuring up to 6 mm. 3. There is no radiographic evidence of left ureteral calculus. Electronically signed by: Deyvi Lan M.D. 12/31/2016 10:21 AM Dictated Date/Time: 12/31/2016 10:19 AM
[2016-12-31 10:26] LABS: BUN/CREATININE RATIO 19.6 (10-20); CALCIUM 9.1 mg/dl (8.5-10.1); CREATININE 0.78 mg/dl (0.60-1.20); POTASSIUM 3.4 mmol/L (3.5-5.1)
[2016-12-31] MEDS ORDERED: LORA-741 PO ×2 (10:45)
[2016-12-31] MEDS ORDERED: CHOL200027 PEG (10:45)
[2016-12-31 10:51] VITALS: BP 136/77; PULSE 69; O2SAT 99
[2016-12-31] MEDS ORDERED: ONDA4TAB10 SL (10:51)
== END 2016-12-31 10:50 | disposition home or self-care (01) ==
LOC: C.EDB 09:16
DX: R10.9 Unspecified abdominal pain (principal); K21.9 Gastro-esophageal reflux disease without esophagitis; F41.9 Anxiety disorder, unspecified; M19.90 Unspecified osteoarthritis, unspecified site; Z83.3 Family history of diabetes mellitus; Z82.49 Family history of ischemic heart disease and other diseases of the circulatory system

== ENCOUNTER → 2017-03-16 | Outpatient (CLI) | payer OTHER ==
[~2017-03-16] MED LIST changes: +ACET1SUS56 PO; -ALPR-413 PO; +AMOX250S5 PO; +CEPH-571 PO; +CHOL200027 PO; +CLOT10TR PO; +KFLUDL2505 PO; +LORA-741 PO; +METO-157 PO; +MIRT-33 SL; +MOUT1LIQ45 PO; +NIFE10CA20 PO; +NITR1SUS PO; +PHEN-876 PO; +POLY335019 PO; +POTA10LI12 PO; +PRLSR20 PO; +TRAM-10 PO; +TRAM-453 PO; -TYLENOL PO; -ZNT150 PO
[2017-03-20 03:14] LABS: ANTI-SS-A <1.0 NEG AI (<1.0 NEG); ANTI-SS-B <1.0 NEG AI (<1.0 NEG)
== END | disposition home or self-care (01) ==
LOC: C.LAB 16:44
PROVIDERS: ATTEND Internal Medicine Gastroenterology
DX: R13.10 Dysphagia, unspecified (principal)

== ENCOUNTER → 2017-03-23 | Outpatient (CLI) | payer OTHER ==
[~2017-03-23] MED LIST changes: -ACET1SUS56 PO; -AMOX250S5 PO; -CEPH-571 PO; +CHOL200027 PEG; -CHOL200027 PO; -CLOT10TR PO; -KFLUDL2505 PO; -METO-157 PO; -MIRT-33 SL; -MOUT1LIQ45 PO; -NIFE10CA20 PO; -NITR1SUS PO; -PHEN-876 PO; -POLY335019 PO; -POTA10LI12 PO; -PRLSR20 PO; -TRAM-10 PO; -TRAM-453 PO
--- NOTE | 2017-03-23 11:05 | DIAGNOSTIC IMAGING REPORT ---
(BARIUM SWALLOW) ESOPHAGUS CLINICAL HISTORY: DYSPHAGIA COMPARISON STUDY: None. FLUOROSCOPY TIME: 1.1 minute. FINDINGS: 24 fluoroscopic spot images. The patient swallowed barium without difficulty. The esophagus is normal in course and caliber. Mild esophageal dysmotility. The contours of the hypopharynx are within normal limits. No hiatus hernia. No gastroesophageal reflux. The patient deferred the barium tablet. IMPRESSION: Mild esophageal dysmotility. Electronically signed by: Dustin De La O M.D. 03/23/2017 11:04 AM Dictated Date/Time: 03/23/2017 11:02 AM
== END | disposition home or self-care (01) ==
LOC: C.RAD 10:17
PROVIDERS: ATTEND Internal Medicine Gastroenterology
DX: R39.9 Unspecified symptoms and signs involving the genitourinary system (principal); R13.10 Dysphagia, unspecified; I10 Essential (primary) hypertension; M19.90 Unspecified osteoarthritis, unspecified site; M81.0 Age-related osteoporosis without current pathological fracture; E78.5 Hyperlipidemia, unspecified; E55.9 Vitamin D deficiency, unspecified; E87.6 Hypokalemia; E04.2 Nontoxic multinodular goiter; R63.4 Abnormal weight loss; F41.9 Anxiety disorder, unspecified

== ENCOUNTER → 2017-04-15 | Outpatient (CLI) | payer OTHER ==
[~2017-04-15] MED LIST changes: +CEPH-571 PO; +MIRT1TAB PO; +NIFE10CA20 PO; +PHEN-876 PO; +POLY335019 PO; +PRLSR20 PO
== END | disposition home or self-care (01) ==
LOC: C.LAB 12:45
PROVIDERS: ATTEND Nurse Practitioner Adult Health
DX: N39.0 Urinary tract infection, site not specified (principal)

== ENCOUNTER 2017-04-19 08:16 | Emergency (ER) | payer OTHER ==
[~2017-04-19] VITALS: Ht 149.9 cm; Wt 50.3 kg
[~2017-04-19 08:16] MED LIST changes: -CEPH-571 PO; -MIRT1TAB PO; -NIFE10CA20 PO; -PHEN-876 PO; -POLY335019 PO; -PRLSR20 PO
[2017-04-19 08:21] VITALS: TEMP 36.8; Ht 149.9 cm; Wt 50.3 kg
--- NOTE | 2017-04-19 08:42 | EMERGENCY ROOM VISIT NOTE ---
History Report prepared by Shawn: Danay Colin Under the Supervision of: Dr. Refugio Motta M.D. First contact with patient: 08:31 Chief Complaint: FLANK PAIN Stated Complaint: NAUSEA, PAIN IN KIDNEYS History of Present Illness The patient is a 76 year old white female with a past medical history of kidney stones and psoriasis who presents to the ED with a cc of constant urinary burning beginning a week ago. Positive increased urination frequency, nausea, back pain. Negative blood in urine, vomiting, abdominal pain. The patient was at the urologist yesterday and was given antibiotics which she was unable to get filled. The patient was on amoxicillin about a week ago for a UTI. When her antibiotic dose ended a week ago, her urinary burning symptoms came back. Source of History: patient Onset: a week ago Position: other (generalized) Quality: other (urinary burning) Timing: constant Associated Symptoms: + nausea, + back pain, + urinary symptoms, No vomiting , No abdominal pain Review of Systems See HPI for pertinent positives and negatives. A total of ten systems were reviewed and were otherwise negative. 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 (9) Osteoporosis (10) Suicidal ideation (11) Urinary frequency Surgical Problems: (1) Post-operative state Family History Diabetes mellitus Gallbladder disease Heart disease Hypertension Kidney stones Social History Smoking Status: Never Smoker Alcohol Use: none Drug Use: none Marital Status: Housing Status: lives with significant other Occupation Status: retired Current/Historical Medications Scheduled Cephalexin (Keflex), 1 CAP PO BID Cholecalciferol (Vitamin D-3), 1,000 UNITS PEG QAM Hydrochlorothiazide (Hctz), 25 MG PO QAM Lorazepam (Ativan), 0.5 MG PO DAILYBD Mirtazapine (Remeron Soltab), 15 MG PO DAILY Nifedipine (Procardia), 10 MG PO TID Omeprazole (Prilosec), 10 MG PO DAILY Polyethylene Glycol 3350 (Miralax), 17 GM PO DAILY Potassium Chloride (Potassium Chloride), 15 ML PO DAILY Simvastatin (Zocor), 10 MG PO QPM Scheduled PRN Phenazopyridine HCl (Pyridium), 200 MG PO TID PRN for Frequency/Burning w/ Urination Allergies Coded Allergies: Nitrofurantoin (Verified Allergy, Intermediate, chest pain, h/a, sore throat, diarrhea., 04/19/17) Quinolones (Verified Allergy, Mild, HAND SWELLED UP, 04/19/17) Levofloxacin (Verified Allergy, Unknown, HANDS SWELLING, 04/19/17) Sulfa Antibiotics (Unverified Allergy, Unknown, unknown, 04/19/17) Sulfamethoxazole w/Trimethoprim (Unverified Allergy, Unknown, angioedema , 04/19/17) Codeine (Verified Adverse Reaction, Mild, SEVERE CONSTIPATION, 04/19/17) Uncoded Allergies: FIBERGLASS (Allergy, Intermediate, HIVES, 09/26/16) Physical Exam Vital Signs Date Time Temp Pulse Resp B/P (MAP) Pulse Ox O2 Delivery O2 Flow Rate FiO2 04/19/17 11:15 76 20 132/84 95 04/19/17 10:34 66 16 146/101 99 Room Air 04/19/17 08:21 36.8 103 18 170/89 99 Room Air Physical Exam GENERAL: Awake, alert, well-appearing, NAD HENT: Normocephalic, atraumatic. EYES: Normal conjunctiva. Sclera non-icteric. NECK: Supple. No nuchal rigidity. FROM. RESPIRATORY: CTAB, no rhonchi, wheezing, crackles CARDIAC: RRR, no MRG ABDOMEN: Soft, NTND, BS+ MSK: No chest wall TTP, no LE edema, no CVA tenderness b/l. NEURO: GCS 15, CN 2-12 intact, moves all 4s on command SKIN: No rash or jaundice noted. Medical Decision & Procedures Laboratory Results 04/19/17 08:30 Red Blood Count 4.78, Mean Corpuscular Volume 91.8, Mean Corpuscular Hemoglobin 30.5, Mean Corpuscular Hemoglobin Concent 33.3, Mean Platelet Volume 11.3, Neutrophils (%) (Auto) 62.8, Lymphocytes (%) (Auto) 28.2, Monocytes (%) (Auto) 7.7, Eosinophils (%) (Auto) 0.9, Basophils (%) (Auto) 0.2, Neutrophils # (Auto) 2.78, Lymphocytes # (Auto) 1.25, Monocytes # (Auto) 0.34, Eosinophils # (Auto) 0.04, Basophils # (Auto) 0.01 04/19/17 08:30 Test 04/19/17 08:30 04/19/17 09:10 White Blood Count 4.43 K/uL (4.8-10.8) Red Blood Count 4.78 M/uL (4.2-5.4) Hemoglobin 14.6 g/dL (12.0-16.0) Hematocrit 43.9 % (37-47) Mean Corpuscular Volume 91.8 fL (80-100) Mean Corpuscular Hemoglobin 30.5 pg (25-34) Mean Corpuscular Hemoglobin Concent 33.3 g/dl (32-36) Platelet Count 177 K/uL (130-400) Mean Platelet Volume 11.3 fL (7.4-10.4) Neutrophils (%) (Auto) 62.8 % Lymphocytes (%) (Auto) 28.2 % Monocytes (%) (Auto) 7.7 % Eosinophils (%) (Auto) 0.9 % Basophils (%) (Auto) 0.2 % Neutrophils # (Auto) 2.78 K/uL (1.4-6.5) Lymphocytes # (Auto) 1.25 K/uL (1.2-3.4) Monocytes # (Auto) 0.34 K/uL (0.11-0.59) Eosinophils # (Auto) 0.04 K/uL (0-0.5) Basophils # (Auto) 0.01 K/uL (0-0.2) RDW Standard Deviation 47.3 fL (36.4-46.3) RDW Coefficient of Variation 14.1 % (11.5-14.5) Immature Granulocyte % (Auto) 0.2 % Immature Granulocyte # (Auto) 0.01 K/uL (0.00-0.02) Anion Gap 7.0 mmol/L (3-11) Est Creatinine Clear Calc Drug Dose 48.8 ml/min Estimated GFR () 99.0 Estimated GFR (Non- 85.4 BUN/Creatinine Ratio 24.1 (10-20) Calcium Level 9.3 mg/dl (8.5-10.1) Total Bilirubin 0.5 mg/dl (0.2-1) Direct Bilirubin 0.1 mg/dl (0-0.2) Aspartate Amino Transf (AST/SGOT) 21 U/L (15-37) Alanine Aminotransferase (ALT/SGPT) 27 U/L (12-78) Alkaline Phosphatase 66 U/L (45-117) Total Protein 7.6 gm/dl (6.4-8.2) Albumin 3.8 gm/dl (3.4-5.0) Lipase 142 U/L (73-393) Urine Color YELLOW Urine Appearance CLEAR (CLEAR) Urine pH 7.5 (4.5-7.5) Urine Specific [place] 1.012 (1.000-1.030) Urine Protein NEG (NEG) Urine Glucose (UA) NEG (NEG) Urine Ketones NEG (NEG) Urine Occult Blood NEG (NEG) Urine Nitrite NEG (NEG) Urine Bilirubin NEG (NEG) Urine Urobilinogen NEG (NEG) Urine Leukocyte Esterase SMALL (NEG) Urine WBC (Auto) 10-30 /hpf (0-5) Urine RBC (Auto) 0-4 /hpf (0-4) Urine Hyaline Casts (Auto) 0 /lpf (0-5) Urine Epithelial Cells (Auto) 10-20 /lpf (0-5) Urine Bacteria (Auto) NEG (NEG) Laboratory results reviewed by me Medications Administered Medications (Trade) Dose Ordered Sig/Deirdre Route Start Time Stop Time Status Last Admin Dose Admin Ceftriaxone Sodium (Rocephin Inj) 1 gm NOW STAT IV 04/19/17 10:13 04/19/17 10:15 DC 04/19/17 10:33 1 GM ED Course 0834: The patient was evaluated in room B12B. A complete history and physical exam was performed. 1013: I updated he patient on her test results. 1102: I reevaluated the patient. Discussed results and discharge instructions: She verbalized understanding and agreement. The patient is ready for discharge. Medical Decision The patient is a 76 year old white female with a past medical history of kidney stones and psoriasis who presents to the ED with a cc of constant urinary burning beginning a week ago. Differential diagnosis: Etiologies such as renal colic, appendicitis, diverticulitis, mesenteric ischemia, aortic pathology, infections, inflammatory bowel disease, PUD, biliary pathology, UTI, as well as others were entertained. Patient was seen and evaluated the bedside. Patient did complain of some mild urinary discomfort and increased urinary frequency. Patient states that she was recently seen at urologist given a prescription which she was unable to fill due to her allergy history. Patient did have blood work completed along with urinalysis. Urinalysis may be a contaminant. However, given that the patient was diagnosed as she states at an outpatient vision she was given a first dose of Rocephin. Patient's other blood work is unremarkable. I do not believe that she requires further imaging or blood work at this time. I do not believe that this is atypical chest pain. Given her recent diagnosis of possible UTI with some nausea increased urinary frequency and low back pain believe that UTI is most likely etiology of her discomfort. Patient was given a course of Keflex for outpatient treatment. Patient was deemed suitable for outpatient follow-up and treatment at this time. Patient was given strict follow -up, discharge, and return precautions. All questions were answered. Patient was deemed suitable for outpatient follow-up at this time. Patient agreed with the plan of care and was safely discharged home. The chart was completed utilizing [employer] Speech voice recognition software. Grammatical errors, random word insertions, pronoun errors, and incomplete sentences are an occasional consequence of this system due to software limitations, ambient noise, and hardware issues. Any formal questions or concerns about the content, text, or information contained within the body of this dictation should be directly addressed to the physician for clarification. Medication Reconcilliation Current Medication List: was personally reviewed by me Blood Pressure Screening Patient's blood pressure: Normal blood pressure Impression Primary Impression: UTI (urinary tract infection) Scribe Attestation The scribe's documentation has been prepared under my direction and personally reviewed by me in its entirety. I confirm that the note above accurately reflects all work, treatment, procedures, and medical decision making performed by me. Departure Information Dispostion Home / Self-Care Prescriptions Phenazopyridine HCl (Pyridium) 200 Mg Tab 200 MG PO TID Y for Frequency/Burning w/Urination for 2 Days, #6 TAB Prov: Refugio Motta M.D. 04/19/17 Cephalexin (KEFLEX) 500 Mg Cap 1 CAP PO BID for 7 Days, #14 CAP Prov: Refugio Motta M.D. 04/19/17 Referrals Curtis Varela M.D. (PCP) Forms HOME CARE DOCUMENTATION FORM, IMPORTANT VISIT INFORMATION Patient Instructions ED UTI Cystitis Female, My [facility] Additional Instructions Please return to the emergency department if you have worsening or recurrent symptoms not amenable to at-home treatment. Please call for a follow-up appointment with her primary care physician. Please take your medications as prescribed. If you have other concerns and/or complaints please feel free to also call your primary care physician's office or return the ED for further evaluation, management, and treatment. You may take 200 mg Ibuprofen every 12 hours as needed for pain with food for no more than 2 consecutive days. You may take tylenol 650 mg every 6 hours as needed for pain. You may take motrin and tylenol separately or at the same time. Take your medications as prescribed. If taking an antibiotic consider taking a probiotic and/or eating yogurt, but at the least, please take with food as it can cause upset stomach. If culture results are not available at discharge, if they are positive for concern of infection, you will be informed of the results as soon as they are available. You have been examined and treated today on an emergency basis only. This is not a substitute for, or an effort to provide, complete comprehensive medical care. It is impossible to recognize and treat all injuries or illnesses in a single emergency department visit. It is therefore important that you follow up closely with [facility], your PCP, and/or your specialist(s). Call as soon as possible for an appointment. Thank you for your time and consideration. I look forward to speaking with you again soon. Please don't hesitate to call us if you have any questions. Problem Qualifiers Primary Impression: UTI (urinary tract infection) Urinary tract infection type: acute cystitis Hematuria presence: without hematuria Qualified Codes: N30.00 - Acute cystitis without hematuria
[2017-04-19 08:51] LABS: BASO % 0.2 %; BASO ABS # 0.01 K/uL (0-0.2); EOS % 0.9 %; EOS ABS # 0.04 K/uL (0-0.5); HEMATOCRIT 43.9 % (37-47); HEMOGLOBIN 14.6 g/dL (12.0-16.0); IG# 0.01 K/uL (0.00-0.02); LYMPH % 28.2 %; LYMPH ABS # 1.25 K/uL (1.2-3.4); MEAN CELL VOLUME 91.8 fL (80-100); MEAN CORPUSCULAR HEMOGLOBIN 30.5 pg (25-34); MEAN CORPUSCULAR HGB CONC 33.3 g/dl (32-36); MEAN PLATELET VOLUME 11.3 fL (7.4-10.4); MONO % 7.7 %; MONO ABS # 0.34 K/uL (0.11-0.59); NEUT % 62.8 %; NEUT ABS # 2.78 K/uL (1.4-6.5); PLATELET COUNT 177 K/uL (130-400); RED CELL DISTRIBUTION WIDTH CV 14.1 % (11.5-14.5); RED CELL DISTRIBUTION WIDTH SD 47.3 fL (36.4-46.3); WHITE BLOOD COUNT 4.43 K/uL (4.8-10.8)
[2017-04-19 09:09] LABS: ALBUMIN 3.8 gm/dl (3.4-5.0); CALCIUM 9.3 mg/dl (8.5-10.1); CREATININE 0.67 mg/dl (0.60-1.20); POTASSIUM 3.5 mmol/L (3.5-5.1)
[2017-04-19 09:12] LABS: TOTAL PROTEIN 7.6 gm/dl (6.4-8.2)
[2017-04-19] MEDS ORDERED: MIRT1TAB PO (09:27)
[2017-04-19] MEDS ORDERED: NIFE10CA20 PO (09:27)
[2017-04-19] MEDS ORDERED: POLY335019 PO (09:27)
[2017-04-19] MEDS ORDERED: PRLSR20 PO (09:27)
[2017-04-19] MEDS ORDERED: CEFTRIAXONE SOD INJ 1 GM ADDVIAL IV STA (10:13)
[2017-04-19] MEDS ORDERED: CEPH-571 PO (10:28)
[2017-04-19] MEDS ORDERED: PHEN-876 PO (10:28)
[2017-04-19 11:15] VITALS: BP 132/84; PULSE 76; O2SAT 95
== END 2017-04-19 11:16 | disposition home or self-care (01) ==
LOC: C.EDB 08:18
DX: N39.0 Urinary tract infection, site not specified (principal); R10.9 Unspecified abdominal pain; Z87.442 Personal history of urinary calculi; R11.0 Nausea; M81.0 Age-related osteoporosis without current pathological fracture

== ENCOUNTER 2017-04-29 02:27 | Emergency (ER) | payer OTHER ==
[~2017-04-29] VITALS: Ht 149.9 cm; Wt 64.6 kg
[~2017-04-29 02:27] MED LIST changes: -CHOL200027 PEG; +CHOL200027 PO; -CLR10 PO; +MIRT1TAB SL; +NIFE10CA20 PO; -OMEP40CA41 PO; -ONDA4TAB10 SL; +POLY335019 PO; +PRLSR20 PO
[2017-04-29 02:33] VITALS: TEMP 36.8; Ht 149.9 cm; Wt 64.6 kg
[2017-04-29 02:38] VITALS: O2SAT 98
[2017-04-29] MEDS ORDERED: KFLUDL2505 PO (03:13)
[2017-04-29] MEDS ORDERED: NITR1SUS PO (03:15)
[2017-04-29] MEDS ORDERED: OMEP40CA41 PO (03:16)
[2017-04-29] MEDS ORDERED: DiphenhydrAMINE HCL 50 MG/ML VIAL IV STA (03:30)
--- NOTE | 2017-04-29 03:37 | EMERGENCY ROOM VISIT NOTE ---
History Report prepared by Shawn: Smith Shannon Under the Supervision of: Dr. Rosangela Real D.O. First contact with patient: 02:45 Chief Complaint: ALLERGIC REACTION Stated Complaint: HOARSENESS/DIFFICULTY SWALLOWING Nursing Triage Summary: patient states around midnight she took her first dose of keflex for UTI and then woke up at 0115 and states felt like her throat was swollen and her voice was hoarse. denies any SOB. patient read side effects of keflex and believes she is having allergic reaction. History of Present Illness The patient is a 76 year old female who presents to the Emergency Room with complaints of a constant allergic reaction that began 3 hours ago after taking Keflex for the first time. Patient states that she was taking Keflex for a UTI. She has associated symptoms of trouble breathing and hoarse throat. She denies taking Benadryl or any medication for her symptoms. She denies abdominal pain or itchiness. Patient states that she has a cold. Patient adds that she is allergic to Levaquin. Source of History: patient Onset: 3 hours ago Position: throat Timing: constant Modifying Factors (Relieving): other (None) Associated Symptoms: No abdominal pain Note: Patient has trouble breathing and a hoarse throat. She denies itchiness. Review of Systems See HPI for pertinent positives & negatives. A total of 10 systems reviewed and were otherwise negative. 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 (9) Osteoporosis (10) Suicidal ideation (11) Urinary frequency Surgical Problems: (1) Post-operative state Family History Diabetes mellitus Gallbladder disease Heart disease Hypertension Kidney stones Social History Smoking Status: Never Smoker Alcohol Use: none Drug Use: none Marital Status: Housing Status: lives with significant other Occupation Status: retired Current/Historical Medications Scheduled Cephalexin Monohydrate (Cephalexin), 5 ML PO HS Cholecalciferol (Vitamin D-3), 1,000 UNITS PO QAM Hydrochlorothiazide (Hctz), 12.5 MG PO QAM Mirtazapine (Remeron Soltab), 15 MG SL DAILY Omeprazole (Prilosec), 40 MG PO DAILY Ondasetron Odt (Zofran Odt), 4 MG SL Q6H Polyethylene Glycol 3350 (Miralax), 17 GM PO DAILY Potassium Chloride (Potassium Chloride), 15 ML PO DAILY Simvastatin (Zocor), 10 MG PO QPM Allergies Coded Allergies: Nitrofurantoin (Verified Allergy, Intermediate, chest pain, h/a, sore throat, diarrhea., 04/19/17) Quinolones (Verified Allergy, Mild, HAND SWELLED UP, 04/19/17) Levofloxacin (Verified Allergy, Unknown, HANDS SWELLING, 04/19/17) Sulfa Antibiotics (Unverified Allergy, Unknown, unknown, 04/19/17) Sulfamethoxazole w/Trimethoprim (Unverified Allergy, Unknown, angioedema , 04/19/17) Codeine (Verified Adverse Reaction, Mild, SEVERE CONSTIPATION, 04/19/17) Uncoded Allergies: FIBERGLASS (Allergy, Intermediate, HIVES, 09/26/16) Physical Exam Vital Signs Date Time Temp Pulse Resp B/P (MAP) Pulse Ox O2 Delivery O2 Flow Rate FiO2 04/29/17 05:46 64 20 125/92 95 Room Air 04/29/17 04:10 65 18 136/89 98 Room Air 04/29/17 03:18 81 18 127/99 96 Room Air 04/29/17 02:38 98 Room Air 04/29/17 02:33 96 Room Air 04/29/17 02:33 36.8 78 18 170/104 96 Room Air 04/29/17 02:32 75 Physical Exam HEENT: Head - normocephalic and atraumatic Pupils are equal, round, and reactive to light. Extraocular eye muscles are intact, and sclera are anicteric. Nose - moist nasal mucosa without discharge. Mouth - moist buccal mucosa. Oropharynx is nonerythematous and there is no tonsillar exudate or edema noted. Tongue is dry. Neck: Supple; no JVD, nuchal rigidity, cervical lymphadenopathy. Heart: Regular rate and rhythm. There is a normal S1 and S2 with no murmurs, clicks, or gallops appreciated. Lungs: Clear to auscultation bilaterally with no wheezes, rales, or rhonchi. Abdomen: Soft, completely nontender, nondistended, with good bowel sounds. There are no palpable pulsatile masses or hepatosplenomegaly. There is no guarding, rigidity, or rebound noted. Extremities: No evidence of cyanosis, clubbing, or edema. There are easily palpable peripheral pulses. Skin: warm and dry with good turgor and no rashes. Medical Decision & Procedures Medications Administered Medications (Trade) Dose Ordered Sig/Deirdre Route Start Time Stop Time Status Last Admin Dose Admin Diphenhydramine HCl (Benadryl Inj) 12.5 mg NOW STAT IV 04/29/17 03:30 04/29/17 03:32 DC 04/29/17 03:39 12.5 MG Diphenhydramine HCl (diphenhydrAMINE 25MG HOME PACK) 1 homepack UD ONCE PO 04/29/17 05:30 04/29/17 05:31 DC 04/29/17 05:32 1 HOMEPACK Procedure Benadryl Inj 12.5mg IV and Diphenhydramine HCl 1 homepack PO. ED Course 0320: Past medical records reviewed. The patient was evaluated in room A4. A complete history and physical exam was performed. An IV lock was initiated 0330: Benadryl Inj 12.5mg IV 0535: Upon reevaluation, the patient is feeling much better. She states that she having an easier time swallowing. I discussed findings and results with her. She verbalized agreement of the treatment plan. She was discharged home. Medical Decision The patient is a 76 year old female who presents to the ED with an allergic reaction. Differential diagnosis includes anaphylaxis, allergic reaction, and drug reaction. The patient is having acute allergic reaction to Keflex. The patient does have a history of multiple allergies to antibiotics. She will stop the cephalexin at this time and continue to use Benadryl as needed. I have asked her to follow -up with Dr. Connolly with regards to additional antibiotics for the urinary tract infection. She was told to return to the emergency department if she has any worsening symptoms. Medication Reconcilliation Current Medication List: was personally reviewed by me Blood Pressure Screening Patient's blood pressure: Normal blood pressure Blood pressure disposition: Did not require urgent referral Impression Primary Impression: Allergic reaction Scribe Attestation The scribe's documentation has been prepared under my direction and personally reviewed by me in its entirety. I confirm that the note above accurately reflects all work, treatment, procedures, and medical decision making performed by me. Departure Information Dispostion Home / Self-Care Referrals Curtis Varela M.D. (PCP) Forms HOME CARE DOCUMENTATION FORM, IMPORTANT VISIT INFORMATION Patient Instructions ED Allergic Reaction General Other, My [facility] Additional Instructions Rest. Benadryl - 25mg every 6 hours for any further allergic reaction symptoms Stop the cephalexin Return to the ER for any worsening symptoms Talk to Dr. Connolly on Monday about any further antibiotic for UTI Problem Qualifiers Primary Impression: Allergic reaction Encounter type: initial encounter Qualified Codes: T78.40XA - Allergy, unspecified, initial encounter
[2017-04-29] MEDS ORDERED: ONDA4TAB10 SL (03:57)
[2017-04-29] MEDS ORDERED: BENADRYL HOME PACK 25 MG TAB PO ONE (05:30)
[2017-04-29 05:46] VITALS: BP 125/92; PULSE 64; O2SAT 95
== END 2017-04-29 05:48 | disposition home or self-care (01) ==
LOC: EDBD 02:27 → C.EDA 02:30
DX: R49.0 Dysphonia (principal); T36.1X5A Adverse effect of cephalosporins and other beta-lactam antibiotics, initial encounter; Z87.440 Personal history of urinary (tract) infections; Z88.1 Allergy status to other antibiotic agents; K21.9 Gastro-esophageal reflux disease without esophagitis; M81.0 Age-related osteoporosis without current pathological fracture; Z83.3 Family history of diabetes mellitus; Z82.49 Family history of ischemic heart disease and other diseases of the circulatory system; Z84.1 Family history of disorders of kidney and ureter; Z88.2 Allergy status to sulfonamides; Z88.5 Allergy status to narcotic agent; Z88.8 Allergy status to other drugs, medicaments and biological substances; Z79.899 Other long term (current) drug therapy

== ENCOUNTER 2017-05-02 10:03 | Emergency (ER) | payer OTHER ==
[~2017-05-02] VITALS: Ht 149.9 cm; Wt 62.3 kg
[~2017-05-02 10:03] MED LIST changes: +KFLUDL2505 PO; -LORA-741 PO; -NIFE10CA20 PO; +OMEP40CA41 PO; +ONDA4TAB10 SL; -PRLSR20 PO
[2017-05-02 10:16] VITALS: TEMP 36.9; Ht 149.9 cm; Wt 62.3 kg
[2017-05-02 11:31] LABS: BASO % 0.5 %; BASO ABS # 0.02 K/uL (0-0.2); EOS % 0.3 %; EOS ABS # 0.01 K/uL (0-0.5); HEMATOCRIT 39.5 % (37-47); HEMOGLOBIN 13.1 g/dL (12.0-16.0); LYMPH % 18.7 %; LYMPH ABS # 0.74 K/uL (1.2-3.4); MEAN CELL VOLUME 90.6 fL (80-100); MEAN CORPUSCULAR HGB CONC 33.2 g/dl (32-36); MEAN PLATELET VOLUME 10.5 fL (7.4-10.4); MONO % 13.4 %; MONO ABS # 0.53 K/uL (0.11-0.59); NEUT % 67.1 %; NEUT ABS # 2.66 K/uL (1.4-6.5); PLATELET COUNT 162 K/uL (130-400); RED CELL DISTRIBUTION WIDTH CV 14.2 % (11.5-14.5); RED CELL DISTRIBUTION WIDTH SD 47.1 fL (36.4-46.3); WHITE BLOOD COUNT 3.96 K/uL (4.8-10.8)
--- NOTE | 2017-05-02 11:31 | DIAGNOSTIC IMAGING REPORT ---
LUMBAR SPINE CT CT DOSE: 819.53 mGy.cm HISTORY: back pain eval for fx TECHNIQUE: Multiaxial CT images of the lumbar spine were performed and reformatted in the sagittal and coronal plane without the use of contrast. A dose lowering technique was utilized adhering to the principles of ALARA. COMPARISON: Lumbar spine 08/24/2016. FINDINGS: Mild disc space to L4-L5 and L5-S1. 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 Mild levoscoliosis. No fracture or subluxation. The visualized sacrum appears intact. Bilateral peripelvic cysts and left-sided nephrolithiasis. No hydronephrosis. Paraspinal soft tissues are unremarkable. Moderate central canal narrowing at L4-L5 and mild central canal narrowing at L3-L4 and L5-S1. IMPRESSION: 1. No fracture or subluxation within the lumbar spine. 2. Levoscoliosis. 3. Degenerative changes as described above. 4. Left-sided nephrolithiasis. Electronically signed by: Dustin De La O M.D. 05/02/2017 11:30 AM Dictated Date/Time: 05/02/2017 11:26 AM
--- NOTE | 2017-05-02 11:34 | DIAGNOSTIC IMAGING REPORT ---
CT SCAN OF THE ABDOMEN AND PELVIS WITHOUT CONTRAST CLINICAL HISTORY: Flank pain COMPARISON STUDY: 09/04/2016 TECHNIQUE: CT scan of the abdomen and pelvis was performed from the lung bases to the proximal femurs. Images are reviewed in the axial, sagittal, and coronal planes. IV contrast was not administered for this examination. A dose lowering technique was utilized adhering to the principles of ALARA. CT DOSE: FINDINGS: Lower chest: There is right middle lobe scarring similar to the prior study. Liver: There is a 1 cm left lobe hepatic cyst similar to the prior study. Gallbladder: Not visualized and presumed surgically absent Spleen: Normal in size and attenuation. Pancreas: Unremarkable. Adrenal glands: Unremarkable. Kidneys: There is a 6 mm lower pole left renal calculus. There is a 7 mm mid pole left renal calculus. There is a punctate upper pole left renal calculus. There are bilateral parapelvic cysts. There is a 7 mm hyperdense left renal mass likely representing a hyperdense cyst. There is no significant hydronephrosis. No ureteral or bladder calculi are visualized. Bowel: There are no transition zones indicate bowel obstruction. There is colonic diverticulosis. There are no acute peridiverticular inflammatory changes. The appendix appears normal. Peritoneum: There is no intraperitoneal free air or abdominal ascites. There is a small fat-containing umbilical hernia. There is small fat-containing left inguinal hernia. Vasculature: The abdominal aorta is normal in course and caliber. Adenopathy: None. Pelvic viscera: The uterus appears surgically absent Skeletal structures: No destructive osseous lesions are seen. IMPRESSION: 1. No evidence of bowel obstruction. No evidence of free air 2. Diverticulosis. No evidence of acute diverticulitis 3. Normal appendix 4. Left-sided nephrolithiasis. No ureteral calculi identified. Electronically signed by: Remberto Sinclair M.D. 05/02/2017 11:33 AM Dictated Date/Time: 05/02/2017 11:27 AM
[2017-05-02 11:52] LABS: ALBUMIN 3.5 gm/dl (3.4-5.0); ALT/SGPT 23 U/L (12-78); AST/SGOT 21 U/L (15-37); BLOOD UREA NITROGEN 14 mg/dl (7-18); CALCIUM 9.5 mg/dl (8.5-10.1); CARBON DIOXIDE 31 mmol/L (21-32); CREATININE 0.65 mg/dl (0.60-1.20); GLUCOSE 100 mg/dl (70-99); LIPASE 143 U/L (73-393); POTASSIUM 3.3 mmol/L (3.5-5.1); SODIUM 138 mmol/L (136-145)
[2017-05-02 11:54] LABS: ALKALINE PHOSPHATASE 74 U/L (45-117); TOTAL PROTEIN 7.4 gm/dl (6.4-8.2)
--- NOTE | 2017-05-02 13:27 | DIAGNOSTIC IMAGING REPORT ---
CHEST 2 VIEWS ROUTINE CLINICAL HISTORY: eval for pna dyspnea COMPARISON STUDY: 11/04/2016 FINDINGS: Tortuous thoracic aorta. Mild stable cardiomegaly. Diaphragms are smooth. Lungs are clear. IMPRESSION: No acute process. The above report was generated using voice recognition software. It may contain grammatical, syntax or spelling errors. Electronically signed by: Sergey Boo M.D. 05/02/2017 1:26 PM Dictated Date/Time: 05/02/2017 1:25 PM
[2017-05-02] MEDS ORDERED: DAPTOmycin IV 250 MG in SYRINGE 0 ML IV STA (14:08)
[2017-05-02 14:45] VITALS: BP 144/99; PULSE 75; O2SAT 96
--- NOTE | 2017-05-02 17:47 | EMERGENCY ROOM VISIT NOTE ---
History Report prepared by Shawn: Asya Mandel Under the Supervision of: Dr. Smith Jones M.D. First contact with patient: 10:39 Chief Complaint: URINARY SYMPTOMS Stated Complaint: UTI,CANT HOLD URINE, PAIN IN BACK,NAUSEA History of Present Illness The patient is a 76 year old female who presents to the Emergency Room with complaints of worsening urinary symptoms since last night. The patient was recently diagnosed with a UTI. She was following up with her urologist, Dr. Connolly. He had placed her on amoxicillin and when she finished that she was instructed to start taking Keflex. The patient states that her urinary symptoms improved while she was taking the amoxicillin. Four days ago she took the first dose of Keflex and was seen in the ED for an allergic reaction. She was advised to stop taking the Keflex. Last night the patient states that her urinary symptoms worsened. She reports increased frequency and some urinary incontinence. She has nausea, burning with urination, bilateral flank pain, and lower abdominal pain. She rates her pain as a 2/10 in severity. The patient denies fever, chest pain, shortness of breath, vomiting, and numbness or weakness in her legs, or radiation of pain down her legs. Source of History: patient Onset: last night Position: abdomen Symptom Intensity: 2/10 Timing: worsening Modifying Factors (Relieving): other (amoxicillin) Associated Symptoms: + nausea, + abdominal pain, + urinary symptoms, No fevers, No chest pain, No SOB, No vomiting, No weakness, No numbness Review of Systems See HPI for pertinent positives & negatives. A total of 10 systems reviewed and were otherwise negative. 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 (9) Osteoporosis (10) Suicidal ideation (11) Urinary frequency Surgical Problems: (1) Post-operative state Family History Diabetes mellitus Gallbladder disease Heart disease Hypertension Kidney stones Social History Smoking Status: Never Smoker Alcohol Use: none Drug Use: none Marital Status: Housing Status: lives with significant other Occupation Status: retired Current/Historical Medications Scheduled Cholecalciferol (Vitamin D-3), 1,000 UNITS PO QAM Hydrochlorothiazide (Hctz), 12.5 MG PO QAM Mirtazapine (Remeron Soltab), 15 MG SL DAILY Omeprazole (Prilosec), 40 MG PO DAILY Polyethylene Glycol 3350 (Miralax), 17 GM PO DAILY Potassium Chloride (Potassium Chloride), 15 ML PO DAILY Simvastatin (Zocor), 10 MG PO QPM Allergies Coded Allergies: Nitrofurantoin (Verified Allergy, Intermediate, chest pain, h/a, sore throat, diarrhea., 05/02/17) Quinolones (Verified Allergy, Mild, HAND SWELLED UP, 05/02/17) Cephalexin (Unverified Allergy, Unknown, ., 05/02/17) Levofloxacin (Verified Allergy, Unknown, HANDS SWELLING, 05/02/17) Sulfa Antibiotics (Unverified Allergy, Unknown, unknown, 05/02/17) Sulfamethoxazole w/Trimethoprim (Unverified Allergy, Unknown, angioedema , 05/02/17) Codeine (Verified Adverse Reaction, Mild, SEVERE CONSTIPATION, 05/02/17) Uncoded Allergies: FIBERGLASS (Allergy, Intermediate, HIVES, 09/26/16) Physical Exam Vital Signs Date Time Temp Pulse Resp B/P (MAP) Pulse Ox O2 Delivery O2 Flow Rate FiO2 05/02/17 14:45 75 20 144/99 96 Room Air 05/02/17 13:57 77 20 155/103 97 05/02/17 11:45 73 20 145/102 98 Room Air 05/02/17 10:16 36.9 80 18 134/95 97 Room Air Physical Exam Constitutional: Vital signs reviewed. Eyes: Pupils are equal round reactive to light. Conjunctiva are noninjected. ENT: Pharynx is clear without erythema or exudate. Mucous membranes are dry. Neck supple without meningeal signs. Respiratory: Clear to auscultation bilaterally. Breath sounds are equal bilaterally. Cardiovascular: Regular rate and rhythm. No rubs or gallops. GI: Soft, nondistended and nontender. Bowel sounds are present. Musculoskeletal: No CVA tenderness. No peripheral edema. No lower extremity tenderness. Integumentary: No cyanosis. Neurological: The patient is awake and alert. No focal deficits. Motor and sensation are intact in the lower extremities. Psychiatric: Normal affect. Medical Decision & Procedures ER Provider Diagnostic Interpretation: Radiology results as stated below per my review and the radiologist's interpretation: LUMBAR SPINE CT CT DOSE: 819.53 mGy.cm HISTORY: back pain eval for fx TECHNIQUE: Multiaxial CT images of the lumbar spine were performed and reformatted in the sagittal and coronal plane without the use of contrast. A dose lowering technique was utilized adhering to the principles of ALARA. COMPARISON: Lumbar spine 08/24/2016. FINDINGS: Mild disc space to L4-L5 and L5-S1. 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 Mild levoscoliosis. No fracture or subluxation. The visualized sacrum appears intact. Bilateral peripelvic cysts and left-sided nephrolithiasis. No hydronephrosis. Paraspinal soft tissues are unremarkable. Moderate central canal narrowing at L4-L5 and mild central canal narrowing at L3-L4 and L5-S1. IMPRESSION: 1. No fracture or subluxation within the lumbar spine. 2. Levoscoliosis. 3. Degenerative changes as described above. 4. Left-sided nephrolithiasis. Electronically signed by: Dustin De La O M.D. 05/02/2017 11:30 AM Dictated Date/Time: 05/02/2017 11:[address] SCAN OF THE ABDOMEN AND PELVIS WITHOUT CONTRAST CLINICAL HISTORY: Flank pain COMPARISON STUDY: 09/04/2016 TECHNIQUE: CT scan of the abdomen and pelvis was performed from the lung bases to the proximal femurs. Images are reviewed in the axial, sagittal, and coronal planes. IV contrast was not administered for this examination. A dose lowering technique was utilized adhering to the principles of ALARA. CT DOSE: FINDINGS: Lower chest: There is right middle lobe scarring similar to the prior study. Liver: There is a 1 cm left lobe hepatic cyst similar to the prior study. Gallbladder: Not visualized and presumed surgically absent Spleen: Normal in size and attenuation. Pancreas: Unremarkable. Adrenal glands: Unremarkable. Kidneys: There is a 6 mm lower pole left renal calculus. There is a 7 mm mid pole left renal calculus. There is a punctate upper pole left renal calculus. There are bilateral parapelvic cysts. There is a 7 mm hyperdense left renal mass likely representing a hyperdense cyst. There is no significant hydronephrosis. No ureteral or bladder calculi are visualized. Bowel: There are no transition zones indicate bowel obstruction. There is colonic diverticulosis. There are no acute peridiverticular inflammatory changes. The appendix appears normal. Peritoneum: There is no intraperitoneal free air or abdominal ascites. There is a small fat-containing umbilical hernia. There is small fat-containing left inguinal hernia. Vasculature: The abdominal aorta is normal in course and caliber. Adenopathy: None. Pelvic viscera: The uterus appears surgically absent Skeletal structures: No destructive osseous lesions are seen. IMPRESSION: 1. No evidence of bowel obstruction. No evidence of free air 2. Diverticulosis. No evidence of acute diverticulitis 3. Normal appendix 4. Left-sided nephrolithiasis. No ureteral calculi identified. Electronically signed by: Remberto Sinclair M.D. 05/02/2017 11:33 AM Dictated Date/Time: 05/02/2017 11:27 AM CHEST 2 VIEWS ROUTINE CLINICAL HISTORY: eval for pna dyspnea COMPARISON STUDY: 11/04/2016 FINDINGS: Tortuous thoracic aorta. Mild stable cardiomegaly. Diaphragms are smooth. Lungs are clear. IMPRESSION: No acute process. The above report was generated using voice recognition software. It may contain grammatical, syntax or spelling errors. Electronically signed by: Sergey Boo M.D. 05/02/2017 1:26 PM Dictated Date/Time: 05/02/2017 1:25 PM Laboratory Results 05/02/17 11:05 Red Blood Count 4.36, Mean Corpuscular Volume 90.6, Mean Corpuscular Hemoglobin 30.0, Mean Corpuscular Hemoglobin Concent 33.2, Mean Platelet Volume 10.5, Neutrophils (%) (Auto) 67.1, Lymphocytes (%) (Auto) 18.7, Monocytes (%) (Auto) 13.4, Eosinophils (%) (Auto) 0.3, Basophils (%) (Auto) 0.5, Neutrophils # (Auto ) 2.66, Lymphocytes # (Auto) 0.74, Monocytes # (Auto) 0.53, Eosinophils # (Auto ) 0.01, Basophils # (Auto) 0.02 05/02/17 11:05 Test 05/02/17 10:50 05/02/17 11:05 Urine Color YELLOW Urine Appearance CLOUDY (CLEAR) Urine pH 7.0 (4.5-7.5) Urine Specific Harvey 1.007 (1.000-1.030) Urine Protein NEG (NEG) Urine Glucose (UA) NEG (NEG) Urine Ketones NEG (NEG) Urine Occult Blood TRACE (NEG) Urine Nitrite NEG (NEG) Urine Bilirubin NEG (NEG) Urine Urobilinogen NEG (NEG) Urine Leukocyte Esterase LARGE (NEG) Urine WBC (Auto) >30 /hpf (0-5) Urine RBC (Auto) 0-4 /hpf (0-4) Urine Hyaline Casts (Auto) 1-5 /lpf (0-5) Urine Epithelial Cells (Auto) 20-30 /lpf (0-5) Urine Bacteria (Auto) NEG (NEG) White Blood Count 3.96 K/uL (4.8-10.8) Red Blood Count 4.36 M/uL (4.2-5.4) Hemoglobin 13.1 g/dL (12.0-16.0) Hematocrit 39.5 % (37-47) Mean Corpuscular Volume 90.6 fL (80-100) Mean Corpuscular Hemoglobin 30.0 pg (25-34) Mean Corpuscular Hemoglobin Concent 33.2 g/dl (32-36) Platelet Count 162 K/uL (130-400) Mean Platelet Volume 10.5 fL (7.4-10.4) Neutrophils (%) (Auto) 67.1 % Lymphocytes (%) (Auto) 18.7 % Monocytes (%) (Auto) 13.4 % Eosinophils (%) (Auto) 0.3 % Basophils (%) (Auto) 0.5 % Neutrophils # (Auto) 2.66 K/uL (1.4-6.5) Lymphocytes # (Auto) 0.74 K/uL (1.2-3.4) Monocytes # (Auto) 0.53 K/uL (0.11-0.59) Eosinophils # (Auto) 0.01 K/uL (0-0.5) Basophils # (Auto) 0.02 K/uL (0-0.2) RDW Standard Deviation 47.1 fL (36.4-46.3) RDW Coefficient of Variation 14.2 % (11.5-14.5) Immature Granulocyte % (Auto) 0.0 % Immature Granulocyte # (Auto) 0.00 K/uL (0.00-0.02) Anion Gap 4.0 mmol/L (3-11) Est Creatinine Clear Calc Drug Dose 59.1 ml/min Estimated GFR () 100.0 Estimated GFR (Non- 86.2 BUN/Creatinine Ratio 22.0 (10-20) Calcium Level 9.5 mg/dl (8.5-10.1) Total Bilirubin 0.3 mg/dl (0.2-1) Direct Bilirubin < 0.1 mg/dl (0-0.2) Aspartate Amino Transf (AST/SGOT) 21 U/L (15-37) Alanine Aminotransferase (ALT/SGPT) 23 U/L (12-78) Alkaline Phosphatase 74 U/L (45-117) Total Protein 7.4 gm/dl (6.4-8.2) Albumin 3.5 gm/dl (3.4-5.0) Lipase 143 U/L (73-393) Laboratory results as reviewed by me. Medications Administered Medications (Trade) Dose Ordered Sig/Deirdre Route Start Time Stop Time Status Last Admin Dose Admin Daptomycin 250 mg/ Syringe 5 ml @ 5 mls/min NOW STAT IV 05/02/17 14:08 05/02/17 14:09 DC 05/02/17 14:24 5 MLS/MIN ED Course 1039: The patient was evaluated in room C7. A complete history and physical exam was performed. 1244: I updated the patient and she is doing well. 1341: I discussed the case with MISAEL Barnett with urology. She recommended a dose of IV antibiotics and start the patient on fosfomycin tomorrow. 1408: Daptomycin 250 mg IV 1415: I discussed the case with Dr. Castle of urology and he is in agreement with the treatment plan. Medical Decision This is a 76-year-old female presents with urinary symptoms and flank pain. Differential diagnosis includes UTI, pyelonephritis, ureterolithiasis, hydronephrosis, compression fracture, strain. I did perform a limited focused review of portions of the patient's old chart on the electronic medical record. The patient was here for an allergic reaction on 04/29/17. She was on Keflex and told to stop it at that time. She was here on 04/19/17 for flank pain and diagnosed with a UTI and placed on Keflex. Urine culture from the the 3rd showed enterococcus which was juarez sensitive except to Cipro. I did evaluate the patient as noted above. Her symptoms are consistent with a UTI. She frequently gets UTIs and is followed by urology. She also states she has flank pain concerning for renal colic. She is a prior history of kidney stones. IV access was established. I did order and personally review the patient's urinalysis as described above. Urine culture was sent. I did order and review the patient's blood work as noted in the electronic medical record. She has mild hypokalemia. I did order a chest x-ray because patient was complaining of cough. Chest x-ray did not show any signs of pneumonia. I did order a CT of the lumbar spine, abdomen and pelvis. I did review the images myself as well as the radiology report as described above. She has nephrolithiasis without ureterolithiasis or signs of hydronephrosis. No fractures are noted on the lumbar spine. I did review the case with the ED pharmacist. She has multiple allergies. It is unclear if she is allergic to cephalosporins or penicillin. She did have a reaction after taking Keflex but she was also on amoxicillin just prior to this. The ED pharmacist recommended that the patient be placed on fosfomycin. Unfortunately this drug was not available until tomorrow at local pharmacies. She therefore recommended coverage for 24 hours with daptomycin. This is based on her urine cultures growing enterococcus recently. The patient was treated with IV daptomycin and discharged a prescription for fosfomycin. I did attempt to page Dr. Connolly but he was unavailable. I did review the case with Dr. Castle of urology and Annette Lyn PA-C who agreed with management. Medication Reconcilliation Current Medication List: was personally reviewed by me Blood Pressure Screening Patient's blood pressure: Elevated blood pressure Blood pressure disposition: Referred to PCP Consults Time Called: [phone] Consulting Physician: MISAEL Barnett Returned Call: [phone] I discussed the case with MISAEL Barnett with urology. She recommended a dose of IV antibiotics and start the patient on fosfomycin tomorrow. Additional Consults: Time Called: 1414 Consulted Physician: Dr. Castle Returned Call: [phone] Additional Comments: I discussed the case with Dr. Castle of urology and he is in agreement with the treatment plan. Impression Primary Impression: Urinary tract infection Additional Impressions: Flank pain Cough Scribe Attestation The scribe's documentation has been prepared under my direct and personally reviewed by me in its entirety. I confirm that the note above accurately reflects all work, treatment, procedures, and medical decision making performed by me. Departure Information Dispostion Home / Self-Care Referrals Curtis Varela M.D. (PCP) Forms HOME CARE DOCUMENTATION FORM, IMPORTANT VISIT INFORMATION Patient Instructions ED UTI Cystitis Female, My [facility] Additional Instructions You have been examined and treated today on an emergency basis only. This is not a substitute for, or an effort to provide, complete comprehensive medical care. It is impossible to recognize and treat all injuries or illnesses in a single emergency department visit. It is therefore important that you follow up closely with your physician. Call as soon as possible for an appointment. Return for worsening symptoms or if you develop fever, vomiting, or any other concerning symptoms. Problem Qualifiers Primary Impression: Urinary tract infection Urinary tract infection type: acute cystitis Hematuria presence: without hematuria Qualified Codes: N30.00 - Acute cystitis without hematuria
== END 2017-05-02 14:52 | disposition home or self-care (01) ==
LOC: C.EDB 10:05 → C.EDC 14:52
DX: N30.00 Acute cystitis without hematuria (principal); R10.9 Unspecified abdominal pain; R05 Cough; K21.9 Gastro-esophageal reflux disease without esophagitis; F41.9 Anxiety disorder, unspecified; M19.90 Unspecified osteoarthritis, unspecified site; Z83.3 Family history of diabetes mellitus; Z82.49 Family history of ischemic heart disease and other diseases of the circulatory system

== ENCOUNTER 2017-05-03 23:56 | Emergency (ER) | payer OTHER ==
[~2017-05-03] VITALS: Ht 149.9 cm; Wt 62.5 kg
[2017-05-04] VITALS: TEMP 36.5; Ht 149.9 cm; Wt 62.5 kg
--- NOTE | 2017-05-04 00:19 | EMERGENCY ROOM VISIT NOTE ---
History Report prepared by Shawn: Nat Marks Under the Supervision of: Dr. Neptali Benton M.D. First contact with patient: 00:08 Chief Complaint: ALLERGIC REACTION Stated Complaint: HAVING HARD TIME SWALLOWING,TROUBLE BREATHING History of Present Illness The patient is a 76 year old female who presents to the Emergency Room with complaints of persistent difficulty swallowing that started a few hours ago. She notes she was given a new prescription and she is having trouble swallowing. She states she took her new medication 5 hours ago. She notes she has been drinking water to help her swallow. The patient reports she has been on a liquid diet since July because she is unable to eat solid foods due to irritation of her esophagus. She notes she ate soup for dinner. She states this happened on May 27, 2016 when she was given a new medication also. She notes she took Benadryl 2 hours ago. The patient states she takes Prilosec every morning. She denies any back pain, abdominal pain, swelling in her legs, falls, or injuries. Source of History: patient Onset: a few hours ago Position: throat Timing: other (persistent) Associated Symptoms: No abdominal pain, No back pain Review of Systems See HPI for pertinent positives & negatives. A total of 10 systems reviewed and were otherwise negative. 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 (9) Osteoporosis (10) Suicidal ideation (11) Urinary frequency Surgical Problems: (1) Post-operative state Family History Diabetes mellitus Gallbladder disease Heart disease Hypertension Kidney stones Social History Smoking Status: Never Smoker Alcohol Use: none Drug Use: none Marital Status: Housing Status: lives with significant other Occupation Status: retired Current/Historical Medications Scheduled Cholecalciferol (Vitamin D-3), 1,000 UNITS PO QAM Hydrochlorothiazide (Hctz), 12.5 MG PO QAM Mirtazapine (Remeron Soltab), 15 MG SL DAILY Omeprazole (Prilosec), 40 MG PO DAILY Polyethylene Glycol 3350 (Miralax), 17 GM PO DAILY Potassium Chloride (Potassium Chloride), 15 ML PO DAILY Simvastatin (Zocor), 10 MG PO QPM Allergies Coded Allergies: Cephalexin (Unverified Allergy, Severe, THROAT SWELLING, 05/02/17) Patient reports throat swelling, weakness Nitrofurantoin (Verified Allergy, Intermediate, chest pain, h/a, sore throat, diarrhea., 05/02/17) Quinolones (Verified Allergy, Mild, HAND SWELLED UP, 05/02/17) Levofloxacin (Verified Allergy, Unknown, HANDS SWELLING, 05/02/17) Sulfa Antibiotics (Unverified Allergy, Unknown, unknown, 05/02/17) Sulfamethoxazole w/Trimethoprim (Unverified Allergy, Unknown, angioedema , 05/02/17) Codeine (Verified Adverse Reaction, Mild, SEVERE CONSTIPATION, 05/02/17) Uncoded Allergies: FIBERGLASS (Allergy, Intermediate, HIVES, 09/26/16) Physical Exam Vital Signs Date Time Temp Pulse Resp B/P (MAP) Pulse Ox O2 Delivery O2 Flow Rate FiO2 05/04/17 01:46 55 18 139/92 96 05/04/17 00:35 Room Air 05/04/17 00:00 36.5 72 20 143/95 98 Room Air Physical Exam GENERAL: Patient is anxious appearing and in no acute distress. HEENT: No acute trauma, normocephalic atraumatic, mucous membranes moist, no nasal congestion, no scleral icterus. NECK: No stridor, no adenopathy, no meningismus, trachea is midline. LUNGS: No dyspnea. Clear to auscultation and equal bilaterally. No wheeze, no rhonchi. HEART: Regular rate and rhythm. No murmurs, rubs, gallops appreciated. EXTREMITIES: Normal motion all extremities, no cyanosis, no edema. NEUROLOGIC: Alert and oriented, no acute motor or sensory deficits, no focal weakness, cranial nerves grossly intact. SKIN: No rash, no jaundice, no diaphoresis. Medical Decision & Procedures Medications Administered Medications (Trade) Dose Ordered Sig/Deirdre Route Start Time Stop Time Status Last Admin Dose Admin Lidocaine HCl (Viscous Lidocaine 2% Soln) 20 ml STK-MED ONCE .ROUTE 05/04/17 00:28 05/04/17 00:29 DC 05/04/17 00:32 20 ML Al Hydroxide/Mg Hydroxide (Maalox Susp) 30 ml STK-MED ONCE .ROUTE 05/04/17 00:29 05/04/17 00:30 DC 05/04/17 00:32 30 ML Diphenhydramine HCl (Benadryl Syrup) 12.5 mg NOW STAT PO 05/04/17 00:50 05/04/17 00:51 DC 05/04/17 00:54 12.5 MG ED Course 0008: The patient was evaluated in room B6. A complete history and physical exam was performed. 0040: The patient refuses to take GI cocktail or Zantac. She continues to drink water. 0110: Reevaluated the patient. Discussed results and discharge instructions: She verbalized understanding and agreement. The patient is ready for discharge. Medical Decision 76 yr old female arrives stating she is having allergic reaction as she states unable to swallow. Despite her claims she is drinking water without difficulty. Ordered GI cocktail which she wouldn't drink. Given PO benadryl with patient stating feeling better almost immediately. Admits this has been going on since July though is adamant acutely worse after this afternoons abx, the same as another abx last week. I would not call this allergic reaction at this time given normal exam and no other evidence allergic reaction. She clearly has anxiety related to her swallowing and admits that GI has told her there is nothing wrong with her esophagus. She has no evidence of stoke findings at this time. She has no breathing nor swallowing difficulty that I can ascertain. She has no current UTI symptoms, that she has finished abx, and she has follow up with ID in 1 day thus I would not start a different abx and no evidence of need for labs/ua at this time. Feeling better and wants to go home. Stable at discharge and walked down kemp in no distress while drinking her water. Medication Reconcilliation Current Medication List: was personally reviewed by me Blood Pressure Screening Patient's blood pressure: Elevated blood pressure Blood pressure disposition: Elevated BP felt to be situational Impression Primary Impression: Irritated throat Scribe Attestation The scribe's documentation has been prepared under my direction and personally reviewed by me in its entirety. I confirm that the note above accurately reflects all work, treatment, procedures, and medical decision making performed by me. Departure Information Dispostion Home / Self-Care Referrals Curtis Varela M.D. (PCP) Patient Instructions My [facility] Additional Instructions Return if rashes, lip swelling, difficulty breathing, vomiting, passing out, pain or if unable to swallow your spit or water. Follow up with your primary care provider, urologist and Infectious Disease Providers as planned.
[2017-05-04] MEDS ORDERED: GI COCKTAIL PO STA (00:20)
[2017-05-04] MEDS ORDERED: LIDOCAINE HCL 2% VISC SOLN 20 ML UDC ONE (00:28)
[2017-05-04] MEDS ORDERED: ALUMINUM/MAGNESIUM SUSP 30 ML UDC ONE (00:29)
[2017-05-04] MEDS ORDERED: RANITIDINE HCL SYRUP 150 MG/10 ML UDC PO ONE (00:30)
[2017-05-04 01:46] VITALS: BP 139/92; PULSE 55; O2SAT 96
== END 2017-05-04 01:46 | disposition home or self-care (01) ==
LOC: C.EDB 23:57
DX: R07.0 Pain in throat (principal); F41.9 Anxiety disorder, unspecified; M19.90 Unspecified osteoarthritis, unspecified site; Z83.3 Family history of diabetes mellitus; Z82.49 Family history of ischemic heart disease and other diseases of the circulatory system; Z88.8 Allergy status to other drugs, medicaments and biological substances; Z88.5 Allergy status to narcotic agent

== ENCOUNTER 2017-05-07 10:33 | Emergency (ER) | payer OTHER ==
[~2017-05-07] VITALS: Ht 149.9 cm; Wt 64.5 kg
[~2017-05-07 10:33] MED LIST changes: -KFLUDL2505 PO; -ONDA4TAB10 SL
[2017-05-07 10:44] VITALS: TEMP 36.6; Ht 149.9 cm; Wt 64.5 kg
[2017-05-07] MEDS ORDERED: SODIUM CHLORIDE 0.9% 500ML 500 ML IV STA (11:26)
[2017-05-07] MEDS ORDERED: ONDANSETRON INJ 2 MG/ML 2 ML VIAL IV STA (11:27)
[2017-05-07 11:32] LABS: BASO % 0.2 %; BASO ABS # 0.01 K/uL (0-0.2); EOS % 0.2 %; EOS ABS # 0.01 K/uL (0-0.5); HEMATOCRIT 40.8 % (37-47); HEMOGLOBIN 13.4 g/dL (12.0-16.0); IG# 0.01 K/uL (0.00-0.02); LYMPH % 20.3 %; LYMPH ABS # 0.96 K/uL (1.2-3.4); MEAN CELL VOLUME 90.9 fL (80-100); MEAN CORPUSCULAR HEMOGLOBIN 29.8 pg (25-34); MEAN CORPUSCULAR HGB CONC 32.8 g/dl (32-36); MEAN PLATELET VOLUME 11.3 fL (7.4-10.4); MONO ABS # 0.33 K/uL (0.11-0.59); NEUT % 72.1 %; PLATELET COUNT 197 K/uL (130-400); RED CELL DISTRIBUTION WIDTH CV 13.8 % (11.5-14.5); WHITE BLOOD COUNT 4.72 K/uL (4.8-10.8)
[2017-05-07 11:48] LABS: ALBUMIN 3.5 gm/dl (3.4-5.0); CALCIUM 9.1 mg/dl (8.5-10.1); CREATININE 0.78 mg/dl (0.60-1.20); POTASSIUM 3.5 mmol/L (3.5-5.1)
[2017-05-07 11:51] LABS: TOTAL PROTEIN 7.2 gm/dl (6.4-8.2)
--- NOTE | 2017-05-07 13:22 | EMERGENCY ROOM VISIT NOTE ---
History Report prepared by Shawn: Jim Pitts Under the Supervision of: Dr. Dionicio Prado D.O. First contact with patient: 11:20 Chief Complaint: ABDOMINAL PAIN Stated Complaint: BACK PAIN, STOMACH BURNING, NAUSEA Nursing Triage Summary: Pt states "This is the 4th day I woke up with diarrhea". Was taking Meds for UTI, last day was Monday, but today started having burning again. "Burning in stomach and my whole bottom end." Took Pepto and then started Immodium History of Present Illness The patient is a 76 year old female who presents to the Emergency Room with complaints of a worsening illness that started about 4 days ago. Per the nursing staff, the patient has been on several antibiotics for a UTI over the past few weeks, but the symptoms are not entirely going away. The patient says that she has been having diarrhea for 4 days now, but only had 1 episode so far today because she got Imodium yesterday. The patient states that over the past few mornings, she would have 4 to 5 episodes of diarrhea. She adds that she woke up this morning with dizziness with nausea and abdominal pain. Any vomiting was denied on behalf of the patient. The patient notes that she caught a cold from her recently. Source of History: patient, nursing staff Onset: 4 days ago Position: other (global) Quality: other (illness) Timing: worsening Associated Symptoms: + nausea, + abdominal pain, + diarrhea, + urinary symptoms (burning with urination), No vomiting Note: Associated symptoms: Dizziness. Cold symptoms. Review of Systems See HPI for pertinent positives & negatives. A total of 10 systems reviewed and were otherwise negative. 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 (9) Osteoporosis (10) Suicidal ideation (11) Urinary frequency Surgical Problems: (1) Post-operative state Family History Diabetes mellitus Gallbladder disease Heart disease Hypertension Kidney stones Social History Smoking Status: Never Smoker Alcohol Use: none Drug Use: none Marital Status: Housing Status: lives with significant other Occupation Status: retired Current/Historical Medications Scheduled Cholecalciferol (Vitamin D-3), 2,000 UNITS PO QAM Hydrochlorothiazide (Hctz), 12.5 MG PO QAM Omeprazole (Prilosec), 40 MG PO DAILY Polyethylene Glycol 3350 (Miralax), 1 TSP PO DAILY Potassium Chloride (Potassium Chloride), 15 ML PO DAILY Simvastatin (Zocor), 10 MG PO QPM Allergies Coded Allergies: Cephalexin (Verified Allergy, Severe, THROAT SWELLING, 05/07/17) Patient reports throat swelling, weakness Nitrofurantoin (Verified Allergy, Intermediate, chest pain, h/a, sore throat, diarrhea., 05/02/17) Quinolones (Verified Allergy, Mild, HAND SWELLED UP, 05/02/17) Levofloxacin (Verified Allergy, Unknown, HANDS SWELLING, 05/02/17) Sulfa Antibiotics (Verified Allergy, Unknown, unknown, 05/07/17) Sulfamethoxazole w/Trimethoprim (Verified Allergy, Unknown, angioedema , ) Codeine (Verified Adverse Reaction, Mild, SEVERE CONSTIPATION, 05/02/17) Uncoded Allergies: FIBERGLASS (Allergy, Intermediate, HIVES, 09/26/16) Physical Exam Vital Signs Date Time Temp Pulse Resp B/P (MAP) Pulse Ox O2 Delivery O2 Flow Rate FiO2 05/07/17 12:06 77 20 141/95 Room Air 05/07/17 10:44 36.6 80 18 131/86 97 Physical Exam CONSTITUTIONAL/VITAL SIGNS: Reviewed / noted above. GENERAL: Non-toxic in appearance. INTEGUMENTARY: Warm, dry, and [place]. HEAD: Normocephalic. EYES: without scleral icterus or trauma. ENT/OROPHARYNX: clear and moist. LYMPHADENOPATHY/NECK: Is supple without lymphadenopathy or meningismus. RESPIRATORY: Lungs clear and equal. CARDIOVASCULAR: Regular rate and rhythm. GI/ABDOMEN: Soft and nontender. No organomegaly or pulsatile mass. No rebound or guarding. Normal bowel sounds. EXTREMITIES: Warm and well perfused. BACK: No CVA tenderness. NEUROLOGICAL: Intact without focal deficits. PSYCHIATRIC: normal affect. MUSCULOSKELETAL: Normally developed with good muscle tone. Medical Decision & Procedures Laboratory Results 05/07/17 11:20 Red Blood Count 4.49, Mean Corpuscular Volume 90.9, Mean Corpuscular Hemoglobin 29.8, Mean Corpuscular Hemoglobin Concent 32.8, Mean Platelet Volume 11.3, Neutrophils (%) (Auto) 72.1, Lymphocytes (%) (Auto) 20.3, Monocytes (%) (Auto) 7.0, Eosinophils (%) (Auto) 0.2, Basophils (%) (Auto) 0.2, Neutrophils # (Auto) 3.40, Lymphocytes # (Auto) 0.96, Monocytes # (Auto) 0.33, Eosinophils # (Auto) 0.01, Basophils # (Auto) 0.01 05/07/17 11:20 Test 05/07/17 11:20 05/07/17 12:10 White Blood Count 4.72 K/uL (4.8-10.8) Red Blood Count 4.49 M/uL (4.2-5.4) Hemoglobin 13.4 g/dL (12.0-16.0) Hematocrit 40.8 % (37-47) Mean Corpuscular Volume 90.9 fL (80-100) Mean Corpuscular Hemoglobin 29.8 pg (25-34) Mean Corpuscular Hemoglobin Concent 32.8 g/dl (32-36) Platelet Count 197 K/uL (130-400) Mean Platelet Volume 11.3 fL (7.4-10.4) Neutrophils (%) (Auto) 72.1 % Lymphocytes (%) (Auto) 20.3 % Monocytes (%) (Auto) 7.0 % Eosinophils (%) (Auto) 0.2 % Basophils (%) (Auto) 0.2 % Neutrophils # (Auto) 3.40 K/uL (1.4-6.5) Lymphocytes # (Auto) 0.96 K/uL (1.2-3.4) Monocytes # (Auto) 0.33 K/uL (0.11-0.59) Eosinophils # (Auto) 0.01 K/uL (0-0.5) Basophils # (Auto) 0.01 K/uL (0-0.2) RDW Standard Deviation 46.0 fL (36.4-46.3) RDW Coefficient of Variation 13.8 % (11.5-14.5) Immature Granulocyte % (Auto) 0.2 % Immature Granulocyte # (Auto) 0.01 K/uL (0.00-0.02) Anion Gap 6.0 mmol/L (3-11) Est Creatinine Clear Calc Drug Dose 50.1 ml/min Estimated GFR () 85.6 Estimated GFR (Non- 73.8 BUN/Creatinine Ratio 22.4 (10-20) Calcium Level 9.1 mg/dl (8.5-10.1) Total Bilirubin 0.4 mg/dl (0.2-1) Aspartate Amino Transf (AST/SGOT) 35 U/L (15-37) Alanine Aminotransferase (ALT/SGPT) 37 U/L (12-78) Alkaline Phosphatase 68 U/L (45-117) Total Protein 7.2 gm/dl (6.4-8.2) Albumin 3.5 gm/dl (3.4-5.0) Globulin 3.7 gm/dl (2.5-4.0) Albumin/Globulin Ratio 0.9 (0.9-2) Lipase 129 U/L (73-393) Urine Color YELLOW Urine Appearance CLEAR (CLEAR) Urine pH 7.5 (4.5-7.5) Urine Specific [place] 1.007 (1.000-1.030) Urine Protein NEG (NEG) Urine Glucose (UA) NEG (NEG) Urine Ketones NEG (NEG) Urine Occult Blood NEG (NEG) Urine Nitrite NEG (NEG) Urine Bilirubin NEG (NEG) Urine Urobilinogen NEG (NEG) Urine Leukocyte Esterase NEG (NEG) Laboratory results as stated above per my review. Medications Administered Medications (Trade) Dose Ordered Sig/Deirdre Route Start Time Stop Time Status Last Admin Dose Admin Sodium Chloride 500 ml @ 999 mls/hr Q31M STAT IV 05/07/17 11:26 05/07/17 11:56 DC 05/07/17 11:26 999 MLS/HR Ondansetron HCl (Zofran Inj) 4 mg NOW STAT IV 05/07/17 11:27 05/07/17 11:28 DC 05/07/17 11:39 4 MG ED Course 1122: Previous medical records were reviewed. The patient was evaluated in room C7. A complete history and physical examination was performed. 1126: Ordered NSS 500 ml @ 999 mls/hr IV. 1127: Ordered Zofran Inj 4 mg IV. 1304: On reevaluation, the patient is resting comfortably. I discussed the results and findings with the patient. She verbalized agreement of the treatment plan. She was discharged home. Medical Decision Differential considered: pancreatitis, hepatitis, or acute cholecystitis, AAA, UTI, pyelonephritis, kidney stones, appendicitis, diverticulitis, shingles, bowel obstruction mesenteric ischemia, intussusception, hernia, ovarian torsion , ruptured ovarian cyst, ectopic , . This is a 76-year-old female who presents to the ED with a chief complaint of diarrhea for the past 4 days. The patient states that she just finished antibiotics for UTI on Monday. She reported some nausea but no vomiting. She had a little dizziness. The patient states that her last episode of diarrhea was this morning. She did take some Imodium and this seemed to help the diarrhea. The patient has no other specific complaints. Her vital signs are normal. Her physical exam was unremarkable. She has no abdominal tenderness on exam. Her CBC and complete metabolic panel were normal, lipase was negative and the urine did not show infection today. The patient was treated with IV fluids and IV Zofran. She is felt to be stable for discharge and outpatient follow-up. She will continue Imodium as needed. Since she is off the antibiotics, I suspect that her diet reassured result. She did not have a diarrhea sample here today for us. Medication Reconcilliation Current Medication List: was personally reviewed by me Blood Pressure Screening Patient's blood pressure: Elevated blood pressure Blood pressure disposition: Elevated BP felt to be situational Impression Primary Impression: Antibiotic-associated diarrhea Scribe Attestation The scribe's documentation has been prepared under my direction and personally reviewed by me in its entirety. I confirm that the note above accurately reflects all work, treatment, procedures, and medical decision making performed by me. Departure Information Dispostion Home / Self-Care Referrals Curtis Varela M.D. (PCP) Patient Instructions My [facility] Additional Instructions Use Imodium as needed for diarrhea. Symptoms should improve since you are currently not taking antibiotics. Follow-up with your doctor for further care and evaluation in 1-2 days. Return to the emergency department for worsening or new symptoms or any concerns. You have been examined and treated today on an emergency basis only. This is not a substitute for, or an effort to provide, complete comprehensive medical care. It is impossible to recognize and treat all injuries or illnesses in a single emergency department visit. It is therefore important that you follow up closely with your doctor. Call as soon as possible for an appointment.
[2017-05-07 13:56] VITALS: BP 141/95; PULSE 88; O2SAT 99
== END 2017-05-07 13:57 | disposition home or self-care (01) ==
LOC: C.EDB 10:33 → C.EDC 13:57
DX: R19.7 Diarrhea, unspecified (principal); T36.95XA Adverse effect of unspecified systemic antibiotic, initial encounter; K21.9 Gastro-esophageal reflux disease without esophagitis; F41.9 Anxiety disorder, unspecified; K22.4 Dyskinesia of esophagus; F45.8 Other somatoform disorders; M81.0 Age-related osteoporosis without current pathological fracture; R13.10 Dysphagia, unspecified; Z83.3 Family history of diabetes mellitus; Z82.49 Family history of ischemic heart disease and other diseases of the circulatory system; Z84.1 Family history of disorders of kidney and ureter; Z88.1 Allergy status to other antibiotic agents; Z88.2 Allergy status to sulfonamides; Z88.6 Allergy status to analgesic agent

== ENCOUNTER 2017-05-10 11:10 | Emergency (ER) | payer OTHER ==
[~2017-05-10] VITALS: Ht 149.9 cm; Wt 61.0 kg
[~2017-05-10 11:10] MED LIST changes: -MIRT1TAB SL
[2017-05-10 11:14] VITALS: TEMP 36.7; Ht 149.9 cm; Wt 61.0 kg
--- NOTE | 2017-05-10 12:10 | EMERGENCY ROOM VISIT NOTE ---
History Report prepared by Shawn: Frank Todd Under the Supervision of: Dr. Elijah Vivas M.D. First contact with patient: 11:58 Chief Complaint: ABDOMINAL PAIN Stated Complaint: ABDOMINAL PAIN, LIGHT HEADED Nursing Triage Summary: since 530 has had pressure in bowel and abd with lightheadedness and has had BM x4 took some immodium History of Present Illness The patient is a 76 year old female who presents to the Emergency Room with complaints of lower abdominal pressure that began about 7 hours ago. She is currently not experiencing this sensation. Last week, the patient was started on a course of antibiotics which caused her to experience multiple episodes of diarrhea. She was seen in the ER three days ago and evaluated for her diarrhea. She gave a urine culture at this time which did not show a definite infection. She was discharged feeling better, but earlier this morning she began to experience this abdominal pressure. She had four episodes of diarrhea and then took Imodium. Her diarrhea and abdominal pressure has now resolved. She is currently nauseated. She denies any fevers, chills, headache, chest pain, shortness of breath, vomiting, melena, hematochezia, weakness, or numbness. Source of History: patient Onset: 7 hours ago Position: abdomen (lower) Symptom Intensity: moderate Quality: pressure Timing: resolved Associated Symptoms: + nausea, + diarrhea, No fevers, No chills, No headache , No chest pain, No SOB, No vomiting, No melena, No hematochezia, No weakness, No numbness Review of Systems See HPI for pertinent positives & negatives. A total of 10 systems reviewed and were otherwise negative. 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 Nurse's notes were reviewed and I agree with. Family History Diabetes mellitus Gallbladder disease Heart disease Hypertension Kidney stones Social History Smoking Status: Never Smoker Alcohol Use: none Drug Use: none Marital Status: Housing Status: lives with significant other Occupation Status: retired Current/Historical Medications Scheduled Cholecalciferol (Vitamin D-3), 2,000 UNITS PO QAM Hydrochlorothiazide (Hctz), 12.5 MG PO QAM Omeprazole (Prilosec), 40 MG PO DAILY Polyethylene Glycol 3350 (Miralax), 1 TSP PO DAILY Potassium Chloride (Potassium Chloride), 15 ML PO DAILY Simvastatin (Zocor), 10 MG PO QPM Allergies Coded Allergies: Cephalexin (Verified Allergy, Severe, THROAT SWELLING, 05/10/17) Patient reports throat swelling, weakness Nitrofurantoin (Verified Allergy, Intermediate, chest pain, h/a, sore throat, diarrhea., 05/10/17) Quinolones (Verified Allergy, Mild, HAND SWELLED UP, 05/10/17) Levofloxacin (Verified Allergy, Unknown, HANDS SWELLING, 05/10/17) Sulfa Antibiotics (Verified Allergy, Unknown, unknown, 05/10/17) Sulfamethoxazole w/Trimethoprim (Verified Allergy, Unknown, angioedema , ) Codeine (Verified Adverse Reaction, Mild, SEVERE CONSTIPATION, 05/10/17) Uncoded Allergies: FIBERGLASS (Allergy, Intermediate, HIVES, 09/26/16) Physical Exam Vital Signs Date Time Temp Pulse Resp B/P (MAP) Pulse Ox O2 Delivery O2 Flow Rate FiO2 05/10/17 13:27 77 18 133/77 98 05/10/17 11:14 36.7 68 18 139/84 97 Room Air Physical Exam General: Non-ill appearing older female in no acute distress. HEENT: Normal cephalic atraumatic. Pupils are equal round and reactive to light. Extraocular movements are intact. Oropharynx is pink with moist mucous membranes. No swelling of the mouth lips or tongue. Neck: Supple with a midline trachea. No meningeal signs or stiffness, no JVD or bruits. No Stridor. Chest: Clear to auscultation bilaterally. No wheezes or rhonchi. No increased work of breathing. Heart: regular rate and rhythm. Abdomen: Soft nontender, nondistended without rebound guarding or rigidity. Extremities: No cyanosis clubbing or edema. No calf tenderness or assymetry Spine/Back. Non tender to palpation. No CVA tenderness Skin: Good turgor without rashes. Neurologic exam: Cranial nerves two through 12 are intact. Motor and sensation are intact and symmetrical throughout. Medical Decision & Procedures ED Course 1158: Past medical records reviewed. The patient was evaluated in room B12B, and a complete history and physical examination were performed. 1303: The patient informed me that she would like to go home as her is waiting for her. The only time she has bowel movements is in the morning, so we will set her up with an outpatient stool collection in the morning. 1310: Upon reevaluation, the patient is resting. I discussed the results and treatment plan with her. She verbalized agreement of the treatment plan. The patient was discharged home. Medical Decision Differentials include, but are not limited to; diarrhea, C Diff, infection, anxiety, and electrolyte or metabolic abnormality. This patient comes in as described above. she has had ongoing diarrhea and crampy abdominal pain. she had this this morning feels better and she says she has no symptoms at present. she is afebrile. She has had no fever. She had extensive blood work done recently which was unremarkable. She had a CAT scan done 8 days ago which was unremarkable. I talked to the patient and she adamantly denies any blood work she says she has been stuck to me times recently. I ordered stool studies but she says she is unable to give a sample and only has a bowel movement in the morning. I offered to check other imaging such as repeating the CAT scan she declines. She was observed and she drank fluids and she looks well. her abdomen is benign. she is asymptomatic. I did give her a prescription as well as methods to collect her stool in the morning when she has a bowel movement and bring it back to the outpatient lab to check her for C. difficile and other pathology. She was happy with this. She will be discharged home and was encouraged to return if she has worsening of symptoms , increasing pain, any new problems or concerns. Medication Reconcilliation Current Medication List: was personally reviewed by me Blood Pressure Screening Patient's blood pressure: Normal blood pressure Blood pressure disposition: Did not require urgent referral Impression Primary Impression: Diarrhea Additional Impression: Abdominal cramping Scribe Attestation The scribe's documentation has been prepared under my direction and personally reviewed by me in its entirety. I confirm that the note above accurately reflects all work, treatment, procedures, and medical decision making performed by me. Departure Information Dispostion Home / Self-Care Referrals Curtis Varela M.D. (PCP) Forms Call Back Authorization, HOME CARE DOCUMENTATION FORM, IMPORTANT VISIT INFORMATION Patient Instructions My [facility] Additional Instructions Rest. Drink plenty of fluids. Mild diet. Collect a stool sample and have a bowel movement in the morning and return it to the outpatient lab in the sample cup given. Results will be sent to Dr. Varela and follow-up with him Return to the ER in the meantime if: Worsening symptoms, fever or chills, abdominal pain, any new problems or concerns Follow-up with your doctor later this week for recheck Problem Qualifiers
[2017-05-10 13:27] VITALS: BP 133/77; PULSE 77; O2SAT 98
== END 2017-05-10 13:28 | disposition home or self-care (01) ==
LOC: C.EDB 11:11
DX: R19.7 Diarrhea, unspecified (principal); R10.30 Lower abdominal pain, unspecified; K21.9 Gastro-esophageal reflux disease without esophagitis; F41.9 Anxiety disorder, unspecified; M81.0 Age-related osteoporosis without current pathological fracture; Z83.3 Family history of diabetes mellitus; Z83.79 Family history of other diseases of the digestive system; Z82.49 Family history of ischemic heart disease and other diseases of the circulatory system; Z84.1 Family history of disorders of kidney and ureter; Z79.899 Other long term (current) drug therapy; Z88.1 Allergy status to other antibiotic agents; Z88.2 Allergy status to sulfonamides; Z88.5 Allergy status to narcotic agent; Z88.8 Allergy status to other drugs, medicaments and biological substances; Z91.048 Other nonmedicinal substance allergy status

== ENCOUNTER → 2017-05-11 | Outpatient (CLI) | payer OTHER ==
--- NOTE | 2017-05-19 09:08 | CODING QUERY NO DIAGNOSIS ---
TREATMENT RENDERED WITHOUT A DIAGNOSIS To promote full compliance with coding requirements relating to patient care, physician participation is requested in all cases of client technologies analyst uncertainty. Please assist us with providing a diagnosis/symptom for the test(s) below: A diagnosis/symptom was not documented on your Order. A valid diagnosis/symptom is required to bill all insurances. Please remember that we are unable to code a diagnosis of rule out, probable, possible, questionable, or suspected. Tests that require a diagnosis: * Stool for: DIAGNOSIS: WBC smear, culture C diff Toxin, B Gene Provider Signature: Date: Thank you Yana Michael [employer] Information Management Once completed, please kindly fax back to [phone] For questions please call [phone]
== END | disposition home or self-care (01) ==
LOC: C.LABSPEC 09:47
PROVIDERS: ATTEND Internal Medicine Geriatric Medicine
DX: A04.72 Enterocolitis due to Clostridium difficile, not specified as recurrent (principal)

== ENCOUNTER 2017-05-12 01:14 | Emergency (ER) | payer OTHER ==
[~2017-05-12] VITALS: Ht 149.9 cm; Wt 62.1 kg
[2017-05-12 01:18] VITALS: TEMP 36.5; Ht 149.9 cm; Wt 62.1 kg
[2017-05-12 02:32] VITALS: BP 110/83; PULSE 75; O2SAT 98
--- NOTE | 2017-05-12 08:07 | EMERGENCY ROOM VISIT NOTE ---
ED Visit Note First contact with patient: 01:27 CHIEF COMPLAINT: Frequent and painful urination HISTORY OF PRESENT ILLNESS: This 76-year-old female presents to the emergency department complaining of increased frequency of urination, burning pain with urination, and a feeling of incomplete voiding that began a few hours ago. This is the patient's seventh visit to the emergency department in the past month for similar symptoms. The patient initially did have a positive urine culture and was treated with amoxicillin. Shortly thereafter she began having some abdominal pain and antibiotic associated diarrhea. The patient has had multiple episodes of blood work, and is refusing blood work today. She feels like the UTI has returned, prompting her presentation. REVIEW OF SYSTEMS: A 6 system review of systems was completed with positives and pertinent negatives listed in the HPI. ALLERGIES: See EMR MEDICATIONS: See EMR PMH: See EMR SOCIAL HISTORY: Lives locally PHYSICAL EXAM: Vital Signs: Reviewed Nurse's notes, vital signs stable. GENERAL : White female, in no acute distress, they do not appear toxic, well-developed, well-nourished. ABDOMEN: Positive bowel sounds x 4. The abdomen is soft, mildly tender in the suprapubic area, but no masses or organs are felt. There is no CVA tenderness. The skin is clear. NEURO: Alert and oriented to person place and time. EMERGENCY DEPARTMENT COURSE: Physical exam and history were performed. Nursing notes and EMR were reviewed. The patient has had multiple ER visits for UTI symptoms, as well as associated complications using antibiotics. She is complaining of dysuria tonight, prompting her presentation. Urine specimen was obtained, and the formal lab UA is essentially identical to previous lab urines that she has provided. Considering her extensive difficulty over these past few weeks and do not feel comfortable in empirically treating her for a UTI. I will culture the urine and make decisions based on the culture results. Of note, the patient has been using baby wipes to clean herself after using the bathroom. She may have some localized reaction and irritation from baby wipes, and I recommended that she either stop using these or change the brand as this could be causing a contact irritation. The patient was pleased with this plan voiced understanding. She rated her discomfort a 0/10 at the time of departure. Problem List Medical Problems: (1) Acid reflux Status: Chronic (2) Obstruction of esophagus due to food impaction Status: Resolved (3) Osteoporosis Status: Chronic (4) Urinary frequency Status: Chronic Surgical Problems: (1) Post-operative state Status: Resolved Current/Historical Medications Scheduled Cholecalciferol (Vitamin D-3), 2,000 UNITS PO QAM Hydrochlorothiazide (Hctz), 12.5 MG PO QAM Omeprazole (Prilosec), 40 MG PO DAILY Polyethylene Glycol 3350 (Miralax), 1 TSP PO DAILY Potassium Chloride (Potassium Chloride), 15 ML PO DAILY Simvastatin (Zocor), 10 MG PO QPM Allergies Coded Allergies: Cephalexin (Verified Allergy, Severe, THROAT SWELLING, 05/12/17) Patient reports throat swelling, weakness Nitrofurantoin (Verified Allergy, Intermediate, chest pain, h/a, sore throat, diarrhea., 05/12/17) Quinolones (Verified Allergy, Mild, HAND SWELLED UP, 05/12/17) Levofloxacin (Verified Allergy, Unknown, HANDS SWELLING, 05/12/17) Sulfa Antibiotics (Verified Allergy, Unknown, unknown, 05/12/17) Sulfamethoxazole w/Trimethoprim (Verified Allergy, Unknown, angioedema , ) Codeine (Verified Adverse Reaction, Mild, SEVERE CONSTIPATION, 05/12/17) Uncoded Allergies: FIBERGLASS (Allergy, Intermediate, HIVES, 09/26/16) Vital Signs Date Time Temp Pulse Resp B/P (MAP) Pulse Ox O2 Delivery O2 Flow Rate FiO2 05/12/17 02:32 75 18 110/83 98 Room Air 05/12/17 01:18 36.5 78 20 151/86 98 Room Air Laboratory Results Test 05/12/17 01:35 Urine Color YELLOW Urine Appearance CLEAR (CLEAR) Urine pH 6.0 (4.5-7.5) Urine Specific [place] 1.012 (1.000-1.030) Urine Protein NEG (NEG) Urine Glucose (UA) NEG (NEG) Urine Ketones NEG (NEG) Urine Occult Blood NEG (NEG) Urine Nitrite NEG (NEG) Urine Bilirubin NEG (NEG) Urine Urobilinogen NEG (NEG) Urine Leukocyte Esterase MODERATE (NEG) Urine WBC (Auto) >30 /hpf (0-5) Urine RBC (Auto) 0-4 /hpf (0-4) Urine Hyaline Casts (Auto) 1-5 /lpf (0-5) Urine Epithelial Cells (Auto) 20-30 /lpf (0-5) Urine Bacteria (Auto) NEG (NEG) Departure Information Impression Primary Impression: Dysuria Dispostion Home / Self-Care Condition GOOD Referrals Curtis Varela M.D. (PCP) Forms HOME CARE DOCUMENTATION FORM, IMPORTANT VISIT INFORMATION Patient Instructions My [facility] Additional Instructions You were seen and evaluated today on an emergency basis only. This is not a substitute for, or an effort to provide, complete comprehensive medical care. It is not possible to recognize and treat all injuries or illnesses in a single emergency department visit. For this reason it is recommended that you followup with your primary care physician with any ongoing or persistent symptoms. We will call you if your urine culture shows infection. Try different baby wipes as you may be sensitive to your other brand. You are welcome to return to the emergency department anytime with new, worsening, or concerning symptoms.
== END 2017-05-12 02:53 | disposition home or self-care (01) ==
LOC: C.EDB 01:16 → C.EDA 02:53
DX: R30.0 Dysuria (principal); K21.9 Gastro-esophageal reflux disease without esophagitis; M81.0 Age-related osteoporosis without current pathological fracture; Z88.1 Allergy status to other antibiotic agents; Z88.2 Allergy status to sulfonamides; Z88.6 Allergy status to analgesic agent

== ENCOUNTER 2017-06-09 02:32 | Emergency (ER) | payer OTHER ==
[~2017-06-09] VITALS: Ht 149.9 cm; Wt 61.5 kg
[2017-06-09 02:37] VITALS: TEMP 36.3; Ht 149.9 cm; Wt 61.5 kg
[2017-06-09] MEDS ORDERED: SODIUM CHLORIDE 0.9% 250ML 250 ML IV STA (02:46)
[2017-06-09 03:12] LABS: BASO % 0.2 %; BASO ABS # 0.01 K/uL (0-0.2); EOS % 1.1 %; EOS ABS # 0.05 K/uL (0-0.5); HEMATOCRIT 40.5 % (37-47); HEMOGLOBIN 13.5 g/dL (12.0-16.0); IG# 0.01 K/uL (0.00-0.02); LYMPH % 26.7 %; LYMPH ABS # 1.25 K/uL (1.2-3.4); MEAN CORPUSCULAR HEMOGLOBIN 30.3 pg (25-34); MEAN CORPUSCULAR HGB CONC 33.3 g/dl (32-36); MEAN PLATELET VOLUME 10.6 fL (7.4-10.4); MONO % 11.1 %; MONO ABS # 0.52 K/uL (0.11-0.59); NEUT % 60.7 %; NEUT ABS # 2.84 K/uL (1.4-6.5); PLATELET COUNT 168 K/uL (130-400); RED CELL DISTRIBUTION WIDTH CV 13.5 % (11.5-14.5); RED CELL DISTRIBUTION WIDTH SD 44.9 fL (36.4-46.3); WHITE BLOOD COUNT 4.68 K/uL (4.8-10.8)
[2017-06-09 03:30] LABS: ALBUMIN 3.4 gm/dl (3.4-5.0); ALT/SGPT 24 U/L (12-78); AST/SGOT 15 U/L (15-37); BLOOD UREA NITROGEN 24 mg/dl (7-18); CALCIUM 9.2 mg/dl (8.5-10.1); CARBON DIOXIDE 28 mmol/L (21-32); GLUCOSE 95 mg/dl (70-99); POTASSIUM 3.8 mmol/L (3.5-5.1); SODIUM 138 mmol/L (136-145)
[2017-06-09 03:33] LABS: ALKALINE PHOSPHATASE 66 U/L (45-117); TOTAL PROTEIN 6.9 gm/dl (6.4-8.2)
[2017-06-09] MEDS ORDERED: SODIUM CHLORIDE 0.9% 1000ML 1,000 ML IV STA (03:36)
--- NOTE | 2017-06-09 03:39 | EMERGENCY ROOM VISIT NOTE ---
History Report prepared by Shawn: Ever El Under the Supervision of: Dr. Annie Lester M.D. First contact with patient: 02:46 Chief Complaint: SYNCOPE (NEAR SYNCOPE) Stated Complaint: FEELING FAINT Nursing Triage Summary: PT HX of esophageal spasms. PT has had esophagous stretched, PT since last July states "I have not been feeling well at all, I have no appetite an I am nauseated." PT C/O weakness, not feeling well and "I get chills and hot flashes " History of Present Illness The patient is a 77 year old female who presents to the Emergency Room with complaints of constant weakness occurring tonight. The patient states that she felt as though she was going to pass out tonight when she was trying to sleep. She notes that she believes that she might be dehydrated because she is unable to eat and drink a lot due to her esophageal spasms. She reports that she constantly feels sick and complains of nausea and a headache. She denies any CP and SOB. She denies v/d. Source of History: patient Onset: tonight Position: other (global) Quality: other (weakness) Timing: constant Associated Symptoms: + headache, + nausea, No chest pain, No SOB Review of Systems See HPI for pertinent positives & negatives. A total of 10 systems reviewed and were otherwise negative. 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 (9) Osteoporosis (10) Suicidal ideation (11) Urinary frequency Surgical Problems: (1) Post-operative state Family History Diabetes mellitus Gallbladder disease Heart disease Hypertension Kidney stones Social History Smoking Status: Never Smoker Alcohol Use: none Drug Use: none Marital Status: Housing Status: lives with family Occupation Status: retired Current/Historical Medications Scheduled Cholecalciferol (Vitamin D-3), 2,000 UNITS PO QAM Hydrochlorothiazide (Hctz), 12.5 MG PO QAM Omeprazole (Prilosec), 40 MG PO DAILY Polyethylene Glycol 3350 (Miralax), 1 TSP PO DAILY Potassium Chloride (Potassium Chloride), 15 ML PO DAILY Simvastatin (Zocor), 10 MG PO QPM Allergies Coded Allergies: Cephalexin (Verified Allergy, Severe, THROAT SWELLING, 06/09/17) Patient reports throat swelling, weakness Sulfamethoxazole w/Trimethoprim (Verified Allergy, Severe, angioedema , ) Levofloxacin (Verified Allergy, Intermediate, HANDS SWELLING, 06/09/17) Nitrofurantoin (Verified Allergy, Intermediate, chest pain, h/a, sore throat, diarrhea., 06/09/17) Quinolones (Verified Allergy, Mild, HAND SWELLED UP, 06/09/17) Sulfa Antibiotics (Verified Allergy, Unknown, unknown, 06/09/17) Codeine (Verified Adverse Reaction, Mild, SEVERE CONSTIPATION, 06/09/17) Uncoded Allergies: FIBERGLASS (Allergy, Intermediate, HIVES, 09/26/16) Physical Exam Vital Signs Date Time Temp Pulse Resp B/P (MAP) Pulse Ox O2 Delivery O2 Flow Rate FiO2 06/09/17 06:26 63 18 144/94 98 Room Air 06/09/17 04:47 63 20 153/99 98 Room Air 06/09/17 03:28 71 128/95 66 151/104 86 119/101 06/09/17 03:00 83 06/09/17 02:37 36.3 76 18 144/90 96 Room Air Physical Exam Vital signs reviewed. General: Thin and frail female, in no significant distress. Positive orthostatics. HEENT: No scleral icterus, PERRLA, neck supple. Atraumatic. Dry MM. Cardiovascular: Regular rate and rhythm, no extra sounds. Pulmonary: Clear to auscultation bilaterally, normal work of breathing. Abdomen: Soft, nontender, nondistended, positive bowel sounds. Musculoskeletal: Atraumatic, no peripheral edema. Neurologic: Patient awake alert and oriented x 3, full strength in all 4 extremities. Cranial nerves 2 through 12 grossly intact. Skin: Warm, dry, no rash Medical Decision & Procedures Laboratory Results 06/09/17 03:00 Red Blood Count 4.45, Mean Corpuscular Volume 91.0, Mean Corpuscular Hemoglobin 30.3, Mean Corpuscular Hemoglobin Concent 33.3, Mean Platelet Volume 10.6, Neutrophils (%) (Auto) 60.7, Lymphocytes (%) (Auto) 26.7, Monocytes (%) (Auto) 11.1, Eosinophils (%) (Auto) 1.1, Basophils (%) (Auto) 0.2, Neutrophils # (Auto ) 2.84, Lymphocytes # (Auto) 1.25, Monocytes # (Auto) 0.52, Eosinophils # (Auto ) 0.05, Basophils # (Auto) 0.01 06/09/17 03:00 Test 06/09/17 03:00 06/09/17 04:45 White Blood Count 4.68 K/uL (4.8-10.8) Red Blood Count 4.45 M/uL (4.2-5.4) Hemoglobin 13.5 g/dL (12.0-16.0) Hematocrit 40.5 % (37-47) Mean Corpuscular Volume 91.0 fL (80-100) Mean Corpuscular Hemoglobin 30.3 pg (25-34) Mean Corpuscular Hemoglobin Concent 33.3 g/dl (32-36) Platelet Count 168 K/uL (130-400) Mean Platelet Volume 10.6 fL (7.4-10.4) Neutrophils (%) (Auto) 60.7 % Lymphocytes (%) (Auto) 26.7 % Monocytes (%) (Auto) 11.1 % Eosinophils (%) (Auto) 1.1 % Basophils (%) (Auto) 0.2 % Neutrophils # (Auto) 2.84 K/uL (1.4-6.5) Lymphocytes # (Auto) 1.25 K/uL (1.2-3.4) Monocytes # (Auto) 0.52 K/uL (0.11-0.59) Eosinophils # (Auto) 0.05 K/uL (0-0.5) Basophils # (Auto) 0.01 K/uL (0-0.2) RDW Standard Deviation 44.9 fL (36.4-46.3) RDW Coefficient of Variation 13.5 % (11.5-14.5) Immature Granulocyte % (Auto) 0.2 % Immature Granulocyte # (Auto) 0.01 K/uL (0.00-0.02) Anion Gap 6.0 mmol/L (3-11) Est Creatinine Clear Calc Drug Dose 53.7 ml/min Estimated GFR () 96.9 Estimated GFR (Non- 83.6 BUN/Creatinine Ratio 33.6 (10-20) Calcium Level 9.2 mg/dl (8.5-10.1) Magnesium Level 2.2 mg/dl (1.8-2.4) Total Bilirubin 0.4 mg/dl (0.2-1) Direct Bilirubin < 0.1 mg/dl (0-0.2) Aspartate Amino Transf (AST/SGOT) 15 U/L (15-37) Alanine Aminotransferase (ALT/SGPT) 24 U/L (12-78) Alkaline Phosphatase 66 U/L (45-117) Total Protein 6.9 gm/dl (6.4-8.2) Albumin 3.4 gm/dl (3.4-5.0) Urine Color YELLOW Urine Appearance CLEAR (CLEAR) Urine pH 8.0 (4.5-7.5) Urine Specific [place] 1.010 (1.000-1.030) Urine Protein NEG (NEG) Urine Glucose (UA) NEG (NEG) Urine Ketones NEG (NEG) Urine Occult Blood NEG (NEG) Urine Nitrite NEG (NEG) Urine Bilirubin NEG (NEG) Urine Urobilinogen NEG (NEG) Urine Leukocyte Esterase SMALL (NEG) Urine WBC (Auto) 5-10 /hpf (0-5) Urine RBC (Auto) 0-4 /hpf (0-4) Urine Hyaline Casts (Auto) 0 /lpf (0-5) Urine Epithelial Cells (Auto) 5-10 /lpf (0-5) Urine Bacteria (Auto) NEG (NEG) Laboratory results per my review. Medications Administered Medications (Trade) Dose Ordered Sig/Deirdre Route Start Time Stop Time Status Last Admin Dose Admin Sodium Chloride 250 ml @ 999 mls/hr Q16M STAT IV 06/09/17 02:46 06/09/17 03:01 DC 06/09/17 03:55 999 MLS/HR Sodium Chloride 1,000 ml @ 150 mls/hr Q6H40M STAT IV 06/09/17 03:36 06/09/17 06:49 DC 06/09/17 04:25 150 MLS/HR ECG Per My Interpretation Indication: weakness Rate (beats per minute): 67 Rhythm: sinus rhythm (with premature atrial complexes) Findings: PAC (frequent), no acute ischemic change ED Course 0246: Sodium Chloride 250 ml @ 999 mls/hr IV 0335: Past medical records reviewed. The patient was evaluated in room B2. A complete history and physical examination was performed. 0604: Upon reevaluation, the patient appeared to have improvement of her symptoms. I discussed findings with her. She verbalized agreement of the treatment plan. The patient was discharged home. Medical Decision Differential diagnosis: Etiologies such as metabolic, infection, hypo/hyperglycemia, electrolyte abnormalities, cardiac sources, intracerebral event, toxicologic, neurologic, as well as others were entertained. This pt was evaluated and appeared to b in no distress. Pt is found to be orthostatic. Lab evaluation is fairly stable. Minimal leukopenia. UA is negative. EKG reveals PACs, no acute ischemia. Pt was hydrated with NSS. She was able to tolerate a po trial. I suspect the pt has poor po intake r/t esophageal dysmotility. SHe was encouraged to speak with her PCP and GI for further management. She will return to the ED for worsening of symptoms or any medical concerns. Medication Reconcilliation Current Medication List: was personally reviewed by me Blood Pressure Screening Patient's blood pressure: Elevated blood pressure Blood pressure disposition: Elevated BP felt to be situational Impression Primary Impression: Syncope, near Additional Impression: Orthostasis Scribe Attestation The scribe's documentation has been prepared under my direction and personally reviewed by me in its entirety. I confirm that the note above accurately reflects all work, treatment, procedures, and medical decision making performed by me. Departure Information Dispostion Home / Self-Care Referrals Curtis Varela M.D. (PCP) Forms HOME CARE DOCUMENTATION FORM, IMPORTANT VISIT INFORMATION Patient Instructions My [facility] Additional Instructions Diagnosis: Near syncope, orthostasis Please follow-up with your primary care physician this week for reevaluation. Continue to drink plenty of clear fluids and eat frequent small meals. Return to the emergency department for worsening of symptoms or any medical concerns. Problem Qualifiers
[2017-06-09 06:26] VITALS: BP 144/94; PULSE 63; O2SAT 98
== END 2017-06-09 06:30 | disposition home or self-care (01) ==
LOC: C.EDB 02:33
DX: R55 Syncope and collapse (principal); R53.1 Weakness; R11.0 Nausea; R51 Headache; I49.1 Atrial premature depolarization; K22.4 Dyskinesia of esophagus; M81.0 Age-related osteoporosis without current pathological fracture; K21.9 Gastro-esophageal reflux disease without esophagitis; Z79.899 Other long term (current) drug therapy; Z88.1 Allergy status to other antibiotic agents; Z88.2 Allergy status to sulfonamides; Z88.5 Allergy status to narcotic agent; Z88.8 Allergy status to other drugs, medicaments and biological substances; Z82.49 Family history of ischemic heart disease and other diseases of the circulatory system; Z83.3 Family history of diabetes mellitus; Z83.79 Family history of other diseases of the digestive system; Z84.1 Family history of disorders of kidney and ureter

== ENCOUNTER → 2017-06-13 | Outpatient (CLI) | payer OTHER ==
--- NOTE | 2017-06-14 05:39 | PAP/PSG TECHNICIAN REPORT ---
[facility] Backing In Machine Tender Polysomnogram Report Study name: None Report date: 06/14/2017 Study date: 06/13/2017 Referring Physician: Ursula Low M.D. Name: JOSIE LUJAN Interpreting Physician: Julio C Gramajo M.D. Date of : 1940 Backing In Machine Tender: MARLENY Wiseman. Sex: Female Age: 77 StudyType: PSG Weight: 134 lbs Height: 77 years, Height 5' 3" Neck Circum 12.2 inches BMI: 23.73 Medications: Simvastatin 10 mg, Omeprazole 40 mg, Ondansetron 4 mg, Hydrochlorothiazide 25 mg, Potassium Chloride 20 meq/15 ml, Zoledronic Acid 5 mg/100 ml, Cephalexin 250 mg/5 ml, nitrofurantoin 25 mg/5 ml, pyridium 100 mg Patient History 77 yr. old female here for a diagnostic sleep study in room 7. Patient complains of not sleeping well. She also has issues with her esophagus and cannot eat solid food. Patients [place] Sleepiness Scale Score is 8/24 Parameters Monitored NPSG: E1-M2, E2-M1, Fp1-M2, Fp2-M1, F3-M2, F4-M2, F4-M1, C3-M2, C4-M2, C4-M1, O1-M2, O2-M2, O2-M1, T3-M2, T4-M1, P3-M2, P4-M1, CHIN1, CHIN2, HR, EKG, Legs, PFLOW, SNOR, FLOW, CFLOW, Tidal Volume, THOR, ABDO, SpO2, PLTH, CPRESS, ETCO2 Wave, ETCO2, pH Sleep Architecture Sleep Stages Time at Lights Off 10:02:17 PM STAGES Time (min.) TST (%) Time at Lights On 5:33:17 AM Wake 132.5 -- Total Recording Time (TRT) 451.00 min. N1 62.0 19 Total Sleep Period (TSP) 424.0 min. N2 183.5 58 Total Sleep Time (TST) 318.5min. N3 33.0 10 Awake Time 132.5 min. REM 40.0 13 Wake after Sleep Onset 105.5 min. Sleep Efficiency (SE) 71 % Sleep Onset Latency (DEL) 27.0 min. Number of Stage 1 Shifts None Awakenings 34 Stage Changes 130 Number of REM periods 2 REM 40.0 13 REM Latency 225.0 min. NREM 278.5 87 Body Position Analysis Supine Right Left Side Prone Vertical Total Sleep Time (min.) 231.2 79.0 99.0 178.00 0.0 0.0 Total Sleep Time (%) 44% 25% 31% 56 0% N/A% Total Sleep Time REM (min.) 10.0 0.0 30.0 None 0.0 0.0 Total Sleep Time NREM (min.) 130.5 79.0 69.0 None 0.0 0.0 Intermittent Wake (min.) 90.7 27.3 14.5 None 0.0 0.0 Total Sleep Period (%) 48% None None None None None Arousals Myoclonus (PLM) * Events Count Index Events Count Index Spontaneous 18 3 Events Awake (PLMW) 93 42.1 Respiratory 20 5.8 Events Asleep w/ Arousal (PLMA) 14 2.6 PLM 14 3 Events Asleep w/o Arousal (PLMS) 119 22.4 Snoring 6 1 Total Asleep 133 25.1 Total 58 11 Total 226 30 Respiratory Analysis * CA OA MA CH H RERA Total Count 0 12 0 0 57 8 69 Index 0.0 2.3 0.0 0 10.7 2 14.5 Mean Duration 0.0 15.1 0.0 0.00 27.4 23.8 25.1 Longest Duration 0.0 22.4 0.0 0.00 0.0 34.1 59.1 Respiratory Event Summary Total Supine ~Supine Right Left Prone REM NREM Apneas Count 12 12 0 0 0 N/A 0 12 Index 2.3 5 0 0.0 0.0 N/A 0 3 Hypopneas (4% Desat) Count 57 55 2 1 1 N/A 1 56 Index 10.7 23.5 1 0.8 0.6 N/A 1.5 12.1 Apneas & All Hypopneas Count 69 67 2 1 1 N/A 1 68 Index 13.0 29 1 1 1 N/A 1.5 14.6 Respiratory Events (Real Estate Associate+All Hyp+RERA) Count 69 75 2 1 1 N/A 1 68 Index 14.5 32 1 0.8 0.6 N/A 1.5 16.4 Respiratory Related Arousal Count 20 75 0 0 0 N/A 0 31 Index 5.8 13 0 0 0 N/A 0 7 Snoring Analysis Supine Right Left Prone REM NREM Total Snore duration 1.8 min Snores count 29 8 11 N/A 1 47 48 Snore mean duration 2.2 Sec Snores index 12 6 7 N/A 1.5 10.1 9.0 TST with snoring (%) 0.6% SpO2 Analysis Total REM NREM Awake <50% 0.0 min. 0.0 min. 0.0 min. 0.0 min. 51 - 60% 0.0 min. 0.0 min. 0.0 min. 0.0 min. 61 - 70% 0.0 min. 0.0 min. 0.0 min. 0.0 min. 71 - 80% 0.0 min. 0.0 min. 0.0 min. 0.0 min. 81 - 90% 262.2 min. 31.8 min. 183.4 min. 46.9 min. 91 - 100% 181.4 min. 8.2 min. 95.0 min. 78.2 min. Average 90 89 90 91 Minimum SpO2 81 86 81 82 Desaturation Event Index 11.3 3.0 12.5 12.2 # Desat. Events below 89% 71 2 53 16 Time(%) with Saturation below 89% 17.1 1.8 11.3 4.1 Time(min.) with Saturation below 89% 76.0 8.1 49.9 18.0 Heart Rate Analysis End Tidal CO2 Analysis Min (bpm) Max (bpm) Average (bpm) TSP (mins) % of TSP Awake 37 127 66 Above 55 mmHg 0.0 0.0 NREM 35 87 57 50-55 mmHg 0.0 0.0 REM 37 78 59 45-50 mmHg 0.0 0.0 Overall 35 87 57 40-45 mmHg 8.6 2.7 35-40 mmHg 143.9 45.2 30-35 mmHg 94.1 29.6 Average ETCO2 0.2 Supplemental O2 Values Minimum O2 level: None Value Start Time End Time Backing In Machine Tender Comments Mrs. Lujan slept elevated in the right, left, and supine positions. Cardiac arrhythmia and PLMs noted. No bruxism noted. Snoring was noted and scored as a 1 on a scale of 0 through 5. (0=no snoring, 5=snoring loud enough to be heard through a closed door or down the [address]emp way) Mrs. Lujan awoke to use the restroom once during the night. Mrs. Lujan stated, that was a normal night. The final report will be interpreted and signed by a sleep physician. The completed physician report will then be placed in the patient medical record. Therapy (cm H2O) 0 TIB (min.) 451.0 TST (min.) 318.5 Sleep Onset (min.) 27.0 REM Onset From Sleep (min.) 225.0 Sleep Efficiency % 71 Wakefulness (%) 29 Wakefulness (min.) 132.5 NREM 1 (%) 19 NREM 1 (min.) 62.0 NREM 2 (%) 58 NREM 2 (min.) 183.5 NREM 3 (%) 10 NREM 3 (min.) 33.0 REM (%) 13 REM (min.) 40.0 # Arousals 58 Arousal Index 11 # Snore 48 Snore Index 9.0 AHI 13.0 AHI Supine 29 AHI Non-Supine 1 NREM AHI 14.6 REM AHI 1.5 RDI 14.5 # Obstructive Apnea 12 # Central Apnea 0 # Mixed Apnea 0 # Hypopneas 57 RERAs 8 Total Respiratory Events 81 Time Below SpO2 89% (min.) 58.0 Mean NREM SpO2 (%) 90 Mean REM SpO2 (%) 89 Mean Sleep SpO2 (%) 90 Min NREM SpO2 (%) 81 Min REM SpO2 (%) 86 Position Supine (min.) 231.2 Position Non-supine (min.) 178.0 LM Index Sleep 25.1 LM Index NREM 25.9 LM Index REM 19.5 Mean Heart Rate (bpm) 57 Min Heart Rate (bpm) 35
--- NOTE | 2017-06-15 10:36 | POLYSOMNOGRAPH REPORT ---
CLINICAL DATA: A 77-year-old female with a BMI of 23.[address] Ursula Low with complaints of fatigue and poor quality sleep. Her [place] sleepiness score is 8/24. SLEEP ARCHITECTURE: Total sleep period was 424 minutes. Total sleep time was 318.5 minutes divided between 278.5 minutes of non-REM sleep and 40 minutes of REM sleep. Sleep onset latency was 27 minutes. REM latency was delayed at 225 minutes. Sleep efficiency was reduced at 71%. Wake after sleep onset was elevated at 105.5 minutes. Sleep consisted of stage N1 19%, stage N2 58%, stage N3 10%, and REM 13%. AROUSAL DATA: 58 arousals were recorded for an index of 11 per hour. PLM DATA: Mildly elevated limb movements in sleep were noted. There were 133 limb movements during sleep noted for an index of 25.1 per hour with arousal index of 2.6 per hour. RESPIRATORY DATA: Mild sleep apnea was documented. The AHI was 13. The RDI was 14.5. There were 12 obstructive apneic episodes. The longest duration of apnea was 22.4 seconds. There were 57 hypopneic episodes. The mean duration of hypopnea was 27.4 seconds. There were 8 RERAs. Longest RERA was 34.1 seconds. OXIMETRY DATA: Nocturnal hypoxemia was seen. Oxygen hanny was 81%. Mean saturation was 90%. Time below 89% was 76 minutes. EKG: Heart rate ranged from 35-87 beats per minute. PACs with aberrant conduction were noted. BRAND ADVISOR'S COMMENTS: The patient slept in the right, left, and supine position. Snoring was mild, rated 1 on a scale of 1-5. IMPRESSION: Mild sleep apnea/hypopnea with an AHI of 13 and an RDI of 14.5 with nocturnal hypoxemia. RECOMMENDATIONS: The patient may benefit from a repeat sleep study with CPAP, use of auto CPAP, use of an oral appliance, or sleep medicine consultation. Clinical correlation is needed. JOSEPH
== END | disposition home or self-care (01) ==
LOC: C.NEUR 20:00
PROVIDERS: ATTEND Family Medicine Adult Medicine
DX: G47.30 Sleep apnea, unspecified (principal); G47.19 Other hypersomnia; Z68.23 Body mass index [BMI] 23.0-23.9, adult; R53.83 Other fatigue; K22.4 Dyskinesia of esophagus; E55.9 Vitamin D deficiency, unspecified; I10 Essential (primary) hypertension; F41.9 Anxiety disorder, unspecified; E78.5 Hyperlipidemia, unspecified; Z79.899 Other long term (current) drug therapy

== ENCOUNTER → 2017-07-18 | Outpatient (CLI) | payer OTHER ==
[2017-07-18 12:23] LABS: BASO % 0.4 %; BASO ABS # 0.02 K/uL (0-0.2); EOS % 1.4 %; EOS ABS # 0.07 K/uL (0-0.5); HEMATOCRIT 41.9 % (37-47); HEMOGLOBIN 13.7 g/dL (12.0-16.0); IG# 0.01 K/uL (0.00-0.02); LYMPH % 20.9 %; LYMPH ABS # 1.06 K/uL (1.2-3.4); MEAN CELL VOLUME 91.5 fL (80-100); MEAN CORPUSCULAR HEMOGLOBIN 29.9 pg (25-34); MEAN CORPUSCULAR HGB CONC 32.7 g/dl (32-36); MEAN PLATELET VOLUME 11.9 fL (7.4-10.4); MONO % 7.3 %; MONO ABS # 0.37 K/uL (0.11-0.59); NEUT % 69.8 %; NEUT ABS # 3.53 K/uL (1.4-6.5); PLATELET COUNT 192 K/uL (130-400); RED CELL DISTRIBUTION WIDTH CV 13.8 % (11.5-14.5); RED CELL DISTRIBUTION WIDTH SD 45.8 fL (36.4-46.3); WHITE BLOOD COUNT 5.06 K/uL (4.8-10.8)
[2017-07-18 12:48] LABS: ALBUMIN 3.4 gm/dl (3.4-5.0); ALKALINE PHOSPHATASE 75 U/L (45-117); ALT/SGPT 30 U/L (12-78); AST/SGOT 21 U/L (15-37); BLOOD UREA NITROGEN 23 mg/dl (7-18); CALCIUM 8.4 mg/dl (8.5-10.1); CARBON DIOXIDE 31 mmol/L (21-32); CREATININE 0.76 mg/dl (0.60-1.20); GLUCOSE 89 mg/dl (70-99); SODIUM 141 mmol/L (136-145)
[2017-07-18 12:56] LABS: CHOLESTEROL 122 mg/dl (0-200); LDL CHOLESTEROL CALCULATED 35 mg/dl
== END | disposition home or self-care (01) ==
LOC: C.LAB 10:25
PROVIDERS: ATTEND Internal Medicine Geriatric Medicine
DX: I10 Essential (primary) hypertension (principal); M19.90 Unspecified osteoarthritis, unspecified site; M81.0 Age-related osteoporosis without current pathological fracture; E78.5 Hyperlipidemia, unspecified; E55.9 Vitamin D deficiency, unspecified; R13.10 Dysphagia, unspecified; E87.6 Hypokalemia; E04.2 Nontoxic multinodular goiter; R63.4 Abnormal weight loss; F41.9 Anxiety disorder, unspecified

== ENCOUNTER → 2017-09-28 | Outpatient (CLI) | payer OTHER ==
[~2017-09-28] MED LIST changes: +ACET1SUS56 PO; +CLOT10TR PO; -HYDR25TA4 PO; +MOUT1LIQ45 PO; +ONDA4TAB10 SL; -POTA20SO2 PO; +TRAM-10 PO; +TRAM-453 PO
--- NOTE | 2017-09-28 15:18 | DIAGNOSTIC IMAGING REPORT ---
KUB HISTORY: N20.0 Nephrolithiasis [id number] COMPARISON: KUB 09/20/2017. FINDINGS: The bowel gas pattern is unremarkable. There are no dilated loops of small bowel to suggest an obstruction. No right renal calculi. There are 2 stones within the left kidney which measure 5 mm each. No ureteral calculi. Calcifications in the deep pelvis likely represent phleboliths. These remain unchanged. No pneumoperitoneum or pneumatosis. IMPRESSION: Stable left-sided nephrolithiasis. No ureteral calculi. Electronically signed by: Dustin De La O M.D. 09/28/2017 3:17 PM Dictated Date/Time: 09/28/2017 3:16 PM
[2017-09-28 15:40] LABS: BASO % 0.2 %; BASO ABS # 0.01 K/uL (0-0.2); EOS % 0.7 %; EOS ABS # 0.03 K/uL (0-0.5); HEMATOCRIT 39.6 % (37-47); HEMOGLOBIN 12.9 g/dL (12.0-16.0); IG# 0.01 K/uL (0.00-0.02); LYMPH % 25.3 %; LYMPH ABS # 1.05 K/uL (1.2-3.4); MEAN CORPUSCULAR HEMOGLOBIN 30.3 pg (25-34); MEAN CORPUSCULAR HGB CONC 32.6 g/dl (32-36); MONO ABS # 0.33 K/uL (0.11-0.59); NEUT % 65.6 %; NEUT ABS # 2.72 K/uL (1.4-6.5); PLATELET COUNT 168 K/uL (130-400); RED CELL DISTRIBUTION WIDTH CV 13.8 % (11.5-14.5); WHITE BLOOD COUNT 4.15 K/uL (4.8-10.8)
[2017-09-28 16:13] LABS: ALBUMIN 3.4 gm/dl (3.4-5.0); ALKALINE PHOSPHATASE 67 U/L (45-117); ALT/SGPT 29 U/L (12-78); AST/SGOT 20 U/L (15-37); BLOOD UREA NITROGEN 20 mg/dl (7-18); CALCIUM 8.6 mg/dl (8.5-10.1); CARBON DIOXIDE 29 mmol/L (21-32); CREATININE 0.68 mg/dl (0.60-1.20); GLUCOSE 93 mg/dl (70-99); POTASSIUM 3.7 mmol/L (3.5-5.1); SODIUM 142 mmol/L (136-145)
== END | disposition home or self-care (01) ==
LOC: C.RAD 14:38
PROVIDERS: ATTEND Urology
DX: N20.0 Calculus of kidney (principal); K21.9 Gastro-esophageal reflux disease without esophagitis; K22.4 Dyskinesia of esophagus

== ENCOUNTER → 2017-10-11 | Outpatient (CLI) | payer OTHER ==
[~2017-10-11] MED LIST changes: -TRAM-453 PO
--- NOTE | 2017-10-11 17:04 | DIAGNOSTIC IMAGING REPORT ---
KUB HISTORY: Follow-up study in a patient with nephrolithiasis N20.0 Nephrolithiasis COMPARISON: KUB 09/28/2017 FINDINGS: The bowel gas pattern is non-obstructive. Calcification of the aorta. There is no organomegaly. 5 mm calculus of the left kidney. The previously described additional 5 mm left renal calculus is not definitively seen on today's study. No definite ureteral calculi. Punctate bony density overlying the left mid sacrum is unchanged. Calcifications of the pelvis suggest phleboliths. No pneumoperitoneum or pneumatosis. No fracture. Multilevel degenerative changes of the spine. IMPRESSION: Left nephrolithiasis with 5 mm calculus noted. The previously described additional 5 mm left renal calculus is not identified. No ureteral calculi are seen. Electronically signed by: Nagi Ellis M.D. 10/11/2017 5:02 PM Dictated Date/Time: 10/11/2017 4:59 PM
== END | disposition home or self-care (01) ==
LOC: C.RAD 16:40
PROVIDERS: ATTEND Urology
DX: N20.0 Calculus of kidney (principal)

== ENCOUNTER → 2017-10-12 | Outpatient (CLI) | payer OTHER | END | disposition home or self-care (01) | LOC: C.LABSPEC 10:00 | PROVIDERS: ATTEND Urology | DX: N20.0 Calculus of kidney (principal) ==

== ENCOUNTER → 2017-10-23 | Outpatient (CLI) | payer OTHER ==
--- NOTE | 2017-10-23 13:24 | DIAGNOSTIC IMAGING REPORT ---
CHEST 2 VIEWS ROUTINE CLINICAL HISTORY: Headache. Hypertension. COMPARISON STUDY: Chest radiograph August 21, 2017. FINDINGS: Lung volumes are normal. There is no pneumothorax or pleural effusion. There is no evidence for pulmonary edema. Moderate cardiomegaly is unchanged. Tortuosity of the descending thoracic aorta is unchanged. There is no consolidation to suggest pneumonia. IMPRESSION: No acute cardiopulmonary findings. No change in appearance of the chest. Electronically signed by: Jerzy Combs M.D. 10/23/2017 1:23 PM Dictated Date/Time: 10/23/2017 1:21 PM
[2017-10-23 17:13] LABS: EOS % 0.6 %; EOS ABS # 0.03 K/uL (0-0.5); HEMATOCRIT 42.1 % (37-47); HEMOGLOBIN 13.8 g/dL (12.0-16.0); IG# 0.01 K/uL (0.00-0.02); LYMPH % 21.5 %; MEAN CELL VOLUME 95.2 fL (80-100); MEAN CORPUSCULAR HEMOGLOBIN 31.2 pg (25-34); MEAN CORPUSCULAR HGB CONC 32.8 g/dl (32-36); MEAN PLATELET VOLUME 12.4 fL (7.4-10.4); MONO % 9.8 %; NEUT % 67.9 %; NEUT ABS # 3.48 K/uL (1.4-6.5); PLATELET COUNT 185 K/uL (130-400); RED CELL DISTRIBUTION WIDTH SD 48.9 fL (36.4-46.3); WHITE BLOOD COUNT 5.12 K/uL (4.8-10.8)
[2017-10-23 17:30] LABS: BLOOD UREA NITROGEN 21 mg/dl (7-18); CALCIUM 9.2 mg/dl (8.5-10.1); CARBON DIOXIDE 30 mmol/L (21-32); CREATININE 0.76 mg/dl (0.60-1.20); GLUCOSE 90 mg/dl (70-99); POTASSIUM 3.6 mmol/L (3.5-5.1); SODIUM 139 mmol/L (136-145)
== END | disposition home or self-care (01) ==
LOC: C.RADBC 12:20
PROVIDERS: ATTEND Physician Assistant Medical
DX: R51 Headache (principal); I10 Essential (primary) hypertension; E87.6 Hypokalemia; R68.89 Other general symptoms and signs

== ENCOUNTER 2017-10-25 17:07 | Emergency (ER) | payer OTHER ==
[2017-10-25 17:24] VITALS: TEMP 36.9
[2017-10-25 18:47] VITALS: BP 173/107; PULSE 75; O2SAT 96
--- NOTE | 2017-10-25 19:10 | EMERGENCY ROOM VISIT NOTE ---
History Report prepared by Shawn: Yolie Henry Under the Supervision of: Dr. Deyvi Pierson M.D. First contact with patient: 18:03 Chief Complaint: HEADACHE Stated Complaint: HEADACHE, STOMACH PAIN History of Present Illness The patient is a 77 year old female who presents to the Emergency Room with complaints of an awful headache that began 2-3 days ago that she currently ranks a 2/10. She reports that the headache is located on the posterior side of her head and that she did not get it from head trauma or a fall. She notes that she used a wet, heated towel with no success along with Tylenol and one half of a Tramadol that made her groggy.The patient states that she saw her PCP Monday, 2 days ago, and she got blood work done which showed her WBC at 5.1, a clean UA , a renal function panel that was normal, and a lyme disease test that was equivocal. She also received a chest x-ray at her PCP which came back negative. The patient also states that she has stopped taking her blood pressure medication because it makes her tired and she did not want her BP to get too low , however her blood pressure has been high lately so she took half a tablet today. The patient also reports chronic back pain, not being able to eat, throat and tongue irritation, ankle swelling, abdominal pain, anxiety, feeling sleepy. She is not on any blood thinners. Onset: 2-3 days ago Position: head Symptom Intensity: 2/10 Quality: ache Modifying Factors (Relieving): tylenol Associated Symptoms: + abdominal pain, No LOC Review of Systems See HPI for pertinent positives & negatives. A total of 10 systems reviewed and were otherwise negative. 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 (10) Osteoporosis (11) Suicidal ideation (12) Urinary frequency (13) UTI (urinary tract infection) Surgical Problems: (1) Post-operative state Family History Diabetes mellitus Gallbladder disease Heart disease Hypertension Kidney stones Social History Smoking Status: Never Smoker Alcohol Use: none Drug Use: none Marital Status: Housing Status: lives with family Occupation Status: retired Current/Historical Medications Scheduled Cholecalciferol (Vitamin D-3), 2,000 INTER.UNIT PO QAM Mouthwashes (Biotene Dry Mouth Gentle), 1 DOSE PO DIRECTED Omeprazole (Prilosec), 40 MG PO DAILY Polyethylene Glycol 3350 (Miralax), 1 TSP PO DAILY Simvastatin (Zocor), 10 MG PO QPM Scheduled PRN Acetaminophen (Childrens Acetaminophen), 5 ML PO Q6 PRN for Pain Clotrimazole (Mycelex), 1 TAB PO 5XD PRN for THRUSH Ondasetron Odt (Zofran Odt), 4 MG SL Q6H PRN for Nausea Tramadol (Ultram), 50 MG PO Q6H PRN for Pain Allergies Coded Allergies: Cephalexin (Verified Allergy, Severe, THROAT SWELLING, 09/29/17) Patient reports throat swelling, weakness Sulfa Antibiotics (Verified Allergy, Severe, ANGIOEDEMA, 09/29/17) Sulfamethoxazole w/Trimethoprim (Verified Allergy, Severe, angioedema , ) Levofloxacin (Verified Allergy, Intermediate, HANDS SWELLING, 09/29/17) Nitrofurantoin (Verified Allergy, Intermediate, chest pain, h/a, sore throat, diarrhea., 09/29/17) Quinolones (Verified Allergy, Mild, HAND SWELLED UP, 09/29/17) Codeine (Verified Adverse Reaction, Mild, SEVERE CONSTIPATION, 09/25/17) Uncoded Allergies: FIBERGLASS (Allergy, Intermediate, HIVES, 09/26/16) Physical Exam Vital Signs Date Time Temp Pulse Resp B/P (MAP) Pulse Ox O2 Delivery O2 Flow Rate FiO2 10/25/17 18:47 75 18 173/107 96 10/25/17 17:24 36.9 76 20 183/113 97 Room Air Physical Exam GENERAL: Patient is in no acute distress. HEENT: No acute trauma, normocephalic atraumatic, mucous membranes moist, no nasal congestion, no scleral icterus. PERRL NECK: No stridor, no adenopathy, no meningismus, trachea is midline. LUNGS: Clear to auscultation bilaterally, no wheeze, no rhonchi, breath sounds equal. HEART: Without murmurs gallops or rubs, regular rate and rhythm. ABDOMEN: Soft, nontender, bowel sounds positive, no hernias, no peritonitis. EXTREMITIES: No cyanosis or edema, full range of motion of all the joints without pain or difficulty, no signs for acute trauma. NEUROLOGIC: Oriented x 3, no acute motor or sensory deficits, no focal weakness. No cerebral disfunction. No pronator drift. SKIN: No rash, no jaundice, no diaphoresis. Medical Decision & Procedures ED Course 1809: The patient was evaluated in room A11B. A complete history and physical exam was performed. Medical Decision Differential Diagnoses Intracranial bleeding, anxiety, tension headache, uncontrolled hypertension, and Lyme disease The patient presents with a headache which actually now, is quite a bit better than earlier. She has had a headache for around 3 days. The patient has thrush and is using clotrimazole troches for treatment. She has tramadol to use for pain, she has Tylenol to use for pain. She took some Tylenol and tramadol today and her headache is better, she thinks the headache has improved because of the medication. She stopped her blood pressure medication about a month ago but today her pressure was higher so she took half a tablet. The patient is not on any anticoagulants, she did not strike her head. She has not been confused. There has been no fever. On my exam, there are no focal neurologic findings. She does seem a little bit anxious and worried about things but in general I would say she examines well. I had a long discussion with the patient. I reviewed her blood work from 2 days ago, all this as noted in the HPI was essentially unremarkable except for her equivocal Lyme disease test. She does not want to start any anti-Lyme medication until the test is truly confirmed positive. I discussed imaging the brain with the patient, she does not want any imaging. She just really wanted to talk about her situation and to see if she should restart her blood pressure medication. She wanted to make sure it was okay to take Tylenol and tramadol together. I went over everything with the patient, she feels comfortable with discharge. Of note, the patient's blood pressure was elevated here, she is going to restart her blood pressure medication as before. I think the pressure elevation is partly from worry and anxiety, the elevated BP is also from stopping her BP meds about a month ago. Medication Reconcilliation Current Medication List: was personally reviewed by me Blood Pressure Screening Patient's blood pressure: Elevated blood pressure Blood pressure disposition: Referred to PCP Impression Primary Impression: Headache Additional Impression: Hypertension Scribe Attestation The scribe's documentation has been prepared under my direction and personally reviewed by me in its entirety. I confirm that the note above accurately reflects all work, treatment, procedures, and medical decision making performed by me. Departure Information Dispostion Home / Self-Care Referrals Curtis Varela M.D. (PCP) Forms HOME CARE DOCUMENTATION FORM, IMPORTANT VISIT INFORMATION Patient Instructions My [facility] Problem Qualifiers
== END 2017-10-25 18:49 | disposition home or self-care (01) ==
LOC: C.EDB 17:08 → C.EDA 18:49
DX: R51 Headache (principal); I10 Essential (primary) hypertension; K21.9 Gastro-esophageal reflux disease without esophagitis; Z88.1 Allergy status to other antibiotic agents; Z88.2 Allergy status to sulfonamides; Z88.6 Allergy status to analgesic agent

== ENCOUNTER 2017-11-05 11:57 | Emergency (ER) | payer OTHER ==
[~2017-11-05] VITALS: Ht 149.9 cm; Wt 62.1 kg
[2017-11-05 12:01] VITALS: TEMP 36.7; Ht 149.9 cm; Wt 62.1 kg
[2017-11-05] MEDS ORDERED: SODIUM CHLORIDE 0.9% 250ML 250 ML IV STA (12:25)
[2017-11-05] MEDS ORDERED: ONDANSETRON INJ 2 MG/ML 2 ML VIAL IV STA (12:25)
[2017-11-05] MEDS ORDERED: SODIUM CHLORIDE 0.9% 1000ML 1,000 ML IV STA (12:25)
--- NOTE | 2017-11-05 12:30 | EMERGENCY ROOM VISIT NOTE ---
History Report prepared by Shawn: Vernell Genao Under the Supervision of: Dr. Annie Lester M.D. First contact with patient: 12:11 Chief Complaint: VOMITING Stated Complaint: THROWING UP History of Present Illness The patient is a 77 year old female who presents to the Emergency Room with complaints of persistent vomiting that began this morning. The patient states that she is constantly nauseous and normally takes a pill for her nausea but this morning she began to vomit. The patient states that she woke up and felt nauseous so she took her nausea pill and then had a protein shake and the amoxicillin that she is currently prescribed for Lyme Disease. The patient states that she was unable to keep her breakfast and her amoxicillin down and vomited them up. The patient denies any blood in her vomit, and states that it is all yellow. The patient denies any diarrhea, chest pain, arm pain, jaw pain, or back pain. The patient states that she does not know if she has a fever. She states that her bowels were normal yesterday. The patient states that she is on her sixth day of the amoxicillin and states that she feels the same since starting this amoxicillin. Source of History: patient Onset: this morning Position: abdomen Quality: other (vomiting ) Timing: other (persistent ) Associated Symptoms: + nausea, No chest pain, No back pain, No diarrhea Review of Systems See HPI for pertinent positives & negatives. A total of 10 systems reviewed and were otherwise negative. 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 (10) Osteoporosis (11) Suicidal ideation (12) Urinary frequency (13) UTI (urinary tract infection) Surgical Problems: (1) Post-operative state Family History Diabetes mellitus Gallbladder disease Heart disease Hypertension Kidney stones Social History Smoking Status: Never Smoker Alcohol Use: none Drug Use: none Marital Status: Housing Status: lives with family Occupation Status: retired Current/Historical Medications Scheduled Cholecalciferol (Vitamin D-3), 2,000 INTER.UNIT PO QAM Mouthwashes (Biotene Dry Mouth Gentle), 1 DOSE PO DIRECTED Omeprazole (Prilosec), 40 MG PO DAILY Polyethylene Glycol 3350 (Miralax), 1 TSP PO DAILY Potassium Chloride 40 Meq/15 Ml (Potassium Chloride 40 Meq/15 Ml), 20 MEQ PO DAILY Simvastatin (Zocor), 10 MG PO QPM Scheduled PRN Acetaminophen (Childrens Acetaminophen), 5 ML PO Q6 PRN for Pain Clotrimazole (Mycelex), 1 TAB PO 5XD PRN for THRUSH Ondasetron Odt (Zofran Odt), 4 MG SL Q6H PRN for Nausea Tramadol (Ultram), 50 MG PO Q6H PRN for Pain Allergies Coded Allergies: Cephalexin (Verified Allergy, Severe, THROAT SWELLING, 11/07/17) Patient reports throat swelling, weakness Sulfa Antibiotics (Verified Allergy, Severe, ANGIOEDEMA, 11/07/17) Sulfamethoxazole w/Trimethoprim (Verified Allergy, Severe, angioedema , ) Levofloxacin (Verified Allergy, Intermediate, HANDS SWELLING, 11/07/17) Nitrofurantoin (Verified Allergy, Intermediate, chest pain, h/a, sore throat, diarrhea., 11/07/17) Quinolones (Verified Allergy, Mild, HAND SWELLED UP, 11/07/17) Codeine (Verified Adverse Reaction, Mild, SEVERE CONSTIPATION, 11/07/17) Uncoded Allergies: FIBERGLASS (Allergy, Intermediate, HIVES, 09/26/16) Physical Exam Vital Signs Date Time Temp Pulse Resp B/P (MAP) Pulse Ox O2 Delivery O2 Flow Rate FiO2 11/05/17 16:13 65 18 138/73 99 Room Air 11/05/17 15:00 70 20 160/91 96 Room Air 11/05/17 13:17 64 18 147/88 100 Room Air 11/05/17 12:01 36.7 81 16 171/103 97 Room Air Physical Exam Vital signs reviewed. General: Well-appearing 77 year old female, in no significant distress. HEENT: No scleral icterus, PERRLA, neck supple. Atraumatic. Cardiovascular: Regular rate and rhythm, no extra sounds. Pulmonary: Clear to auscultation bilaterally, normal work of breathing. Abdomen: Soft, nontender, nondistended, positive bowel sounds. Musculoskeletal: Atraumatic, no peripheral edema. Neurologic: Patient awake alert and oriented x 3, full strength in all 4 extremities. Cranial nerves 2 through 12 grossly intact. Skin: Warm, dry, no rash Medical Decision & Procedures Laboratory Results 11/05/17 12:55 Red Blood Count 4.66, Mean Corpuscular Volume 92.7, Mean Corpuscular Hemoglobin 30.7, Mean Corpuscular Hemoglobin Concent 33.1, Mean Platelet Volume 11.6, Neutrophils (%) (Auto) 83.4, Lymphocytes (%) (Auto) 9.6, Monocytes (%) (Auto) 6.4, Eosinophils (%) (Auto) 0.2, Basophils (%) (Auto) 0.2, Neutrophils # (Auto) 4.59, Lymphocytes # (Auto) 0.53, Monocytes # (Auto) 0.35, Eosinophils # (Auto) 0.01, Basophils # (Auto) 0.01 11/05/17 12:25 Test 11/05/17 12:25 11/05/17 12:55 11/05/17 14:15 Anion Gap 10.0 mmol/L (3-11) Est Creatinine Clear Calc Drug Dose 49.0 ml/min Estimated GFR () 86.3 Estimated GFR (Non- 74.5 BUN/Creatinine Ratio 24.3 (10-20) Calcium Level 9.2 mg/dl (8.5-10.1) Magnesium Level 2.2 mg/dl (1.8-2.4) Total Bilirubin 0.6 mg/dl (0.2-1) Direct Bilirubin 0.2 mg/dl (0-0.2) Aspartate Amino Transf (AST/SGOT) 21 U/L (15-37) Alanine Aminotransferase (ALT/SGPT) 30 U/L (12-78) Alkaline Phosphatase 68 U/L (45-117) Troponin I < 0.015 ng/ml (0-0.045) Total Protein 7.7 gm/dl (6.4-8.2) Albumin 3.9 gm/dl (3.4-5.0) Lipase 81 U/L (73-393) White Blood Count 5.50 K/uL (4.8-10.8) Red Blood Count 4.66 M/uL (4.2-5.4) Hemoglobin 14.3 g/dL (12.0-16.0) Hematocrit 43.2 % (37-47) Mean Corpuscular Volume 92.7 fL (80-100) Mean Corpuscular Hemoglobin 30.7 pg (25-34) Mean Corpuscular Hemoglobin Concent 33.1 g/dl (32-36) Platelet Count 154 K/uL (130-400) Mean Platelet Volume 11.6 fL (7.4-10.4) Neutrophils (%) (Auto) 83.4 % Lymphocytes (%) (Auto) 9.6 % Monocytes (%) (Auto) 6.4 % Eosinophils (%) (Auto) 0.2 % Basophils (%) (Auto) 0.2 % Neutrophils # (Auto) 4.59 K/uL (1.4-6.5) Lymphocytes # (Auto) 0.53 K/uL (1.2-3.4) Monocytes # (Auto) 0.35 K/uL (0.11-0.59) Eosinophils # (Auto) 0.01 K/uL (0-0.5) Basophils # (Auto) 0.01 K/uL (0-0.2) RDW Standard Deviation 45.9 fL (36.4-46.3) RDW Coefficient of Variation 13.6 % (11.5-14.5) Immature Granulocyte % (Auto) 0.2 % Immature Granulocyte # (Auto) 0.01 K/uL (0.00-0.02) Urine Color YELLOW Urine Appearance TURBID (CLEAR) Urine pH 8.0 (4.5-7.5) Urine Specific [place] 1.013 (1.000-1.030) Urine Protein NEG (NEG) Urine Glucose (UA) NEG (NEG) Urine Ketones NEG (NEG) Urine Occult Blood NEG (NEG) Urine Nitrite NEG (NEG) Urine Bilirubin NEG (NEG) Urine Urobilinogen NEG (NEG) Urine Leukocyte Esterase NEG (NEG) Urine WBC (Auto) 1-5 /hpf (0-5) Urine RBC (Auto) 0-4 /hpf (0-4) Urine Hyaline Casts (Auto) 0 /lpf (0-5) Urine Epithelial Cells (Auto) 5-10 /lpf (0-5) Urine Bacteria (Auto) NEG (NEG) Laboratory results per my review. Medications Administered Medications (Trade) Dose Ordered Sig/Deirdre Route Start Time Stop Time Status Last Admin Dose Admin Sodium Chloride 250 ml @ 999 mls/hr Q16M STAT IV 11/05/17 12:25 11/05/17 12:40 DC 11/05/17 12:39 999 MLS/HR Sodium Chloride 1,000 ml @ 150 mls/hr Q6H40M STAT IV 11/05/17 12:25 11/05/17 16:48 DC 11/05/17 12:40 150 MLS/HR Ondansetron HCl (Zofran Inj) 4 mg NOW STAT IV 11/05/17 12:25 11/05/17 12:27 DC 11/05/17 12:39 4 MG ECG Per My Interpretation Indication: vomiting Rate (beats per minute): 65 Rhythm: normal sinus Findings: no acute ischemic change, other (non-specific T wave abnormalities, artifact ) ED Course 1222: Past medical records reviewed. The patient was evaluated in room C2B. A complete history and physical examination was performed. 1225: Ordered Zofran Inj 4 mg IV, Sodium Chloride 1000 ml @ 150 mls/hr IV, and Sodium Chloride 250 ml @ 999 mls/hr IV. 1536: I checked on the patient and updated her. 1543: Upon reevaluation, the patient appeared to have improvement of her symptoms. I discussed findings with her. She verbalized agreement of the treatment plan. She was discharged home. Medical Decision Differential diagnosis: Etiologies such as gastroenteritis, food borne illness, infections, appendicitis , diverticulitis, inflammatory bowel disease, obstruction, GI bleed, biliary pathology, as well as others were entertained. This patient was evaluated and appeared to be in no significant distress. IV access was obtained and laboratory work was drawn. Patient was placed on the media director and found to be in a normal sinus rhythm. Patient was hydrated with normal saline solution and given Zofran IV. Laboratory evaluation is fairly unrevealing. UA was obtained and is negative. I suspect the patient's symptoms are related to her chronic gastrointestinal ailments. She states she maintains a liquid diet due to her "esophagus issues." Patient was given a cold boost per her request and had no further vomiting in the emergency department. Patient will return to the ED for worsening of symptoms or any medical concerns. Medication Reconcilliation Current Medication List: was personally reviewed by me Blood Pressure Screening Patient's blood pressure: Elevated blood pressure Blood pressure disposition: Referred to PCP Impression Primary Impression: Vomiting Scribe Attestation The scribe's documentation has been prepared under my direction and personally reviewed by me in its entirety. I confirm that the note above accurately reflects all work, treatment, procedures, and medical decision making performed by me. Departure Information Dispostion Home / Self-Care Prescriptions Potassium Chloride 40 Meq/15 Ml (POTASSIUM CHLORIDE 40 MEQ/15 ML) 20 % Liq 20 MEQ PO DAILY for 14 Days, #105 ML Prov: Annie Lester M.D. 11/05/17 Referrals No Doctor, Assigned (PCP) Forms HOME CARE DOCUMENTATION FORM, IMPORTANT VISIT INFORMATION Patient Instructions My [facility] Additional Instructions Diagnosis: Vomiting, hypokalemia Potassium 20 mEq 1 time daily. Continue antinausea medications as prescribed at home. Continue your liquid diet. Follow-up with your primary care physician if symptoms continue. Continue your amoxicillin as prescribed if tolerated. Return to the emergency department for worsening of symptoms or any medical concerns.
[2017-11-05 12:48] LABS: BASO % 0.2 %; BASO ABS # 0.01 K/uL (0-0.2); EOS % 0.2 %; EOS ABS # 0.01 K/uL (0-0.5); HEMATOCRIT 43.2 % (37-47); HEMOGLOBIN 14.3 g/dL (12.0-16.0); IG# 0.01 K/uL (0.00-0.02); LYMPH % 9.6 %; LYMPH ABS # 0.53 K/uL (1.2-3.4); MEAN CELL VOLUME 92.7 fL (80-100); MEAN CORPUSCULAR HEMOGLOBIN 30.7 pg (25-34); MEAN CORPUSCULAR HGB CONC 33.1 g/dl (32-36); MEAN PLATELET VOLUME 11.6 fL (7.4-10.4); MONO % 6.4 %; MONO ABS # 0.35 K/uL (0.11-0.59); NEUT % 83.4 %; NEUT ABS # 4.59 K/uL (1.4-6.5); PLATELET COUNT 154 K/uL (130-400); RED CELL DISTRIBUTION WIDTH CV 13.6 % (11.5-14.5); RED CELL DISTRIBUTION WIDTH SD 45.9 fL (36.4-46.3)
[2017-11-05 13:10] LABS: ALBUMIN 3.9 gm/dl (3.4-5.0); ALKALINE PHOSPHATASE 68 U/L (45-117); ALT/SGPT 30 U/L (12-78); AST/SGOT 21 U/L (15-37); BLOOD UREA NITROGEN 19 mg/dl (7-18); CALCIUM 9.2 mg/dl (8.5-10.1); CARBON DIOXIDE 27 mmol/L (21-32); CREATININE 0.77 mg/dl (0.60-1.20); GLUCOSE 100 mg/dl (70-99); LIPASE 81 U/L (73-393); POTASSIUM 3.7 mmol/L (3.5-5.1); SODIUM 140 mmol/L (136-145); TOTAL PROTEIN 7.7 gm/dl (6.4-8.2)
[2017-11-05] MEDS ORDERED: AMOX250S5 PO (13:40)
[2017-11-05] MEDS ORDERED: POTA10LI12 PO (15:45)
[2017-11-05 16:13] VITALS: BP 138/73; PULSE 65; O2SAT 99
== END 2017-11-05 16:38 | disposition home or self-care (01) ==
LOC: C.EDB 11:58 → C.EDC 16:38
DX: R11.10 Vomiting, unspecified (principal); E87.6 Hypokalemia; R03.0 Elevated blood-pressure reading, without diagnosis of hypertension; K21.9 Gastro-esophageal reflux disease without esophagitis; Z87.19 Personal history of other diseases of the digestive system; Z88.1 Allergy status to other antibiotic agents; Z88.2 Allergy status to sulfonamides; Z88.6 Allergy status to analgesic agent

== ENCOUNTER 2017-11-07 07:28 | Emergency (ER) | payer OTHER ==
[~2017-11-07 07:28] MED LIST changes: +AMOX250S5 PO; +POTA10LI12 PO
[2017-11-07 07:35] VITALS: TEMP 36.7; Ht 149.9 cm
[2017-11-07] MEDS ORDERED: SODIUM CHLORIDE 0.9% 1000ML 1,000 ML IV STA (07:54)
[2017-11-07] MEDS ORDERED: ONDANSETRON INJ 2 MG/ML 2 ML VIAL IV STA ×2 (07:54→10:08)
[2017-11-07] MEDS ORDERED: FENTANYL CITRATE INJ 50 MCG/1 ML 2 ML VIAL IV STA (07:54)
[2017-11-07 08:04] LABS: BASO % 0.3 %; BASO ABS # 0.01 K/uL (0-0.2); EOS % 0.8 %; EOS ABS # 0.03 K/uL (0-0.5); HEMATOCRIT 43.1 % (37-47); HEMOGLOBIN 13.9 g/dL (12.0-16.0); IG# 0.01 K/uL (0.00-0.02); LYMPH % 29.3 %; LYMPH ABS # 1.13 K/uL (1.2-3.4); MEAN CELL VOLUME 93.5 fL (80-100); MEAN CORPUSCULAR HEMOGLOBIN 30.2 pg (25-34); MEAN CORPUSCULAR HGB CONC 32.3 g/dl (32-36); MEAN PLATELET VOLUME 11.4 fL (7.4-10.4); MONO % 10.6 %; MONO ABS # 0.41 K/uL (0.11-0.59); NEUT % 58.7 %; NEUT ABS # 2.27 K/uL (1.4-6.5); PLATELET COUNT 156 K/uL (130-400); RED CELL DISTRIBUTION WIDTH CV 13.6 % (11.5-14.5); RED CELL DISTRIBUTION WIDTH SD 46.6 fL (36.4-46.3); WHITE BLOOD COUNT 3.86 K/uL (4.8-10.8)
--- NOTE | 2017-11-07 08:21 | DIAGNOSTIC IMAGING REPORT ---
ABD/PELVIS WITHOUT FOR STONE CLINICAL HISTORY: flank pain pain TECHNIQUE: Transaxial acquisition with multi axial reformatted images COMPARISON STUDY: 08/14/2017 FINDINGS: Scattered chronic bibasilar atelectasis. Stable hepatic cysts. Unremarkable configuration of the pancreas. Kidneys demonstrate right renal peripelvic cysts as well as a nonobstructing left renal calcification. These findings are unchanged from the prior study. Nonobstructing calcification lower pole left kidney. Bladder is midline. No evidence for an obstructing urinary tract calculus. Findings of chronic sigmoid as well as descending colonic diverticulosis. No evidence for acute diverticulitis. Lipoma of the ileocecal valve. Small fat-containing periumbilical hernia. No evidence of bowel containment or obstruction. Nonobstructive bowel pattern. Bladder is midline. There are no contained calcifications. Tortuosity and ectasia of the thoracic abdominal aorta unchanged from the prior study. IMPRESSION: 1. Mild chronic descending and sigmoid colonic diverticulosis. 2. No evidence for acute diverticulitis. 3. Nonobstructing left renal calcifications. 4. Bilateral stable renal cysts. 5. Small fat-containing periumbilical hernia unchanged from the prior study. 6. Fat containing left inguinal hernia unchanged from the prior study. No evidence of bowel containment or obstruction. The above report was generated using voice recognition software. It may contain grammatical, syntax or spelling errors. Electronically signed by: Sergey Boo M.D. 11/07/2017 8:20 AM Dictated Date/Time: 11/07/2017 8:13 AM
[2017-11-07 08:32] LABS: ALBUMIN 3.7 gm/dl (3.4-5.0); ALKALINE PHOSPHATASE 64 U/L (45-117); ALT/SGPT 26 U/L (12-78); AST/SGOT 20 U/L (15-37); BLOOD UREA NITROGEN 16 mg/dl (7-18); CALCIUM 9.2 mg/dl (8.5-10.1); CARBON DIOXIDE 27 mmol/L (21-32); CREATININE 0.78 mg/dl (0.60-1.20); GLUCOSE 102 mg/dl (70-99); LIPASE 118 U/L (73-393); POTASSIUM 3.9 mmol/L (3.5-5.1); SODIUM 143 mmol/L (136-145); TOTAL PROTEIN 7.5 gm/dl (6.4-8.2)
--- NOTE | 2017-11-07 10:14 | EMERGENCY ROOM VISIT NOTE ---
History Report prepared by Shawn: Moses Calero Under the Supervision of: Dr. Dionicio Prado D.O. First contact with patient: 07:50 Chief Complaint: KIDNEY STONE Stated Complaint: KIDNEY STONE History of Present Illness The patient is a 77 year old female who presents to the Emergency Room with complaints of constant left sided back/flank pain that began at 0200 this morning, 6 hours prior to arrival. The patient describes her pain as "awful." She notes that she has had lithotripsy 6 times on the left kidney. She notes that the pain is on the left side and is radiating towards the middle. The patient is nauseous. She does note that she has a headache currently, which is due to Lyme Disease. She is on an antibiotic for the Lyme. 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 A total of 10 systems reviewed and were otherwise negative. 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 (10) Osteoporosis (11) Suicidal ideation (12) Urinary frequency (13) UTI (urinary tract infection) Surgical Problems: (1) Post-operative state Family History Diabetes mellitus Gallbladder disease Heart disease Hypertension Kidney stones Social History Smoking Status: Never Smoker Alcohol Use: none Drug Use: none Marital Status: Housing Status: lives with family Occupation Status: retired Current/Historical Medications Scheduled Cholecalciferol (Vitamin D-3), 2,000 INTER.UNIT PO QAM Mouthwashes (Biotene Dry Mouth Gentle), 1 DOSE PO DIRECTED Omeprazole (Prilosec), 40 MG PO DAILY Polyethylene Glycol 3350 (Miralax), 1 TSP PO DAILY Potassium Chloride 40 Meq/15 Ml (Potassium Chloride 40 Meq/15 Ml), 20 MEQ PO DAILY Simvastatin (Zocor), 10 MG PO QPM Scheduled PRN Acetaminophen (Childrens Acetaminophen), 5 ML PO Q6 PRN for Pain Clotrimazole (Mycelex), 1 TAB PO 5XD PRN for THRUSH Ondasetron Odt (Zofran Odt), 4 MG SL Q6H PRN for Nausea Tramadol (Ultram), 50 MG PO Q6H PRN for Pain Allergies Coded Allergies: Cephalexin (Verified Allergy, Severe, THROAT SWELLING, 11/07/17) Patient reports throat swelling, weakness Sulfa Antibiotics (Verified Allergy, Severe, ANGIOEDEMA, 11/07/17) Sulfamethoxazole w/Trimethoprim (Verified Allergy, Severe, angioedema , ) Levofloxacin (Verified Allergy, Intermediate, HANDS SWELLING, 11/07/17) Nitrofurantoin (Verified Allergy, Intermediate, chest pain, h/a, sore throat, diarrhea., 11/07/17) Quinolones (Verified Allergy, Mild, HAND SWELLED UP, 11/07/17) Codeine (Verified Adverse Reaction, Mild, SEVERE CONSTIPATION, 11/07/17) Uncoded Allergies: FIBERGLASS (Allergy, Intermediate, HIVES, 09/26/16) Physical Exam Vital Signs Date Time Temp Pulse Resp B/P (MAP) Pulse Ox O2 Delivery O2 Flow Rate FiO2 11/07/17 09:12 60 165/86 96 Room Air 11/07/17 08:15 66 18 160/114 96 Room Air 11/07/17 07:35 36.7 73 18 140/112 99 Room Air Physical Exam CONSTITUTIONAL/VITAL SIGNS: Reviewed / noted above. GENERAL: Non-toxic in appearance. INTEGUMENTARY: Warm, dry, and [place]. HEAD: Normocephalic. EYES: without scleral icterus or trauma. ENT/OROPHARYNX: clear and moist. LYMPHADENOPATHY/NECK: Is supple without lymphadenopathy or meningismus. RESPIRATORY: Lungs clear and equal. CARDIOVASCULAR: Regular rate and rhythm. GI/ABDOMEN: Soft and nontender. No organomegaly or pulsatile mass. No rebound or guarding. Normal bowel sounds. EXTREMITIES: Warm and well perfused. BACK: Right sided CVA tenderness. NEUROLOGICAL: Intact without focal deficits. PSYCHIATRIC: normal affect. MUSCULOSKELETAL: Normally developed with good muscle tone. Medical Decision & Procedures ER Provider Diagnostic Interpretation: Radiology results as stated below per my review and radiologist interpretation: ABD/PELVIS WITHOUT FOR STONE CLINICAL HISTORY: flank pain pain TECHNIQUE: Transaxial acquisition with multi axial reformatted images COMPARISON STUDY: 08/14/2017 FINDINGS: Scattered chronic bibasilar atelectasis. Stable hepatic cysts. Unremarkable configuration of the pancreas. Kidneys demonstrate right renal peripelvic cysts as well as a nonobstructing left renal calcification. These findings are unchanged from the prior study. Nonobstructing calcification lower pole left kidney. Bladder is midline. No evidence for an obstructing urinary tract calculus. Findings of chronic sigmoid as well as descending colonic diverticulosis. No evidence for acute diverticulitis. Lipoma of the ileocecal valve. Small fat-containing periumbilical hernia. No evidence of bowel containment or obstruction. Nonobstructive bowel pattern. Bladder is midline. There are no contained calcifications. Tortuosity and ectasia of the thoracic abdominal aorta unchanged from the prior study. IMPRESSION: 1. Mild chronic descending and sigmoid colonic diverticulosis. 2. No evidence for acute diverticulitis. 3. Nonobstructing left renal calcifications. 4. Bilateral stable renal cysts. 5. Small fat-containing periumbilical hernia unchanged from the prior study. 6. Fat containing left inguinal hernia unchanged from the prior study. No evidence of bowel containment or obstruction. The above report was generated using voice recognition software. It may contain grammatical, syntax or spelling errors. Electronically signed by: Sergey Boo M.D. 11/07/2017 8:20 AM Dictated Date/Time: 11/07/2017 8:13 AM Laboratory Results 11/07/17 07:50 Red Blood Count 4.61, Mean Corpuscular Volume 93.5, Mean Corpuscular Hemoglobin 30.2, Mean Corpuscular Hemoglobin Concent 32.3, Mean Platelet Volume 11.4, Neutrophils (%) (Auto) 58.7, Lymphocytes (%) (Auto) 29.3, Monocytes (%) (Auto) 10.6, Eosinophils (%) (Auto) 0.8, Basophils (%) (Auto) 0.3, Neutrophils # (Auto ) 2.27, Lymphocytes # (Auto) 1.13, Monocytes # (Auto) 0.41, Eosinophils # (Auto ) 0.03, Basophils # (Auto) 0.01 11/07/17 07:50 Test 11/07/17 07:50 11/07/17 09:30 White Blood Count 3.86 K/uL (4.8-10.8) Red Blood Count 4.61 M/uL (4.2-5.4) Hemoglobin 13.9 g/dL (12.0-16.0) Hematocrit 43.1 % (37-47) Mean Corpuscular Volume 93.5 fL (80-100) Mean Corpuscular Hemoglobin 30.2 pg (25-34) Mean Corpuscular Hemoglobin Concent 32.3 g/dl (32-36) Platelet Count 156 K/uL (130-400) Mean Platelet Volume 11.4 fL (7.4-10.4) Neutrophils (%) (Auto) 58.7 % Lymphocytes (%) (Auto) 29.3 % Monocytes (%) (Auto) 10.6 % Eosinophils (%) (Auto) 0.8 % Basophils (%) (Auto) 0.3 % Neutrophils # (Auto) 2.27 K/uL (1.4-6.5) Lymphocytes # (Auto) 1.13 K/uL (1.2-3.4) Monocytes # (Auto) 0.41 K/uL (0.11-0.59) Eosinophils # (Auto) 0.03 K/uL (0-0.5) Basophils # (Auto) 0.01 K/uL (0-0.2) RDW Standard Deviation 46.6 fL (36.4-46.3) RDW Coefficient of Variation 13.6 % (11.5-14.5) Immature Granulocyte % (Auto) 0.3 % Immature Granulocyte # (Auto) 0.01 K/uL (0.00-0.02) Anion Gap 8.0 mmol/L (3-11) Estimated GFR () 85.0 Estimated GFR (Non- 73.3 BUN/Creatinine Ratio 20.2 (10-20) Calcium Level 9.2 mg/dl (8.5-10.1) Total Bilirubin 0.7 mg/dl (0.2-1) Direct Bilirubin 0.2 mg/dl (0-0.2) Aspartate Amino Transf (AST/SGOT) 20 U/L (15-37) Alanine Aminotransferase (ALT/SGPT) 26 U/L (12-78) Alkaline Phosphatase 64 U/L (45-117) Total Protein 7.5 gm/dl (6.4-8.2) Albumin 3.7 gm/dl (3.4-5.0) Lipase 118 U/L (73-393) Urine Color YELLOW Urine Appearance TURBID (CLEAR) Urine pH 8.5 (4.5-7.5) Urine Specific [place] 1.012 (1.000-1.030) Urine Protein NEG (NEG) Urine Glucose (UA) NEG (NEG) Urine Ketones NEG (NEG) Urine Occult Blood NEG (NEG) Urine Nitrite NEG (NEG) Urine Bilirubin NEG (NEG) Urine Urobilinogen NEG (NEG) Urine Leukocyte Esterase NEG (NEG) Urine WBC (Auto) 0 /hpf (0-5) Urine RBC (Auto) 0-4 /hpf (0-4) Urine Hyaline Casts (Auto) 0 /lpf (0-5) Urine Epithelial Cells (Auto) 0-5 /lpf (0-5) Urine Bacteria (Auto) NEG (NEG) Laboratory results as stated above per my review. Medications Administered Medications (Trade) Dose Ordered Sig/Deirdre Route Start Time Stop Time Status Last Admin Dose Admin Sodium Chloride 1,000 ml @ 999 mls/hr Q1H1M STAT IV 11/07/17 07:54 11/07/17 08:54 DC 11/07/17 07:59 999 MLS/HR Fentanyl Citrate (Fentanyl Inj) 100 mcg NOW STAT IV 11/07/17 07:54 11/07/17 07:56 DC 11/07/17 07:59 100 MCG Ondansetron HCl (Zofran Inj) 4 mg NOW STAT IV 11/07/17 07:54 11/07/17 07:56 DC 11/07/17 07:59 4 MG ED Course 0751: Previous medical records were reviewed. The patient was evaluated in room B3B. A complete history and physical examination was performed. 0754: Ordered Zofran 4 mg IV, Fentanyl 100 mcg IV, Sodium Chloride 1000 mL @ 999 mL/hr IV. 1006: On reevaluation, the patient is resting in bed. I discussed the results and findings with the patient. She verbalized agreement of the treatment plan. The patient was discharged home. Medical Decision Differential considered: pancreatitis, hepatitis, or acute cholecystitis, AAA, UTI, pyelonephritis, kidney stones, appendicitis, diverticulitis, shingles, bowel obstruction mesenteric ischemia, intussusception,hernia. This is a 77-year-old female who presents to the ED with a chief complaint of left-sided flank pain. The patient states that awoke her at 2 AM this morning. She reports that she has had similar back pains in the past. She reports a kidney stone for which she had lithotripsy on September 29. She sees Dr. Connolly. The patient's initial blood pressure was elevated. It remains somewhat elevated during her stay. She will referred her PCP for this. Her exam was relatively unremarkable. She has a mild CVA tenderness. A CT scan of the abdomen pelvis was negative for acute disease. CBC and complete metabolic panel was unremarkable. Lipase was negative and a urine did not show any blood or infection. The patient was told the results of the test. Patient was treated with IV fentanyl, IV fluids and IV Zofran. She was felt to be stable for discharge. She was told the results. She was told to follow-up with her PCP and urologist Medication Reconcilliation Current Medication List: was personally reviewed by me Blood Pressure Screening Patient's blood pressure: Elevated blood pressure Blood pressure disposition: Elevated BP felt to be situational Impression Primary Impression: Left flank pain Scribe Attestation The scribe's documentation has been prepared under my direction and personally reviewed by me in its entirety. I confirm that the note above accurately reflects all work, treatment, procedures, and medical decision making performed by me. Departure Information Dispostion Home / Self-Care Referrals Curtis Varela M.D. (PCP) Patient Instructions My [facility] Additional Instructions Follow-up with your doctor for further care and evaluation in 1-2 days. Return to the emergency department for worsening or new symptoms or any concerns. You have been examined and treated today on an emergency basis only. This is not a substitute for, or an effort to provide, complete comprehensive medical care. It is impossible to recognize and treat all injuries or illnesses in a single emergency department visit. It is therefore important that you follow up closely with your doctor. Call as soon as possible for an appointment.
[2017-11-07 10:49] VITALS: BP 147/92; PULSE 65; O2SAT 98
== END 2017-11-07 10:51 | disposition home or self-care (01) ==
LOC: C.EDB 07:29
DX: R10.84 Generalized abdominal pain (principal); F41.9 Anxiety disorder, unspecified; M85.88 Other specified disorders of bone density and structure, other site; Z88.2 Allergy status to sulfonamides; Z88.8 Allergy status to other drugs, medicaments and biological substances; Z88.5 Allergy status to narcotic agent

== ENCOUNTER 2018-05-02 00:18 | Observation (INO) ==
[2018-05-02] MEDS ORDERED: NITROGLYCERIN SL 0.4 MG/TAB TAB SL PRN ×2 (00:42→04:35)
[2018-05-02 01:03] LABS: Basophils # (auto) 0.01 K/uL (0-0.2); Basophils % (auto) 0.2 %; Eosinophils # (auto) 0.06 K/uL (0-0.5); Eosinophils % (auto) 1.2 %; Hematocrit (blood only) 42.2 % (37-47); Hemoglobin 13.5 g/dL (12.0-16.0); Immature Granulocytes # (auto) 0.01 K/uL (0.00-0.02); Immature Granulocytes % (auto) 0.2 %; Lymphocytes # (auto) 1.23 K/uL (1.2-3.4); Lymphocytes % (auto) 25.6 %; Mean Corpuscular Volume 94.6 fL (80-100); Mean Platelet Volume 12.1 fL (7.4-10.4); Monocytes # (auto) 0.54 K/uL (0.11-0.59); Monocytes % (auto) 11.2 %; Neutrophils # (auto) 2.96 K/uL (1.4-6.5); Neutrophils % (auto) 61.6 %; Platelet Count 157 K/uL (130-400); RDW Coefficient of Variation 13.4 % (11.5-14.5); RDW Standard Deviation 46.7 fL (36.4-46.3); Red Blood Count 4.46 M/uL (4.2-5.4); White Blood Count 4.81 K/uL (4.8-10.8)
[2018-05-02] MEDS ORDERED: ONDANSETRON INJ 2 MG/ML 2 ML VIAL IV STA (01:11)
[2018-05-02 01:22] LABS: Alanine Aminotransferase 37 U/L (12-78); Albumin Level 3.6 gm/dl (3.4-5.0); Aspartate Aminotransferase 22 U/L (15-37); BUN Creatinine Ratio 27.4 (10-20); Blood Urea Nitrogen 23 mg/dl (7-18); Carbon Dioxide 31 mmol/L (21-32); Chloride 105 mmol/L (98-107); Creatinine Clr Calc Pharmacy 43.9 ml/min; Est GFR (African American) 75.5; Est GFR (Non-African American) 65.2; Glucose 90 mg/dl (70-99); Sodium 140 mmol/L (136-145)
[2018-05-02 01:27] LABS: Alkaline Phosphatase 78 U/L (45-117); Bilirubin,Total 0.4 mg/dl (0.2-1); Globulin 3.6 gm/dl (2.5-4.0); Total Protein 7.2 gm/dl (6.4-8.2); Troponin I < 0.015 ng/ml (0-0.045)
[2018-05-02] MEDS ORDERED: ACETAMINOPHEN 500 MG TAB PO PRN (04:35)
--- NOTE | 2018-05-02 04:57 | History & Physical Report ---
Date of Service May 02, 2018 Assessment & Plan (1) Substernal chest pain: The patient will be admitted to telemetry for serial cardiac enzymes, serial EKG's, cardiac rhythm monitoring and a 2-D echocardiogram with Dopplers. She did get relief with nitroglycerin sublingual x1. Present on Admission?: Yes (2) Globus pharyngeus: Globus pharyngeus/history of food impaction esophagus/acid reflux/ esophageal dysmotility/dysphagia-- Patient will continue on her customized diet and supplements as noted. Continue omeprazole/pantoprazole daily. Of note, patient typically is cream of mushroom soup, but reports that she did eat tomato soup earlier in the day yesterday before symptoms began. Present on Admission?: Yes (3) Esophageal dysmotility: See above Present on Admission?: Yes (4) Dysphagia: See above Present on Admission?: Yes (5) Cough: See above Present on Admission?: Yes (6) Food impaction of esophagus: See above Present on Admission?: Yes History of Present Illness Chief Complaint: The patient presents to the emergency department with upper sternal area chest discomfort that began yesterday, has been on and off over the past 24 hours, and has become more intense. Primary Care Provider: Tova Solomon PA-C The patient is a 77-year-old female, with a past medical history including significant GI issues with food impaction in her esophagus, globus pharyngeus, esophageal dysmotility, dysphagia and a chronic cough, who presents to the emergency department with upper sternal chest discomfort unlike any discomfort that she had before. Upon arrival in the emergency department she had a usual workup, and was also given a nitroglycerin sublingual, which she reports helped her symptoms. Allergies Allergy/AdvReac Type Severity Reaction Status Date / Time Bactrim Allergy Severe angioedema Verified 11/07/17 08:26 cephalexin Allergy Severe THROAT Verified 03/30/18 16:10 SWELLING Sulfa (Sulfonamide Allergy Severe ANGIOEDEMA Verified 03/30/18 16:10 Antibiotics) sulfamethoxazole Allergy Severe angioedema Verified 03/30/18 16:10 trimethoprim Allergy Severe angioedema Verified 03/30/18 16:10 levofloxacin Allergy Intermediate HANDS Verified 03/30/18 16:10 SWELLING nitrofurantoin Allergy Intermediate chest Verified 03/30/18 16:10 pain, h/a, sore throat, diarrhea. Quinolones Allergy Mild HAND Verified 03/30/18 16:10 SWELLED UP codeine AdvReac Mild SEVERE Verified 03/30/18 16:10 CONSTIPATION FIBERGLASS Allergy Intermediate HIVES Uncoded 03/30/18 16:10 Home Medications Home Medications Medication Instructions Recorded Confirmed Type omeprazole magnesium [Prilosec] 10 mg PO DAILY 12/05/17 05/02/18 History polyethylene glycol 3350 [Miralax] 3 tsp PO DAILY 12/05/17 05/02/18 History simvastatin 10 mg PO HS 12/05/17 05/02/18 History tramadol 25 mg PO QID PRN 12/05/17 05/02/18 History acetaminophen 500 - 1,000 mg PO Q6 PRN 03/30/18 05/02/18 History amino acids-whey prot conc,iso 1 dose PO DAILY 03/30/18 05/02/18 History [Whey Protein] cholecalciferol (vitamin D3) 2,000 unit PO QAM 03/30/18 05/02/18 History [Vitamin D3] food supplemt, lactose-reduced 1 can PO TID 03/30/18 05/02/18 History [Boost High Protein] ondansetron 4 mg PO TID PRN 03/30/18 05/02/18 History Past Med/Surg History Medical History Acid reflux (Chronic) Kidney stone UTI (urinary tract infection) Osteoporosis (Chronic) Family History Other Family history non-contributory Social History Current Living Situation: Spouse Other Information That Helps Us Care for You: No Feels Safe at Home: Yes Safety Concerns: Feels Safe At This Time Smoking Status: Never smoker Hx Alcohol Use: No Hx Substance Use: No Beliefs That Will Affect Care: None Communication Ability: Effective Review of Systems The patient denies palpitations, lower extremity swelling, sore throat, fevers, chills, sweats, change in her chronic nausea and vomiting, diarrhea , constipation, abdominal pain, pelvic pain, blood in urine or stool, dysuria, urinary frequency or urgency, lightheadedness, dizziness, headache, memory loss , loss of consciousness, rash, abnormal bruising or bleeding, focal weakness, numbness or tingling in arms or legs, generalized arthralgias or myalgias, back or neck pain, or night sweats. The review of systems is otherwise negative other than for that already noted above, and at least 10 systems have been reviewed. Physical Exam 2 Vital Signs (Past 24 Hours): Last Vital Signs Temp 36.7 C 05/02/18 00:27 Pulse 61 05/02/18 03:30 Resp 15 05/02/18 03:30 BP 130/78 05/02/18 03:30 Pulse Ox 96 05/02/18 03:30 Physical Exam: The patient is awake, alert and oriented �3, normocephalic and atraumatic, lying in bed and in no acute distress. HEENT--PERRL, EOMI, mucous membranes and oropharynx dry. Neck--supple. No JVD. No bruits. Thyroid normal, trachea midline, no adenopathy. Heart--normal S1 and S2. No murmurs, rubs or gallops. Lungs--clear bilaterally, no respiratory distress, no accessory muscle use. Abdomen--normal bowel sounds and soft. Nontender. Nondistended. Extremities--no cyanosis or clubbing. No edema. There are good distal pulses b/ l. Dermatologic--normal skin turgor, normal color, no abnormal lymph nodes, no rash. Neurologic--cranial nerves II through XII grossly intact. Rheumatologic--normal range of motion. Psychiatric--normal affect. Results & Data Laboratory Results Laboratory Results WBC 4.81 K/uL (4.8-10.8) 05/02/18 00:34 RBC 4.46 M/uL (4.2-5.4) 05/02/18 00:34 Hgb 13.5 g/dL (12.0-16.0) 05/02/18 00:34 Hct 42.2 % (37-47) 05/02/18 00:34 MCV 94.6 fL (80-100) 05/02/18 00:34 MCH 30.3 pg (25-34) 05/02/18 00:34 MCHC 32.0 g/dL (32-36) 05/02/18 00:34 RDW Std Deviation 46.7 fL (36.4-46.3) H 05/02/18 00:34 RDW Coeff of Sandra 13.4 % (11.5-14.5) 05/02/18 00:34 Plt Count 157 K/uL (130-400) 05/02/18 00:34 MPV 12.1 fL (7.4-10.4) H 05/02/18 00:34 Immature Gran % (Auto) 0.2 % 05/02/18 00:34 Neut % (Auto) 61.6 % 05/02/18 00:34 Lymph % (Auto) 25.6 % 05/02/18 00:34 [place] % (Auto) 11.2 % 05/02/18 00:34 Eos % (Auto) 1.2 % 05/02/18 00:34 Baso % (Auto) 0.2 % 05/02/18 00:34 Immature Gran # (Auto) 0.01 K/uL (0.00-0.02) 05/02/18 00:34 Neut # (Auto) 2.96 K/uL (1.4-6.5) 05/02/18 00:34 Lymph # (Auto) 1.23 K/uL (1.2-3.4) 05/02/18 00:34 [place] # (Auto) 0.54 K/uL (0.11-0.59) 05/02/18 00:34 Eos # (Auto) 0.06 K/uL (0-0.5) 05/02/18 00:34 Baso # (Auto) 0.01 K/uL (0-0.2) 05/02/18 00:34 Sodium 140 mmol/L (136-145) 05/02/18 00:34 Potassium 4.0 mmol/L (3.5-5.1) 05/02/18 00:34 Chloride 105 mmol/L (98-107) 05/02/18 00:34 Carbon Dioxide 31 mmol/L (21-32) 05/02/18 00:34 Anion Gap 4.0 (3-11) 05/02/18 00:34 BUN 23 mg/dl (7-18) H 05/02/18 00:34 Creatinine 0.86 mg/dl (0.6-1.2) 05/02/18 00:34 Est Cr Clr Drug Dosing 43.9 ml/min 05/02/18 00:34 Est GFR ( Amer) 75.5 05/02/18 00:34 Est GFR (Non-Af Amer) 65.2 05/02/18 00:34 BUN/Creatinine Ratio 27.4 (10-20) H 05/02/18 00:34 Glucose 90 mg/dl (70-99) 05/02/18 00:34 Calcium 9.0 mg/dl (8.5-10.1) 05/02/18 00:34 Total Bilirubin 0.4 mg/dl (0.2-1) 05/02/18 00:34 AST 22 U/L (15-37) 05/02/18 00:34 ALT 37 U/L (12-78) 05/02/18 00:34 Alkaline Phosphatase 78 U/L (45-117) 05/02/18 00:34 Troponin I < 0.015 ng/ml (0-0.045) 05/02/18 00:34 Total Protein 7.2 gm/dl (6.4-8.2) 05/02/18 00:34 Albumin 3.6 gm/dl (3.4-5.0) 05/02/18 00:34 Globulin 3.6 gm/dl (2.5-4.0) 05/02/18 00:34 Albumin/Globulin Ratio 1.0 (0.9-2) 05/02/18 00:34 Lipase 113 U/L (73-393) 05/02/18 00:34 Medications Administered Home Medications Medication Instructions Recorded Confirmed omeprazole magnesium [Prilosec] 10 mg PO DAILY 12/05/17 05/02/18 polyethylene glycol 3350 [Miralax] 3 tsp PO DAILY 12/05/17 05/02/18 simvastatin 10 mg PO HS 12/05/17 05/02/18 tramadol 25 mg PO QID PRN 12/05/17 05/02/18 acetaminophen 500 - 1,000 mg PO Q6 PRN 03/30/18 05/02/18 amino acids-whey prot conc,iso 1 dose PO DAILY 03/30/18 05/02/18 [Whey Protein] cholecalciferol (vitamin D3) 2,000 unit PO QAM 03/30/18 05/02/18 [Vitamin D3] food supplemt, lactose-reduced 1 can PO TID 03/30/18 05/02/18 [Boost High Protein] ondansetron 4 mg PO TID PRN 03/30/18 05/02/18 Code Status & VTE Plan Code Status Full code VTE Prophylaxis Plan VTE Prophylaxis will be ordered: Yes
[2018-05-02 05:21] LABS: Basophils # (auto) 0.01 K/uL (0-0.2); Basophils % (auto) 0.3 %; Eosinophils # (auto) 0.04 K/uL (0-0.5); Eosinophils % (auto) 1.2 %; Hematocrit (blood only) 40.9 % (37-47); Hemoglobin 12.7 g/dL (12.0-16.0); Immature Granulocytes # (auto) 0.01 K/uL (0.00-0.02); Immature Granulocytes % (auto) 0.3 %; Lymphocytes # (auto) 1.08 K/uL (1.2-3.4); Mean Corpuscular Hgb Conc 31.1 g/dL (32-36); Mean Corpuscular Volume 94.9 fL (80-100); Mean Platelet Volume 11.8 fL (7.4-10.4); Monocytes # (auto) 0.37 K/uL (0.11-0.59); Monocytes % (auto) 10.9 %; Neutrophils # (auto) 1.87 K/uL (1.4-6.5); Neutrophils % (auto) 55.3 %; Platelet Count 142 K/uL (130-400); RDW Coefficient of Variation 13.3 % (11.5-14.5); RDW Standard Deviation 46.5 fL (36.4-46.3); Red Blood Count 4.31 M/uL (4.2-5.4); White Blood Count 3.38 K/uL (4.8-10.8)
[2018-05-02 05:40] LABS: Partial Thromboplastin Time 25.9 Seconds (21.0-31.0); Prothrombin Time 9.9 Seconds (9.0-12.0)
[2018-05-02 05:56] LABS: Albumin Level 3.2 gm/dl (3.4-5.0); BUN Creatinine Ratio 26.1 (10-20); Calcium 8.3 mg/dl (8.5-10.1); Creatinine Clr Calc Pharmacy 48.9 ml/min; Est GFR (African American) 86.3; Est GFR (Non-African American) 74.5
[2018-05-02 06:00] LABS: Bilirubin,Total 0.6 mg/dl (0.2-1); Globulin 3.2 gm/dl (2.5-4.0); Total Protein 6.4 gm/dl (6.4-8.2); Troponin I 0.02 ng/ml (0-0.045)
[2018-05-02] MEDS: TRAMADOL HCL 50 MG TABLET PO PRN ×2 (06:19→22:42)
--- NOTE | 2018-05-02 06:29 | XRay Report ---
XR chest 1V portable CLINICAL HISTORY: 77 years-old Female presenting with Chest Pain. TECHNIQUE: Portable upright AP view of the chest was obtained. COMPARISON: 03/30/2018. FINDINGS: Atherosclerosis of the aortic arch. Tortuosity of the descending thoracic aorta. Cardiac silhouette m ildly enlarged. No focal opacity. No large effusion or pneumothorax. Osteopenia suspected. Multilevel degenerative changes of the spine. Upper abdomen normal. IMPRESSION: 1. Mild cardiomegaly. No other convincing evidence of acute cardiopulmonary disease. Electronically signed by: Salvador Gallagher M.D. 05/02/2018 6:27 AM
--- NOTE | 2018-05-02 08:18 | Emergency Department Note ---
Entered by Danita Khan acting as a scribe for History of Present Illness General Chief complaint: Chest Pain Stated complaint: CHEST PAIN,BACK PAIN Time Seen by Provider: 05/02/18 00:30 Source: patient History of Present Illness Onset (ago): hour(s) (this morning) Location: chest (midsternal) Pain Consistency: + intermittent Maximum Pain Intensity: 5 Quality: + other ("tightness" and discomfort) Associated symptoms: + denies other symptoms (sore throat), + diaphoresis and + fever/chills (complains of chills, denies fevers); no cough and no shortness of breath The patient is a 77 year old female who presents to the Emergency Room with complaints of intermittent midsternal chest pain that began this morning. She describes chest "tightness" and discomfort. The patient complains of diaphoresis and chills that began this afternoon. She denies and SOB, cough, sore throat, and fever. The patient notes a history of hypertension. She denies a history of myocardial infarction and diabetes. The patient reports that she's never had similar symptoms before. The patient notes that she hasn't been able to eat solids since July 2016, because she has a history of difficulty swallowing. The patient notes a history of esophagus issues. She reports that she eats soups and Boosts. Home Medications Home Medications Medication Instructions Recorded Confirmed Type omeprazole magnesium [Prilosec] 10 mg PO DAILY 12/05/17 05/02/18 History polyethylene glycol 3350 [Miralax] 3 tsp PO DAILY 12/05/17 05/02/18 History simvastatin 10 mg PO HS 12/05/17 05/02/18 History tramadol 25 mg PO QID PRN 12/05/17 05/02/18 History acetaminophen 500 - 1,000 mg PO Q6 PRN 03/30/18 05/02/18 History amino acids-whey prot conc,iso 1 dose PO DAILY 03/30/18 05/02/18 History [Whey Protein] cholecalciferol (vitamin D3) 2,000 unit PO QAM 03/30/18 05/02/18 History [Vitamin D3] food supplemt, lactose-reduced 1 can PO TID 03/30/18 05/02/18 History [Boost High Protein] ondansetron 4 mg PO TID PRN 03/30/18 05/02/18 History Allergies Allergy/AdvReac Type Severity Reaction Status Date / Time Bactrim Allergy Severe angioedema Verified 11/07/17 08:26 cephalexin Allergy Severe THROAT Verified 03/30/18 16:10 SWELLING Sulfa (Sulfonamide Allergy Severe ANGIOEDEMA Verified 03/30/18 16:10 Antibiotics) sulfamethoxazole Allergy Severe angioedema Verified 03/30/18 16:10 trimethoprim Allergy Severe angioedema Verified 03/30/18 16:10 levofloxacin Allergy Intermediate HANDS Verified 03/30/18 16:10 SWELLING nitrofurantoin Allergy Intermediate chest Verified 03/30/18 16:10 pain, h/a, sore throat, diarrhea. Quinolones Allergy Mild HAND Verified 03/30/18 16:10 SWELLED UP codeine AdvReac Mild SEVERE Verified 03/30/18 16:10 CONSTIPATION FIBERGLASS Allergy Intermediate HIVES Uncoded 03/30/18 16:10 Past Med/Surg History Medical History Acid reflux (Chronic) Kidney stone UTI (urinary tract infection) Osteoporosis (Chronic) Family History Other Family history non-contributory Social History Current Living Situation: Spouse Other Information That Helps Us Care for You: No Feels Safe at Home: Yes Safety Concerns: Feels Safe At This Time Smoking Status: Never smoker Hx Alcohol Use: No Hx Substance Use: No Beliefs That Will Affect Care: None Communication Ability: Effective Review of Systems See HPI for pertinent positives & negatives. and A total of 10 systems reviewed and were otherwise negative Physical Exam Vital Signs Vital Signs - 24 hr 05/02/18 00:27 05/02/18 00:30 05/02/18 00:37 Temperature 36.7 C Temperature Source Oral Sepsis Recent Fever Within 48 Hours No Sepsis New/Unexplained Change in Mental Status No Sepsis Action Taken by Nursing No Action Required Pulse Rate 80 81 Pulse Rate [Apical] Pulse Rhythm Regular Pulse Strength Normal Respiratory Rate 19 16 Respiratory Effort / Characteristics Non-Labored Spontaneous Respiratory Depth Normal Respiratory Pattern Regular Blood Pressure 171/98 H 178/104 H Blood Pressure [Left Arm] Blood Pressure [Right Arm] Blood Pressure Mean 122 128 Blood Pressure Mean [Left Arm] Blood Pressure Mean [Right Arm] Blood Pressure Position Lying Blood Pressure Position [Left Arm] Pulse Oximetry 97 99 Oxygen Delivery Method Room Air Room Air Room Air 05/02/18 00:54 05/02/18 01:06 05/02/18 01:30 Temperature Temperature Source Sepsis Recent Fever Within 48 Hours Sepsis New/Unexplained Change in Mental Status Sepsis Action Taken by Nursing Pulse Rate 68 74 64 Pulse Rate [Apical] Pulse Rhythm Pulse Strength Respiratory Rate 20 16 15 Respiratory Effort / Characteristics Respiratory Depth Respiratory Pattern Blood Pressure 150/105 H 141/92 H 132/77 Blood Pressure [Left Arm] Blood Pressure [Right Arm] Blood Pressure Mean 120 108 95 Blood Pressure Mean [Left Arm] Blood Pressure Mean [Right Arm] Blood Pressure Position Blood Pressure Position [Left Arm] Pulse Oximetry 99 94 93 Oxygen Delivery Method Room Air Room Air Room Air 05/02/18 02:00 05/02/18 02:30 05/02/18 03:00 Temperature Temperature Source Sepsis Recent Fever Within 48 Hours Sepsis New/Unexplained Change in Mental Status Sepsis Action Taken by Nursing Pulse Rate 68 65 65 Pulse Rate [Apical] Pulse Rhythm Pulse Strength Respiratory Rate 23 16 17 Respiratory Effort / Characteristics Respiratory Depth Respiratory Pattern Blood Pressure 144/94 H 147/85 H 138/82 Blood Pressure [Left Arm] Blood Pressure [Right Arm] Blood Pressure Mean 110 105 100 Blood Pressure Mean [Left Arm] Blood Pressure Mean [Right Arm] Blood Pressure Position Blood Pressure Position [Left Arm] Pulse Oximetry 94 96 95 Oxygen Delivery Method Room Air Room Air Room Air 05/02/18 03:30 05/02/18 04:33 05/02/18 07:05 Temperature 36.3 C L 36.7 C Temperature Source Oral Oral Sepsis Recent Fever Within 48 Hours Sepsis New/Unexplained Change in Mental Status Sepsis Action Taken by Nursing Pulse Rate 61 Pulse Rate [Apical] 62 64 Pulse Rhythm Pulse Strength Respiratory Rate 15 18 18 Respiratory Effort / Characteristics Respiratory Depth Respiratory Pattern Blood Pressure 130/78 Blood Pressure [Left Arm] 148/80 H Blood Pressure [Right Arm] 153/93 H Blood Pressure Mean 95 Blood Pressure Mean [Left Arm] 102 Blood Pressure Mean [Right Arm] 113 Blood Pressure Position Blood Pressure Position [Left Arm] Lying Pulse Oximetry 96 94 95 Oxygen Delivery Method Room Air Room Air Room Air HEENT: Head - normocephalic and atraumatic Pupils are equal, round, and reactive to light. Extraocular eye muscles are intact, and sclera are anicteric. Nose - moist nasal mucosa without discharge. Mouth - moist buccal mucosa. Oropharynx is nonerythematous and there is no tonsillar exudate or edema noted. Neck: Supple; no JVD, nuchal rigidity, cervical lymphadenopathy. Heart: Regular rate and rhythm. There is a normal S1 and S2 with no murmurs, clicks, or gallops appreciated. Lungs: Clear to auscultation bilaterally with no wheezes, rales, or rhonchi. Abdomen: Soft, completely nontender, nondistended, with good bowel sounds. There are no palpable pulsatile masses or hepatosplenomegaly. There is no guarding, rigidity, or rebound noted. Extremities: No evidence of cyanosis, clubbing, or edema. There are easily palpable peripheral pulses. Skin: warm and dry with good turgor and no rashes. Course 0033: Past medical records reviewed. The patient was evaluated in room A09, and a complete history and physical examination were performed. A twelve-lead EKG was obtained as described above. An IV lock was initiated and labs were drawn as above. The patient had a portable chest x-ray 0042: Nitrostat 0.4 mg SL 0110: I checked on the patient. She stated that her pain has been reduced. She complained of nausea. 0111: Zofran 4 mg IV 0256: I spoke with Dr. Gamble, [facility] hospitalist, about the patient's case. He will evaluate her further. 0315: I discussed the laboratory studies with the patient and explained that she would require further inpatient care because of the EKG changes and persistent episodes of chest pain. Consultations Consultation #1: I spoke with Dr. Gamble, [facility] hospitalist, about the patient's case. He will evaluate her further. Time: 02:56 Administered Medications Tramadol HCl (Ultram) 25 mg PO QID PRN PRN Reason: Pain Stop: 06/01/18 04:34 Last Admin: 05/02/18 06:19 Dose: 25 mg Discontinued Medications Nitroglycerin (Nitrostat) 0.4 mg SL UD PRN PRN Reason: Chest Pain Stop: 06/01/18 00:41 Last Admin: 05/02/18 00:55 Dose: 0.4 mg Ondansetron HCl (Zofran) 4 mg IV NOW STA Stop: 05/02/18 01:12 Last Admin: 05/02/18 01:24 Dose: 4 mg Medical Decision Making Differential Diagnosis The differential diagnosis includes: cardiac ischemia, esophageal spasm, hypertensive crisis, GERD, and aortic dissection. Medical Records Attestation: I reviewed the patient's medical records. Home Medications Current Medication List: was personally reviewed by me Laboratory Data Attestation: I reviewed the patient's lab results. Result diagrams: 05/02/18 04:58 05/02/18 04:58 Lab Results 05/02/18 05/02/18 05/02/18 Range/Units 00:34 00:34 04:58 WBC 4.81 3.38 L (4.8-10.8) K/uL RBC 4.46 4.31 (4.2-5.4) M/uL Hgb 13.5 12.7 (12.0-16.0) g/dL Hct 42.2 40.9 (37-47) % MCV 94.6 94.9 (80-100) fL MCH 30.3 29.5 (25-34) pg MCHC 32.0 31.1 L (32-36) g/dL RDW Std Deviation 46.7 H 46.5 H (36.4-46.3) fL RDW Coeff of Sandra 13.4 13.3 (11.5-14.5) % Plt Count 157 142 (130-400) K/uL MPV 12.1 H 11.8 H (7.4-10.4) fL Immature Gran % (Auto) 0.2 0.3 % Neut % (Auto) 61.6 55.3 % Lymph % (Auto) 25.6 32.0 % Otero % (Auto) 11.2 10.9 % Eos % (Auto) 1.2 1.2 % Baso % (Auto) 0.2 0.3 % Immature Gran # (Auto) 0.01 0.01 (0.00-0.02) K/uL Neut # (Auto) 2.96 1.87 (1.4-6.5) K/uL Lymph # (Auto) 1.23 1.08 L (1.2-3.4) K/uL Otero # (Auto) 0.54 0.37 (0.11-0.59) K/uL Eos # (Auto) 0.06 0.04 (0-0.5) K/uL Baso # (Auto) 0.01 0.01 (0-0.2) K/uL PT (9.0-12.0) Seconds INR (0.9-1.1) APTT (21.0-31.0) Seconds PTT Ratio Sodium 140 (136-145) mmol/L Potassium 4.0 (3.5-5.1) mmol/L Chloride 105 (98-107) mmol/L Carbon Dioxide 31 (21-32) mmol/L Anion Gap 4.0 (3-11) BUN 23 H (7-18) mg/dl Creatinine 0.86 (0.6-1.2) mg/dl Est Cr Clr Drug Dosing 43.9 ml/min Est GFR ( Amer) 75.5 Est GFR (Non-Af Amer) 65.2 BUN/Creatinine Ratio 27.4 H (10-20) Glucose 90 (70-99) mg/dl Calcium 9.0 (8.5-10.1) mg/dl Total Bilirubin 0.4 (0.2-1) mg/dl AST 22 (15-37) U/L ALT 37 (12-78) U/L Alkaline Phosphatase 78 (45-117) U/L Troponin I < 0.015 (0-0.045) ng/ml Total Protein 7.2 (6.4-8.2) gm/dl Albumin 3.6 (3.4-5.0) gm/dl Globulin 3.6 (2.5-4.0) gm/dl Albumin/Globulin Ratio 1.0 (0.9-2) Lipase 113 (73-393) U/L 05/02/18 05/02/18 Range/Units 04:58 04:58 WBC (4.8-10.8) K/uL RBC (4.2-5.4) M/uL Hgb (12.0-16.0) g/dL Hct (37-47) % MCV (80-100) fL MCH (25-34) pg MCHC (32-36) g/dL RDW Std Deviation (36.4-46.3) fL RDW Coeff of Sandra (11.5-14.5) % Plt Count (130-400) K/uL MPV (7.4-10.4) fL Immature Gran % (Auto) % Neut % (Auto) % Lymph % (Auto) % Otero % (Auto) % Eos % (Auto) % Baso % (Auto) % Immature Gran # (Auto) (0.00-0.02) K/uL Neut # (Auto) (1.4-6.5) K/uL Lymph # (Auto) (1.2-3.4) K/uL Otero # (Auto) (0.11-0.59) K/uL Eos # (Auto) (0-0.5) K/uL Baso # (Auto) (0-0.2) K/uL PT 9.9 (9.0-12.0) Seconds INR 1.0 (0.9-1.1) APTT 25.9 (21.0-31.0) Seconds PTT Ratio 1.0 Sodium 141 (136-145) mmol/L Potassium 4.0 (3.5-5.1) mmol/L Chloride 106 (98-107) mmol/L Carbon Dioxide 30 (21-32) mmol/L Anion Gap 5.0 (3-11) BUN 20 H (7-18) mg/dl Creatinine 0.77 (0.6-1.2) mg/dl Est Cr Clr Drug Dosing 48.9 ml/min Est GFR ( Amer) 86.3 Est GFR (Non-Af Amer) 74.5 BUN/Creatinine Ratio 26.1 H (10-20) Glucose 86 (70-99) mg/dl Calcium 8.3 L (8.5-10.1) mg/dl Total Bilirubin 0.6 (0.2-1) mg/dl AST 22 (15-37) U/L ALT 33 (12-78) U/L Alkaline Phosphatase 64 (45-117) U/L Troponin I 0.020 (0-0.045) ng/ml Total Protein 6.4 (6.4-8.2) gm/dl Albumin 3.2 L (3.4-5.0) gm/dl Globulin 3.2 (2.5-4.0) gm/dl Albumin/Globulin Ratio 1.0 (0.9-2) Lipase (73-393) U/L Imaging Data Attestation: I personally reviewed and interpreted this imaging study as follows : My Impression: XRAY CHEST 1V: Unremarkable. Narrow mediastinum. No pulmonary consolidation. ECG Data Attestation: I personally reviewed and interpreted this ECG as follows: Indication: chest pain Rate (beats per minute): 75 Rhythm: normal sinus Findings: + other (biphasic T wave in the lateral leads), + PAC and + T-wave inversion (in 1 and AVL) Comparison ECG Date: from (March 2017) Change: the following changes noted (biphasic T wave in the lateral leads, T- wave inversion) Blood Pressure Blood Pressure Findings: Elevated blood pressure Blood Pressure Disposition: further management by hospitalist MDM Narrative The patient is a 77 year old female who presents to the Emergency Room with complaints of intermittent midsternal that began this morning. Patient describes the discomfort in the chest is intermittent but at times strong. It seems that the nitroglycerin has helped the patient's chest discomfort. A twelve-lead EKG was obtained and showed some changes in comparison to an EKG from March. For this reason, I felt the patient requires serial enzyme testing and further cardiology evaluation. I discussed the case with the [facility] Hospitalist and they will evaluate for further management Impression & Plan Substernal chest pain Discharge Plan Visit Data *Final* Discharge Date/Time: 05/02/18 03:44 Chief Complaint: Chest Pain Stated Complaint: CHEST PAIN,BACK PAIN ED Provider: Rosangela Real Discharge Problem: Substernal chest pain Patient Disposition: Admitted As Inpatient Discharge Instructions Interventions: ED Discharge Assessment Last Done: 05/02/18 03:44 The scribe's documentation has been prepared under my direction and personally reviewed by me in its entirety. I confirm that the note above accurately reflects all work, treatment, procedures, and medical decision making performed by me.
[2018-05-02] MEDS: CHOLECALCIFEROL 1,000 UNITS TAB PO SCH (08:24)
[2018-05-02] MEDS: POLYETHYLENE (MIRALAX) 17 GM PACK PO SCH (08:24)
[2018-05-02] MEDS: HEPARIN SOD 5,000 UNIT/0.5 ML VIAL SQ SCH ×2 (08:25→21:01)
[2018-05-02] MEDS ORDERED: FOOD SUPPLEMT LACTOSE REDUCED PO SCH (09:00)
[2018-05-02] MEDS ORDERED: [UNRECOGNIZED DRUG - OTHER] PO SCH (09:00)
[2018-05-02] MEDS ORDERED: PANTOprazole 40 MG TAB PO SCH (09:00)
[2018-05-02] MEDS: LANSOPRAZOLE 30 MG SOLTAB PO SCH (11:44)
--- NOTE | 2018-05-02 13:36 | Hospitalist Progress Note ---
Date of Service May 02, 2018 Assessment & Plan (1) Substernal chest pain: - troponins negative x 3 - no events on tele overnight - awaiting echo - more suspicious of esophageal source of pain - will order barium swallow and speech evaluation with swallow eval (2) Globus pharyngeus: Globus pharyngeus/history of food impaction esophagus/acid reflux/ esophageal dysmotility/dysphagia-- Patient will continue on her customized diet and supplements as noted with speech eval as above Continue omeprazole/pantoprazole daily. (3) Esophageal dysmotility: See above (4) Dysphagia: See above (5) Cough: See above (6) Food impaction of esophagus: See above (7) DVT prophylaxis: heparin subq Subjective Ms. Lujan is not currently having chest pain. She described her pain as a squeezing pain that came in waves, radiated to right flank at first but hasn't radiated since then. She is able to take in soup but otherwise has trouble taking in solids in general for many years. Her pain was not associated with exertion or with meals. Review of Systems All systems reviewed & are unremarkable except as noted in HPI & below Physical Exam 2 Vital Signs (Past 24 Hours): Last Vital Signs Temp 36.7 C 05/02/18 07:05 Pulse 64 05/02/18 07:05 Resp 18 05/02/18 07:05 BP 148/80 H 05/02/18 07:05 Pulse Ox 95 05/02/18 07:05 Physical Exam: General: no distress Eyes: normal inspection, PERLL Respiratory: chest non tender, clear to auscultation, normal breath sounds, no respiratory distress, no accessory muscle use Cardiac: regular rate and rhythm, no rub or gallop, no murmur, no edema, no jvd GI/: active bowel sounds, no abd pain or tenderness, soft, non distended Extremities: normal range of motion, normal strength, non tender Neuro/Psych: alert and oriented x 3, normal mood and affect Skin: normal color, dry Results & Data Laboratory Results Abnormal lab results 05/02/18 05/02/18 05/02/18 Range/Units 00:34 00:34 04:58 WBC 3.38 L (4.8-10.8) K/uL MCHC 31.1 L (32-36) g/dL RDW Std Deviation 46.7 H 46.5 H (36.4-46.3) fL MPV 12.1 H 11.8 H (7.4-10.4) fL Lymph # (Auto) 1.08 L (1.2-3.4) K/uL BUN 23 H (7-18) mg/dl BUN/Creatinine Ratio 27.4 H (10-20) Calcium (8.5-10.1) mg/dl Albumin (3.4-5.0) gm/dl 05/02/18 Range/Units 04:58 WBC (4.8-10.8) K/uL MCHC (32-36) g/dL RDW Std Deviation (36.4-46.3) fL MPV (7.4-10.4) fL Lymph # (Auto) (1.2-3.4) K/uL BUN 20 H (7-18) mg/dl BUN/Creatinine Ratio 26.1 H (10-20) Calcium 8.3 L (8.5-10.1) mg/dl Albumin 3.2 L (3.4-5.0) gm/dl
[2018-05-02] MEDS: SIMVASTATIN 10 MG TAB PO SCH (21:01)
[2018-05-02] MEDS: ONDANSETRON 4 MG OD TAB PO PRN (21:28)
[2018-05-03] MEDS: ONDANSETRON 4 MG OD TAB PO PRN (06:32)
[2018-05-03 07:16] LABS: Basophils # (auto) 0.01 K/uL (0-0.2); Basophils % (auto) 0.3 %; Eosinophils # (auto) 0.04 K/uL (0-0.5); Eosinophils % (auto) 1.1 %; Hematocrit (blood only) 41.1 % (37-47); Hemoglobin 13.2 g/dL (12.0-16.0); Lymphocytes # (auto) 0.82 K/uL (1.2-3.4); Lymphocytes % (auto) 23.1 %; Mean Corpuscular Hgb Conc 32.1 g/dL (32-36); Mean Corpuscular Volume 93.6 fL (80-100); Mean Platelet Volume 11.9 fL (7.4-10.4); Monocytes # (auto) 0.43 K/uL (0.11-0.59); Monocytes % (auto) 12.1 %; Neutrophils # (auto) 2.25 K/uL (1.4-6.5); Neutrophils % (auto) 63.4 %; Platelet Count 137 K/uL (130-400); RDW Coefficient of Variation 13.5 % (11.5-14.5); RDW Standard Deviation 46.6 fL (36.4-46.3); Red Blood Count 4.39 M/uL (4.2-5.4); White Blood Count 3.55 K/uL (4.8-10.8)
[2018-05-03 07:28] LABS: Prothrombin Time 9.8 Seconds (9.0-12.0)
[2018-05-03 07:54] LABS: Albumin Level 3.2 gm/dl (3.4-5.0); BUN Creatinine Ratio 19.2 (10-20); Calcium 8.4 mg/dl (8.5-10.1); Creatinine Clr Calc Pharmacy 52.3 ml/min; Est GFR (African American) 93.6; Est GFR (Non-African American) 80.8; Potassium 3.8 mmol/L (3.5-5.1)
[2018-05-03 07:57] LABS: Albumin Globulin Ratio 0.9 (0.9-2); Bilirubin,Total 0.8 mg/dl (0.2-1); Globulin 3.5 gm/dl (2.5-4.0); Total Protein 6.7 gm/dl (6.4-8.2)
[2018-05-03] MEDS: HEPARIN SOD 5,000 UNIT/0.5 ML VIAL SQ SCH (08:07)
--- NOTE | 2018-05-03 14:35 | Fluoroscopy Report ---
FL barium swallow CLINICAL HISTORY: esophagus dysmotility COMPARISON STUDY: None. FLUOROSCOPY TIME: 1.2 minutes. 24 fluoroscopic spot images submitted. FINDINGS: The patient swallowed barium without difficulty. The esophagus is normal in course and bismark aldo. The contours of the hypopharynx are within normal limits. No hiatus hernia. Mild esophageal dysm otility. Moderate to severe gastroesophageal reflux demonstrated during the examination. IMPRESSION: 1. Mild esophageal dysmotility. 2. Moderate to severe gastroesophageal reflux demonstrated during the examination. Electronically signed by: Dustin De La O M.D. 05/03/2018 2:34 PM
--- NOTE | 2018-05-03 15:53 | Palliative Care Progress Note ---
Date of Service May 03, 2018 Subjective Attempted to see patient twice today. Out of room for testing both times. Will stop back tomorrow. Physical Exam Vital Signs (Past 24 Hours): Last Vital Signs Temp 37.1 C 05/03/18 15:08 Pulse 82 05/03/18 15:08 Resp 16 05/03/18 15:08 BP 156/98 H 05/03/18 15:08 Pulse Ox 98 05/03/18 15:08
[2018-05-03] MEDS: POLYETHYLENE (MIRALAX) 17 GM PACK PO SCH (16:29)
--- NOTE | 2018-05-03 16:42 | Hospitalist Progress Note ---
Date of Service May 03, 2018 Assessment & Plan (1) Substernal chest pain: - troponins negative x 3 - echo showing: EF 55-60%, no WMA, Type I DD, left ventricular hypertrophy, mild left atrial dilation, mild right ventricle dilation, mild mitral regurgitation - more suspicious of esophageal source of pain - unable to complete barium swallow, video swallow showing esophageal dysmotility - speech recommending slippery diet (2) Anxiety: Long discussion about patient's anxiety and possible interventions - will start fluoxetine 10 mg today as well as prn vistaril TID. Patient will need psych follow up going forward. (3) Globus pharyngeus: Globus pharyngeus/history of food impaction esophagus/acid reflux/ esophageal dysmotility/dysphagia-- As above Continue omeprazole/pantoprazole daily. (4) Esophageal dysmotility: slippery diet recommended by speech. (5) Dysphagia: See above (6) Cough: See above (7) Food impaction of esophagus: See above (8) DVT prophylaxis: heparin subq discontinued as patient refuses further anticoagulation following epistaxis Subjective Ms. Lujan has not had chest pain since 1100 yesterday. She is having quite a lot of anxiety today. Earlier in the day she discussed her fears that she will need hospice care soon because her swallowing problems will lead her to soon. She was very upset about any further workup but also was not ready to discharge. We talked for some time and she finally decided she would agree to the Barium swallow and video swallow, unfortunately she got a bloody nose when she got to the Barium swallow and could not complete it. When I saw her again in the afternoon we were able to have a more kayla conversation about her anxiety given that her swallow study showed that she should be able to eat more than she is currently letting herself. She did admit that she is too afraid to eat much. We discussed medication options and she agreed to start an SSRI. I did also discuss her admission with her pcp Tova Solomon for continuity after discharge. Review of Systems All systems reviewed & are unremarkable except as noted in HPI & below Physical Exam 2 Vital Signs (Past 24 Hours): Last Vital Signs Temp 37.1 C 05/03/18 15:08 Pulse 82 05/03/18 15:08 Resp 16 05/03/18 15:08 BP 156/98 H 05/03/18 15:08 Pulse Ox 98 05/03/18 15:08 Physical Exam: General: no distress Eyes: normal inspection, PERLL Respiratory: chest non tender, clear to auscultation, normal breath sounds, no respiratory distress, no accessory muscle use Cardiac: regular rate and rhythm, no rub or gallop, no murmur, no edema, no jvd GI/: active bowel sounds, no abd pain or tenderness, soft, non distended Extremities: normal range of motion, normal strength, non tender Neuro/Psych: alert and oriented x 3, anxious Skin: normal color, dry Results & Data Laboratory Results Abnormal lab results 05/03/18 05/03/18 Range/Units 06:59 06:59 WBC 3.55 L (4.8-10.8) K/uL RDW Std Deviation 46.6 H (36.4-46.3) fL MPV 11.9 H (7.4-10.4) fL Lymph # (Auto) 0.82 L (1.2-3.4) K/uL Chloride 110 H (98-107) mmol/L Glucose 105 H (70-99) mg/dl Calcium 8.4 L (8.5-10.1) mg/dl Albumin 3.2 L (3.4-5.0) gm/dl
[2018-05-03] MEDS: FLUOXETINE HCL 10 MG CAP PO SCH (18:26)
[2018-05-03] MEDS: CHOLECALCIFEROL 1,000 UNITS TAB PO SCH (18:27)
[2018-05-03] MEDS: LANSOPRAZOLE 30 MG SOLTAB PO SCH (18:27)
[2018-05-03] MEDS: SIMVASTATIN 10 MG TAB PO SCH (21:20)
[2018-05-03 23:00] LABS: Cdiff Antigen Positive; Cdiff Toxin A+B Negative (Negative)
[2018-05-04 03:31] VITALS: TEMP 98.4
[2018-05-04] MEDS ORDERED: ALUMINUM/MAGNESIUM SUSP 18 ML, LIDOCAINE HCL VISCOUS 2% 6 ML, BARCODE IDENTIFIER 1 EA PO ONE (03:55)
[2018-05-04] MEDS: TRAMADOL HCL 50 MG TABLET PO PRN (06:29)
[2018-05-04 07:41] LABS: Eosinophils # (auto) 0.03 K/uL (0-0.5); Eosinophils % (auto) 0.9 %; Hematocrit (blood only) 40.2 % (37-47); Lymphocytes # (auto) 0.92 K/uL (1.2-3.4); Mean Corpuscular Hgb Conc 32.3 g/dL (32-36); Mean Corpuscular Volume 93.1 fL (80-100); Mean Platelet Volume 11.8 fL (7.4-10.4); Monocytes # (auto) 0.33 K/uL (0.11-0.59); Monocytes % (auto) 10.1 %; Platelet Count 135 K/uL (130-400); RDW Coefficient of Variation 13.3 % (11.5-14.5); RDW Standard Deviation 45.4 fL (36.4-46.3); Red Blood Count 4.32 M/uL (4.2-5.4); White Blood Count 3.28 K/uL (4.8-10.8)
[2018-05-04 07:51] LABS: Prothrombin Time 9.9 Seconds (9.0-12.0)
[2018-05-04 08:27] LABS: Albumin Level 3.1 gm/dl (3.4-5.0); BUN Creatinine Ratio 19.6 (10-20); Calcium 8.5 mg/dl (8.5-10.1); Creatinine Clr Calc Pharmacy 50.9 ml/min; Est GFR (African American) 90.6; Est GFR (Non-African American) 78.1; Potassium 3.5 mmol/L (3.5-5.1)
[2018-05-04 08:30] LABS: Albumin Globulin Ratio 0.9 (0.9-2); Bilirubin,Total 0.6 mg/dl (0.2-1); Globulin 3.4 gm/dl (2.5-4.0); Total Protein 6.5 gm/dl (6.4-8.2)
[2018-05-04] MEDS: POLYETHYLENE (MIRALAX) 17 GM PACK PO SCH (10:00)
[2018-05-04] MEDS: LANSOPRAZOLE 30 MG SOLTAB PO SCH (10:00)
[2018-05-04] MEDS: CHOLECALCIFEROL 1,000 UNITS TAB PO SCH (10:00)
[2018-05-04] MEDS: FLUOXETINE HCL 10 MG CAP PO SCH (10:00)
[2018-05-04] MEDS ORDERED: RANITIDINE HCL SYRUP 150 MG/10 ML UDC PO ONE (10:30)
[2018-05-04] MEDS: RASPBERRY SYRUP 5 ML UDP PO SCH ×2 (11:41→13:19)
[2018-05-04] MEDS ORDERED: VANCOMYCIN HCL 125 MG/2.5ML SOLN PO SCH (12:00)
[2018-05-04 14:43] VITALS: BP 142/95; PULSE 69; O2SAT 97
--- NOTE | 2018-05-04 14:54 | Discharge Summary ---
Date of Service May 04, 2018 Admission HPI Per Admitting Provider The patient is a 77-year-old female, with a past medical history including significant GI issues with food impaction in her esophagus, globus pharyngeus, esophageal dysmotility, dysphagia and a chronic cough, who presents to the emergency department with upper sternal chest discomfort unlike any discomfort that she had before. Upon arrival in the emergency department she had a usual workup, and was also given a nitroglycerin sublingual, which she reports helped her symptoms. Principal Diagnosis Esophageal dysmotility Discharge Exam Constitutional WD/WN, vitals as above Respiratory normal respiratory effort, lungs clear to auscultation Cardiovascular Heart Sounds: no murmur Extremities: no edema Irregular rate Gastrointestinal (Abdomen) Inspection/Auscultation: abdomen normal to inspection; abdomen not distended Percussion/Palpation: abdomen soft tender abdomen to palpation Musculoskeletal no cyanosis or clubbing, extremities motor strength 5/5 Skin no rashes, warm and dry Neurologic moves all extremities and awake Psychiatric Orientation: alert and oriented x 3 Affect: + anxious affect Mood: + anxious mood Discharge Data Allergies Allergy/AdvReac Type Severity Reaction Status Date / Time Bactrim Allergy Severe angioedema Verified 11/07/17 08:26 cephalexin Allergy Severe THROAT Verified 03/30/18 16:10 SWELLING Sulfa (Sulfonamide Allergy Severe ANGIOEDEMA Verified 03/30/18 16:10 Antibiotics) sulfamethoxazole Allergy Severe angioedema Verified 03/30/18 16:10 trimethoprim Allergy Severe angioedema Verified 03/30/18 16:10 levofloxacin Allergy Intermediate HANDS Verified 03/30/18 16:10 SWELLING nitrofurantoin Allergy Intermediate chest Verified 03/30/18 16:10 pain, h/a, sore throat, diarrhea. Quinolones Allergy Mild HAND Verified 03/30/18 16:10 SWELLED UP codeine AdvReac Mild SEVERE Verified 03/30/18 16:10 CONSTIPATION FIBERGLASS Allergy Intermediate HIVES Uncoded 03/30/18 16:10 Consultations 05/02/18 02:56 ED Decision to Admit Stat 05/02/18 04:35 Consult Case Management - Discharge Planning Routine Ordered Studies 05/03/18 14:00 FL barium swallow Routine Hospital Course (1) Substernal chest pain: - troponins negative x 3 - echo showing: EF 55-60%, no WMA, Type I DD, left ventricular hypertrophy, mild left atrial dilation, mild right ventricle dilation, mild mitral regurgitation - more suspicious of esophageal source of pain - unable to complete barium swallow, video swallow showing esophageal dysmotility - speech recommending slippery diet (2) Anxiety: Long discussion about patient's anxiety and possible interventions - will start fluoxetine 10 mg as well as prn vistaril TID. Patient will need psych follow up going forward. (3) C. difficile diarrhea: 125 mg po vancomycin qid x 10 days - first time with C.diff infection. Nursing did provide the patient with a Cdiff information printout (4) Globus pharyngeus: Globus pharyngeus/history of food impaction esophagus/acid reflux/ esophageal dysmotility/dysphagia-- As above Continue omeprazole/pantoprazole daily. (5) Esophageal dysmotility: slippery diet recommended by speech. Patient has met with the information technology data analyst to discuss diet options and has take home printouts to help her select foods. (6) Dysphagia: See above (7) Cough: See above (8) Food impaction of esophagus: See above (9) DVT prophylaxis: heparin subq discontinued as patient refuses further anticoagulation following epistaxis which has resolved Total Time Total Time Spent Total Time Spent (In Minutes): greater than 30 minutes Total Time Includes: Examination of the Patient, Discharge Planning, Medication Reconciliation and Communication With Other Providers Discharge Plan Discharge Items Patient Disposition: Home - Home Health Services Reason For Visit: CHEST PAIN Discharge Diagnosis: Esophageal dysmotility Discharge Goals: Decrease discomfort, Diagnostic testing and Improve disease control Activity: Resume your previous activity Non-emergency contact: Primary Care Provider Call non-emergency contact if: you have any medication questions, your symptoms worsen, your pain is not controlled, your pain is worsening and your pain is unusual for you Follow-up/Referrals: Tova Solomon PA-C [Primary Care Provider] - 05/07/18 11:00 am Diet: Full liquid Addtl Provider Instructions: Home health will contact you to set up their first appointment. They should evaluate and treat you for physical and occupational therapy. Please complete your entire antibiotic regimen which is metronidazole every 8 hours. Please disregard the vancomycin due to cost and inability to crush. Metronidazole can be crushed to help you swallow it. Ranitidine has been added to help with your acid reflux. You may want to start a probiotic to help prevent C diff infections in the future You will go home with fluoxetine (Prozac) for your anxiety. Prescriptions: New fluoxetine 10 mg Capsule 10 mg PO QAM 30 Days Qty: 30 RF: 0 vancomycin 125 mg/2.5 mL syringe 125 mg PO Q6H 10 Days Qty: 100 RF: 0 ranitidine HCl 15 mg/mL syrup 150 mg PO BID Qty: 600 RF: 0 metronidazole 500 mg tablet 500 mg PO Q8H 10 Days Qty: 30 RF: 0 Continue polyethylene glycol 3350 [Miralax] 17 gram Powder In Packet 3 tsp PO DAILY RF: 0 omeprazole magnesium [Prilosec] 2.5 mg Susp,Delayed Release For Recon 10 mg PO DAILY RF: 0 simvastatin 10 mg Tablet 10 mg PO HS RF: 0 tramadol 50 mg Tablet 25 mg PO QID PRN (Reason: Pain) RF: 0 ondansetron 4 mg Tablet,Disintegrating 4 mg PO TID PRN (Reason: Nausea) RF: 0 acetaminophen 500 mg/15 mL Liquid 500 - 1,000 mg PO Q6 PRN (Reason: Fever Or Pain) RF: 0 cholecalciferol (vitamin D3) [Vitamin D3] 2,000 unit Capsule 2,000 unit PO QAM RF: 0 amino acids-whey prot conc,iso [Whey Protein] 26 gram-150 kcal/39 gram Powder 1 dose PO DAILY RF: 0 food supplemt, lactose-reduced [Boost High Protein] 0.06 gram- 1 kcal/mL Liquid 1 can PO TID RF: 0 Stand-Alone Forms: Call Back Authorization, [facility]/Other Patient Handouts: Fluoxetine Hydrochloride Oral tablet [Depression /Mood Disorders] Discharge Orders: Discharge Order (Routine); Ordered 05/04/18 Ordered By: Belinda Varela Admission Data Admit Date/Time: 05/02/18 03:11 Attending Provider: Smith Sawant Admit Provider: Romeo Gamble Primary Care Provider: Tova Solomon Other Providers: Romeo Gamble Service: Medical Other Interventions: Discharge Summary Assessment (RN) Last Done: 05/04/18 14:41
[2018-05-04] MEDS ORDERED: RANITIDINE HCL SYRUP 150 MG/10 ML UDC PO SCH (21:00)
== END 2018-05-04 16:15 | disposition home health service (06) ==
LOC: 2S 00:18 → ED 00:18 → SUATTDRO 03:11 → 2S 03:44 → 4E 16:50